=== PATIENT | female | born 1960 | race Caucasian/White ===

== ENCOUNTER → 2017-05-16 15:02 | Outpatient (CLI) | payer MEDICARE, MEDICAID, SELFPAY ==
--- NOTE | 2017-05-16 15:03 | XR_ITS ---
XR DEXA axial skeleton HISTORY: ITS.REASON: Menopausal ORDERING PHYSICIAN: Daniel Felton MD PATIENT AGE: 57 years COMPARISON: None FINDINGS: The BMD measured at the Right femoral neck is 1.166 g/cm squared with a T score of 0.9. This is considered Normal according to the World Health Organization criteria. Fracture risk is low. L1-L4 lumbar spine density has a T score of 3.1 which is normal. IMPRESSION: Normal bone density. Recommend follow-up exam April 2019
--- NOTE | 2017-05-16 15:03 | MM_ITS ---
MM Dig screening mamm BI w/CAD CAD Screening COMPARISON: Analog mammograms 01/28/2008 INDICATION: There is a history of breast cancer in patient's sister diagnosed in her 60s TECHNIQUE: Standard CC and MLO images were obtained. R2 CAD reviewed. FINDINGS: The breasts are composed primarily of fat with very minimal scattered fibroglandular densities in each breast. There is a tiny benign-appearing nodular density left breast. There is no suspicious lesion and no suspicious microcalcifications. IMPRESSION: Fatty type breast parenchyma with no suspicious lesion seen BI-RADS Category: 2 Benign Finding() RECOMMENDED FOLLOW-UP: 1YR - 1 YEAR FOLLOW-UP (A letter has been sent to the patient regarding results of the study.)
== END ==
PROVIDERS: Family Provider Family Medicine; PCP Family Medicine; Visit Provider Obstetrics & Gynecology
DX: N95.1 Menopausal and female climacteric states (principal); Z78.0 Asymptomatic menopausal state; Z13.820 Encounter for screening for osteoporosis; Z12.31 Encounter for screening mammogram for malignant neoplasm of breast
CPT/HCPCS: 77067; 77080

== ENCOUNTER 2017-07-08 16:46 | Emergency (ER) | payer MEDICARE, MEDICAID, SELFPAY ==
[2017-07-08 16:47] VITALS: BP 178/96; PULSE 100; RESP 20; TEMP 36.7; O2SAT 98; BMI 45.8
--- NOTE | 2017-07-08 16:57 | XR_ITS ---
XR elbow RT 2V HISTORY: ITS.REASON: Pain ORDERING PHYSICIAN: Stacie Earl MD PATIENT AGE: 57 years COMPARISON: None FINDINGS no fracture or dislocation. Mild hypertrophic changes are present at both the lateral and medial epicondyles. Mild hypertrophic changes also present at the coronoid process. No lytic or blastic change. The joint spaces well-preserved. No displaced fat pad. IMPRESSION: Mild degenerative hypertrophic changes, no acute finding
--- NOTE | 2017-07-08 17:24 | HMH.EDGENADL ---
ED Disposition Clinical Impression: Bicipital tendinitis Disposition: Home, Self-Care Condition on Discharge: Fair Additional Instructions: 1- continue to use the elbow brae. 2- added mobic. 3- see Dr Ewing. 4- followmup with pcp in AM 5- return if needed Prescriptions: Meloxicam [Mobic 7.5mg Tab] 7.5 mg PO BID #30 tab Referrals: Brien Hough MD [Staff Physician] - - Critical Care Critical Care Time: No Attestation: On , the high probability of a clinically significant, sudden or life threatening deterioration of the following system(s) required my full and direct attention, intervention and personal management. The time I documented below is in addition to time spent performing reported procedures but includes the following listed in this critical care notation. Medical Decision Making - Ander Inquiry Pt receiving controlled substance: No Ander was queried for this patient: No Vital Signs: 07/08/17 16:47 Temperature 98.1 F Temperature Source Oral Pulse Rate [Left Radial] 100 H Respiratory Rate 20 Blood Pressure [Left Arm] 178/96 Blood Pressure Mean [Left Arm] 123 Blood Pressure Source [Left Arm] Automatic Cuff Blood Pressure Position [Left Arm] Sitting 02 Sat by Pulse Oximetry 98 Orders (Tests/Meds): ORDERS Category Date Time Status XR elbow RT 2V Stat Exams 07/08/17 16:57 Taken General Adult HPI - General Chief complaint: PAIN Stated complaint: R elbow pain Time Seen by Provider: 07/08/17 17:00 Mode of Arrival: Ambulatory Limitations: No Limitations Description of Symptoms (Recalled from ER Triage Doc. 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 - History of Present Illness HPI narrative: 57 years old white female who is on disability due to arthritis. Since January 2017 , she has been experiencing right elbow pain for the past 5 months, it is worse with activity better with using an elbow brace. She uses occasionally Tylenol with relief. The pain occasionally radiates down to the wrist. She has no numbness no tingling no weakness no neck pain. - Related Data Home Medications Medication Instructions Recorded Confirmed oxybutynin chloride ER 10 mg 10 mg PO QDAY 04/27/17 tablet,extended release 24 hr diltiazem CD 240 mg PO 30 Days #30 05/21/17 capsule,extended release 24 hr Previous Rx's Medication Instructions Recorded Meloxicam [Mobic 7.5mg Tab] 7.5 mg PO BID #30 tab 07/08/17 Allergies Allergy/AdvReac Type Severity Reaction Status Date / Time No Known Allergies Allergy Verified 06/28/17 14:42 [facility] History I have reviewed the patient's past medical history: Yes 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: Reports:: Gastroesophageal Reflux Disease(GERD), Hypertension Denies:: Diabetes Mellitus Type 1, Diabetes Mellitus Type 2 Laterality Cases: Left: Total Hip Replacement, Bilateral: Carpal Tunnel Release Other Surgeries: Yes: Hysterectomy-Total, Other - Social History Smoking Status: Never smoker Alcohol Intake: former Alcohol Intake Frequency:: holidays/special occasions only Substance Use Type: denies use - Psychiatric History Expresses thoughts of harming self/others: None Suicide Plan Description: No Plan Family Hx:: Non-contributory ROS Obtained: Yes All systems reviewed & no additional complaints Physical Exam - General General appearance: alert, in no apparent distress - Head Head exam: atraumatic, normocephalic, normal inspection - Eye Eye exam: Present: normal appearance, PERRL, EOMI - ENT ENT exam: Present: normal exam, normal oropharynx, mucous membranes moist, TM's normal bilaterally, normal external ear exam - Neck Neck exam: Present: normal inspection, full ROM, trachea midline. Absent: meningismus, lymphadenopathy - Chest Chest inspection: Present: normal inspection, symmetric chest wall rise. Absent: tender
--- NOTE | 2017-07-08 17:28 | ED_ITS ---
ED Disposition Clinical Impression: Bicipital tendinitis Disposition: Home, Self-Care Condition on Discharge: Fair Additional Instructions: 1- continue to use the elbow brae. 2- added mobic. 3- see Dr Ewing. 4- followmup with pcp in AM 5- return if needed Prescriptions: Meloxicam [Mobic 7.5mg Tab] 7.5 mg PO BID #30 tab Referrals: Brien Hough MD [Staff Physician] - - Critical Care Critical Care Time: No Attestation: On , the high probability of a clinically significant, sudden or life threatening deterioration of the following system(s) required my full and direct attention, intervention and personal management. The time I documented below is in addition to time spent performing reported procedures but includes the following listed in this critical care notation. Medical Decision Making - Ander Inquiry Pt receiving controlled substance: No Ander was queried for this patient: No Vital Signs: 07/08/17 16:47 Temperature 98.1 F Temperature Source Oral Pulse Rate [Left Radial] 100 H Respiratory Rate 20 Blood Pressure [Left Arm] 178/96 Blood Pressure Mean [Left Arm] 123 Blood Pressure Source [Left Arm] Automatic Cuff Blood Pressure Position [Left Arm] Sitting 02 Sat by Pulse Oximetry 98 Orders (Tests/Meds): ORDERS Category Date Time Status XR elbow RT 2V Stat Exams 07/08/17 16:57 Taken General Adult HPI - General Chief complaint: PAIN Stated complaint: R elbow pain Time Seen by Provider: 07/08/17 17:00 Mode of Arrival: Ambulatory Limitations: No Limitations Description of Symptoms (Recalled from ER Triage Doc. 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 - History of Present Illness HPI narrative: 57 years old white female who is on disability due to arthritis. Since January 2017 , she has been experiencing right elbow pain for the past 5 months, it is worse with activity better with using an elbow brace. She uses occasionally Tylenol with relief. The pain occasionally radiates down to the wrist. She has no numbness no tingling no weakness no neck pain. - Related Data Home Medications Medication Instructions Recorded Confirmed oxybutynin chloride ER 10 mg 10 mg PO QDAY 04/27/17 tablet,extended release 24 hr diltiazem CD 240 mg PO 30 Days #30 05/21/17 capsule,extended release 24 hr Previous Rx's Medication Instructions Recorded Meloxicam [Mobic 7.5mg Tab] 7.5 mg PO BID #30 tab 07/08/17 Allergies Allergy/AdvReac Type Severity Reaction Status Date / Time No Known Allergies Allergy Verified 06/28/17 14:42 [facility] History I have reviewed the patient's past medical history: Yes 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: Reports:: Gastroesophageal Reflux Disease(GERD), Hypertension Denies:: Diabetes Mellitus Type 1, Diabetes Mellitus Type 2 Laterality Cases: Left: Total Hip Replacement, Bilateral: Carpal Tunnel Release Other Surgeries: Yes: Hysterectomy-Total, Other - Social History Smoking Status: Never smoker Alcohol Intake: former Alcohol Intake Frequency:: holidays/special occasions only Substance Use Type: denies use - Psychiatric History Expresses thoughts of harming self/others
[2017-07-08 18:12] VITALS: BP 182/92; PULSE 87; RESP 18; TEMP 36.9
== END 2017-07-08 18:13 | disposition home or self-care (01) ==
PROVIDERS: Emergency Provider Emergency Medicine; Family Provider Family Medicine; PCP Family Medicine
DX: M75.20 Bicipital tendinitis, unspecified shoulder (principal)
CPT/HCPCS: 73070; 99282

== ENCOUNTER → 2019-03-21 08:48 | Outpatient (CLI) | payer MEDICARE, MEDICAID, SELFPAY ==
--- NOTE | 2019-03-21 08:51 | CA_ITS ---
APPROVED REPORT EXAM: Comprehensive 2D, Doppler, and color-flow Echocardiogram Experimental Worker: Sirisha Lyons CRT Ht: 5 ft 9 in Wt: 344lbs BSA: 2.60 BP: 131/81 mmHg Indications: cp, dm, sob, palp, obesity, cp, gerd 2D Dimensions LVOT 1.68 cm (M/F) 1.5-2.5 M-Mode Dimensions RVDd 1.88 cm (0.9-2.6) LVDd 4.81 cm (3.5-5.7) LVDs 2.12 cm (3.5-5.7) IVSd 1.82 cm (0.6-1.1) PWd 1.14 cm (0.6-1.1) EF (Teich) 86.30% FS 55.90% EDV (Teich) 108.00 mL ESV (Teich) 14.80 mL LV Diastology E/A Ratio 1.20 Mitral Valve MV A Velocity 92.00 (40-130 cm/s) Left Ventricle Left atrium is normal size, left ventricle is normal size, there is no concentric left ventricular hypertrophy, visually estimated ejection fraction 55% with no regional wall motion abnormality, endocardial surfaces are very poorly visualized, repeat a study with Definity contrast is recommended. Diastolic parameters are inconclusive. Right Ventricle Right atrium and right ventricular normal size and contractility. Aortic Valve Aortic valve is minimally thickened and fibrosed. There is no aortic stenosis aortic insufficiency. Mitral Valve Mitral valve is grossly normal, there is mild mitral regurgitation. Tricuspid Valve Tricuspid valve is grossly normal, there is mild tricuspid regurgitation. Pulmonic Valve Pulmonic valve is poorly visualized. Great Vessels Aortic root is normal size. Pericardium No significant pericardial effusion noted. Conclusion 1. Normal left ventricular size, preserved left ventricular systolic function, visually estimated ejection fraction 55% with no regional wall motion abnormality, diastolic parameters are inconclusive. Endocardial surfaces are poorly visualized, repeat study with Definity contrast is recommended. 2. Mild mitral and tricuspid regurgitation. 3. No significant pericardial effusion noted. Electronically signed by : Tyrese Dean, 03/21/2019 14:19:12
== END ==
PROVIDERS: PCP Family Medicine; Visit Provider Family Medicine
DX: R06.09 Other forms of dyspnea (principal)
CPT/HCPCS: 93306

== ENCOUNTER 2019-09-19 17:55 | Emergency (ER) | payer MEDICARE, MEDICAID, SELFPAY ==
[2019-09-19 18:12] VITALS: BP 143/82; PULSE 89; RESP 20; TEMP 37.1; O2SAT 96; BMI 51.2
--- NOTE | 2019-09-19 18:19 | HMH.EDUTC ---
[facility] [place] Clinical Impression: Sinusitis nasal Qualifiers: Sinusitis location: unspecified location Chronicity: acute Recurrence: non-recurrent Qualified Code(s): J01.90 - Acute sinusitis, unspecified Otitis media Qualifiers: Otitis media type: suppurative Chronicity: acute Laterality: bilateral Recurrence: non-recurrent Spontaneous tympanic membrane rupture: without spontaneous rupture Qualified Code(s): H66.003 - Acute suppurative otitis media without spontaneous rupture of ear drum, bilateral Disposition: Home, Self-Care Condition on Discharge: Good Instructions: Sinusitis, DI for Sinusitis Additional Instructions: Drink plenty of fluids. Take tylenol or ibuprofen for pain or fever. Take the medications as directed. Follow up with your regular doctor. GO TO THE ER FOR ANY WORSENING SYMPTOMS Prescriptions: predniSONE [Deltasone 10mg tablet] 10 mg PO BID 4 Days #8 tab Transmission Status: Received by [id number] Azithromycin [Z-Mckinley 250mg Tab*] 250 mg PO UD DOSE PK #6 tab Transmission Status: [id number] Referrals: Deep Chavez MD [Primary Care Provider] - Time of Disposition: 18:32 Medical Decision Making - Medical Records Medical records reviewed: No: I reviewed the patient's medical records. - Ander Inquiry Pt receiving controlled substance: No Vital Signs: 09/19/19 18:12 09/19/19 18:32 Temperature 98.7 F 98.7 F Temperature Source Oral Pulse Rate 89 Pulse Rate [Left Brachial] 89 Respiratory Rate 20 20 Blood Pressure 143/82 H Blood Pressure [Left Arm] 143/82 H Blood Pressure Mean [Left Arm] 102 Blood Pressure Source [Left Arm] Automatic Cuff Blood Pressure Position [Left Arm] Sitting 02 Sat by Pulse Oximetry 96 Oxygen Delivery Method Room Air [facility] [place]PI - General Stated complaint: Pain inside upper nose Time Seen by Provider: 09/19/19 18:19 Mode of Arrival: Ambulatory Source of Information: Patient Limitations: No Limitations Description of Symptoms (Recalled from Triage Doc. by RN): PATIENT STATES SHE HAS BEEN HAVING TENDERNESS IN THE UPPER PART OF HER NASAL CAVITY X 1 MONTH. APPROX 4 DAYS AGO SHE STARTED NOTICING TEETH SENSITIVITY AND BAD BREATH WELL. DENIES FEVER OR ANY OTHER SYMPTOMS HEENT Symptoms (Recalled from RN notes): Yes Resp Symptoms (Recalled from RN notes): No Skin Symptoms (Recalled from RN notes): No MS Symptoms (Recalled from RN notes): No Functional Status (Recalled from RN notes): WNL - History of Present Illness Provider Complaint: She states that for the past 2 weeks or so she has had pressure and congestion in her nasal passages. She is now having moderate to severe sinus pressure of her upper nose, kind of between her eyes. She is also having bilateral ear pain and pressure. She denies any cough or or fever. - Related Data Home Medications Medication Instructions Recorded Confirmed oxybutynin chloride 10 mg 10 mg PO QDAY 04/27/17 06/08/19 tablet,extended release 24 hr omeprazole 40 mg capsule,delayed 40 mg PO ONCE 07/26/17 06/08/19 release Atorvastatin Calcium [Atorvastatin 20 mg PO HS 07/19/18 06/08/19 20mg Tab] Linaclotide [Linzess] 72 mg PO DAILY 07/19/18 06/08/19 rivaroxaban 2.5 mg tablet 2.5 mg PO BID 06/08/19 06/08/19 Previous Rx's Medication Instructions Recorded predniSONE [Deltasone 10mg tablet] 10 mg PO BID 3 Days #6 tab 12/29/18 Azithromycin [Z-Mckinley 250mg Tab*] 250 mg PO UD DOSE PK #6 tab 09/19/19 predniSONE [Deltasone 10mg tablet] 10 mg PO BID 4 Days #8 tab 09/19/19 Allergies Allergy/AdvReac Type Severity Reaction Status Date / Time No Known Allergies Allergy Verified 06/08/19 11:04 - Worker's Comp Is this a Worker's Comp case?: No [facility] History - Hepatitis A Screen Drug use history?: No High risk sexual behaviors?: No History of sexually transmitted infection?: No Currently employed?: No Childcare worker?: No Do you have indoor plumbing?: Yes
[2019-09-19 18:32] VITALS: BP 143/82; PULSE 89; RESP 20; TEMP 37.1; O2SAT 96
== END 2019-09-19 18:35 | disposition home or self-care (01) ==
PROVIDERS: Emergency Provider Nurse Practitioner Family; PCP Family Medicine
DX: J01.90 Acute sinusitis, unspecified (principal); H66.003 Acute suppurative otitis media without spontaneous rupture of ear drum, bilateral; K21.9 Gastro-esophageal reflux disease without esophagitis; E78.5 Hyperlipidemia, unspecified; I10 Essential (primary) hypertension; Z96.642 Presence of left artificial hip joint; Z90.49 Acquired absence of other specified parts of digestive tract; Z90.79 Acquired absence of other genital organ(s)
CPT/HCPCS: G0463; 99201

== ENCOUNTER → 2019-12-18 09:51 | Outpatient (POV) | payer MEDICARE, MEDICAID, SELFPAY ==
[2019-12-18 10:46] VITALS: BP 151/88; PULSE 101; RESP 18; TEMP 36.8; O2SAT 94; BMI 50.1
--- NOTE | 2019-12-18 11:21 | HMH.PMCON ---
Assessment and Plan (1) Low back pain Current visit: Yes Status: Chronic Category: Medical Code(s): M54.5 - Low back pain (2) Lumbar radiculopathy Current visit: Yes Status: Chronic Category: Medical Code(s): M54.16 - Radiculopathy, lumbar region (3) Neck pain Current visit: Yes Status: Chronic Category: Medical Code(s): M54.2 - Cervicalgia (4) Bilateral hip pain Current visit: Yes Status: Chronic Category: Medical Code(s): M25.551 - Pain in right hip; M25.552 - Pain in left hip - Assessment and plan all Dx Assessment and Plan for all problems:: Patient does not have any recent imaging. We will schedule her for an open MRI. We will see her back in the clinic after her MRI to discuss a further plan of care. She is not interested in oral medications. Patient has been instructed to contact clinic if she has any concerns before her next appointment. The patient and I specifically discussed risk factors for COVID19. These risks include, but are not limited to age greater than 60, heart or lung disease, diabetes, immunosuppression, and travel. We also discussed NSAIDs may worsen COVID19 infection or symptoms. Patient should not use NSAIDs to treat COVID19 signs or symptoms. Patient was also informed that any type of corticosteroid of any form (oral or injection) will decrease the patient's immune system response and may increase the likelihood of COVID19 infection and symptoms[address] Dr. Garza has reviewed this note and agrees with this plan of care. This note was dictated using voice recognition software and make contain errors or omissions. HPI - Data of Consult Patient: new to practice Consult date: 12/18/19 Requesting Physician: Jasmin Johnson APRN Primary Care Provider: Elsy Curiel - Consult Narrative Reason for consult: Low back pain, intermittent neck pain History of present illness: Ms. Pop is a 59 year old female presents today for consultation for neck pain. During assessment, however, the patient says her low back is worse than her neck pain. Patient says that she has chronic low back pain that is been ongoing for greater than 2 years. She says her pain started to occur shortly after developing clots in bilateral lungs. She is prescribed Xarelto per Dr. Chavez office. She says that she also had a back surgery in 1996 but is unsure what the surgery was. Patient reports her pain to be worse with walking standing and doing dishes. She says she has intermittent neck pain, however, her pain is worse in her low back. She also has pain in bilateral hips. She is unable to take anti-inflammatories due to her anticoagulation therapy. She has had physical therapy for greater than 6 weeks with no relief. Patient has not had any imaging because she is unable to tolerate a closed MRI. She was not aware that she could do an open MRI. She is also tried muscle relaxers with no relief. Patient says oral medications do not help her. She is interested in injective therapy. CC: Jasmin Johnson APRN [facility] History I have reviewed the patient's past medical history: Yes 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: Reports:: Diabetes Mellitus Type 1, Diabetes Mellitus Type 2, Gastroesophageal Reflux Disease(GERD), Hyperlipidemia, Hypertension, Pulmonary Embolism *Have you ever received a pneumonia vaccine?: No *Have you received a flu vaccine this season?: No Other 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: Reports: Other Laterality Cases: Left: Total Hip Replacement, Bilateral: Carpal Tunnel Release Other Surgeries: Yes: Cardiac Catheterization, Cholecystectomy, Colonoscopy, Hysterectomy-Total, Tubal Ligation, Other - *Social History Last grade of school completed: High school graduate Smoking Status: Never smoker Alcohol Intake: never Alcohol Intake Frequency:: holidays/special occasions only Substance Use Type: denies use *Occupational Status:: unemployed Housing: house Household Members: none *Travel in the last 8 weeks: None Family Hx:: U
== END ==
PROVIDERS: PCP Nurse Practitioner; Visit Provider Clinical Nurse Specialist Family Health
DX: M54.5 Low back pain (principal); M54.16 Radiculopathy, lumbar region; M54.2 Cervicalgia; M25.551 Pain in right hip; M25.552 Pain in left hip
CPT/HCPCS: 99202

== ENCOUNTER → 2020-02-02 15:30 | Outpatient (CLI) | payer MEDICARE, MEDICAID, SELFPAY ==
--- NOTE | 2020-02-02 15:34 | XR_ITS ---
PROCEDURE: XR CHEST 2V CLINICAL HISTORY: SOB,HX OF PULMONARY EMBOLUS COMPARISON: CR CXR CHEST(2 VIEWS-NOT PORTABLE) from 02/12/2014 CR CXR CHEST(2 VIEWS-NOT PORTABLE) from 01/12/2015 CR Chest from 09/19/[address] angio chest from 09/19/2018 FINDINGS: The cardiomediastinal silhouette and pulmonary vascularity are within normal limits. The lungs are clear without infiltrates, suspicious nodules, or pleural effusions. There is a calcified left hilar nodes and calcified granuloma left perihilar region. There has been previous anterior cervical fusion. There is mild degenerate changes of the AC joints of both shoulders. There are mild stable degenerate changes midthoracic spine. No acute bony abnormalities. IMPRESSION: No acute findings. Dictated by: Dr. Jaret Mejias MD 02/02/2020 15:50 Dr. Jaret Mejias MD in [place] 02/02/2020 15:50
== END ==
PROVIDERS: PCP Family Medicine; Visit Provider Nurse Practitioner Family
DX: R06.02 Shortness of breath (principal); Z86.711 Personal history of pulmonary embolism
CPT/HCPCS: 71046

== ENCOUNTER → 2020-04-06 15:00 | Outpatient (CLI) | payer MEDICARE, MEDICAID, SELFPAY ==
--- NOTE | 2020-04-06 | XR_ITS ---
PROCEDURE: XR FOOT RT MIN 3V CLINICAL INDICATION: PAIN IN RT FOOT COMPARISON: No exams were available for comparison FINDINGS: No fracture or dislocation. No lytic or blastic change. There is normal mineralization. Mild osteoarthritis of the talonavicular joint and navicular cuneiform joint. There is a small calcaneal spur and there are degenerative changes at the ankle joint. Other findings:None. IMPRESSION: Degenerative changes, no acute finding Dictated by: Dariel Burden MD 04/06/2020 15:42 Dariel Burden MD in [facility] 04/06/2020 15:42
--- NOTE | 2020-04-06 | XR_ITS ---
PROCEDURE: XR FOOT LT MIN 3V CLINICAL INDICATION: LT FOOT PAIN COMPARISON: No exams were available for comparison FINDINGS: No fracture or dislocation. No lytic or blastic change. There is normal mineralization. There are mild osteoarthritic changes of the talonavicular joint and navicular cuneiform joint. There is a small calcaneal spur. Other findings:None. IMPRESSION: Degenerative changes as described above Dictated by: Dariel Burden MD 04/06/2020 15:41 Dariel Burden MD in [facility] 04/06/2020 15:41
== END ==
PROVIDERS: PCP Family Medicine; Visit Provider Nurse Practitioner Family
DX: M79.672 Pain in left foot (principal); M79.671 Pain in right foot
CPT/HCPCS: 73630

== ENCOUNTER → 2020-04-23 13:00 | Outpatient (CLI) | payer MEDICARE, MEDICAID, SELFPAY ==
--- NOTE | 2020-04-23 13:10 | US_ITS ---
APPROVED REPORT Exam Type: Lower Extremity Segmental Pressures Plant Operator/Shift Supervisor: Josie Fernandez RVT Indications Claudication: Bilaterally Rest Pain: Bilaterally Risk Factors Hypertension Hyperlipidemia Pressures/Indices Right Indices Left Indices Brachial 164.00 mmHg Brachial 185.00 mmHg Low Thigh 210.00 mmHg 1.14 Low Thigh 202.00 mmHg 1.09 Calf 206.00 mmHg 1.11 Calf 210.00 mmHg 1.14 Ankle(PT) 151.00 mmHg 0.82 Ankle(PT) 165.00 mmHg 0.89 Ankle(DP) 171.00 mmHg 0.92 Ankle(DP) 168.00 mmHg 0.91 Digit 139.00 mmHg 0.75 Digit 121.00 mmHg 0.65 Findings RT TU:0.82 LT TU:0.89 RT TBI:0.92 LT TBI:0.65 NORMAL PULSES BILATERAL NORMAL WAVEFORMS BILATERAL Conclusion RT TU:0.82 LT TU:0.89 RT TBI:0.92 LT TBI:0.65 NORMAL PULSES BILATERAL NORMAL WAVEFORMS BILATERAL Mild bilateral arterial disease Electronically signed by : Dariel Burden MD 04/26/2020 15:19:31
== END ==
PROVIDERS: PCP Family Medicine; Visit Provider Podiatrist
DX: R09.89 Other specified symptoms and signs involving the circulatory and respiratory systems (principal); R20.9 Unspecified disturbances of skin sensation
CPT/HCPCS: 93923

== ENCOUNTER 2020-10-01 15:46 | Emergency (ER) | payer MEDICARE, MEDICAID, SELFPAY ==
[2020-10-01 15:50] VITALS: BP 157/83; PULSE 100; RESP 20; TEMP 36.8; O2SAT 96; BMI 47.5
--- NOTE | 2020-10-01 16:21 | HMH.EDUTC ---
[facility] [place] Clinical Impression: Gastroenteritis Abdominal pain Qualifiers: Abdominal location: generalized Qualified Code(s): R10.84 - Generalized abdominal pain Disposition: Home, Self-Care Condition on Discharge: Good Instructions: Viral Gastroenteritis, DI for Viral Gastroenteritis -- Adult, DI for Abdominal Pain-Adult Additional Instructions: Drink plenty of fluids. Take tylenol or ibuprofen for pain or fever. Take the medications as directed. Follow up with your regular doctor. GO TO THE ER FOR ANY WORSENING SYMPTOMS Go to the er for any worsening symptoms. Prescriptions: Ondansetron [Zofran 4mg ODT] 4 mg PO Q8HP PRN #20 tab.rapdis PRN Reason: Nausea Transmission Status: Received by [id number] Referrals: Deep Chavez MD [Primary Care Provider] - Time of Disposition: 17:25 Medical Decision Making - Medical Records Medical records reviewed: No: I reviewed the patient's medical records. - Ander Inquiry Pt receiving controlled substance: No Vital Signs: 10/01/20 15:50 10/01/20 17:30 Temperature 98.2 F 98.2 F Temperature Source Oral Pulse Rate 100 H Pulse Rate [Right Brachial] 100 H Respiratory Rate 20 20 Blood Pressure 157/83 H Blood Pressure [Right Arm] 157/83 H Blood Pressure Mean [Right Arm] 107 Blood Pressure Source [Right Arm] Automatic Cuff Blood Pressure Position [Right Arm] Sitting 02 Sat by Pulse Oximetry 96 Oxygen Delivery Method Room Air - Lab Data Lab results reviewed: Yes: I reviewed the patient's lab results. Lab Results 10/01/20 16:45: WBC 8.7, RBC 4.94, Hgb 13.2, Hct 40.5, MCV 82.0, MCH 26.7 L, MCHC 32.6, RDW 15.3, Plt Count 280, MPV 8.6, Neut % (Auto) 67.9, Lymph % (Auto) 23.0, [place] % (Auto) 4.4, Eos % (Auto) 4.2, Baso % (Auto) 0.5, Neut # (Auto) 5.9, Lymph # (Auto) 2.0, [place] # (Auto) 0.4, Eos # (Auto) 0.4, Baso # (Auto) 0.0 10/01/20 16:45: Sodium 142, Potassium 3.9, Chloride 102, Carbon Dioxide 29, Anion Gap 14.9, BUN 19 H, Creatinine 1.10 H, Estimated Creat Clear 58, Estimated GFR 51 L, Est GFR ( Amer) 62, Glucose 118 H, Calcium 9.2, Total Bilirubin 0.7, AST 27, ALT 20, Alkaline Phosphatase 146 H, Total Protein 7.8, Albumin 4.4, Globulin 3.4 H, Albumin/Globulin Ratio 1.3, Amylase 41, Lipase 87 Result diagrams: 10/01/20 16:45 10/01/20 16:45 [facility] [place] - General Stated complaint: abdominal pain Time Seen by Provider: 10/01/20 16:26 - History of Present Illness Provider Complaint: She states that she has had upper abdominal pain for the past 2 days. She has had diarrhea and nausea also. She denies any fever/chills. - Related Data Home Medications Medication Instructions Recorded Confirmed oxybutynin chloride 10 mg 10 mg PO QDAY 04/27/17 07/19/20 tablet,extended release 24 hr omeprazole 40 mg capsule,delayed 40 mg PO ONCE 07/26/17 07/19/20 release Atorvastatin Calcium [Atorvastatin 20 mg PO HS 07/19/18 07/19/20 20mg Tab] hydrochlorothiazide 25 mg tablet 25 mg PO DAILY tab 12/15/19 07/19/20 losartan 100 mg tablet 100 mg PO DAILY tab 12/15/19 07/19/20 xzzuunjm-nebsrne-mpwg-lutein tablet mcg PO DAILY tab 12/15/19 07/19/20 rivaroxaban 20 mg tablet 20 mg PO DAILY tab 12/15/19 07/19/20 umeclidinium 62.5 mcg-vilanterol 1 inh INHALATION DAILY 12/15/19 07/19/20 25 mcg/actuation powdr for inhalation Previous Rx's Medication Instructions Recorded Ondansetron [Zofran 4mg ODT] 4 mg PO Q8HP PRN #20 tab.rapdis 10/01/20 Allergies Allergy/AdvReac Type Severity Reaction Status Date / Time No Known Allergies Allergy Verified 07/19/20 13:12 [facility] History - Hepatitis A Screen Attestation statement:: This patient has been screened for Hepatitis A risk factors. I have reviewed the patient's past medical history: Yes 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: Reports:: Gastroesophageal Reflux Disease(GERD), Hyperlipidemia, Hypertension, Pulmonary Embolism Denies:: Diabetes Mellitus Type 1, Diabetes M
[2020-10-01 16:55] LABS: Basophils % 0.5 % (0.1-2.0); Eosinophils # 0.4 K/mm3 (0.0-0.4); Eosinophils % 4.2 % (0.1-12.0); Hematocrit 40.5 % (37.0-47.0); Hemoglobin 13.2 g/dL (12.2-16.2); Mean Corpuscular HGB Conc 32.6 g/dL (31.8-35.4); Mean Corpuscular Hemoglobin 26.7 pg (27.0-31.2); Mean Platelet Volume 8.6 fl (7.4-10.4); Monocytes # 0.4 K/mm3 (0.1-1.0); Monocytes % 4.4 % (1.7-9.3); Neutrophils # 5.9 K/mm3 (1.8-7.8); Neutrophils % 67.9 % (37.0-80.0); Platelet Count 280 K/mm3 (142-424); Red Blood Count 4.94 M/mm3 (4.20-5.40); Red Cell Distribution Width 15.3 % (11.5-17.5); White Blood Count 8.7 K/mm3 (4.8-10.8)
[2020-10-01 17:07] LABS: Chloride 102 mmol/L (98-107); Potassium 3.9 mmoL/L (3.5-5.1); Sodium 142 mmol/L (136-145)
[2020-10-01 17:10] LABS: Alanine Aminotransferase 20 U/L (12-78); Alkaline Phosphatase 146 U/L (38-126); Amylase 41 U/L (30-110); Anion Gap 14.9 mEq/L (5-15); Aspartate Amino Transferase 27 U/L (14-36); Bilirubin,Total 0.7 mg/dl (0.2-1.3); Blood Urea Nitrogen 19 mg/dl (7-17); Calcium 9.2 mg/dl (8.4-10.2); Carbon Dioxide 29 mmol/L (22.0-30.0); Creatinine Clearance Estimated 58 mL/min (50-200); Estimated Glomerular Filt Rate 51 ml/min (>60); GFR (African American) 62 ML/MIN (>60); Glucose 118 mg/dl (74-100)
[2020-10-01 17:11] LABS: Albumin Level 4.4 g/dl (3.5-5.0); Albumin/Globulin Ratio 1.3 (1.1-1.8); Globulin 3.4 g/dL (1.3-3.2); Lipase 87 U/L (23-300); Total Protein,Serum 7.8 g/dl (6.3-8.2)
[2020-10-01 17:30] VITALS: BP 157/83; PULSE 100; RESP 20; TEMP 36.8; O2SAT 96
== END 2020-10-01 17:35 | disposition home or self-care (01) ==
LOC: UTC 16:35
PROVIDERS: Emergency Provider Nurse Practitioner Family; PCP Family Medicine
DX: K52.9 Noninfective gastroenteritis and colitis, unspecified (principal); I10 Essential (primary) hypertension; E78.5 Hyperlipidemia, unspecified; K21.9 Gastro-esophageal reflux disease without esophagitis; Z96.642 Presence of left artificial hip joint; Z79.899 Other long term (current) drug therapy
CPT/HCPCS: G0463; 80053; 82150; 83690; 85025; 99202

== ENCOUNTER 2020-12-23 20:20 | Observation (INO) | payer MEDICARE, MEDICAID, SELFPAY ==
[2020-12-23 21:33] VITALS: BMI 49.6
--- NOTE | 2020-12-23 21:38 | XR_ITS ---
PROCEDURE INFORMATION: Exam: XR Chest Exam date and time: 12/23/2020 9:38 PM Age: 60 years old Clinical indication: Shortness of breath and other: Nausea, vomiting; Patient HX: Nausea and vomiting; Additional info: SOA TECHNIQUE: Imaging protocol: XR of the chest. Views: 2 views. COMPARISON: CR XR CHEST 2V 02/02/2020 3:36 PM FINDINGS: Lungs: There is an area of increased density noted within the left lower lobe, with indistinctness of portions of the left hemidiaphragm and left lateral costophrenic angle, compatible with an area of consolidation in this location. Right lung field is clear. Pleural spaces: The possibility of a small effusion or atelectasis along the left lung base is considered. Heart/Mediastinum: Borderline cardiomegaly. No evidence of pulmonary vascular congestion. The superior mediastinum is not widened. Bones/joints: Changes of low cervical fusion identified. There are degenerative changes noted within the thoracic spine IMPRESSION: 1. There is an area of infiltration identified within the left lower lobe. 2. Blunting of the left lateral costophrenic angle with suggests the presence of a small parapneumonic effusion or atelectasis in this location. 3. Borderline cardiomegaly without evidence of pulmonary vascular congestion. 4. Changes of low cervical fusion identified.
[2020-12-23 21:39] VITALS: BP 152/85; PULSE 120; RESP 19; TEMP 37.3; O2SAT 92; BMI 49.6
--- NOTE | 2020-12-23 22:03 | HMH.EDNVD ---
ED Disposition Clinical Impression: SIRS (systemic inflammatory response syndrome) CAP (community acquired pneumonia) Qualifiers: Laterality: left Lung location: lower lobe of lung Qualified Code(s): J18.9 - Pneumonia, unspecified organism Obesity Qualifiers: Obesity type: due to excess calories Obesity classification: adult class 3 (BMI >= 40) Serious obesity comorbidity presence: with serious comorbidity Body mass index: BMI 45.0-49.9 Qualified Code(s): E66.01 - Morbid (severe) obesity due to excess calories; Z68.42 - Body mass index [BMI] 45.0-49.9, adult Disposition: Admitted as Observation Condition on Discharge: Good Instructions: DI for Diarrhea and Traveler's Diarrhea -- Adult, DI for Diarrhea and Traveler's Diarrhea -- Child, DI for Nausea -- Adult, DI for Nausea -- Child Referrals: Deep Chavez MD [Primary Care Provider] - - Critical Care Critical Care Time: No Attestation: On 12/23/20, the high probability of a clinically significant, sudden or life threatening deterioration of the following system(s) required my full and direct attention, intervention and personal management. The time I documented below is in addition to time spent performing reported procedures but includes the following listed in this critical care notation. Medical Decision Making - Medical Records Medical records reviewed: Yes: I reviewed the patient's medical records. - Ander Inquiry Pt receiving controlled substance: No Vital Signs: 12/23/20 21:39 12/23/20 23:05 12/23/20 23:31 Temperature 99.1 F Temperature Source Oral Pulse Rate 106 H 106 H Pulse Rate [Right] 120 H Respiratory Rate 19 Blood Pressure 150/60 H 142/70 H Blood Pressure [Right Arm] 152/85 H Blood Pressure Mean [Right Arm] 107 Blood Pressure Source [Right Arm] Automatic Cuff 02 Sat by Pulse Oximetry 92 L 92 L 92 L Oxygen Delivery Method Room Air - Lab Data Lab results reviewed: Yes: I reviewed the patient's lab results. Lab Results 12/23/20 21:20: SARS-CoV-2 (PCR) Not detected, Influenza A Untype (PCR) Not detected, Influenza Type B (PCR) Not detected 12/23/20 22:00: WBC 26.5 H*, RBC 4.90, Hgb 13.2, Hct 42.0, MCV 85.7, MCH 27.0, MCHC 31.5 L, RDW 14.6, Plt Count 282, MPV 9.0, Neut % (Auto) 92.4 H, Lymph % (Auto) 3.9 L, [place] % (Auto) 3.1, Eos % (Auto) 0.3, Baso % (Auto) 0.3, Neut # (Auto) 24.5 H, Lymph # (Auto) 1.0, [place] # (Auto) 0.8, Eos # (Auto) 0.1, Baso # (Auto) 0.1, Total Counted 100, Neutrophils % (Manual) 92 H, Lymphocytes % (Manual) 7 L, Monocytes % (Manual) 1 L, Platelet Estimate Normal, Hypochromasia 1+ 12/23/20 22:00: Sodium 135 L, Potassium 4.2, Chloride 100, Carbon Dioxide 25, Anion Gap 14.2, BUN 16, Creatinine 1.00, Estimated Creat Clear 64, Estimated GFR 57 L, Est GFR ( Amer) 69, Glucose 143 H, Calcium 9.0, Magnesium 1.6, Total Bilirubin 1.1, AST 27, ALT 19, Alkaline Phosphatase 147 H, Troponin I 0.04 H, C-Reactive Protein 173.2 H, NT-Pro-B Natriuret Pep 270 H, Total Protein 7.6, Albumin 3.9, Globulin 3.7 H, Albumin/Globulin Ratio 1.1 12/23/20 22:00: ESR 54 H 12/23/20 22:00: Lactate 1.2 12/23/20 22:00: Procalcitonin 1.87 12/23/20 22:30: Urine Color Yellow, Urine Appearance Sl cloudy, Urine pH 6.0, Ur Specific [place] 1.025, Urine Protein 1+, Urine Glucose (UA) Negative, Urine Ketones Trace, Urine Blood Trace-i, Urine Nitrate Negative, Urine Bilirubin 1+ A, Urine Urobilinogen 1.0, Ur Leukocyte Esterase Negative, Urine RBC Occasional, Urine WBC Occasional, Ur Squamous Epith Cells Occasional, Urine Bacteria Trace 12/24/20 00:47: Troponin I 0.04 H Result diagrams: 12/23/20 22:00 12/23/20 22:00 Orders (Tests/Meds): ED MEDICATIONS Generic Name Dose Route Start Last Admin Trade Name Freq PRN Reason Stop Dose Admin Sodium Chloride 1,000 mls @ 999 mls/hr 12/23/20 22:15 12/23/20 22:10 Sod Chlor 0.9% 1000ml Bag IV 12/23/20 23:15 999 mls/hr .Q1H1M STACEY Administration Azithromycin 500 mg/ Sodium 250 mls @ 250 mls/
[2020-12-23 22:41] LABS: Coronavirus 19, PCR Not Detected (NotDetected); Influenza A, PCR Not Detected (NotDetected); Influenza B, PCR Not Detected (NotDetected)
[2020-12-23 22:42] LABS: Chloride 100 mmol/L (98-107)
[2020-12-23 22:43] LABS: Potassium 4.2 mmoL/L (3.5-5.1); Sodium 135 mmol/L (136-145)
[2020-12-23 22:45] LABS: Alanine Aminotransferase 19 U/L (12-78); Alkaline Phosphatase 147 U/L (38-126); Anion Gap 14.2 mEq/L (5-15); Aspartate Amino Transferase 27 U/L (14-36); Basophils # 0.1 K/mm3 (0-0.2); Basophils % 0.3 % (0.1-2.0); Bilirubin,Total 1.1 mg/dl (0.2-1.3); Blood Urea Nitrogen 16 mg/dl (7-17); Carbon Dioxide 25 mmol/L (22.0-30.0); Creatinine Clearance Estimated 64 mL/min (50-200); Eosinophils # 0.1 K/mm3 (0.0-0.4); Eosinophils % 0.3 % (0.1-12.0); Estimated Glomerular Filt Rate 57 ml/min (>60); GFR (African American) 69 ML/MIN (>60); Hemoglobin 13.2 g/dL (12.2-16.2); Lymphocytes % 3.9 % (10-50); Mean Corpuscular HGB Conc 31.5 g/dL (31.8-35.4); Mean Corpuscular Volume 85.7 fl (81-99); Monocytes # 0.8 K/mm3 (0.1-1.0); Monocytes % 3.1 % (1.7-9.3); Neutrophils # 24.5 K/mm3 (1.8-7.8); Neutrophils % 92.4 % (37.0-80.0); Platelet Count 282 K/mm3 (142-424); Red Cell Distribution Width 14.6 % (11.5-17.5); White Blood Count 26.5 K/mm3 (4.8-10.8)
[2020-12-23 22:46] LABS: Albumin Level 3.9 g/dl (3.5-5.0); Albumin/Globulin Ratio 1.1 (1.1-1.8); Globulin 3.7 g/dL (1.3-3.2); Glucose 143 mg/dl (74-100); Lactic Acid 1.2 mmol/L (0.7-2.1); Magnesium 1.6 mg/dl (1.6-2.3); Total Protein,Serum 7.6 g/dl (6.3-8.2)
[2020-12-23 22:51] LABS: C-Reactive Protein 173.2 mg/L (0-4)
[2020-12-23 22:53] LABS: MANUAL DIFFERENTIAL MANUAL DIFFERENTIAL (MANUAL DIFF)
[2020-12-23 22:57] LABS: NT Pro Brain Natriuretic Pep. 270 pg/mL (0-125)
[2020-12-23 23:00] LABS: Troponin I 0.04 ng/ml (0.00-0.034)
[2020-12-23 23:05] VITALS: BP 150/60; PULSE 106; O2SAT 92
[2020-12-23 23:14] LABS: Erythrocyte Sedimentation Rate 54 mm/hr (0-30)
--- NOTE | 2020-12-23 23:21 | CT_ITS ---
PROCEDURE INFORMATION: Exam: CT Abdomen And Pelvis With Contrast Exam date and time: 12/23/2020 11:21 PM Age: 60 years old Clinical indication: Nausea and vomiting; Abdominal pain; Generalized; Prior surgery; Surgery type: Gallbladder, hysterectomy; Additional info: N/v/d TECHNIQUE: Imaging protocol: Computed tomography of the abdomen and pelvis with contrast. Radiation optimization: All CT scans at this facility use at least one of these dose optimization techniques: automated exposure control; mA and/or kV adjustment per patient size (includes targeted exams where dose is matched to clinical indication); or iterative reconstruction. Contrast material: ISOVUE; Contrast volume: 75 ml; Contrast route: IV; COMPARISON: ABDPELW/O CT ABD PELVIS W/O CONTRAST 05/02/2016 7:52 PM FINDINGS: Lungs: There is an area of consolidation present within the left lower lobe which corresponds to finding seen on recent two-view chest examination this date. There is a calcified granuloma identified within the right middle lobe, series number 3, image 15. Calcified lymph nodes are identified within the right hilus. Liver: The liver is normal in size and attenuation. No intrahepatic biliary dilitation. Gallbladder and bile ducts: Surgically absent. No evidence of extrahepatic biliary dilatation. Pancreas: Normal. No ductal dilation. Spleen: Normal. No splenomegaly. Granulomatous calcifications noted. Adrenal glands: Normal. No mass. Kidneys and ureters: Normal. No hydronephrosis. There is a 1-2 mm nonobstructing nephrolith identified within the interpolar region of the left kidney. Stomach and bowel: Unremarkable. No obstruction. No mucosal thickening. Small bowel mesentery is normal. Appendix: Unremarkable. Intraperitoneal space: Unremarkable. No free air. No significant fluid collection. Vasculature: Unremarkable. No abdominal aortic aneurysm. Minimal atheromatous calcification of the abdominal aorta and iliac arteries. Lymph nodes: Unremarkable. No enlarged lymph nodes. Urinary bladder: Unremarkable as visualized. Reproductive: Hysterectomy has been performed. Bones/joints: Unremarkable. No acute fracture. Degenerative changes of the lumbar spine. Left total hip arthroplasty has been performed. Soft tissues: Unremarkable. IMPRESSION: 1. There is consolidation present within the left lower lobe, compatible with left lower lobe pneumonia. 2. 1-2 mm nonobstructing nephrolith within the interpolar region of left kidney. 3. Degenerative changes of the lumbar spine. Left total hip arthroplasty has been performed. 4. Cholecystectomy and hysterectomy has been performed.
[2020-12-23 23:26] LABS: Procalcitonin 1.87 ng/mL (0.0-2.0)
[2020-12-23 23:31] VITALS: BP 142/70; PULSE 106; O2SAT 92
[2020-12-23 23:35] LABS: Microscopic, Urine URINE MICROSCOPIC (MICROSCOPIC)
[2020-12-23 23:45] LABS: Appearance,Urine SL CLOUDY (Clear); Blood, Urine TRACE-I (Negative); Color,Urine YELLOW (Yellow); Glucose,Urine (UA) Negative (Negative); Ketones,Urine TRACE (Negative); Leukocyte Esterase,Urine Negative (Negative); Nitrate,Urine Negative (Negative); Protein,Urine 1+ (Negative); Specific Gravity, Urine 1.025 (1.005-1.030)
[2020-12-23 23:50] LABS: Bilirubin,Urine 1+ (Negative)
[2020-12-23 23:51] LABS: Bacteria,Urine Trace /lpf; RBC,Urine Occasional #/hpf (0-3); Squamous Epithelial Cell,Urine Occasional #/hpf (0-5); WBC,Urine Occasional #/hpf (0-3)
[2020-12-24] VITALS (11 sets, daily range): BP systolic 118–168; BP diastolic 56–97; PULSE 68–97; RESP 20; TEMP 36.9–37; O2SAT 91–94; BMI 48.4; BMI 48.3
[2020-12-24 01:09] LABS: Hypochromasia 1+; Lymphocytes % 7 % (10-50); Monocytes % 1 % (2-9); Neutrophils % 92 % (42-76); Platelet Estimate Normal; Total Cells Counted 100
[2020-12-24 01:22] LABS: Troponin I 0.04 ng/ml (0.00-0.034)
--- NOTE | 2020-12-24 01:31 | PC.NURSE ---
MD Sean speaking with MD Kinza at this time
--- NOTE | 2020-12-24 01:39 | PC.NURSE ---
supervisor of officials notified need for bed assignment. Pt's sister updated on POC.
--- NOTE | 2020-12-24 02:32 | PC.NURSE ---
pt arrived to floor via wheelchair at this time
[2020-12-24 04:00] LABS: Troponin I 0.03 ng/ml (0.00-0.034)
--- NOTE | 2020-12-24 04:41 | PC.NURSE ---
Pt notified of need for sputum and diarrhea specimen. Instruction given. Hat put on commode, specimen cup left at bedside.
--- NOTE | 2020-12-24 04:52 | PC.NURSE ---
Pt arrived to floor at 0300. Pt tolerating room air well with sats in mid 90s. Pt has 1x c/o nausea, 1x c/o pain and was tx per MAR with favorable results. Pt able to ambulate to br independently, tolerated well. Pt resting at this time. Call light within reach. Will continue to monitor.
[2020-12-24 07:19] LABS: Alanine Aminotransferase 14 U/L (12-78); Albumin Level 3.3 g/dl (3.5-5.0); Alkaline Phosphatase 115 U/L (38-126); Anion Gap 12.1 mEq/L (5-15); Aspartate Amino Transferase 21 U/L (14-36); Bilirubin,Total 0.9 mg/dl (0.2-1.3); Blood Urea Nitrogen 16 mg/dl (7-17); Calcium 8.3 mg/dl (8.4-10.2); Carbon Dioxide 29 mmol/L (22.0-30.0); Chloride 101 mmol/L (98-107); Creatinine Clearance Estimated 56 mL/min (50-200); Estimated Glomerular Filt Rate 51 ml/min (>60); GFR (African American) 62 ML/MIN (>60); Globulin 3.2 g/dL (1.3-3.2); Glucose 127 mg/dl (74-100); Magnesium 1.7 mg/dl (1.6-2.3); Potassium 4.1 mmoL/L (3.5-5.1); Sodium 138 mmol/L (136-145); Total Protein,Serum 6.5 g/dl (6.3-8.2)
[2020-12-24 07:37] LABS: Basophils # 0.1 K/mm3 (0-0.2); Basophils % 0.3 % (0.1-2.0); Eosinophils % 0.1 % (0.1-12.0); Hematocrit 37.4 % (37.0-47.0); Lymphocytes % 10.6 % (10-50); Mean Corpuscular HGB Conc 30.7 g/dL (31.8-35.4); Mean Corpuscular Hemoglobin 26.8 pg (27.0-31.2); Mean Corpuscular Volume 87.2 fl (81-99); Mean Platelet Volume 8.8 fl (7.4-10.4); Monocytes # 0.8 K/mm3 (0.1-1.0); Monocytes % 4.5 % (1.7-9.3); Neutrophils # 15.5 K/mm3 (1.8-7.8); Neutrophils % 84.5 % (37.0-80.0); Platelet Count 220 K/mm3 (142-424); Red Blood Count 4.29 M/mm3 (4.20-5.40); Red Cell Distribution Width 14.7 % (11.5-17.5); White Blood Count 18.3 K/mm3 (4.8-10.8)
--- NOTE | 2020-12-24 07:39 | HMH.PHAINT ---
MEDICATION RECONCILIATION COMPLETED USING EXTERNAL FILL HISTORY AND PATIENT OFFICE VISIT.
--- NOTE | 2020-12-24 07:39 | HMH.PHAVTE ---
[facility] VTE Monitoring - Patient Demographics Admission date: 12/24/20 Report Date: 12/24/20 Time: 07:39 Allergies/Adverse Reactions: Patient Allergies No Known Allergies Allergy (Verified 07/19/20 13:12) Height: 1.75 m Weight: 148.41 kg Patient Problems: Current Active Problems CAP (community acquired pneumonia) (Acute) SIRS (systemic inflammatory response syndrome) (Acute) Obesity (Acute) - VTE Risk Labs: VTE Related Lab Results Hgb 13.2 g/dL (12.2-16.2) 12/23/20 22:00 Hct 37.4 % (37.0-47.0) 12/24/20 06:19 Plt Count 220 K/mm3 (142-424) 12/24/20 06:19 BUN 16 mg/dl (7-17) 12/24/20 06:19 Creatinine 1.10 mg/dl (0.52-1.04) H 12/24/20 06:19 Estimated Creat Clear 56 mL/min (50-200) 12/24/20 06:19 Was VTE Risk Assessment Performed: Yes VTE Risk Level: Moderate Risk Clinical Trial Participant: No - Prophylaxis VTE Prophylaxis Ordered?: Yes Types of VTE Prophylaxis: TEDS Knee High
[2020-12-24 07:40] LABS: MANUAL DIFFERENTIAL MANUAL DIFFERENTIAL (MANUAL DIFF)
[2020-12-24 07:52] LABS: Lymphocytes % 8 % (10-50); Monocytes % 6 % (2-9); Neutrophils % 86 % (42-76); Platelet Estimate Normal; RBC Morphology Normal; Total Cells Counted 100
--- NOTE | 2020-12-24 07:55 | HMH.HP ---
*Admission Date: 12/24/20 *Chief complaint: Vomiting and diarrhea *History of present illness: 60-year-old female presented to the emergency department with approximately 48 hours of unrelenting vomiting and diarrhea which she believes was caused by eating some bad frozen meatballs. Work-up in the emergency department revealed that she continued to have vomiting as well as concern over left lower lobe pneumonia seen on chest x-ray and CT scan of the abdomen and pelvis. Patient was admitted with gastroenteritis and left lower lobe pneumonia placed on Rocephin and azithromycin. Since admission patient has not vomited. She denies shortness of breath and has not had any oxygen requirement. [facility] History I have reviewed the patient's past medical history: Yes 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: Reports:: Gastroesophageal Reflux Disease(GERD), Hyperlipidemia, Hypertension, Pulmonary Embolism Denies:: Diabetes Mellitus Type 1, Diabetes Mellitus Type 2 *Have you ever received a pneumonia vaccine?: No *Have you received a flu vaccine this season?: No Other 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: Reports: Other Laterality Cases: Left: Total Hip Replacement, Bilateral: Carpal Tunnel Release Other Surgeries: Yes: Cardiac Catheterization, Cholecystectomy, Colonoscopy, Hysterectomy-Total, Tubal Ligation, Other - *Social History Last grade of school completed: High school graduate Smoking Status: Never smoker Alcohol Intake: never Alcohol Intake Frequency:: holidays/special occasions only Substance Use Type: denies use *Occupational Status:: unemployed Housing: house Household Members: none *Travel in the last 8 weeks: None Family Hx:: Unable to obtain Review of Systems - Review of Systems Review of systems:: pertinent systems reviewed and negative unless documented below - *Neurologic Reports weakness, Denies localized weakness, Denies seizure-like activity Meds Home Medications Medication Instructions Recorded Confirmed Type oxybutynin chloride 10 mg 10 mg PO QDAY 04/27/17 12/24/20 History tablet,extended release 24 hr omeprazole 40 mg capsule,delayed 40 mg PO ONCE 07/26/17 12/24/20 History release Atorvastatin Calcium [Atorvastatin 20 mg PO HS 07/19/18 12/24/20 History 20mg Tab] hydrochlorothiazide 25 mg tablet 25 mg PO DAILY tab 12/15/19 12/24/20 History losartan 100 mg tablet 100 mg PO DAILY tab 12/15/19 12/24/20 History ueuvkshd-bsicopx-zmtv-lutein tablet 100 mcg PO DAILY tab 12/15/19 12/24/20 History rivaroxaban 20 mg tablet 20 mg PO DAILY tab 12/15/19 12/24/20 History umeclidinium 62.5 mcg-vilanterol 1 inh INHALATION DAILY 12/15/19 12/24/20 History 25 mcg/actuation powdr for inhalation Ondansetron [Zofran 4mg ODT] 4 mg PO Q8HP PRN #20 tab.rapdis 10/01/20 12/24/20 Rx Fluticasone Propionate [24 Hour 2 sprays NOSTRIL-B DAILY 12/24/20 12/24/20 History Allergy] Allergies Allergy/AdvReac Type Severity Reaction Status Date / Time No Known Allergies Allergy Verified 07/19/20 13:12 Exam Vital signs and Labs for Last 24 Hours: Temp Pulse Resp BP Pulse Ox 98.5 F 83 20 132/69 91 L 12/24/20 04:00 12/24/20 06:28 12/24/20 04:00 12/24/20 04:00 12/24/20 06:28 Laboratory Results - last 24 hr 12/23/20 21:20: SARS-CoV-2 (PCR) Not detected, Influenza A Untype (PCR) Not detected, Influenza Type B (PCR) Not detected 12/23/20 22:00: WBC 26.5 H*, RBC 4.90, Hgb 13.2, Hct 42.0, MCV 85.7, MCH 27.0, MCHC 31.5 L, RDW 14.6, Plt Count 282, MPV 9.0, Neut % (Auto) 92.4 H, Lymph % (Auto) 3.9 L, [place] % (Auto) 3.1, Eos % (Auto) 0.3, Baso % (Auto) 0.3, Neut # (Auto) 24.5 H, Lymph # (Auto) 1.0, [place] # (Auto) 0.8, Eos # (Auto) 0.1, Baso # (Auto) 0.1, Total Counted 100, Neutrophils % (Manual) 92 H, Lymphocytes % (Manual) 7 L, Monocytes % (Manual) 1 L, Platelet Estimate Normal, Hypochromasia 1+ 12/23/20 22:00: Sodium 135 L, Potassium 4.2, Chloride 100, Carbon Dioxide 25, Anion Gap 14.2, BUN 16, Creatinine 1.00, Estimated Creat Clear 64, Estimated GFR 57 L, Est
[2020-12-24 08:03] LABS: Hemoglobin 11.5 g/dL (12.2-16.2)
--- NOTE | 2020-12-24 14:00 | HMH.PHAINT ---
MEDICATION DISCHARGE COUNSELING COMPLETE, PATIENT HAD NO QUESTIONS. INFORMED PATIEWNT HOW TOT KRYSTIAN ABX AND ADVERSE REACTIONS TO BE AWARE OF.
--- NOTE | 2020-12-24 16:47 | HMH.DCSUM ---
General - General Admission date:: 12/24/20 Discharge date: 12/24/20 HPI HPI: 60-year-old female presented to the emergency department with approximately 48 hours of unrelenting vomiting and diarrhea which she believes was caused by eating some bad frozen meatballs. Work-up in the emergency department revealed that she continued to have vomiting as well as concern over left lower lobe pneumonia seen on chest x-ray and CT scan of the abdomen and pelvis. Patient was admitted with gastroenteritis and left lower lobe pneumonia placed on Rocephin and azithromycin. Since admission patient has not vomited. She denies shortness of breath and has not had any oxygen requirement. Hospital Course Hospital Course: Patient was admitted for gastroenteritis with incidental findings of left lower lobe infiltrate. After admission patient had no further vomiting and diarrhea had ceased prior to admission. Patient tolerated liquids and solids. Patient was incidentally found to have left lower lobe infiltrate. Patient was started on Rocephin and azithromycin and at discharge will continue oral antibiotics. She did not require any supplemental oxygen. Once patient was tolerating her diet she was discharged home and will follow up in the office as an outpatient Objective Vital signs: Temp Pulse Resp BP Pulse Ox 98.4 F 68 20 168/97 H 92 L 12/24/20 08:00 12/24/20 08:00 12/24/20 08:00 12/24/20 08:00 12/24/20 08:00 Results Labs on day of discharge: Labs from last 24 hours 12/24/20 12/24/20 12/24/20 06:19 06:19 03:25 WBC 18.3 H D RBC 4.29 Hgb 11.5 L D Hct 37.4 MCV 87.2 MCH 26.8 L MCHC 30.7 L RDW 14.7 Plt Count 220 MPV 8.8 Neut % (Auto) 84.5 H Lymph % (Auto) 10.6 [place] % (Auto) 4.5 Eos % (Auto) 0.1 Baso % (Auto) 0.3 Neut # (Auto) 15.5 H Lymph # (Auto) 2.0 [place] # (Auto) 0.8 Eos # (Auto) 0.0 Baso # (Auto) 0.1 Total Counted 100 Neutrophils % (Manual) 86 H Lymphocytes % (Manual) 8 L Monocytes % (Manual) 6 Platelet Estimate Normal RBC Morphology Normal Hypochromasia ESR Sodium 138 Potassium 4.1 Chloride 101 Carbon Dioxide 29 Anion Gap 12.1 BUN 16 Creatinine 1.10 H Estimated Creat Clear 56 Estimated GFR 51 L Est GFR ( Amer) 62 Glucose 127 H Lactate Calcium 8.3 L Magnesium 1.7 Total Bilirubin 0.9 AST 21 ALT 14 D Alkaline Phosphatase 115 Troponin I 0.03 C-Reactive Protein NT-Pro-B Natriuret Pep Total Protein 6.5 Albumin 3.3 L D Globulin 3.2 Albumin/Globulin Ratio 1.0 L Procalcitonin Urine Color Urine Appearance Urine pH Ur Specific [place] Urine Protein Urine Glucose (UA) Urine Ketones Urine Blood Urine Nitrate Urine Bilirubin Urine Urobilinogen Ur Leukocyte Esterase Urine RBC Urine WBC Ur Squamous Epith Cells Urine Bacteria SARS-CoV-2 (PCR) Influenza A Untype (PCR) Influenza Type B (PCR) 12/24/20 12/23/20 12/23/20 00:47 22:30 22:00 WBC RBC Hgb Hct MCV MCH MCHC RDW Plt Count MPV Neut % (Auto) Lymph % (Auto) [place] % (Auto) Eos % (Auto) Baso % (Auto) Neut # (Auto) Lymph # (Auto) [place] # (Auto) Eos # (Auto) Baso # (Auto) Total Counted Neutrophils % (Manual) Lymphocytes % (Manual) Monocytes % (Manual) Platelet Estimate RBC Morphology Hypochromasia ESR Sodium Potassium Chloride Carbon Dioxide Anion Gap BUN Creatinine Estimated Creat Clear Estimated GFR Est GFR ( Amer) Glucose Lactate Calcium Magnesium Total Bilirubin AST ALT Alkaline Phosphatase Troponin I 0.04 H C-Reactive Protein NT-Pro-B Natriuret Pep Total Protein Albumin Globulin Albumin/Globulin Ratio Procal
== END 2020-12-24 14:20 | disposition home or self-care (01) ==
LOC: ER 12-24 01:52 → 2ND 12-24 02:10
PROVIDERS: Admitting Provider Internal Medicine Adolescent Medicine; Emergency Provider Emergency Medicine; PCP Family Medicine; Visit Provider Family Medicine
DX: J18.9 Pneumonia, unspecified organism (principal); K52.9 Noninfective gastroenteritis and colitis, unspecified; Z20.822 Contact with and (suspected) exposure to COVID-19; Z79.01 Long term (current) use of anticoagulants; K21.9 Gastro-esophageal reflux disease without esophagitis; I10 Essential (primary) hypertension; E78.5 Hyperlipidemia, unspecified; E66.01 Morbid (severe) obesity due to excess calories; Z68.42 Body mass index [BMI] 45.0-49.9, adult; Z86.711 Personal history of pulmonary embolism; Z79.899 Other long term (current) drug therapy; R06.9 Unspecified abnormalities of breathing
CPT/HCPCS: G0378; 36415; 71046; 74177; 80053; 81001; 83605; 83735; 83880; 84145; 84484; 85007; 85025; 85651; 86140; 87040; 87077; 87186; 94640; 96365; 96375; 99284; J0456; J2405; Q9967; U0003

== ENCOUNTER 2021-03-18 09:41 | Emergency (ER) | payer MEDICARE, MEDICAID, SELFPAY ==
[2021-03-18 10:28] VITALS: BP 0/0; PULSE 0; RESP 0; TEMP -17.7; TEMP 0
== END 2021-03-18 10:30 | disposition left against medical advice (07) ==
PROVIDERS: Emergency Provider Nurse Practitioner Family; PCP Family Medicine
DX: Z53.21 Procedure and treatment not carried out due to patient leaving prior to being seen by health care provider (principal)

== ENCOUNTER → 2021-03-18 20:49 | Outpatient (CLI) | payer MEDICARE, MEDICAID, SELFPAY ==
[2021-03-18 20:50] LABS: Adenovirus,PCR Not Detected (NotDetected); Bordetella Pertussis Not Detected (NotDetected); Chlamydophila Pneumoniae, PCR Not Detected (NotDetected); Coronavirus 19, PCR Not Detected (NotDetected); Coronavirus 229E Not Detected (NotDetected); Coronavirus NL63 Not Detected (NotDetected); Coronavirus OC43 Not Detected (NotDetected); Coronovirus HKU1,PCR Not Detected (NotDetected); Influenza A, PCR Not Detected (NotDetected); Influenza AH1, 2009 Not Detected (NotDetected); Influenza AH1, PCR Not Detected (NotDetected); Influenza AH3,PCR Not Detected (NotDetected); Influenza B, PCR Not Detected (NotDetected); Mycoplasma Pneumoniae, PCR Not Detected (NotDetected); Parainfluenza 1, PCR Not Detected (NotDetected); Parainfluenza 2, PCR Not Detected (NotDetected); Parainfluenza 3, PCR Not Detected (NotDetected); Parainfluenza 4, PCR Not Detected (NotDetected); Respiratory Syncytial Virus Not Detected (NotDetected); Rhinovirus/Enterovirus Not Detected (NotDetected)
[2021-03-18 23:38] LABS: Human Metapneumovirus Detected (NotDetected)
== END ==
PROVIDERS: Visit Provider Nurse Practitioner Family
DX: M54.16 Radiculopathy, lumbar region (principal); Z20.822 Contact with and (suspected) exposure to COVID-19; B97.81 Human metapneumovirus as the cause of diseases classified elsewhere
CPT/HCPCS: 87581; 87632; 87798; C9803; U0003; U0005

== ENCOUNTER 2021-04-02 16:06 | Emergency (ER) | payer MEDICARE, MEDICAID, SELFPAY ==
[2021-04-02 16:57] VITALS: BP 172/95; PULSE 76; RESP 18; TEMP 36.9; O2SAT 97; BMI 34.0
--- NOTE | 2021-04-02 17:06 | HMH.EDUTC ---
[facility] [place] Clinical Impression: UTI (urinary tract infection) Qualifiers: Urinary tract infection type: site unspecified Hematuria presence: without hematuria Qualified Code(s): N39.0 - Urinary tract infection, site not specified Disposition: Home, Self-Care Condition on Discharge: Good Instructions: Urinary Tract Infection, Urine Culture, DI for Urinary Tract Infection (UTI) Additional Instructions: Drink plenty of fluids. Take tylenol or ibuprofen for pain or fever. Take the medications as directed. Follow up with your regular doctor. GO TO THE ER FOR ANY WORSENING SYMPTOMS The pyridium will make your urine turn orange, this is an expected side effect. It will stain your clothes if it comes into contact with them. Prescriptions: Ciprofloxacin HCl [Cipro 500mg Tab] 500 mg PO BID 7 Days #14 tab Transmission Status: Received by [id number] Phenazopyridine HCl [Pyridium 200mg Tablet] 200 pow PO TID #6 tab Transmission Status: Received by [id number] Referrals: Deep Chavez MD [Primary Care Provider] - Time of Disposition: 18:08 Medical Decision Making - Medical Records Medical records reviewed: No: I reviewed the patient's medical records. - Ander Inquiry Pt receiving controlled substance: No Vital Signs: 04/02/21 16:57 04/02/21 18:13 Temperature 98.4 F 98.4 F Temperature Source Oral Pulse Rate 76 Pulse Rate [Left] 76 Respiratory Rate 18 18 Blood Pressure 172/95 H Blood Pressure [Right Arm] 172/95 H Blood Pressure Mean [Right Arm] 120 02 Sat by Pulse Oximetry 97 - Lab Data Lab Results 04/02/21 17:06: Urine Color Dark yellow, Urine Appearance Clear, Urine pH 5.5, Ur Specific [place] 1.025, Urine Protein Negative, Urine Glucose (UA) Negative, Urine Ketones Negative, Urine Blood Negative, Urine Nitrate Negative, Urine Bilirubin Negative, Urine Urobilinogen 0.2, Ur Leukocyte Esterase Negative Orders (Tests/Meds): ORDERS Category Date Time Status Urine Culture Stat Micro 04/01/21 18:10 Results [facility] [place] - General Stated complaint: rt side pain Time Seen by Provider: 04/02/21 17:06 Mode of Arrival: Ambulatory Source of Information: Patient Limitations: No Limitations Description of Symptoms (Recalled from Triage Doc. by RN): pt c/o RLQ and R flank pain x3 weeks. with urinary urgency. HEENT Symptoms (Recalled from RN notes): No Resp Symptoms (Recalled from RN notes): No Skin Symptoms (Recalled from RN notes): No MS Symptoms (Recalled from RN notes): No Functional Status (Recalled from RN notes): wnl - History of Present Illness Provider Complaint: She states that she has had right flank pain for the past 3 weeks. It seems to be getting worse so she came in. She is having urinary frequency also. She denies any dysuria. She has also been incontinent of urine several times because she could not make it to the bathroom on time. She still has her appendix. - Related Data Home Medications Medication Instructions Recorded Confirmed oxybutynin chloride 10 mg 10 mg PO QDAY 04/27/17 03/18/21 tablet,extended release 24 hr omeprazole 40 mg capsule,delayed 40 mg PO ONCE 07/26/17 03/18/21 release Atorvastatin Calcium [Lipitor 20mg 20 mg PO HS 07/19/18 03/18/21 Tab] hydrochlorothiazide 25 mg tablet 25 mg PO DAILY tab 12/15/19 03/18/21 losartan 100 mg tablet 100 mg PO DAILY tab 12/15/19 03/18/21 jqzkpocb-ovexroa-zadb-lutein tablet 100 mcg PO DAILY tab 12/15/19 03/18/21 rivaroxaban 20 mg tablet 20 mg PO DAILY tab 12/15/19 03/18/21 umeclidinium 62.5 mcg-vilanterol 1 inh INHALATION DAILY 12/15/19 03/18/21 25 mcg/actuation powdr for inhalation Fluticasone Propionate [24 Hour 2 sprays NOSTRIL-B DAILY 12/24/20 03/18/21 Allergy] amlodipine 5 mg tablet 5 mg PO DAILY 03/18/21 03/18/21 Previous Rx's Medication Instructions Recorded azithromycin 250 mg tablet 250 mg PO QDAY 5 Days #6 tab 03/18/21 Ciprofloxaci
[2021-04-02 17:07] LABS: Apearance,Urine Clear (Clear); Color,Urine Dark Yellow (Yellow); Glucose,Urine (UA) Negative (Negative); Ketones,Urine Negative (Negative); PH,Urine 5.5 (5.0-8.5); Protein,Urine Negative (Negative); Specific Gravity, Urine 1.025 (1.005-1.030)
[2021-04-02 17:08] LABS: Bilirubin,Urine Negative (Negative); Blood, Urine Negative (Negative); UTC Leukocyte Esterase,Urine Negative (Negative); UTC Nitrate,Urine Negative (Negative); Urobilinogen,Urine 0.2 EU/dl (0.2)
[2021-04-02 18:13] VITALS: BP 172/95; PULSE 76; RESP 18; TEMP 36.9
== END 2021-04-02 18:14 | disposition home or self-care (01) ==
PROVIDERS: Emergency Provider Nurse Practitioner Family; PCP Family Medicine
DX: N30.00 Acute cystitis without hematuria (principal); I10 Essential (primary) hypertension; K21.9 Gastro-esophageal reflux disease without esophagitis; E78.5 Hyperlipidemia, unspecified
CPT/HCPCS: G0463; 81003; 87086; 99202

== ENCOUNTER 2021-04-19 02:03 | Inpatient (IN) | payer MEDICARE, MEDICAID, SELFPAY ==
[2021-04-19] VITALS (16 sets, daily range): BP systolic 100–158; BP diastolic 44–84; PULSE 54–94; RESP 18–21; TEMP 36.6–36.8; O2SAT 85–96; BMI 37.6; BMI 48.7
--- NOTE | 2021-04-19 02:21 | HMH.EDGENADL ---
ED Disposition Clinical Impression: COVID-19 virus infection, Pneumonia Disposition: Admitted As Inpatient Condition on Discharge: Fair Instructions: Pneumonia-Adult Referrals: Deep Chavez MD [Primary Care Provider] - - Critical Care Critical Care Time: No Attestation: On , the high probability of a clinically significant, sudden or life threatening deterioration of the following system(s) required my full and direct attention, intervention and personal management. The time I documented below is in addition to time spent performing reported procedures but includes the following listed in this critical care notation. Medical Decision Making - Ander Inquiry Pt receiving controlled substance: No Vital Signs: 04/19/21 02:04 Temperature 98.3 F Temperature Source Oral Pulse Rate [Right Radial] 94 H Respiratory Rate 20 Blood Pressure [Right Arm] 148/72 H Blood Pressure Mean [Right Arm] 97 Blood Pressure Source [Right Arm] Automatic Cuff Blood Pressure Position [Right Arm] Sitting 02 Sat by Pulse Oximetry 92 L Oxygen Delivery Method Room Air - Lab Data Lab Results 04/19/21 02:45: WBC 5.1, RBC 5.28, Hgb 14.1, Hct 44.6, MCV 84.4, MCH 26.6 L, MCHC 31.5 L, RDW 15.5, Plt Count 219, MPV 8.0, Neut % (Auto) 78.6, Lymph % (Auto) 15.7, [place] % (Auto) 3.7, Eos % (Auto) 0.7, Baso % (Auto) 1.2, Neut # (Auto) 4.0, Lymph # (Auto) 0.8, [place] # (Auto) 0.2, Eos # (Auto) 0.0, Baso # (Auto) 0.1 04/19/21 02:45: Sodium 136, Potassium 4.2, Chloride 97 L, Carbon Dioxide 31 H, Anion Gap 12.2, BUN 15, Creatinine 1.00, Estimated Creat Clear 117, Estimated GFR 57 L, Est GFR ( Amer) 69, Glucose 130 H, Calcium 8.9, Magnesium 1.7, Total Bilirubin 0.7, AST 62 H, ALT 45, Alkaline Phosphatase 140 H, Total Protein 7.7, Albumin 4.3, Globulin 3.4 H, Albumin/Globulin Ratio 1.3 Result diagrams: 04/19/21 02:45 04/19/21 02:45 Orders (Tests/Meds): ED MEDICATIONS Generic Name Dose Route Start Last Admin Trade Name Freq PRN Reason Stop Dose Admin Lactated Ringer's 1,000 mls @ 999 mls/hr 04/19/21 02:30 04/19/21 02:59 Lactated Ringer's 1000 Ml Bag IV 04/19/21 03:30 999 mls/hr .Q1H1M STACEY Administration Discontinued Medications Generic Name Dose Route Start Last Admin Trade Name Freq PRN Reason Stop Dose Admin Acetaminophen 1,000 mg 04/19/21 02:34 04/19/21 02:59 Acetaminophen 500mg Tab PO 04/19/21 02:35 1,000 mg ONCE ONE Administration Dexamethasone Sodium Phosphate 10 mg 04/19/21 02:24 04/19/21 03:00 Dexamethasone 4mg/Ml 1ml Vial IV 04/19/21 02:25 Not Given ONCE ONE Dexamethasone Sodium Phosphate 10 mg 04/19/21 03:00 04/19/21 03:01 Dexamethasone 4mg/Ml 5ml Mdv IV 04/19/21 03:01 10 mg ONCE ONE Administration Diphenhydramine HCl 25 mg 04/19/21 02:25 04/19/21 02:58 Diphenhydramine 50mg/Ml Vial IV 04/19/21 02:26 25 mg ONCE ONE Administration Magnesium Sulfate 2 gm/ Sodium 104 mls @ 100 mls/hr 04/19/21 02:24 04/19/21 02:59 Chloride IV 04/19/21 03:26 100 mls/hr ONCE ONE Administration Iopamidol 70 ml 04/19/21 04:20 04/19/21 04:20 Iopamidol-370 (76%);100ml Bottle IV 04/19/21 04:21 70 ml ONCE ONE Administration Metoclopramide HCl 10 mg 04/19/21 02:25 04/19/21 02:59 Metoclopramide Hcl 10mg/2ml Vial IVP 04/19/21 02:26 10 mg ONCE ONE Administration Sodium Chloride 50 ml 04/19/21 04:20 04/19/21 04:20 0.9 % Sodium Chloride 50 Ml Vial IV 04/19/21 04:21 50 ml ONCE ONE Administration Sodium Chloride 10 ml 04/19/21 04:20 04/19/21 04:20 Sodium Chloride 0.9% 10ml Syr (Rad Only) IV 04/19/21 04:21 10 ml ONCE ONE Administration ORDERS Category Date Time Status CT head/brain wo con Stat Cat Scan 04/19/21 03:20 Taken Lactic Acid Stat Lab 04/19/21 02:23 Ordered Rapid PCR Covid and Flu A/B Stat Lab 04/19/21 05:05 Ordered UA [Urinalysis and Microscopic] Stat Lab 04/19/21 02:32 Ordered ECG Request by /Nse Stat Y 04/19/21 02:
--- NOTE | 2021-04-19 02:23 | XR_ITS ---
PROCEDURE INFORMATION: Exam: XR Chest Exam date and time: 04/19/2021 2:23 AM Age: 61 years old Clinical indication: Condition or disease; Lung condition and disease; Hypoxia; Shortness of breath; Additional info: Hypoxia, rales on exam TECHNIQUE: Imaging protocol: XR of the chest. Views: 4 or more views. COMPARISON: CR XR CHEST 2V 12/23/2020 10:00 PM FINDINGS: Lungs: Some patchy airspace disease is seen in the left mid chest. Pleural spaces: Unremarkable. No pleural effusion. No pneumothorax. Heart/Mediastinum: Unremarkable. No cardiomegaly. Bones/joints: Unremarkable. IMPRESSION: Patchy airspace disease left mid chest may represent early infiltrate
--- NOTE | 2021-04-19 02:45 | ECG_ITS ---
APPROVED REPORT Exam: Resting ECG HR:78 bpm ECG Measurements Heart Rate 78 AXES ID 128 P 82 QRSd 88 QRS 92 QT 374 T 74 QTc 426 Conclusion Normal sinus rhythm Rightward axis Pulmonary disease pattern Abnormal ECG Electronically signed by : Deep Soria MD 04/22/2021 14:37:22
[2021-04-19 02:57] LABS: Basophils # 0.1 K/mm3 (0-0.2); Basophils % 1.2 % (0.1-2.0); Eosinophils % 0.7 % (0.1-12.0); Hematocrit 44.6 % (37.0-47.0); Hemoglobin 14.1 g/dL (12.2-16.2); Lymphocytes # 0.8 K/mm3 (0.7-4.5); Lymphocytes % 15.7 % (10-50); Mean Corpuscular HGB Conc 31.5 g/dL (31.8-35.4); Mean Corpuscular Hemoglobin 26.6 pg (27.0-31.2); Mean Corpuscular Volume 84.4 fl (81-99); Monocytes # 0.2 K/mm3 (0.1-1.0); Monocytes % 3.7 % (1.7-9.3); Neutrophils % 78.6 % (37.0-80.0); Platelet Count 219 K/mm3 (142-424); Red Blood Count 5.28 M/mm3 (4.20-5.40); Red Cell Distribution Width 15.5 % (11.5-17.5); White Blood Count 5.1 K/mm3 (4.8-10.8)
[2021-04-19 03:00] LABS: Chloride 97 mmol/L (98-107); Potassium 4.2 mmoL/L (3.5-5.1); Sodium 136 mmol/L (136-145)
[2021-04-19 03:03] LABS: Alanine Aminotransferase 45 U/L (12-78); Albumin Level 4.3 g/dl (3.5-5.0); Albumin/Globulin Ratio 1.3 (1.1-1.8); Alkaline Phosphatase 140 U/L (38-126); Anion Gap 12.2 mEq/L (5-15); Aspartate Amino Transferase 62 U/L (14-36); Bilirubin,Total 0.7 mg/dl (0.2-1.3); Blood Urea Nitrogen 15 mg/dl (7-17); Calcium 8.9 mg/dl (8.4-10.2); Carbon Dioxide 31 mmol/L (22.0-30.0); Creatinine Clearance Estimated 117 mL/min (50-200); Estimated Glomerular Filt Rate 57 ml/min (>60); GFR (African American) 69 ML/MIN (>60); Globulin 3.4 g/dL (1.3-3.2); Glucose 130 mg/dl (74-100); Magnesium 1.7 mg/dl (1.6-2.3); Total Protein,Serum 7.7 g/dl (6.3-8.2)
--- NOTE | 2021-04-19 03:20 | CT_ITS ---
PROCEDURE INFORMATION: Exam: CT Head Without Contrast Exam date and time: 04/19/2021 3:20 AM Age: 61 years old Clinical indication: Other: Headache; Patient HX: Covid + TECHNIQUE: Imaging protocol: Computed tomography of the head without contrast. Radiation optimization: All CT scans at this facility use at least one of these dose optimization techniques: automated exposure control; mA and/or kV adjustment per patient size (includes targeted exams where dose is matched to clinical indication); or iterative reconstruction. COMPARISON: No relevant prior studies available. FINDINGS: Brain: Normal. No hemorrhage. Unremarkable white matter. No mass effect. Cerebral ventricles: No ventriculomegaly. Paranasal sinuses: Visualized sinuses are unremarkable. No fluid levels. Mastoid air cells: Visualized mastoid air cells are well aerated. Bones/joints: Unremarkable. No acute fracture. Soft tissues: Unremarkable. IMPRESSION: No acute intracranial abnormality.
--- NOTE | 2021-04-19 03:20 | CT_ITS ---
PROCEDURE INFORMATION: Exam: CTA Chest With Contrast Exam date and time: 04/19/2021 3:20 AM Age: 61 years old Clinical indication: Condition or disease; Lung condition and disease; Patient HX: Hypoxia, covid + TECHNIQUE: Imaging protocol: Computed tomographic angiography of the chest with contrast. 3D rendering (Not supervised by radiologist): MIP and/or 3D reconstructed images were created by the technologist. Radiation optimization: All CT scans at this facility use at least one of these dose optimization techniques: automated exposure control; mA and/or kV adjustment per patient size (includes targeted exams where dose is matched to clinical indication); or iterative reconstruction. Contrast material: ISOVIE; Contrast volume: 75 ml; Contrast route: INTRAVENOUS (IV); COMPARISON: CR XR CHEST AP 04/19/2021 2:29 AM FINDINGS: Pulmonary arteries: Normal. No pulmonary emboli. Aorta: Unremarkable. No aortic aneurysm. No aortic dissection. Lungs: Prominent left lung granuloma is present. Patchy areas of bilateral airspace disease are seen involving all lobes. Pleural spaces: Unremarkable. No pneumothorax. No pleural effusion. Heart: Upper limits of normal. Lymph nodes: Some calcified bilateral hilar lymph nodes are seen consistent with prior granulomatous disease. Some mildly prominent mediastinal lymph nodes are seen some of which have central calcifications again consistent with prior granulomatous disease. The largest is seen in the AP window measuring 9 mm in short axis. Gallbladder and bile ducts: The patient is status post cholecystectomy. Bones/joints: Unremarkable. No acute fracture. Soft tissues: Unremarkable. IMPRESSION: 1. No evidence of pulmonary embolus. 2. Patchy diffuse infiltrates are seen in all pulmonary segments.Commonly reported imaging features of COVID-19 pneumonia are present. Other processes such as influenza pneumonia and organizing pneumonia, as can be seen with drug toxicity and connective tissue disease, can cause a similar imaging pattern. (Reference: Armand) 3. Diffuse mediastinal and hilar calcified adenopathy consistent with prior granulomatous disease. REFERENCES: Armand Berman, et al., [employer] Society of [place] Expert Consensus Statement on Reporting Chest CT Findings Related to COVID-19. Endorsed by the Society of Thoracic Radiology, the [place] [employer], and RSNA. Published July 09, 2019.
[2021-04-19 05:22] LABS: Influenza A, PCR Not Detected (NotDetected); Influenza B, PCR Not Detected (NotDetected)
[2021-04-19 06:43] LABS: Coronavirus 19, PCR Detected (NotDetected)
--- NOTE | 2021-04-19 07:10 | PC.NURSE ---
report received from mildred lopez pt is admitted, will call report to second floor.
--- NOTE | 2021-04-19 07:23 | P.CONPHA_ITS ---
[facility] Pharmacy VTE Monitoring - Patient Demographics Admission date: 04/19/21 Report Date: 04/19/21 Time: 07:23 Allergies/Adverse Reactions: Patient Allergies losartan Adverse Reaction (Verified 03/18/21 11:17) Height: 1.8 m Weight: 122.47 kg Patient Problems: Current Active Problems COVID-19 virus infection (Acute) Pneumonia (Acute) - VTE Risk Labs: VTE Related Lab Results Hgb 14.1 g/dL (12.2-16.2) 04/19/21 02:45 Hct 44.6 % (37.0-47.0) 04/19/21 02:45 Plt Count 219 K/mm3 (142-424) 04/19/21 02:45 BUN 15 mg/dl (7-17) 04/19/21 02:45 Creatinine 1.00 mg/dl (0.52-1.04) 04/19/21 02:45 Estimated Creat Clear 117 mL/min (50-200) 04/19/21 02:45 - Prophylaxis VTE Prophylaxis Ordered?: Yes Types of VTE Prophylaxis: IPCS Thigh High, Pharmacological Location of Applied Device: Bilateral Lower Extremeties Pharmacologic Type: Enoxaparin
--- NOTE | 2021-04-19 07:30 | PC.NURSE ---
dr. abarca at BS
--- NOTE | 2021-04-19 07:51 | HMH.HP ---
*Admission Date: 04/19/21 *Chief complaint: Headache *History of present illness: 61-year-old female presented to the emergency department with headache. Patient been diagnosed with COVID 19 respiratory infection 1 week prior on April 13. She reports sinusitis type symptoms at that time that have been present for 1 week. Work-up in the emergency department detected new hypoxia. X-ray and CT scan confirmed presence of infiltrates consistent with a viral pneumonia. Patient's hypoxia corrected with application of supplemental oxygen via nasal cannula. Due to respiratory failure patient will be admitted. She denies significant cough or new shortness of breath as patient has chronic dyspnea. She denies fevers or chills at home. [facility] History I have reviewed the patient's past medical history: Yes 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: Reports:: Deep Vein Thrombosis, Gastroesophageal Reflux Disease(GERD), Hyperlipidemia, Hypertension, Pulmonary Embolism Denies:: Diabetes Mellitus Type 1, Diabetes Mellitus Type 2 *Have you ever received a pneumonia vaccine?: No *Have you received a flu vaccine this season?: No Other 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: Reports: Other Laterality Cases: Left: Total Hip Replacement, Bilateral: Carpal Tunnel Release Other Surgeries: Yes: Cardiac Catheterization, Cholecystectomy, Colonoscopy, Hysterectomy-Total, Tubal Ligation, Other - *Social History Smoking Status: Never smoker Alcohol Intake: never Alcohol Intake Frequency:: holidays/special occasions only Substance Use Type: denies use *Occupational Status:: unemployed Housing: house Household Members: none *Travel in the last 8 weeks: None Family Hx:: No significant family history Review of Systems - Review of Systems Review of systems:: pertinent systems reviewed and negative unless documented below Meds Home Medications Medication Instructions Recorded Confirmed Type oxybutynin chloride 10 mg 10 mg PO QDAY 04/27/17 04/19/21 History tablet,extended release 24 hr omeprazole 40 mg capsule,delayed 40 mg PO ONCE 07/26/17 04/19/21 History release Atorvastatin Calcium [Lipitor 20mg 20 mg PO HS 07/19/18 04/19/21 History Tab] hydrochlorothiazide 25 mg tablet 25 mg PO DAILY tab 12/15/19 04/19/21 History losartan 100 mg tablet 100 mg PO DAILY tab 12/15/19 04/19/21 History gormlxmi-cwhtqir-wzzy-lutein tablet 100 mcg PO DAILY tab 12/15/19 04/19/21 History rivaroxaban 20 mg tablet 20 mg PO DAILY tab 12/15/19 04/19/21 History umeclidinium 62.5 mcg-vilanterol 1 inh INHALATION DAILY 12/15/19 04/19/21 History 25 mcg/actuation powdr for inhalation Fluticasone Propionate [24 Hour 2 sprays NOSTRIL-B DAILY 12/24/20 04/19/21 History Allergy] amlodipine 5 mg tablet 5 mg PO DAILY 03/18/21 04/19/21 History Allergies Allergy/AdvReac Type Severity Reaction Status Date / Time losartan AdvReac Verified 03/18/21 11:17 Exam Vital signs and Labs for Last 24 Hours: Temp Pulse Resp BP Pulse Ox 98.3 F 65 20 119/48 L 92 L 04/19/21 02:04 04/19/21 05:00 04/19/21 02:04 04/19/21 05:00 04/19/21 05:00 Laboratory Results - last 24 hr 04/19/21 02:45: WBC 5.1, RBC 5.28, Hgb 14.1, Hct 44.6, MCV 84.4, MCH 26.6 L, MCHC 31.5 L, RDW 15.5, Plt Count 219, MPV 8.0, Neut % (Auto) 78.6, Lymph % (Auto) 15.7, [place] % (Auto) 3.7, Eos % (Auto) 0.7, Baso % (Auto) 1.2, Neut # (Auto) 4.0, Lymph # (Auto) 0.8, [place] # (Auto) 0.2, Eos # (Auto) 0.0, Baso # (Auto) 0.1 04/19/21 02:45: Sodium 136, Potassium 4.2, Chloride 97 L, Carbon Dioxide 31 H, Anion Gap 12.2, BUN 15, Creatinine 1.00, Estimated Creat Clear 117, Estimated GFR 57 L, Est GFR ( Amer) 69, Glucose 130 H, Calcium 8.9, Magnesium 1.7, Total Bilirubin 0.7, AST 62 H, ALT 45, Alkaline Phosphatase 140 H, Total Protein 7.7, Albumin 4.3, Globulin 3.4 H, Albumin/Globulin Ratio 1.3 04/19/21 06:02: SARS-CoV-2 (PCR) Detected A, Influenza A Untype (PCR) Not detected, Influenza Type B (PCR) Not detected I & O for Last 24 hours: Intake
--- NOTE | 2021-04-19 08:04 | PC.NURSE ---
report called mildred mckeon on second floor at this time. States she will send staff down to get pt.
--- NOTE | 2021-04-19 08:21 | PC.NURSE ---
pt arrived to the floor at this time
[2021-04-19 10:04] LABS: Chloride 99 mmol/L (98-107); Potassium 4.6 mmoL/L (3.5-5.1); Sodium 136 mmol/L (136-145)
[2021-04-19 10:06] LABS: Blood Urea Nitrogen 18 mg/dl (7-17); Creatinine Clearance Estimated 53 mL/min (50-200); Estimated Glomerular Filt Rate 46 ml/min (>60); GFR (African American) 56 ML/MIN (>60)
[2021-04-19 10:07] LABS: Alanine Aminotransferase 44 U/L (12-78); Albumin Level 3.9 g/dl (3.5-5.0); Albumin/Globulin Ratio 1.2 (1.1-1.8); Alkaline Phosphatase 132 U/L (38-126); Anion Gap 11.6 mEq/L (5-15); Aspartate Amino Transferase 58 U/L (14-36); Bilirubin,Total 0.5 mg/dl (0.2-1.3); Calcium 8.5 mg/dl (8.4-10.2); Carbon Dioxide 30 mmol/L (22.0-30.0); Globulin 3.2 g/dL (1.3-3.2); Glucose 190 mg/dl (74-100); Total Protein,Serum 7.1 g/dl (6.3-8.2)
[2021-04-19 12:19] LABS: C-Reactive Protein 12.1 mg/L (0-4)
[2021-04-20] VITALS (7 sets, daily range): BP systolic 122–149; BP diastolic 56–80; PULSE 51–59; RESP 16–20; TEMP 36.4–36.8; O2SAT 91–94; BMI 48.4
--- NOTE | 2021-04-20 04:26 | PC.NURSE ---
Pt a +o x4. Tolerating 3 L nc well with sats in low 90s. Pt will desat to mid/upper 80s with exertion. Able to ambulate to BR independently. No complaints voiced to staff. Call tse in reach.
--- NOTE | 2021-04-20 07:13 | HMH.ACPN2 ---
Internal Medicine - PN: Michael *Date: 04/20/21 *Time: 07:13 Interval history: Patient denies any changes over the last 24 hours. She denies shortness of breath. O2 sats have been maintained in the low 90s on 3 L/min via nasal cannula. Exam Vital signs and Labs for Last 24 Hours: Temp Pulse Resp BP Pulse Ox 98.1 F 57 L 18 136/70 91 L 04/20/21 04:00 04/20/21 04:00 04/20/21 04:00 04/20/21 04:00 04/20/21 04:00 Laboratory Results - last 24 hr 04/19/21 09:40: Lactate 1.0 04/19/21 09:40: Sodium 136, Potassium 4.6, Chloride 99, Carbon Dioxide 30, Anion Gap 11.6, BUN 18 H, Creatinine 1.20 H, Estimated Creat Clear 53, Estimated GFR 46 L, Est GFR ( Amer) 56 L, Glucose 190 H D, Calcium 8.5, Total Bilirubin 0.5, AST 58 H, ALT 44, Alkaline Phosphatase 132 H, Total Protein 7.1, Albumin 3.9, Globulin 3.2, Albumin/Globulin Ratio 1.2 04/19/21 09:40: C-Reactive Protein 12.1 H I & O for Last 24 hours: Intake & Output 04/17/21 04/18/21 04/19/21 04/20/21 11:59 11:59 11:59 11:59 Intake Total 480 / 480 Balance 480 / 480 Weight 330 lb 327 lb 6.183 oz Narrative: Patient appears comfortable and in no respiratory distress. Lung exam reveals some right anterior rales. Heart has a regular rate and rhythm. Abdomen is obese and soft Assessment and Plan (1) Acute respiratory failure Status: Acute Category: Medical Code(s): J96.00 - Acute respiratory failure, unspecified whether with hypoxia or hypercapnia (2) Essential hypertension Status: Acute Category: Medical Code(s): I10 - Essential (primary) hypertension (3) COVID-19 virus infection Status: Acute Category: Medical Code(s): U07.1 - COVID-19 (4) Pneumonia Status: Acute Category: Medical Code(s): J18.9 - Pneumonia, unspecified organism (5) History of pulmonary embolism Status: Acute Category: Medical Code(s): Z86.711 - Personal history of pulmonary embolism (6) KALYAN (obstructive sleep apnea) Status: Acute Category: Medical Code(s): G47.33 - Obstructive sleep apnea (adult) (pediatric) (7) Obesity Status: Acute Category: Medical Code(s): E66.9 - Obesity, unspecified - Assessment and plan all Dx Assessment and Plan for all problems:: 1. Continue supportive care with supplemental oxygen and monitoring for desaturations 2. Continue Remdesivir and dexamethasone 3. Patient home Xarelto can be used for DVT prophylaxis 4. Patient's creatinine rod slightly yesterday morning. Await morning labs. Patient may be given fluid bolus will require medication adjustments
[2021-04-20 07:29] LABS: Basophils % 0.4 % (0.1-2.0); Eosinophils % 0.1 % (0.1-12.0); Hematocrit 41.1 % (37.0-47.0); Hemoglobin 12.9 g/dL (12.2-16.2); Lymphocytes # 0.8 K/mm3 (0.7-4.5); Lymphocytes % 20.3 % (10-50); Mean Corpuscular HGB Conc 31.4 g/dL (31.8-35.4); Mean Corpuscular Hemoglobin 26.7 pg (27.0-31.2); Mean Corpuscular Volume 84.9 fl (81-99); Mean Platelet Volume 8.6 fl (7.4-10.4); Monocytes # 0.2 K/mm3 (0.1-1.0); Monocytes % 6.1 % (1.7-9.3); Neutrophils # 2.9 K/mm3 (1.8-7.8); Neutrophils % 73.1 % (37.0-80.0); Platelet Count 191 K/mm3 (142-424); Red Blood Count 4.84 M/mm3 (4.20-5.40); Red Cell Distribution Width 15.4 % (11.5-17.5); White Blood Count 3.9 K/mm3 (4.8-10.8)
[2021-04-20 07:54] LABS: Alanine Aminotransferase 38 U/L (12-78); Albumin Level 3.8 g/dl (3.5-5.0); Albumin/Globulin Ratio 1.3 (1.1-1.8); Alkaline Phosphatase 127 U/L (38-126); Anion Gap 8.6 mEq/L (5-15); Aspartate Amino Transferase 48 U/L (14-36); Bilirubin,Total 0.3 mg/dl (0.2-1.3); Blood Urea Nitrogen 22 mg/dl (7-17); Calcium 8.7 mg/dl (8.4-10.2); Carbon Dioxide 34 mmol/L (22.0-30.0); Chloride 100 mmol/L (98-107); Creatinine Clearance Estimated 61 mL/min (50-200); Estimated Glomerular Filt Rate 57 ml/min (>60); GFR (African American) 69 ML/MIN (>60); Glucose 139 mg/dl (74-100); Potassium 4.6 mmoL/L (3.5-5.1); Sodium 138 mmol/L (136-145); Total Protein,Serum 6.8 g/dl (6.3-8.2)
--- NOTE | 2021-04-20 09:29 | PC.NURSE ---
pt titrated down to 2L NC at this time. o2 sat 96% currently
[2021-04-21] VITALS: BP 138/51; PULSE 45; RESP 18; TEMP 36.5; O2SAT 96
[2021-04-21 02:15] VITALS: BP 133/70; PULSE 38
[2021-04-21 04:00] VITALS: BP 122/54; PULSE 41; RESP 16; TEMP 36.5; O2SAT 97
[2021-04-21 05:00] VITALS: BMI 48.5
[2021-04-21 05:40] VITALS: BP 131/62
--- NOTE | 2021-04-21 05:59 | ECG_ITS ---
APPROVED REPORT Exam: Resting ECG HR:46 bpm ECG Measurements Heart Rate 46 AXES HI 162 P 69 QRSd 94 QRS 76 QT 474 T 40 QTc 414 Conclusion Marked sinus bradycardia Incomplete right bundle branch block Abnormal ECG Electronically signed by : Deep Soria MD 04/22/2021 14:27:34
[2021-04-21 06:35] VITALS: O2SAT 94
[2021-04-21 06:57] LABS: Basophils % 0.2 % (0.1-2.0); Eosinophils % 0.1 % (0.1-12.0); Hematocrit 39.9 % (37.0-47.0); Hemoglobin 12.3 g/dL (12.2-16.2); Lymphocytes # 1.3 K/mm3 (0.7-4.5); Lymphocytes % 24.8 % (10-50); Mean Corpuscular HGB Conc 30.8 g/dL (31.8-35.4); Mean Corpuscular Hemoglobin 26.5 pg (27.0-31.2); Mean Corpuscular Volume 85.9 fl (81-99); Mean Platelet Volume 9.1 fl (7.4-10.4); Monocytes # 0.4 K/mm3 (0.1-1.0); Monocytes % 6.5 % (1.7-9.3); Neutrophils # 3.7 K/mm3 (1.8-7.8); Neutrophils % 68.4 % (37.0-80.0); Platelet Count 203 K/mm3 (142-424); Red Blood Count 4.65 M/mm3 (4.20-5.40); Red Cell Distribution Width 15.8 % (11.5-17.5); White Blood Count 5.4 K/mm3 (4.8-10.8)
[2021-04-21 07:00] LABS: Alanine Aminotransferase 42 U/L (12-78); Albumin Level 3.3 g/dl (3.5-5.0); Albumin/Globulin Ratio 1.1 (1.1-1.8); Alkaline Phosphatase 109 U/L (38-126); Anion Gap 6.1 mEq/L (5-15); Aspartate Amino Transferase 56 U/L (14-36); Bilirubin,Total 0.3 mg/dl (0.2-1.3); Blood Urea Nitrogen 24 mg/dl (7-17); Calcium 8.2 mg/dl (8.4-10.2); Carbon Dioxide 33 mmol/L (22.0-30.0); Chloride 102 mmol/L (98-107); Creatinine Clearance Estimated 61 mL/min (50-200); Estimated Glomerular Filt Rate 57 ml/min (>60); GFR (African American) 69 ML/MIN (>60); Globulin 2.9 g/dL (1.3-3.2); Glucose 154 mg/dl (74-100); Potassium 4.1 mmoL/L (3.5-5.1); Sodium 137 mmol/L (136-145); Total Protein,Serum 6.2 g/dl (6.3-8.2)
[2021-04-21 08:00] VITALS: BP 140/44; PULSE 48; RESP 19; TEMP 36.9; O2SAT 91
--- NOTE | 2021-04-21 08:00 | PC.NURSE ---
Patient rested well during night. Denies pain/shortness of breath. Remains on 2L per NC. Patient was consistently bradycardic during the night in the 40s with episodes of rates of 38-39. Denies symptoms and vitals stable. EKG obtained per provider order. Pleasant and cooperative, able to make needs known.
--- NOTE | 2021-04-21 08:11 | HMH.DCSUM ---
General - General Admission date:: 04/19/21 Discharge date: 04/21/21 HPI HPI: 61-year-old female presented to the emergency department with headache. Patient been diagnosed with COVID 19 respiratory infection 1 week prior on April 13. She reports sinusitis type symptoms at that time that have been present for 1 week. Work-up in the emergency department detected new hypoxia. X-ray and CT scan confirmed presence of infiltrates consistent with a viral pneumonia. Patient's hypoxia corrected with application of supplemental oxygen via nasal cannula. Due to respiratory failure patient will be admitted. She denies significant cough or new shortness of breath as patient has chronic dyspnea. She denies fevers or chills at home. Hospital Course Hospital Course: Patient was admitted due to mild acute respiratory failure from COVID-19 pneumonia. Patient had also been treated for bacterial pneumonia as an outpatient. Patient had mild oxygen requirement of 2 L/min. She remained on 2 L during hospitalization with O2 sats responding appropriately on the day of discharge were as high as 100%. Patient did have rales on lung exam. She was given Remdesivir and dexamethasone. After 48 hours of stability with signs of improving oxygen requirement patient was discharged home. Objective Vital signs: Temp Pulse Resp BP Pulse Ox 97.7 F 41 L 16 131/62 94 L 04/21/21 04:00 04/21/21 04:00 04/21/21 04:00 04/21/21 05:40 04/21/21 06:35 no acute distress - *Routine Respiratory Exam Present: CTA bilaterally - *Routine Cardiovascular Exam Present: RRR - *Routine Abdominal Exam Present: soft, normoactive bowel sounds. Absent: tenderness Results Labs on day of discharge: Labs from last 24 hours 04/21/21 04/21/21 05:13 05:13 WBC 5.4 D RBC 4.65 Hgb 12.3 Hct 39.9 MCV 85.9 MCH 26.5 L MCHC 30.8 L RDW 15.8 Plt Count 203 MPV 9.1 Neut % (Auto) 68.4 Lymph % (Auto) 24.8 [place] % (Auto) 6.5 Eos % (Auto) 0.1 Baso % (Auto) 0.2 Neut # (Auto) 3.7 Lymph # (Auto) 1.3 [place] # (Auto) 0.4 Eos # (Auto) 0.0 Baso # (Auto) 0.0 Sodium 137 Potassium 4.1 Chloride 102 Carbon Dioxide 33 H Anion Gap 6.1 BUN 24 H Creatinine 1.00 Estimated Creat Clear 61 Estimated GFR 57 L Est GFR ( Amer) 69 Glucose 154 H Calcium 8.2 L Total Bilirubin 0.3 AST 56 H ALT 42 Alkaline Phosphatase 109 Total Protein 6.2 L Albumin 3.3 L D Globulin 2.9 Albumin/Globulin Ratio 1.1 DS: Diagnosis - Discharge Diagnosis (1) Acute respiratory failure Status: Acute (2) Essential hypertension Status: Acute (3) COVID-19 virus infection Status: Acute (4) Pneumonia Status: Acute (5) History of pulmonary embolism Status: Acute (6) KALYAN (obstructive sleep apnea) Status: Acute (7) Obesity Status: Acute Discharge Plan - Patient Discharge Instructions ACTIVITY: Continue current activity DIET: continue same diet Patient Instructions: DI for Pneumonia -- Adult, DI for COVID-19 (Suspected or Confirmed ), Nutrition and Hydration: [employer] in the Fight Against COVID-19 - Follow up Plan Follow up with: Deep Chavez MD [Primary Care Provider] - 2 weeks Disposition: Home, Self-Care Condition at discharge:: Improved Home Medications: Home Medications Medication Instructions Recorded Confirmed Type oxybutynin chloride 10 mg 10 mg PO DAILY 04/27/17 04/19/21 History tablet,extended release 24 hr omeprazole 40 mg capsule,delayed 40 mg PO DAILY 07/26/17 04/19/21 History release Atorvastatin Calcium [Lipitor 20mg 20 mg PO HS 07/19/18 04/19/21 History Tab] wxhepkth-qkewvai-tdlw-lutein tablet 100 mcg PO DAILY tab 12/15/19 04/19/21 History rivaroxaban 20 mg tablet 20 mg PO DAILY tab 12/15/19 04/19/21 History umeclidinium 62.5 mcg-vilanterol 1 puff IH DAILY 12/15/19 04/19/21 History 25 mcg/actuation p
--- NOTE | 2021-04-21 11:51 | SW/DCPLANNER ---
SET UP HOME 02 FOR THIS PATIENT THAT IS DISCHARGING HOME TODAY.. I SET THIS UP WITH SHANNA PER PATIENT CHOICE, PATIENT HAS COVID. A PORTABLE WILL BE DELIVERED TO THE HOSPITAL PRIOR TO HER DISCHARGING HOME.
== END 2021-04-21 12:52 | disposition home or self-care (01) | DRG 177 ==
LOC: ER 05:11 → 2ND 05:58
PROVIDERS: Admitting Provider Family Medicine; Emergency Provider Student in an Organized Health Care Education/Training Program; PCP Family Medicine; Visit Provider Family Medicine
DX: U07.1 COVID-19 (principal); J12.82 Pneumonia due to coronavirus disease 2019; J96.01 Acute respiratory failure with hypoxia; I10 Essential (primary) hypertension; G47.33 Obstructive sleep apnea (adult) (pediatric); K21.9 Gastro-esophageal reflux disease without esophagitis; E78.5 Hyperlipidemia, unspecified; Z86.711 Personal history of pulmonary embolism; Z86.718 Personal history of other venous thrombosis and embolism; Z96.642 Presence of left artificial hip joint
CPT/HCPCS: 36415; 70450; 71045; 71275; 80053; 83605; 83735; 85025; 86140; 87070; 87205; 93005; 94640; 96365; 96367; 96376; 99285; C9803; Q9967; U0003; U0005

== ENCOUNTER 2021-07-23 14:28 | Emergency (ER) | payer MEDICARE, MEDICAID, SELFPAY ==
[2021-07-23 15:07] VITALS: BP 146/72; PULSE 78; RESP 18; TEMP 37.6; O2SAT 98; BMI 50.2
--- NOTE | 2021-07-23 15:57 | HMH.EDUTC ---
[facility] [place] Disposition Clinical Impression: Sinusitis Qualifiers: Sinusitis location: unspecified location Chronicity: acute Recurrence: non-recurrent Qualified Code(s): J01.90 - Acute sinusitis, unspecified Disposition: Home, Self-Care Condition on Discharge: Good Instructions: DI for Sinusitis Additional Instructions: Drink plenty of fluids. Take tylenol or ibuprofen for pain or fever. Take the medications as directed. Follow up with your regular doctor. GO TO THE ER FOR ANY WORSENING SYMPTOMS Prescriptions: Benzonatate [Benzonatate 100mg cap] 100 mg PO TIDP PRN #30 cap PRN Reason: Cough Transmission Status: Received by [id number] methylPREDNISolone [Medrol] 4 mg PO DIRECTED 6 Days #21 packet Transmission Status: Received by [id number] Azithromycin [Z-Mckinley 250mg Tab*] 250 mg PO UD DOSE PK #6 tab Transmission Status: Received by [id number] Referrals: Eileen Sandoval APRN [Primary Care Provider] - Time of Disposition: 16:37 Medical Decision Making - Medical Records Medical records reviewed: No: I reviewed the patient's medical records. - Ander Inquiry Pt receiving controlled substance: No Vital Signs: 07/23/21 15:07 07/23/21 16:54 Temperature 99.6 F 99.6 F Temperature Source Oral Pulse Rate 78 Pulse Rate [Left] 78 Respiratory Rate 18 18 Blood Pressure 146/72 H Blood Pressure [Right Arm] 146/72 H Blood Pressure Mean [Right Arm] 96 02 Sat by Pulse Oximetry 98 - Lab Data Lab results reviewed: Yes: I reviewed the patient's lab results. [facility] [place] HPI - General Stated complaint: sinus infection Time Seen by Provider: 07/23/21 15:57 Mode of Arrival: Ambulatory Source of Information: Patient Limitations: No Limitations Description of Symptoms (Recalled from Triage Doc. by RN): pt c/o sinus congestion and DOWELL x2 days. HEENT Symptoms (Recalled from RN notes): Yes Resp Symptoms (Recalled from RN notes): No Skin Symptoms (Recalled from RN notes): No MS Symptoms (Recalled from RN notes): No Functional Status (Recalled from RN notes): wnl - History of Present Illness Provider Complaint: She states that for the past 3 days she has had sinus congestion, chilling, and a cough. She refuses a covid-19 or influenza test. - Related Data Home Medications Medication Instructions Recorded Confirmed oxybutynin chloride 10 mg 10 mg PO DAILY 04/27/17 04/19/21 tablet,extended release 24 hr omeprazole 40 mg capsule,delayed 40 mg PO DAILY 07/26/17 04/19/21 release Atorvastatin Calcium [Lipitor 20mg 20 mg PO HS 07/19/18 04/19/21 Tab] regfgmzk-lxdhake-mvqp-lutein tablet 100 mcg PO DAILY tab 12/15/19 04/19/21 rivaroxaban 20 mg tablet 20 mg PO DAILY tab 12/15/19 04/19/21 umeclidinium 62.5 mcg-vilanterol 1 puff IH DAILY 12/15/19 04/19/21 25 mcg/actuation powdr for inhalation Fluticasone Propionate [24 Hour 2 sprays NS DAILY 12/24/20 04/19/21 Allergy] amlodipine 5 mg tablet 5 mg PO DAILY 03/18/21 04/19/21 Previous Rx's Medication Instructions Recorded Azithromycin [Z-Mckinley 250mg Tab*] 250 mg PO UD DOSE PK #6 tab 07/23/21 Benzonatate [Benzonatate 100mg 100 mg PO TIDP PRN #30 cap 07/23/21 cap] methylPREDNISolone [Medrol] 4 mg PO DIRECTED 6 Days #21 07/23/21 packet Allergies Allergy/AdvReac Type Severity Reaction Status Date / Time losartan AdvReac Verified 04/19/21 09:20 - Worker's Comp Is this a Worker's Comp case?: No H History - Hepatitis A Screen Drug use history?: No High risk sexual behaviors?: No History of sexually transmitted infection?: No Currently employed?: No Childcare worker?: No Do you have indoor plumbing?: Yes Do you have electricity?: Yes Attestation statement:: This patient has been screened for Hepatitis A risk factors. I have reviewed the patient's past medical history: Yes 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: Reports:: Deep Vein Thrombosis, Gastroesophageal Reflux Disease(GERD), Hyperlipidemi
[2021-07-23 16:54] VITALS: BP 146/72; PULSE 78; RESP 18; TEMP 37.6
== END 2021-07-23 16:56 | disposition home or self-care (01) ==
PROVIDERS: Emergency Provider Nurse Practitioner Family; PCP Nurse Practitioner Family
DX: J01.90 Acute sinusitis, unspecified (principal); I10 Essential (primary) hypertension; I73.9 Peripheral vascular disease, unspecified; K21.9 Gastro-esophageal reflux disease without esophagitis; E78.5 Hyperlipidemia, unspecified; M19.90 Unspecified osteoarthritis, unspecified site; Z79.51 Long term (current) use of inhaled steroids; Z79.52 Long term (current) use of systemic steroids; Z79.899 Other long term (current) drug therapy; Z88.8 Allergy status to other drugs, medicaments and biological substances; Z86.718 Personal history of other venous thrombosis and embolism; Z86.711 Personal history of pulmonary embolism; Z82.49 Family history of ischemic heart disease and other diseases of the circulatory system; Z80.9 Family history of malignant neoplasm, unspecified
CPT/HCPCS: 99213; G0463

== ENCOUNTER 2021-08-31 17:05 | Emergency (ER) | payer MEDICARE, MEDICAID, SELFPAY ==
[2021-08-31 18:30] VITALS: BP 157/73; PULSE 74; RESP 19; TEMP 36.8; O2SAT 98; BMI 66.6
[2021-08-31 18:44] VITALS: BP 157/73; PULSE 74; RESP 19; TEMP 36.8; O2SAT 98
--- NOTE | 2021-08-31 19:13 | HMH.EDUTC ---
[facility] [place] Clinical Impression: Vertigo Otitis media Qualifiers: Otitis media type: unspecified Laterality: right Qualified Code(s): H66.91 - Otitis media, unspecified, right ear Disposition: Home, Self-Care Condition on Discharge: Good Instructions: Combating Dizziness in Older Adults, Vertigo, Meclizine Additional Instructions: Take medication as prescribed Make sure to follow up immediately if no improvement or any worsening of symptoms Return if needed straight to ER if any worsening of dizziness, loss of consciousness or passing out Follow up with your Family Doctor if no improvement or any worsening of symptoms Prescriptions: Meclizine HCl [Antivert 25mg tablet] 25 mg PO Q8HP PRN #15 tab PRN Reason: Dizziness Transmission Status[facility] methylPREDNISolone [Medrol 4mg tab] 4 mg PO DIRECTED #21 tab Transmission Status: Received by [facility] Cefdinir [Omnicef 300mg Capsule] 300 mg PO BID #20 cap Transmission Status: Received by [id number] Referrals: Eileen Sandoval APRN [Primary Care Provider] - As needed Time of Disposition: 19:30 Medical Decision Making - Ander Inquiry Pt receiving controlled substance: No Ander was queried for this patient: No Vital Signs: 08/31/21 18:30 08/31/21 18:44 Temperature 98.3 F 98.3 F Temperature Source Oral Pulse Rate 74 Pulse Rate [Right Brachial] 74 Respiratory Rate 19 19 Blood Pressure 157/73 H Blood Pressure [Right Arm] 157/73 H Blood Pressure Mean [Right Arm] 101 Blood Pressure Source [Right Arm] Automatic Cuff Blood Pressure Position [Right Arm] Sitting 02 Sat by Pulse Oximetry 98 Oxygen Delivery Method Room Air Orders (Tests/Meds): ED MEDICATIONS Discontinued Medications Generic Name Dose Route Start Last Admin Trade Name Freq PRN Reason Stop Dose Admin Meclizine HCl 12.5 mg 08/31/21 19:31 08/31/21 19:39 Meclizine 12.5mg Tablet PO 08/31/21 19:32 12.5 mg ONCE ONE Administration Medical Decision Narrative: discussed with patient about transfer to the ED for further work up and evaluation and she declined will start on antibiotics, medrol and meclizine with strict return instructions patient verbalized understanding [facility] [place] - General Stated complaint: DIZZY Time Seen by Provider: 08/31/21 19:13 Mode of Arrival: Ambulatory Source of Information: Patient Limitations: No Limitations Description of Symptoms (Recalled from Triage Doc. by RN): PATIENT C/O DIZZINESS X 5 DAYS HEENT Symptoms (Recalled from RN notes): No Resp Symptoms (Recalled from RN notes): No Skin Symptoms (Recalled from RN notes): No MS Symptoms (Recalled from RN notes): No Functional Status (Recalled from RN notes): WNL - History of Present Illness Provider Complaint: Patient states that she was seen and treated a couple weeks ago for uti States that she has since been having pain and pressure in her ears and for the last several days been having dizzy spells when she moves too quickly turns her head or stands States that she feels like the room starts spinning around her States that today she was still feeling that way so she came in to get checked - Related Data Home Medications Medication Instructions Recorded Confirmed oxybutynin chloride 10 mg 10 mg PO DAILY 04/27/17 04/19/21 tablet,extended release 24 hr omeprazole 40 mg capsule,delayed 40 mg PO DAILY 07/26/17 04/19/21 release Atorvastatin Calcium [Lipitor 20mg 20 mg PO HS 07/19/18 04/19/21 Tab] aodfomrr-wtivvop-wwig-lutein tablet 100 mcg PO DAILY tab 12/15/19 04/19/21 rivaroxaban 20 mg tablet 20 mg PO DAILY tab 12/15/19 04/19/21 umeclidinium 62.5 mcg-vilanterol 1 puff IH DAILY 12/15/19 04/19/21 25 mcg/actuation powdr for inhalation Fluticasone Propionate [24 Hour 2 sprays NS DAILY 12/24/20 04/19/21 Allergy] amlodipine 5 mg tablet 5 mg PO DAILY 03/18/21 04/19/21 Previous Rx's Medication Inst
== END 2021-08-31 19:48 | disposition home or self-care (01) ==
PROVIDERS: Emergency Provider Nurse Practitioner; PCP Nurse Practitioner Family
DX: R42 Dizziness and giddiness (principal); H66.91 Otitis media, unspecified, right ear; K21.9 Gastro-esophageal reflux disease without esophagitis; E78.5 Hyperlipidemia, unspecified; I10 Essential (primary) hypertension; Z96.642 Presence of left artificial hip joint; Z79.899 Other long term (current) drug therapy
CPT/HCPCS: 99212; G0463

== ENCOUNTER 2021-11-21 17:48 | Emergency (ER) | payer MEDICARE, MEDICAID, SELFPAY ==
[2021-11-21 18:08] VITALS: BP 148/73; PULSE 91; RESP 16; TEMP 36.8; O2SAT 95; BMI 50.2
--- NOTE | 2021-11-21 18:18 | HMH.EDUTC ---
[facility] [place] Clinical Impression: Sinusitis Qualifiers: Sinusitis location: unspecified location Chronicity: acute Recurrence: non-recurrent Qualified Code(s): J01.90 - Acute sinusitis, unspecified Otitis media Qualifiers: Otitis media type: suppurative Chronicity: acute Laterality: bilateral Recurrence: non-recurrent Spontaneous tympanic membrane rupture: without spontaneous rupture Qualified Code(s): H66.003 - Acute suppurative otitis media without spontaneous rupture of ear drum, bilateral Disposition: Home, Self-Care Condition on Discharge: Good Instructions: DI for Sinusitis Additional Instructions: Drink plenty of fluids. Take tylenol or ibuprofen for pain or fever. Take the medications as directed. Follow up with your regular doctor. GO TO THE ER FOR ANY WORSENING SYMPTOMS Don't start the oral steroids until tomorrow, since you had the shot here today. Prescriptions: Amoxicillin [Amoxicillin 875MG Tab] 875 mg PO Q12H #20 tab Transmission Status: Received by [facility] Benzonatate [Benzonatate 100mg cap] 100 mg PO TIDP PRN #30 cap PRN Reason: Cough Transmission Status: Received by [facility] methylPREDNISolone [Medrol] 4 mg PO DIRECTED 6 Days #21 packet Transmission Status: Received by [facility] Referrals: Eileen Sandoval APRN [Primary Care Provider] - Time of Disposition: 19:14 Medical Decision Making - Medical Records Medical records reviewed: No: I reviewed the patient's medical records. - Ander Inquiry Pt receiving controlled substance: No Vital Signs: 11/21/21 18:08 11/21/21 19:43 Temperature 98.3 F 98.3 F Temperature Source Oral Pulse Rate 91 H Pulse Rate [Left] 91 H Respiratory Rate 16 16 Blood Pressure 148/73 H Blood Pressure [Right Arm] 148/73 H Blood Pressure Mean [Right Arm] 98 02 Sat by Pulse Oximetry 95 Orders (Tests/Meds): ED MEDICATIONS Discontinued Medications Generic Name Dose Route Start Last Admin Trade Name Freq PRN Reason Stop Dose Admin Ceftriaxone Sodium 1 gm 11/21/21 18:40 11/21/21 18:53 Ceftriaxone 1gm Vial IM 11/21/21 18:41 1 gm ONCE ONE Administration Lidocaine HCl 0 ml 11/21/21 18:40 11/21/21 18:53 Lidocaine 1% 5ml Pf Vial IM 11/21/21 18:41 2 ml ONCE ONE Administration Methylprednisolone Sodium Succinate 125 mg 11/21/21 18:40 11/21/21 18:53 Methylprednisolone Sod Succ 125mg Vial IM 11/21/21 18:41 125 mg ONCE ONE Administration [facility] [place] - General Stated complaint: Ear ache, congestion Time Seen by Provider: 11/21/21 18:18 Mode of Arrival: Ambulatory Source of Information: Patient Limitations: No Limitations Description of Symptoms (Recalled from Triage Doc. by RN): patient comes in with complaints of bilateral ear itching. symptoms began 3 days ago HEENT Symptoms (Recalled from RN notes): Yes Resp Symptoms (Recalled from RN notes): No Skin Symptoms (Recalled from RN notes): No MS Symptoms (Recalled from RN notes): No Functional Status (Recalled from RN notes): n/a - History of Present Illness Provider Complaint: She is having bilateral ear pain and sinus congestion. She denies any fever and she has had a negative covid-19 test at home this morning. She refuses a covid-19 test here. - Related Data Home Medications Medication Instructions Recorded Confirmed oxybutynin chloride 10 mg 10 mg PO DAILY 04/27/17 11/21/21 tablet,extended release 24 hr omeprazole 40 mg capsule,delayed 40 mg PO DAILY 07/26/17 11/21/21 release Atorvastatin Calcium [Lipitor 20mg 20 mg PO HS 07/19/18 11/21/21 Tab] rivaroxaban 20 mg tablet 20 mg PO DAILY tab 12/15/19 11/21/21 amlodipine 5 mg tablet 5 mg PO DAILY 03/18/21 11/21/21 Meloxicam 7.5 mg PO DAILY 11/21/21 11/21/21 Previous Rx's Medication Instructions Recorded Amoxicillin [Amoxicillin 875MG 875 mg PO Q12H #20 tab 11/21/21 Tab] Benzonatate [Benzonatate 100mg 100 mg PO
[2021-11-21 19:43] VITALS: BP 148/73; PULSE 91; RESP 16; TEMP 36.8
== END 2021-11-21 19:44 | disposition home or self-care (01) ==
PROVIDERS: Emergency Provider Nurse Practitioner Family; PCP Nurse Practitioner Family
DX: J01.90 Acute sinusitis, unspecified (principal); H66.003 Acute suppurative otitis media without spontaneous rupture of ear drum, bilateral; Z20.822 Contact with and (suspected) exposure to COVID-19; I10 Essential (primary) hypertension; I26.99 Other pulmonary embolism without acute cor pulmonale; I73.9 Peripheral vascular disease, unspecified; K21.9 Gastro-esophageal reflux disease without esophagitis; E78.5 Hyperlipidemia, unspecified; M19.90 Unspecified osteoarthritis, unspecified site; Z79.01 Long term (current) use of anticoagulants; Z79.52 Long term (current) use of systemic steroids; Z79.899 Other long term (current) drug therapy; Z88.8 Allergy status to other drugs, medicaments and biological substances; Z82.49 Family history of ischemic heart disease and other diseases of the circulatory system; Z80.9 Family history of malignant neoplasm, unspecified; Z96.643 Presence of artificial hip joint, bilateral
CPT/HCPCS: 96372; 99213; G0463; J0696

== ENCOUNTER → 2021-12-22 11:19 | Outpatient (CLI) | payer MEDICARE, MEDICAID, SELFPAY ==
--- NOTE | 2021-12-22 11:25 | XR_ITS ---
FINAL REPORT CLINICAL HISTORY: hip pain FINDINGS: LEFT HIP Two views of the left hip demonstrate no acute fracture or dislocation. There are postoperative changes from left hip arthroplasty. The joint spaces appear normal. The visualized bony structures are well aligned. There are chronic calcifications at the left hip joint and adjacent to the greater trochanter which is consistent with heterotopic calcification. IMPRESSION: No acute bony abnormality. Chronic calcifications at the left hip joint and adjacent to the greater trochanter, consistent with heterotopic calcification. Reviewed, Interpreted and Dictated by Edson Rowe III, MD Transcribed by Carlyn Estrada Authenticated and [facility]
--- NOTE | 2021-12-22 11:25 | XR_ITS ---
FINAL REPORT CLINICAL HISTORY: low back pain FINDINGS: LUMBAR SPINE Three views were obtained. There is no acute fracture. There is no malalignment. There are moderate and severe degenerative changes with osteophytes. There is no soft tissue abnormality. IMPRESSION: Degenerative change with no acute bony abnormality. Reviewed, Interpreted and Dictated by Edson Rowe III, MD Transcribed by Carlyn Estrada Authenticated and [facility]
--- NOTE | 2021-12-22 11:25 | XR_ITS ---
FINAL REPORT CLINICAL HISTORY: hip pain FINDINGS: RIGHT HIP Two views of the right hip including an AP pelvis demonstrate no acute fracture or dislocation. There are moderate degenerative changes of the right hip. There are mild degenerative changes in the lower lumbar spine. The visualized bony structures are well aligned. There are postoperative changes in the right pelvis. There is a chronic calcification at the greater trochanter. IMPRESSION: Moderate degenerative change of the right hip and mild degenerative change of the lower lumbar spine. No acute bony abnormality. Reviewed, Interpreted and Dictated by Edson Rowe III, MD Transcribed by Carlyn Estrada Authenticated and [facility]
[2021-12-22 12:51] LABS: Basophils # 0.1 K/mm3 (0-0.2); Basophils % 1.1 % (0.1-2.0); Eosinophils # 0.2 K/mm3 (0.0-0.4); Eosinophils % 2.8 % (0.1-12.0); Hematocrit 42.3 % (37.0-47.0); Hemoglobin 13.4 g/dL (12.2-16.2); Lymphocytes # 2.5 K/mm3 (0.7-4.5); Lymphocytes % 32.2 % (10-50); Mean Corpuscular HGB Conc 31.7 g/dL (31.8-35.4); Mean Corpuscular Volume 85.1 fl (81-99); Monocytes # 0.3 K/mm3 (0.1-1.0); Monocytes % 4.4 % (1.7-9.3); Neutrophils # 4.6 K/mm3 (1.8-7.8); Neutrophils % 59.4 % (37.0-80.0); Platelet Count 306 K/mm3 (142-424); Red Blood Count 4.97 M/mm3 (4.20-5.40); White Blood Count 7.7 K/mm3 (4.8-10.8)
[2021-12-22 12:52] LABS: Hemoglobin A1C 6.7 % (4.0-6.0)
[2021-12-22 13:07] LABS: Chloride 107 mmol/L (98-107); Sodium 142 mmol/L (136-145)
[2021-12-22 13:08] LABS: Potassium 4.4 mmoL/L (3.5-5.1)
[2021-12-22 13:10] LABS: Alanine Aminotransferase 25 U/L (12-78); Alkaline Phosphatase 161 U/L (38-126); Anion Gap 12.4 mEq/L (5-15); Aspartate Amino Transferase 33 U/L (14-36); Bilirubin,Total 0.2 mg/dl (0.2-1.3); Blood Urea Nitrogen 12 mg/dl (7-17); Calcium 8.3 mg/dl (8.4-10.2); Carbon Dioxide 27 mmol/L (22.0-30.0); Estimated Glomerular Filt Rate 64 ml/min (>60); GFR (African American) 78 ML/MIN (>60); Glucose 118 mg/dl (74-100)
[2021-12-22 13:11] LABS: Albumin Level 3.8 g/dl (3.5-5.0); Albumin/Globulin Ratio 1.4 (1.1-1.8); Globulin 2.8 g/dL (1.3-3.2); Total Protein,Serum 6.6 g/dl (6.3-8.2)
[2021-12-22 13:42] LABS: Thyroid Stimulating Hormone 2.05 uIU/mL (0.465-4.68)
[2021-12-22 14:29] LABS: Vitamin B12 613 pg/mL (239-931)
[2021-12-23 12:11] LABS: Rapid Plasma Reagin Ab Titer Non Reactive (NonRea<1:1)
[2021-12-25 18:10] LABS: Zinc 79 ug/dL (44-115)
[2021-12-27 16:16] LABS: Albumin 3.3 g/dL (2.9-4.4); Alpha-1-Globulin 0.3 g/dL (0.0-0.4); Alpha-2-Globulin 0.9 g/dL (0.4-1.0); Gamma Globulin 0.9 g/dL (0.4-1.8); Immunoglobulin A, Qn, CHARGE YES; Immunoglobulin A, Qn, Serum 171 mg/dL (87-352); Immunoglobulin G, Qn, CHARGE YES; Immunoglobulin G, Qn, Serum 1133 mg/dL (586-1602); Immunoglobulin M, Qn, CHARGE YES; Immunoglobulin M, Qn, Serum 139 mg/dL (26-217); Protein, Total 6.5 g/dL (6.0-8.5)
[2021-12-28 12:18] LABS: Arsenic, Blood <1 ug/L (0-9); Lead, Blood 1 ug/dL (0-4); Mercury, Blood <1.0 ug/L (0.0-14.9)
[2022-01-01 21:31] LABS: Antinuclear Antibodies (ANA) Negative
== END ==
PROVIDERS: PCP Nurse Practitioner Family; Visit Provider Nurse Practitioner Family
DX: G89.29 Other chronic pain (principal); M25.551 Pain in right hip; M25.552 Pain in left hip; M54.50 Low back pain, unspecified; I10 Essential (primary) hypertension; M79.671 Pain in right foot; M79.672 Pain in left foot; R73.9 Hyperglycemia, unspecified; Z68.43 Body mass index [BMI] 50.0-59.9, adult; E66.9 Obesity, unspecified
CPT/HCPCS: 36415; 72100; 73502; 80053; 82175; 82390; 82525; 82607; 82746; 82784; 83036; 83655; 83825; 84155; 84165; 84443; 84630; 85025; 86038; 86225; 86235; 86334; 86592

== ENCOUNTER → 2022-05-03 10:40 | Outpatient (CLI) | payer MEDICARE, MEDICAID, SELFPAY | PROVIDERS: PCP Nurse Practitioner Family; Visit Provider Nurse Practitioner Family | DX: R78.79 Finding of abnormal level of heavy metals in blood (principal) | CPT/HCPCS: 36415; 82525 ==

== ENCOUNTER 2022-05-13 08:05 | Emergency (ER) | payer MEDICARE, MEDICAID, SELFPAY ==
[2022-05-13 08:10] VITALS: BP 190/85; PULSE 68; RESP 20; TEMP 36.8; O2SAT 95; BMI 49.6
--- NOTE | 2022-05-13 08:14 | EXP.UTC ---
Discharge Plan Disposition Patient Disposition: Home, Self-Care Condition: Good Prescriptions Prescriptions: New benzonatate [benzonatate] 100 mg capsule 100 mg PO TIDP PRN (Reason: Cough) Qty: 30 0RF methylprednisolone 4 mg Tablets,Dose Pack 4 mg PO DIRECTED Qty: 21 0RF cefdinir 300 mg capsule 300 mg PO BID Qty: 20 0RF ofloxacin 0.3 % drops See Rx Instructions .ROUTE .COMPLEX Qty: 5 0RF Rx Instructions: put 1 drp into both eyes every 4 h x 2 days, then 1 drp 4 times/day days 3-7 No Action omeprazole 40 mg capsule,delayed release(DR/EC) 40 mg PO DAILY rivaroxaban 20 mg tablet 20 mg PO DAILY Label Comments: TAKE 1 TABLET BY MOUTH ONCE DAILY WITH FOOD amlodipine 5 mg tablet 5 mg PO DAILY oxybutynin chloride 10 mg tablet extended release 24 hr 10 mg PO DAILY meloxicam 7.5 MG tablet 7.5 mg PO DAILY metformin 500 mg tablet extended release 24 hr 500 mg PO DAILY Label Comments: TAKE 1 TABLET BY MOUTH ONCE DAILY WITH EVENING MEAL Folinic-Plus 4-50-2 mg tablet 1 tab PO DAILY Label Comments: TAKE 1 TABLET BY MOUTH ONCE DAILY FOR 30 DAYS atorvastatin 20 MG tablet 20 mg PO Referrals Follow up/Referrals: Eileen Sandoval APRN [Primary Care Provider] - See instructions Activity Restrictions/Add. Instructions Additional Instructions/Restrictions: Drink plenty of fluids. Take tylenol or ibuprofen for pain or fever. Take the medications as directed. Follow up with your regular doctor. GO TO THE ER FOR ANY WORSENING SYMPTOMS Clinical Impressions Clinical Impression: Sinusitis, Conjunctivitis Instructions Patient Instructions: How to Instill Eye Drops, DI for Sinusitis, DI for Conjunctivitis Discharge ED Provider: Brien Andesron [facility] [place] General Stated complaint: head congestion, red eyes,sore Time Seen by Provider: 05/13/22 08:14 History of Present Illness Provider Complaint: She states that for the past 2 days she has had sore throat, sinus congestion and malaise. Related Data Home Medications Medication Instructions Recorded Confirmed oxybutynin chloride 10 mg 10 mg PO DAILY bladder 04/27/17 05/13/22 tablet,extended release 24 hr omeprazole 40 mg capsule,delayed 40 mg PO DAILY Reflux/Acid reflux 07/26/17 05/13/22 release atorvastatin 20 mg tablet 20 mg PO HS High cholesterol 07/19/18 05/13/22 rivaroxaban 20 mg tablet 20 mg PO DAILY Blood thinner 12/15/19 05/13/22 amlodipine 5 mg tablet 5 mg PO DAILY High blood pressure 03/18/21 05/13/22 meloxicam 7.5 mg tablet 7.5 mg PO DAILY Arthritis 11/21/21 05/13/22 leucovorin 4 mg-pyridoxal 1 tab PO DAILY . 05/13/22 05/13/22 phosphate 50 mg-mecobalamin 2 mg tablet (Folinic-Plus) metformin 500 mg tablet,extended 500 mg PO DAILY Diabetes 05/13/22 05/13/22 release 24 hr Previous Rx's Medication Instructions Recorded benzonatate 100 mg capsule 100 mg PO TIDP PRN Cough #30 caps 05/13/22 cefdinir 300 mg capsule 300 mg PO BID #20 caps 05/13/22 methylprednisolone 4 mg tablets in 4 mg PO DIRECTED #21 tabs 05/13/22 a dose pack ofloxacin 0.3 % eye drops See Rx Instructions ophthalmic 05/13/22 (eye) .COMPLEX #5 mL Allergies Allergy/AdvReac Type Severity Reaction Status Date / Time losartan AdvReac Verified 05/13/22 08:25 [facility] Disclaimer: The information contained in this section may have been updated after the patient was seen, as this information can be updated by other users. 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 Uterine cancer Surgical History H/O total hysterectomy History of total left hip replacement S/p bilateral carpal tunnel release Family History Other Cancer Coronary artery disease Diabetes Heart attack Hypertension Social History (Reviewed 05/13/22 @ 09
[2022-05-13 08:31] LABS: Apearance,Urine Clear (Clear); Bilirubin,Urine Negative (Negative); Blood, Urine Negative (Negative); Color,Urine Yellow (Yellow); Glucose,Urine (UA) Negative (Negative); Ketones,Urine Negative (Negative); Protein,Urine Negative (Negative); UTC Leukocyte Esterase,Urine Negative (Negative); UTC Nitrate,Urine Negative (Negative); Urobilinogen,Urine 0.2 EU/dl (0.2)
[2022-05-13 08:58] VITALS: BP 190/85; PULSE 68; RESP 20; TEMP 36.8; O2SAT 95
== END 2022-05-13 08:58 | disposition home or self-care (01) ==
PROVIDERS: Emergency Provider Nurse Practitioner Family; PCP Nurse Practitioner Family
DX: H10.9 Unspecified conjunctivitis (principal); J32.9 Chronic sinusitis, unspecified
CPT/HCPCS: 81003; 99212; 99214; G0463

== ENCOUNTER 2022-05-30 18:01 | Emergency (ER) | payer MEDICARE, MEDICAID, SELFPAY ==
--- NOTE | 2022-05-30 18:19 | XR_ITS ---
PROCEDURE INFORMATION: Exam: XR Right Hip Exam date and time: 05/30/2022 6:17 PM Age: 62 years old Clinical indication: Hip pain; Right hip; Additional info: Right hip pain x last week. TECHNIQUE: Imaging protocol: Radiologic exam of the Right hip. Views: 2 or 3 views hip with pelvis when performed. COMPARISON: CR XR HIP RT 2-3V W/PELVIS 12/22/2021 11:28 AM FINDINGS: Bones/joints: No acute fracture or dislocation at the right hip. Chronic arthritic changes with bony hypertrophy and sclerosis along the lateral acetabulum, prominent enthesophytes of the greater trochanter of the right femur, chronic cortical-periosteal thickening along the medial femur neck. Hip joint space is minimally narrowed. No focal lytic lesions. There is a chronic left hip prosthesis which appears grossly intact and normally aligned as visualized. Lower lumbar degenerative changes with spondylosis and facet arthropathy. Mild bilateral sacroiliitis.There are no lytic skeletal lesions seen. Pelvic enthesophytes. Soft tissues: Frogleg series 3 shows a chronic ovoid 1.7 cm calcification located superficial to the greater trochanter of the right femur, probably calcific trochanteric bursitis, or this could be calcific tendinopathy. No acute findings in the soft tissues. Intraperitoneal space: Multiple surgical clips in the pelvis on the right. Vasculature: Chronic tiny rounded calcifications in the lower pelvis are probably phleboliths rather than urinary tract stones, unchanged. There are also some curvilinear calcifications which are probably atherosclerotic plaques, in the left pelvis. IMPRESSION: 1. No acute findings or significant change compared with 12/22/2021. 2. Mild arthritic changes at the right hip joint. 3. Prominent enthesophytes of the greater trochanter of the right femur, and adjacent ovoid 1.7 cm soft tissue calcification suspicious for calcific trochanteric bursitis. 4. Left hip prosthesis remains intact and appears normally aligned. 5. Chronic lower lumbar degenerative changes and bilateral sacroiliitis. 6. Additional nonemergency and chronic findings as above.
[2022-05-30 19:40] VITALS: BP 131/76; PULSE 89; RESP 19; TEMP 36.7; O2SAT 96; BMI 53.4
--- NOTE | 2022-05-30 20:20 | EXP.UTC ---
Discharge Plan Disposition Patient Disposition: Home, Self-Care Condition: Good Prescriptions Prescriptions: No Action omeprazole 40 mg capsule,delayed release(DR/EC) 40 mg PO DAILY rivaroxaban 20 mg tablet 20 mg PO DAILY Label Comments: TAKE 1 TABLET BY MOUTH ONCE DAILY WITH FOOD amlodipine 5 mg tablet 5 mg PO DAILY oxybutynin chloride 10 mg tablet extended release 24 hr 10 mg PO DAILY meloxicam 7.5 MG tablet 7.5 mg PO DAILY metformin 500 mg tablet extended release 24 hr 500 mg PO DAILY Label Comments: TAKE 1 TABLET BY MOUTH ONCE DAILY WITH EVENING MEAL Folinic-Plus 4-50-2 mg tablet 1 tab PO DAILY Label Comments: TAKE 1 TABLET BY MOUTH ONCE DAILY FOR 30 DAYS benzonatate [benzonatate] 100 mg capsule 100 mg PO TIDP PRN (Reason: Cough) Qty: 30 0RF methylprednisolone 4 mg Tablets,Dose Pack 4 mg PO DIRECTED Qty: 21 0RF cefdinir 300 mg capsule 300 mg PO BID Qty: 20 0RF ofloxacin 0.3 % drops See Rx Instructions .ROUTE .COMPLEX Qty: 5 0RF Rx Instructions: put 1 drp into both eyes every 4 h x 2 days, then 1 drp 4 times/day days 3-7 atorvastatin 20 MG tablet 20 mg PO Referrals Follow up/Referrals: Eileen Sandoval APRN [Primary Care Provider] - See instructions Activity Restrictions/Add. Instructions Additional Instructions/Restrictions: Follow up with your Family Doctor for further evaluation and testing if no improvement Over the next few days your Finger stick blood sugar may be elevated due to SoluMedrol but should return to baseline Return if needed Straight to ER if any life threatening symptoms Follow up with your Family Doctor for further testing and treatment of hip pain Continue Meloxicam as prescribed Ice packs to area 20min every coulple hours may help with pain Rest hip Clinical Impressions Clinical Impression: Hip pain Instructions Patient Instructions: Bursitis (Alternative Therapy), DI for Bursitis, DI for Hip Pain Discharge ED Provider: Breanna Quick [facility] [place] HPI General Stated complaint: Right hip pain,no accident Mode of Arrival: Ambulatory Source of Information: Patient Limitations: No Limitations Time Seen by Provider: 05/30/22 20:20 Description of Symptoms (Recalled from Triage Doc. by RN): right hip. Pain started in right hip on sunday and then sunday it started to radiate to groin. It is constant HEENT Symptoms (Recalled from RN notes): No Resp Symptoms (Recalled from RN notes): No Skin Symptoms (Recalled from RN notes): No MS Symptoms (Recalled from RN notes): Yes Functional Status (Recalled from RN notes): n/a History of Present Illness Provider Complaint: Patient states that she started having pain in her hip on Sunday States that on Sunday the pain started radiating from her hip to her groin area States that it has been consistent States that she hasnt falling or anything but hurts when she moves it or raises it up States that she is a diabetic but her blood sugars have been good less than 130 Related Data Home Medications Medication Instructions Recorded Confirmed oxybutynin chloride 10 mg 10 mg PO DAILY bladder 04/27/17 05/13/22 tablet,extended release 24 hr omeprazole 40 mg capsule,delayed 40 mg PO DAILY Reflux/Acid reflux 07/26/17 05/13/22 release atorvastatin 20 mg tablet 20 mg PO HS High cholesterol 07/19/18 05/13/22 rivaroxaban 20 mg tablet 20 mg PO DAILY Blood thinner 12/15/19 05/13/22 amlodipine 5 mg tablet 5 mg PO DAILY High blood pressure 03/18/21 05/13/22 meloxicam 7.5 mg tablet 7.5 mg PO DAILY Arthritis 11/21/21 05/13/22 leucovorin 4 mg-pyridoxal 1 tab PO DAILY . 05/13/22 05/13/22 phosphate 50 mg-mecobalamin 2 mg tablet (Folinic-Plus) metformin 500 mg tablet,extended 500 mg PO DAILY Diabetes 05/13/22 05/13/22 release 24 hr Previous Rx's Medication Instructions Recorded benzonatate 100 mg capsule 100 mg PO TIDP PRN Cough #30 caps 05/13/22 ce
[2022-05-30 20:59] VITALS: BP 131/76; PULSE 89; RESP 20; TEMP 36.7; O2SAT 96
== END 2022-05-30 20:53 | disposition home or self-care (01) ==
PROVIDERS: Emergency Provider Nurse Practitioner; PCP Nurse Practitioner Family
DX: M25.551 Pain in right hip (principal); E11.9 Type 2 diabetes mellitus without complications
CPT/HCPCS: 73502; 96372; 99213; G0463

== ENCOUNTER → 2022-07-10 13:10 | Outpatient (CLI) | payer MEDICARE, MEDICAID, SELFPAY ==
--- NOTE | 2022-07-10 13:13 | CA_ITS ---
APPROVED REPORT EXAM: Comprehensive 2D, Doppler, and color-flow Echocardiogram Rehabilitation Technician: Josie Fernandez RVT Ht: 5 ft 9 in Wt: 236lbs BSA: 2.22 BP: 145/89 mmHg Indications: MURMUR,OBESITY,HTN,GERD TDS-PT BODY HABITUS 2D Dimensions LVOT 2.39 cm (M/F) 1.5-2.5 LA Volume 11.30 mL LA Volume Index 5.09 mL/m2 (M/F) 16-34 M-Mode Dimensions RVDd 3.22 cm (0.9-2.6) LA Diam 3.53 cm (1.9-4.0) LVDd 3.46 cm (3.5-5.7) Ao Diam 2.83 cm (2.0-3.7) LVDs 2.46 cm (3.5-5.7) IVSd 1.33 cm (0.6-1.1) PWd 0.76 cm (0.6-1.1) EF (Teich) 56.80% FS 28.90% EDV (Teich) 49.50 mL TAPSE 2.68 (<1.7) ESV (Teich) 21.40 mL LV Diastology E Decel Time 203.00 (160-240 msec) E/A Ratio 1.1 MED E' 9.70 (< 7 cm/sec) E'/MED E' Ratio 11.84 (>14) LAT E' 13.00 (<10 cm/sec) E/LAT E' Ratio 8.83 (>14) Aortic Valve AO Peak GR. 9.90 mmHg Mitral Valve MV E Max Frank. 115.00 (40-130 cm/s) MV A Velocity 109.00 (40-130 cm/s) E/A Ratio 1.05 MV Decel. Time 203.00 (160-240 ms) MV PHT 60.00 ms Pulmonary Valve PV Peak Velocity 119.00 (50-150 cm/s) Tricuspid Valve TR P. Velocity 290.00 cm/s RAP Estimate 10.00 mmHg RVSP 43.60 mmHg Left Ventricle Technically difficult study because of the patient factors and poor acoustic windows. Left atrium is normal size left ventricle is normal size, estimated ejection fraction 55% with no regional wall motion abnormality, diastolic parameters are within normal range. Right Ventricle Right atrium and right ventricle are mildly enlarged with normal contractility. Aortic Valve Aortic valve is minimally thickened and calcified without Doppler evidence of aortic stenosis aortic insufficiency. Mitral Valve Mitral valve is grossly normal, there is no significant mitral regurgitation. Tricuspid Valve Tricuspid valve grossly normal, there is trace tricuspid regurgitation, calculated right ventricular systolic pressure is 44 mmHg. Pulmonic Valve Pulmonic valve is poorly visualized. Great Vessels Aortic root is normal size. Inferior vena cava is poorly visualized. Pericardium No significant pericardial effusion noted. Conclusion 1. Normal left ventricular size preserved left ventricular systolic function, estimated ejection fraction 55% with no regional wall motion abnormality, diastolic parameters are within normal range. 2. Mildly enlarged right ventricle with normal contractility. 3. Trace tricuspid regurgitation, calculated right ventricular systolic pressure is 44 mmHg. 4. No significant pericardial effusion noted. 5. Inferior vena cava is poorly visualized. Electronically signed by : Tyrese Dean MD 07/11/2022 06:47:41
== END ==
PROVIDERS: PCP Nurse Practitioner Family; Visit Provider Nurse Practitioner Family
DX: R01.1 Cardiac murmur, unspecified (principal)
CPT/HCPCS: 93306

== ENCOUNTER → 2022-07-11 08:11 | Outpatient (CLI) | payer MEDICARE, MEDICAID, SELFPAY ==
--- NOTE | 2022-07-11 08:17 | XR_ITS ---
FINAL REPORT TECHNIQUE: Bone densitometry calculations of the lumbar spine, left forearm and right hip were obtained. CLINICAL HISTORY: . post menopausal screening. History of hip or vertebral fracture FINDINGS: DEXA BONE DENSITY AXIAL SKELETON Using L1-4, the bone mineral density of the spine is 1.420 g/cm2, corresponding to T-score of 3.4 with a Z-score of 4.8. Using the left forearm, the bone mineral density of the distal 1/3 is 0.644 g/cm2, corresponding to a T-score of -0.8 with a Z-score of 0.5. Using the right hip, the bone mineral density of the femoral neck is 0.888 g/cm2, corresponding to a T-score of 0.3 with a Z-score of 1.6. NOTE: T-score: Standard deviation compared with peak bone mass of young adult mean. *Following the recommendations of the International Society of Bone densitometry, classification of hip BMD is based on the lower of two T-scores; total hip or femoral neck. IMPRESSION: Normal bone mineral density of the lumbar spine, forearm and hip. FRAX not reported because: All T-scores for spine total, hip total, femoral neck at or above -1.0. Reviewed, Interpreted and Dictated by Norma Thakkar MD Transcribed by Carlyn Estrada Authenticated and . [facility] [place]
--- NOTE | 2022-07-11 08:17 | MM_ITS ---
PROCEDURE INFORMATION: Exam: MG Bilateral Screening 3D Mammography Exam date and time: 07/11/2022 8:37 AM Age: 62 years old Clinical indication: Screening examination. Her sister had breast cancer in her 60s. TECHNIQUE: Imaging protocol: Bilateral Screening tomosynthesis and 2D mammography including computer-aided detection (CAD) when performed. COMPARISON: 1. MG SCBI MM Dig screening mamm BI w/CAD 05/16/2017 3:22 PM 2. MG SCBI MM Dig screening mamm BI w/CAD 01/28/2008 3:54 PM 3. MG MM Digitiz Mammo Kiln Repairer 06/20/2007 4:19 PM 4. MG SCBI MM Dig screening mamm BI w/CAD 06/20/2007 3:54 PM FINDINGS: MAMMOGRAPHY: Breast composition: The breasts are almost entirely fatty. Mass: No suspicious mass. Architectural distortion: None. Calcifications: No suspicious calcifications. Asymmetric density: None. Skin thickening: None. Axillary adenopathy: None. IMPRESSION: No mammographic evidence of malignancy. Annual screening is recommended unless otherwise clinically indicated. ASSESSMENT: BI-RADS Category 1: Negative
== END ==
PROVIDERS: PCP Nurse Practitioner Family; Visit Provider Nurse Practitioner Family
DX: Z12.31 Encounter for screening mammogram for malignant neoplasm of breast (principal); M81.0 Age-related osteoporosis without current pathological fracture
CPT/HCPCS: 77063; 77067; 77080

== ENCOUNTER 2022-07-27 17:42 | Emergency (ER) | payer MEDICARE, MEDICAID, SELFPAY ==
[2022-07-27 18:30] VITALS: PULSE 87; RESP 20; TEMP 36.8; O2SAT 94; BMI 49.8
--- NOTE | 2022-07-27 18:39 | EXP.UTC ---
Discharge Plan Disposition Patient Disposition: Home, Self-Care Condition: Good Prescriptions Prescriptions: No Action omeprazole 40 mg capsule,delayed release(DR/EC) 40 mg PO DAILY rivaroxaban 20 mg tablet 20 mg PO DAILY Label Comments: TAKE 1 TABLET BY MOUTH ONCE DAILY WITH FOOD amlodipine 5 mg tablet 5 mg PO DAILY oxybutynin chloride 10 mg tablet extended release 24 hr 10 mg PO DAILY meloxicam 7.5 MG tablet 7.5 mg PO DAILY metformin 500 mg tablet extended release 24 hr 500 mg PO DAILY Label Comments: TAKE 1 TABLET BY MOUTH ONCE DAILY WITH EVENING MEAL Folinic-Plus 4-50-2 mg tablet 1 tab PO DAILY Label Comments: TAKE 1 TABLET BY MOUTH ONCE DAILY FOR 30 DAYS benzonatate [benzonatate] 100 mg capsule 100 mg PO TIDP PRN (Reason: Cough) Qty: 30 0RF methylprednisolone 4 mg Tablets,Dose Pack 4 mg PO DIRECTED Qty: 21 0RF cefdinir 300 mg capsule 300 mg PO BID Qty: 20 0RF ofloxacin 0.3 % drops See Rx Instructions .ROUTE .COMPLEX Qty: 5 0RF Rx Instructions: put 1 drp into both eyes every 4 h x 2 days, then 1 drp 4 times/day days 3-7 atorvastatin 20 MG tablet 20 mg PO Referrals Follow up/Referrals: Bautista Jennings JR, MD [Physician] - See instructions Eileen Sandoval APRN [Primary Care Provider] - See instructions Activity Restrictions/Add. Instructions Additional Instructions/Restrictions: Rest the extremity, Elevate the extremity as tolerated while you are resting. Follow up with Dr. Jennings (orthopedics). I put in a referral but you need to call his office and schedule an appointment. Follow up with your regular doctor. GO TO THE ER FOR ANY WORSENING SYMPTOMS Clinical Impressions Clinical Impression: Right knee sprain Instructions Patient Instructions: DI for Knee Sprain, How to Use a Knee Immobilizer Discharge ED Provider: Brien Anderson [facility] General Stated complaint: pain R Knee Time Seen by Provider: 07/27/22 18:39 History of Present Illness Provider Complaint: She c/o pain in her right knee after feeling a pop while going up steps 2 days ago. She denies falling or twisting the knee. She denies other complaints. Related Data Home Medications Medication Instructions Recorded Confirmed oxybutynin chloride 10 mg 10 mg PO DAILY bladder 04/27/17 05/13/22 tablet,extended release 24 hr omeprazole 40 mg capsule,delayed 40 mg PO DAILY Reflux/Acid reflux 07/26/17 05/13/22 release atorvastatin 20 mg tablet 20 mg PO HS High cholesterol 07/19/18 05/13/22 rivaroxaban 20 mg tablet 20 mg PO DAILY Blood thinner 12/15/19 05/13/22 amlodipine 5 mg tablet 5 mg PO DAILY High blood pressure 03/18/21 05/13/22 meloxicam 7.5 mg tablet 7.5 mg PO DAILY Arthritis 11/21/21 05/13/22 leucovorin 4 mg-pyridoxal 1 tab PO DAILY . 05/13/22 05/13/22 phosphate 50 mg-mecobalamin 2 mg tablet (Folinic-Plus) metformin 500 mg tablet,extended 500 mg PO DAILY Diabetes 05/13/22 05/13/22 release 24 hr Previous Rx's Medication Instructions Recorded benzonatate 100 mg capsule 100 mg PO TIDP PRN Cough #30 caps 05/13/22 cefdinir 300 mg capsule 300 mg PO BID #20 caps 05/13/22 methylprednisolone 4 mg tablets in 4 mg PO DIRECTED #21 tabs 05/13/22 a dose pack ofloxacin 0.3 % eye drops See Rx Instructions ophthalmic 05/13/22 (eye) .COMPLEX #5 mL Allergies Allergy/AdvReac Type Severity Reaction Status Date / Time losartan AdvReac Verified 07/27/22 18:55 [facility] Disclaimer: The information contained in this section may have been updated after the patient was seen, as this information can be updated by other users. 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 Uterine cancer Surgical History H/O total hysterectomy History of total left hip replacement S/p bilateral carpal tunnel release Family History (Reviewed
--- NOTE | 2022-07-27 18:43 | XR_ITS ---
PROCEDURE INFORMATION: Exam: XR Right Knee Exam date and time: 07/27/2022 6:44 PM Age: 62 years old Clinical indication: Pain; Knee; Right; Additional info: Pain. Fall on Sunday TECHNIQUE: Imaging protocol: Radiologic exam of the right knee. Views: 3 views. Total images: 3 COMPARISON: US ARTERIAL LOWER EXT REST 04/23/2020 1:17 PM FINDINGS: Bones/joints: Osteopenia. No acute fracture or joint dislocation. Moderate tricompartment degenerative arthritis with prominent marginal articular surface enthesophytes. Mild narrowing tibiofemoral joint and moderate narrowing patellofemoral joint. Small to moderate suprapatellar joint effusion. No concerning bone lesions. Cortical thickening proximal fibula compatible with remote or chronic stress injury. Soft tissues: Mild soft tissue edema. IMPRESSION: 1. No acute osseous abnormality. 2. Osteopenia and moderate tricompartment degenerative arthritis. 3. Small to moderate joint effusion 4. Mild soft tissue edema.
[2022-07-27 19:15] VITALS: BP 0/0; PULSE 87; RESP 20; TEMP 36.8; O2SAT 94
== END 2022-07-27 19:15 | disposition home or self-care (01) ==
PROVIDERS: Emergency Provider Nurse Practitioner Family; PCP Nurse Practitioner Family
DX: S83.91XA Sprain of unspecified site of right knee, initial encounter (principal); X50.1XXA Overexertion from prolonged static or awkward postures, initial encounter
CPT/HCPCS: 29505; 73562; 99212; 99213; G0463

== ENCOUNTER 2022-11-05 12:39 | Emergency (ER) | payer MEDICARE, MEDICAID, SELFPAY ==
[2022-11-05 12:55] VITALS: BP 156/92; PULSE 83; RESP 18; TEMP 36.8; O2SAT 98; BMI 47.9
[2022-11-05 13:01] LABS: Microscopic, Urine URINE MICROSCOPIC (MICROSCOPIC)
--- NOTE | 2022-11-05 13:09 | EXP.UTC ---
Discharge Plan Disposition Patient Disposition: Home, Self-Care Condition: Good Prescriptions Prescriptions: New cefdinir 300 mg capsule 300 mg PO BID Qty: 20 0RF phenazopyridine [Pyridium] 200 mg tablet 200 mg PO Q8H 2 Days Qty: 6 0RF No Action omeprazole 40 mg capsule,delayed release(DR/EC) 40 mg PO DAILY rivaroxaban 20 mg tablet 20 mg PO DAILY Patient Comments: TAKE 1 TABLET BY MOUTH ONCE DAILY WITH FOOD meloxicam 15 mg tablet 15 mg PO DAILY amlodipine 10 mg tablet 10 mg PO DAILY oxybutynin chloride 10 mg tablet extended release 24 hr 10 mg PO DAILY metformin 500 mg tablet extended release 24 hr 500 mg PO DAILY Patient Comments: TAKE 1 TABLET BY MOUTH ONCE DAILY WITH EVENING MEAL Folinic-Plus 4-50-2 mg tablet 1 tab PO DAILY Patient Comments: TAKE 1 TABLET BY MOUTH ONCE DAILY FOR 30 DAYS benzonatate [benzonatate] 100 mg capsule 100 mg PO TIDP PRN (Reason: Cough) Qty: 30 0RF atorvastatin 20 MG tablet 20 mg PO HS Referrals Follow up/Referrals: Eileen Sandoval APRN [Primary Care Provider] - See instructions Activity Restrictions/Add. Instructions Additional Instructions/Restrictions: *Increase fluids. Water not Soda or Tea *Start antibiotic immediately and be sure to take as ordered for the FULL length of time although you should start to see improvement over the next 48 hours *Pyridium as needed Remember this medication will turn your urine . This is normal but it will stain what ever it gets on *You should not use Pyridium for more than 48 hours. If so , follow up with your primary physician to review urine culture and ensure that antibiotic is adequate for infection *Be SURE to follow up anytime for new or worsening symptoms with your family doctor. AND in 48 hours for urine culture results with your family doctor, if you do not have a doctor then you may call back to the [facility] for urine culture results and further treatment. We do recommend that you choose and establish care with a Primary Care Physician. ?AND follow up with them ?in 10-14 days to repeat UA to ensure infection is resolved and blood no longer present *Be sure to let your PCP know that we sent urine cultures from the [facility] so they can follow up to ensure that you area the on the correct antibiotic Call your doctor office and make appointment for 48 hours (2 days from today) ?to follow up and get the results of your urine culture and further treatment Clinical Impressions Clinical Impression: UTI (urinary tract infection) Qualifiers: Urinary tract infection type: site unspecified Hematuria presence: without hematuria Qualified Code(s): N39.0 - Urinary tract infection, site not specified Instructions Patient Instructions: DI for Urinary Tract Infection (UTI), Urinary Tract Infection, Cefdinir Discharge ED Provider: Breanna Quick [facility] General Stated complaint: Lower back pain Mode of Arrival: Ambulatory Source of Information: Patient Limitations: No Limitations Time Seen by Provider: 11/05/22 13:09 Description of Symptoms (Recalled from Triage Doc. by RN): PATIENT C/O RIGHT FLANK PAIN, FREQUENT URINATION, CHILLS, AND DIARRHEA X 2 WEEKS HEENT Symptoms (Recalled from RN notes): No Resp Symptoms (Recalled from RN notes): No Skin Symptoms (Recalled from RN notes): No MS Symptoms (Recalled from RN notes): No Functional Status (Recalled from RN notes): WNL History of Present Illness Provider Complaint: Patient states that she thinks she may have a UTI States that she has been having right lower back pain, having frequency and urgency and chills States that she has also had diarrhea on and off for a couple of weeks so today when she was still having symptoms she came in to get checked Related Data Home Medications Medication Instructions Recorded Confirmed oxybutynin chloride 10 mg 10 mg PO DAILY bladder 04/27/17 08/11/22 tablet,extended release 24 h
[2022-11-05 13:16] LABS: Appearance,Urine CLEAR (Clear); Bilirubin,Urine Negative (Negative); Blood, Urine Negative (Negative); Color,Urine YELLOW (Yellow); Glucose,Urine (UA) Negative (Negative); Ketones,Urine Negative (Negative); Leukocyte Esterase,Urine 2+ (Negative); Nitrate,Urine Negative (Negative); Protein,Urine TRACE (Negative); Specific Gravity, Urine 1.025 (1.005-1.030); Urobilinogen,Urine 0.2 EU/dl (0.2)
[2022-11-05 13:48] VITALS: BP 156/92; PULSE 83; RESP 18; TEMP 36.8; O2SAT 98
[2022-11-05 14:32] LABS: Bacteria,Urine Trace /lpf; Squamous Epithelial Cell,Urine Occasional #/hpf (0-5)
== END 2022-11-05 13:49 | disposition home or self-care (01) ==
PROVIDERS: Emergency Provider Nurse Practitioner; PCP Nurse Practitioner Family
DX: N39.0 Urinary tract infection, site not specified (principal); M54.59 Other low back pain
CPT/HCPCS: 81001; 87086; 99212; 99214; G0463

== ENCOUNTER 2023-03-24 10:35 | Emergency (ER) | payer MEDICARE, MEDICAID, SELFPAY ==
[2023-03-24 10:45] VITALS: BP 161/71; PULSE 69; RESP 20; TEMP 36.7; O2SAT 96; BMI 47.9
--- NOTE | 2023-03-24 11:16 | EXP.UTC ---
Discharge Plan Disposition Patient Disposition: Home, Self-Care Condition: Good Prescriptions Prescriptions: New fluticasone propionate [Flonase Allergy Relief] 50 mcg/actuation spray,suspension 1 spray intranasal DAILY Qty: 16 0RF Rx Instructions: administer into each nostril No Action omeprazole 40 mg capsule,delayed release(DR/EC) 40 mg PO DAILY rivaroxaban 20 mg tablet 20 mg PO DAILY Patient Comments: TAKE 1 TABLET BY MOUTH ONCE DAILY WITH FOOD amlodipine 10 mg tablet 10 mg PO DAILY oxybutynin chloride 10 mg tablet extended release 24 hr 10 mg PO DAILY metformin 500 mg tablet extended release 24 hr 500 mg PO DAILY Patient Comments: TAKE 1 TABLET BY MOUTH ONCE DAILY WITH EVENING MEAL atorvastatin 20 MG tablet 20 mg PO HS gabapentin 300 mg capsule 300 mg PO DAILY Patient Comments: TAKE 1 CAPSULE BY MOUTH ONCE DAILY Referrals Follow up/Referrals: Kiley Awad MD [Primary Care Provider] - See instructions Clinical Impressions Clinical Impression: Acute dysfunction of both eustachian tubes Instructions Patient Instructions: DI for Viral Upper Respiratory Infection -- Adult, DI for Ear Pain-Adult Discharge ED Provider: Precious Ceballos [facility] General Stated complaint: ear pain in both, dizziness Mode of Arrival: Ambulatory Source of Information: Patient Limitations: No Limitations Time Seen by Provider: 03/24/23 11:16 Description of Symptoms (Recalled from Triage Doc. by RN): PATIENT C/O BILATERAL EAR PAIN AND DIZZINESS X 4 DAYS HEENT Symptoms (Recalled from RN notes): Yes Resp Symptoms (Recalled from RN notes): No Skin Symptoms (Recalled from RN notes): No MS Symptoms (Recalled from RN notes): No Functional Status (Recalled from RN notes): WNL History of Present Illness Provider Complaint: Pt relates that her ears have hurt and she has been dizzy for the last 4 days. She denies taking anything for her symptoms. She reports that she has had clear sinus drainage and an occasional dry cough. Related Data Home Medications Medication Instructions Recorded Confirmed oxybutynin chloride 10 mg 10 mg PO DAILY bladder 04/27/17 03/24/23 tablet,extended release 24 hr omeprazole 40 mg capsule,delayed 40 mg PO DAILY Reflux/Acid reflux 07/26/17 03/24/23 release atorvastatin 20 mg tablet 20 mg PO HS High cholesterol 07/19/18 03/24/23 rivaroxaban 20 mg tablet 20 mg PO DAILY Blood thinner 12/15/19 03/24/23 metformin 500 mg tablet,extended 500 mg PO DAILY Diabetes 05/13/22 03/24/23 release 24 hr amlodipine 10 mg tablet 10 mg PO DAILY 08/11/22 03/24/23 gabapentin 300 mg capsule 300 mg PO DAILY 03/24/23 03/24/23 Previous Rx's Medication Instructions Recorded fluticasone propionate 50 1 spray intranasal DAILY #16 grams 03/24/23 mcg/actuation nasal spray,suspension (Flonase Allergy Relief) Allergies Allergy/AdvReac Type Severity Reaction Status Date / Time losartan AdvReac Verified 08/11/22 08:51 Worker's Comp Is this a Worker's Comp case?: No [facility] Disclaimer: The information contained in this section may have been updated after the patient was seen, as this information can be updated by other users. 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 (Updated 03/24/23 @ 11:22 by Precious Ceballos APRN) Diabetes mellitus, type 2 Hyperlipidemia Hypertension Uterine cancer Surgical History (Updated 03/24/23 @ 10:56 by Dionne Jack RN) H/O total hysterectomy History of cholecystectomy History of hysterectomy History of total left hip replacement History of tubal ligation S/p bilateral carpal tunnel release Family History Other Cancer Coronary artery disease Diabetes Heart attack Hypertension Social History Smoking Status: Never smoker second hand exposure: No alcohol intake: former substance use typ
[2023-03-24 11:24] VITALS: BP 161/71; PULSE 69; RESP 20; TEMP 36.7; O2SAT 96
== END 2023-03-24 11:26 | disposition home or self-care (01) ==
PROVIDERS: Emergency Provider Nurse Practitioner Family; PCP Family Medicine
DX: H69.93 Unspecified Eustachian tube disorder, bilateral (principal); R42 Dizziness and giddiness; R05.9 Cough, unspecified; R09.81 Nasal congestion; E11.9 Type 2 diabetes mellitus without complications; I10 Essential (primary) hypertension; E78.5 Hyperlipidemia, unspecified; Z79.84 Long term (current) use of oral hypoglycemic drugs
CPT/HCPCS: 99212; 99214; G0463

== ENCOUNTER 2023-05-07 23:00 | Emergency (ER) | payer MEDICARE, MEDICAID, SELFPAY ==
[2023-05-07 23:14] VITALS: BP 136/85; PULSE 123; RESP 18; TEMP 36.9; O2SAT 95; BMI 47.2
--- NOTE | 2023-05-07 23:16 | PC.NURSE ---
in room talking with patient at this time.
[2023-05-07 23:29] VITALS: BP 146/89; PULSE 119; O2SAT 96
[2023-05-07] MEDS: METHOCARBAMOL 500MG TABLET 500 MG PO (23:51)
[2023-05-07] MEDS: MORPHINE 4MG/ML SYRINGE 4 MG IV (23:51)
[2023-05-07] MEDS: ACETAMINOPHEN 500MG TAB 1000 MG PO (23:51)
[2023-05-07] MEDS: KETOROLAC 30MG/ML VIAL 15 MG IV (23:51)
--- NOTE | 2023-05-07 23:56 | HMH.EDGENADL ---
Discharge Plan Disposition Patient Disposition: Home, Self-Care Condition: Good Prescriptions Prescriptions: New methocarbamol 500 mg tablet 500 mg PO TID Qty: 24 0RF No Action omeprazole 40 mg capsule,delayed release(DR/EC) 40 mg PO DAILY rivaroxaban 20 mg tablet 20 mg PO DAILY Patient Comments: TAKE 1 TABLET BY MOUTH ONCE DAILY WITH FOOD amlodipine 10 mg tablet 10 mg PO DAILY oxybutynin chloride 10 mg tablet extended release 24 hr 10 mg PO DAILY metformin 500 mg tablet extended release 24 hr 500 mg PO DAILY Patient Comments: TAKE 1 TABLET BY MOUTH ONCE DAILY WITH EVENING MEAL atorvastatin 20 MG tablet 20 mg PO HS gabapentin 300 mg capsule 300 mg PO DAILY Patient Comments: TAKE 1 CAPSULE BY MOUTH ONCE DAILY fluticasone propionate [Flonase Allergy Relief] 50 mcg/actuation spray,suspension 1 spray intranasal DAILY Qty: 16 0RF Rx Instructions: administer into each nostril Referrals Follow up/Referrals: Kiley Awad MD [Primary Care Provider] - See instructions Clinical Impressions Clinical Impression: Low back pain, Lumbar radiculopathy Instructions Patient Instructions: DI for Low Back Pain, DI for Acute Pain -- Adult Discharge ED Provider: Shannon Saldivar General Adult HPI General Chief complaint: PAIN Stated complaint: Lower back pain Time Seen by Provider: 05/07/23 23:08 Mode of Arrival: Ambulatory Source of Information: Patient Limitations: No Limitations Description of Symptoms (Recalled from ER Triage Doc. by RN): pt c/o lower back pain that radiates to the R side of her spine, down her R leg and up to her R shoulder. Pt denies any injury or other symptoms. pt states the pain is 10/10 and is crying. Pt appears extremely uncomfortable. History of Present Illness HPI narrative: Patient has a PMHx significant for GERD, hypertension, hyperlipidemia, diabetes complicated by diabetic neuropathy, multiple PEs in the past on Xarelto, uterine cancer status post hysterectomy who presents to the ED with complaints of back pain. Patient notes that she has chronic pain, but over the past 24 hours she has had excruciating lower back pain that radiates to the R side of her spine, down her R leg and up to her R shoulder. Pt denies any fall, injury or other symptoms. No saddle anesthesia, issues urinating or defecating pt states the pain is 10/10 and is crying on arrival. Patient notes the pain is a sharp, spasm. Related Data Home Medications Medication Instructions Recorded Confirmed oxybutynin chloride 10 mg 10 mg PO DAILY bladder 04/27/17 03/24/23 tablet,extended release 24 hr omeprazole 40 mg capsule,delayed 40 mg PO DAILY Reflux/Acid reflux 07/26/17 03/24/23 release atorvastatin 20 mg tablet 20 mg PO HS High cholesterol 07/19/18 03/24/23 rivaroxaban 20 mg tablet 20 mg PO DAILY Blood thinner 12/15/19 03/24/23 metformin 500 mg tablet,extended 500 mg PO DAILY Diabetes 05/13/22 03/24/23 release 24 hr amlodipine 10 mg tablet 10 mg PO DAILY 08/11/22 03/24/23 gabapentin 300 mg capsule 300 mg PO DAILY 03/24/23 03/24/23 Previous Rx's Medication Instructions Recorded fluticasone propionate 50 1 spray intranasal DAILY #16 grams 03/24/23 mcg/actuation nasal spray,suspension (Flonase Allergy Relief) methocarbamol 500 mg tablet 500 mg PO TID #24 tabs 05/08/23 Allergies Allergy/AdvReac Type Severity Reaction Status Date / Time losartan AdvReac Verified 08/11/22 08:51 [facility] Disclaimer: The information contained in this section may have been updated after the patient was seen, as this information can be updated by other users. 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 (Updated 05/08/23 @ 01:31 by Shannon Saldivar MD) Diabetes mellitus, type 2 Hyperlipidemia Hypertension Uterine cancer Surgical History (Updated 03/24/23 @ 10:56 by Dionne Jack RN) H/O total hysterectomy History of cholecystectomy History of hysterectomy History of total left hip replacement History of tubal ligation S/p bilateral carpal tunnel release Family History Other Cancer Coronary artery disease Diabetes Heart attack Hypertension Social History Smoking Status: Never smoker second hand exposure: No alcohol intake: former substance use type: denies use current occupational status: disabled Travel in the last 8 weeks: None household members: none housing: apartment lives independently: Yes current occupational exposures/hazards: No caffeine: Yes ROS Obtained: Yes All systems reviewed & no additional complaints except as documented Physical Exam General General appearance: alert and in no apparent distress Head Head exam: atraumatic, normocephalic and normal inspection Eye Eye exam: Present normal appearance, PERRL and EOMI; Absent scleral icterus or nystagmus ENT ENT exam: Present normal exam, mucous membranes moist and normal external ear exam Neck Neck exam: Present normal inspection, full ROM and trachea midline Chest Chest inspection: Present normal inspection and symmetric chest wall rise; Absent tenderness Respiratory Respiratory exam: Present normal lung sounds bilaterally; Absent respiratory distress, wheezes or accessory muscle use Cardiovascular Cardiovascular exam: Present regular rate, normal rhythm and normal heart sounds Abdominal Exam Abdominal exam: Present soft; Absent distention, tenderness, guarding, rebound, rigidity, trauma, ascites or pulsatile mass Extremities Exam Extremities exam: Present normal inspection and full ROM; Absent tenderness Back Exam Back exam: Present normal inspection and tenderness (TTP to R and L paraspinal muscles); Absent full ROM Neurological Exam Neurological exam: Present alert, oriented X3 and normal gait; Absent motor sensory deficit Psychiatric Psychiatric exam: Present normal affect and normal mood Skin Skin exam: Present warm, dry and normal color Medical Decision Making Medical Records Medical records reviewed: Yes I reviewed the patient's medical records. Ander Inquiry Pt receiving controlled substance: No Vital Signs: 05/07/23 23:14 05/07/23 23:29 05/08/23 00:01 Temperature 98.4 F Temperature Source Oral Pulse Rate 119 H 92 H Pulse Rate [Left] 123 H Respiratory Rate 18 20 Blood Pressure 146/89 H 133/79 Blood Pressure [Right Arm] 136/85 Blood Pressure Mean 100 Blood Pressure Mean [Right Arm] 102 Blood Pressure Source [Right Arm] Automatic Cuff Blood Pressure Position [Right Arm] Standing 02 Sat by Pulse Oximetry 95 96 96 Oxygen Delivery Method Room Air Lab Data Lab results reviewed: Yes I reviewed the patient's lab results. Lab Results 05/07/23 23:49: WBC 11.2 H, RBC 5.30, Hgb 14.6, Hct 42.9, MCV 80.9 L, MCH 27.6, MCHC 34.1, RDW 15.2, Plt Count 337, MPV 8.8, Neut % (Auto) 57.6, Lymph % (Auto) 35.3, Mcke[place] % (Auto) 2.7, Eos % (Auto) 3.1, Baso % (Auto) 1.3, Neut # (Auto) 6.4, Lymph # (Auto) 3.9, Mckean # (Auto) 0.3, Eos # (Auto) 0.3, Baso # (Auto) 0.2, Sodium 141, Potassium 3.8, Chloride 107, Carbon Dioxide 21 L, Anion Gap 16.8 H, BUN 18 H, Creatinine 1.20 H, Estimated Creat Clear 51, Estimated GFR 46 L, Est GFR ( Amer) 55 L, Glucose 158 H, Calcium 9.6, Total Bilirubin 0.5, AST 38 H, ALT 32, Alkaline Phosphatase 170 H, Total Protein 8.0, Albumin 4.3, Globulin 3.7 H, Albumin/Globulin Ratio 1.2 05/08/23 00:50: Urine Color Yellow, Urine Appearance Clear, Urine pH 6.0, Ur Specific [place] 1.015, Urine Protein Trace, Urine Glucose (UA) Negative, Urine Ketones Negative, Urine Blood Negative, Urine Nitrate Negative, Urine Bilirubin Negative, Urine Urobilinogen 0.2, Ur Leukocyte Esterase Trace, Urine RBC None, Urine WBC Occasional, Ur Squamous Epith Cells 10-20, Urine Bacteria Trace 05/07/23 23:49 05/07/23 23:49 Orders (Tests/Meds): ED MEDICATIONS Discontinued Medications Generic Name Dose Route Start Last Admin Trade Name Mary PRN Reason Stop Dose Admin Acetaminophen 1,000 mg 05/07/23 23:23 05/07/23 23:51 Acetaminophen 500mg Tab PO 05/07/23 23:24 1,000 mg ONCE ONE Administration Ketorolac Tromethamine 15 mg 05/07/23 23:23 05/07/23 23:51 Ketorolac 30mg/Ml Vial IV 05/07/23 23:24 15 mg ONCE ONE Administration Methocarbamol 500 mg 05/07/23 23:23 05/07/23 23:51 Methocarbamol 500mg Tablet PO 05/07/23 23:24 500 mg ONCE ONE Administration Morphine Sulfate 4 mg 05/07/23 23:23 05/07/23 23:51 Morphine 4mg/Ml Syringe IV 05/07/23 23:24 4 mg ONCE ONE Administration ORDERS Category Date Time Status CBC w/Auto Diff [Complete Blood Count Auto Diff] Stat Lab 05/07/23 23:49 Completed CMP [Comprehensive Metabolic Panel] Stat Lab 05/07/23 23:49 Completed Urinalysis and Microscopic Stat Lab 05/08/23 00:50 Completed Medical Decision Narrative: In summary, Patient has a PMHx significant for GERD, hypertension, hyperlipidemia, diabetes complicated by diabetic neuropathy, multiple PEs in the past on Xarelto, uterine cancer status post hysterectomy who presents to the ED with complaints of back pain. Patient notes that she has chronic pain, but over the past 24 hours she has had excruciating lower back pain that radiates to the R side of her spine, down her R leg and up to her R shoulder. Pt denies any fall, injury or other symptoms. No saddle anesthesia, issues urinating or defecating pt states the pain is 10/10 and is crying on arrival. Patient notes the pain is a sharp, spasm. Patient was afebrile, hemodynamically stable, in no respiratory distress, and nontoxic in appearance upon arrival and throughout the entire stay in the ED. Physical examination was unremarkable aside from tenderness palpation to bilateral paraspinal muscles, including lungs CTAB, normal cardiac auscultation, benign abdominal exam with no focal TTP, and no acute neurological deficit. The DDx includes, but is not limited to, acute metabolic hematology derangement, acute kidney injury, UTI, kidney stone, MSK pain such as muscle strain or spasms. All of these have been considered, however ruling out the most morbid conditions drove my clinical assessment and thus the following laboratory and/or radiographic evaluation was conducted to the appropriate extent based on history and physical examination. All ordered laboratory studies independently reviewed and interpreted by myself and pertinent for: - CBC was unremarkable for any actionable leukocytosis, anemia, or thrombocytopenia. - CMP was unremarkable for any actionable electrolyte derangement, elevated creatinine, or transaminitis. - U/A was unremarkable for any signs consistent with an urinary tract infection or noteworthy hematuria, ketonuria, or glucosuria. Interventions/Medications Received in the ED: -1000mg APAP, 15mg IV toradol, 500mg robaxin, 4mg morphine Reassessment: On re-evaluation of patient, patient endorsed significant improvement of symptoms. At this time, given unremarkable workup and/or symptomatic relief, as well as the fact that patient continued to remain well-appearing, it was felt that the patient was safe to be discharged home. I considered (and discussed through shared decision making) the utility of treatment with a prescription for robaxin and the patient was agreeable. The patient/parents were comfortable and in agreement with this plan. 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 The patient/parents were given strict return precautions prior to being discharged from the emergency department. All questions were answered. Shannon Saldivar MD Emergency Medicine Critical Care Critical Care Time Critical Care Time: No
[2023-05-07 23:59] LABS: Basophils # 0.2 K/mm3 (0-0.2); Basophils % 1.3 % (0.1-2.0); Eosinophils # 0.3 K/mm3 (0.0-0.4); Eosinophils % 3.1 % (0.1-12.0); Hematocrit 42.9 % (37.0-47.0); Hemoglobin 14.6 g/dL (12.2-16.2); Lymphocytes # 3.9 K/mm3 (0.7-4.5); Lymphocytes % 35.3 % (10-50); Mean Corpuscular HGB Conc 34.1 g/dL (31.8-35.4); Mean Corpuscular Hemoglobin 27.6 pg (27.0-31.2); Mean Corpuscular Volume 80.9 fl (81-99); Mean Platelet Volume 8.8 fl (7.4-10.4); Monocytes # 0.3 K/mm3 (0.1-1.0); Monocytes % 2.7 % (1.7-9.3); Neutrophils # 6.4 K/mm3 (1.8-7.8); Neutrophils % 57.6 % (37.0-80.0); Platelet Count 337 K/mm3 (142-424); Red Cell Distribution Width 15.2 % (11.5-17.5); White Blood Count 11.2 K/mm3 (4.8-10.8)
[2023-05-08 00:01] VITALS: BP 133/79; PULSE 92; RESP 20; O2SAT 96
[2023-05-08 00:08] LABS: Chloride 107 mmol/L (98-107); Sodium 141 mmol/L (136-145)
[2023-05-08 00:09] LABS: Potassium 3.8 mmoL/L (3.5-5.1)
[2023-05-08 00:11] LABS: Alanine Aminotransferase 32 U/L (12-78); Albumin Level 4.3 g/dl (3.5-5.0); Albumin/Globulin Ratio 1.2 (1.1-1.8); Alkaline Phosphatase 170 U/L (38-126); Anion Gap 16.8 mEq/L (5-15); Aspartate Amino Transferase 38 U/L (14-36); Bilirubin,Total 0.5 mg/dl (0.2-1.3); Blood Urea Nitrogen 18 mg/dl (7-17); Carbon Dioxide 21 mmol/L (22.0-30.0); Creatinine Clearance Estimated 51 mL/min (50-200); Estimated Glomerular Filt Rate 46 ml/min (>60); GFR (African American) 55 ML/MIN (>60); Globulin 3.7 g/dL (1.3-3.2)
[2023-05-08 00:12] LABS: Calcium 9.6 mg/dl (8.4-10.2); Glucose 158 mg/dl (74-100)
[2023-05-08 00:54] LABS: Appearance,Urine CLEAR (Clear); Bilirubin,Urine Negative (Negative); Blood, Urine Negative (Negative); Color,Urine YELLOW (Yellow); Glucose,Urine (UA) Negative (Negative); Ketones,Urine Negative (Negative); Leukocyte Esterase,Urine TRACE (Negative); Microscopic, Urine URINE MICROSCOPIC (MICROSCOPIC); Nitrate,Urine Negative (Negative); Protein,Urine TRACE (Negative); Specific Gravity, Urine 1.015 (1.005-1.030); Urobilinogen,Urine 0.2 EU/dl (0.2)
[2023-05-08 01:08] LABS: WBC,Urine Occasional #/hpf (0-3)
[2023-05-08 01:09] LABS: Bacteria,Urine Trace /lpf
[2023-05-08 01:32] VITALS: BP 133/79; PULSE 90; RESP 16; TEMP 36.9
== END 2023-05-08 01:38 | disposition home or self-care (01) ==
PROVIDERS: Emergency Provider Emergency Medicine; PCP Family Medicine
DX: M54.50 Low back pain, unspecified (principal); M79.604 Pain in right leg; M25.511 Pain in right shoulder; M54.16 Radiculopathy, lumbar region; E11.40 Type 2 diabetes mellitus with diabetic neuropathy, unspecified; I10 Essential (primary) hypertension; E78.5 Hyperlipidemia, unspecified; K21.9 Gastro-esophageal reflux disease without esophagitis; Z86.711 Personal history of pulmonary embolism; Z79.01 Long term (current) use of anticoagulants; Z85.42 Personal history of malignant neoplasm of other parts of uterus
CPT/HCPCS: 80053; 81001; 85025; 96374; 96375; 99284

== ENCOUNTER 2023-08-15 16:59 | Emergency (ER) | payer MEDICARE, MEDICAID, SELFPAY ==
[2023-08-15 18:35] VITALS: BP 149/88; PULSE 82; RESP 19; TEMP 37; O2SAT 99; BMI 56.8
[2023-08-15 18:56] LABS: Apearance,Urine Clear (Clear); Bilirubin,Urine Negative (Negative); Blood, Urine Negative (Negative); Color,Urine Dark Yellow (Yellow); Glucose,Urine (UA) Negative (Negative); Ketones,Urine Negative (Negative); Protein,Urine Negative (Negative); Specific Gravity, Urine 1.005 (1.005-1.030); UTC Leukocyte Esterase,Urine Trace (Negative); UTC Nitrate,Urine Negative (Negative); Urobilinogen,Urine 0.2 EU/dl (0.2)
--- NOTE | 2023-08-15 18:56 | EXP.UTC ---
Discharge Plan Disposition Patient Disposition: Home, Self-Care Condition: Good Prescriptions Prescriptions: New cephalexin 500 mg tablet 500 mg PO BID 7 Days Qty: 14 0RF No Action omeprazole 40 mg capsule,delayed release(DR/EC) 40 mg PO DAILY rivaroxaban 20 mg tablet 20 mg PO DAILY Patient Comments: TAKE 1 TABLET BY MOUTH ONCE DAILY WITH FOOD amlodipine 10 mg tablet 10 mg PO DAILY Breztri Aerosphere 160-9-4.8 mcg/actuation HFA aerosol inhaler 2 inh inhalation BID garlic 1,000 mg capsule 1,000 mg PO DAILY magnesium 200 mg tablet 200 mg PO DAILY cholecalciferol (vitamin D3) 10 mcg (400 unit) capsule 10 mcg PO DAILY Centrum 18-400 mg-mcg tablet 1 tab PO DAILY turmeric root extract 500 mg capsule 500 mg PO DAILY oxybutynin chloride 10 mg tablet extended release 24 hr 10 mg PO DAILY metformin 500 mg tablet extended release 24 hr 500 mg PO DAILY Patient Comments: TAKE 1 TABLET BY MOUTH ONCE DAILY WITH EVENING MEAL atorvastatin 20 MG tablet 20 mg PO HS gabapentin 300 mg capsule 300 mg PO DAILY Patient Comments: TAKE 1 CAPSULE BY MOUTH ONCE DAILY Referrals Follow up/Referrals: Kiley Awad MD [Primary Care Provider] - See instructions Activity Restrictions/Add. Instructions Additional Instructions/Restrictions: Start antibiotic patient to take as ordered for a full length of time even if you feel better. Sinus infections do not get better overnight. It may take 2-3 days to notice much improvement so be sure to use conservative measures as discussed for symptoms. Flonase 1 spray each nostril daily to help with nasal congestion, sinus and ear pressure/information Increase fluids Humidifier/vaporizer as needed Tylenol and ibuprofen as needed for fever or pain. If symptoms do not improve or get worse return or be seen in the ER Follow-up with primary care this week Increase fluids, water and not soda or tea. Can drink cranberry juice or cranberry extract. Wipe front to back Wear cotton underwear Empty bladder after intercourse Start antibiotics immediately and make sure you take the full course although you may start to see improvement over the next 48 hours. You can eat yogurt or take probiotics to decrease diarrhea or yeast infection caused by the antibiotic Be sure to follow-up anytime for new or worsening symptoms in 48 hours for wound urine culture results be sure to let you PCP no recent urine for culture so they can request records and ensure that you have appropriate antibiotic if you are not getting better or getting worse. If symptoms worsen or do not improve return or be seen in the ER. Follow-up with primary care this week. Clinical Impressions Clinical Impression: UTI (urinary tract infection), Acute maxillary sinusitis Instructions Patient Instructions: DI for Sinusitis Discharge ED Provider: Aime ([facility])Karyn [facility] [place] HPI General Stated complaint: congestion, right side pain Mode of Arrival: Ambulatory Source of Information: Patient Limitations: No Limitations Time Seen by Provider: 08/15/23 19:00 Description of Symptoms (Recalled from Triage Doc. by RN): Pt's symptoms are sinus pressure, DOWELL, and runny nose. She has had swelling in feet for over 3 weeks is currently taking HCTZ with no change. She has RL flank pain that radiates to RLQ in abdomen for the last week. HEENT Symptoms (Recalled from RN notes): Yes Resp Symptoms (Recalled from RN notes): No Skin Symptoms (Recalled from RN notes): No MS Symptoms (Recalled from RN notes): No Functional Status (Recalled from RN notes): n/a History of Present Illness Provider Complaint: 63 yr old female presents for c/o sinus pressure, DOWELL,dark drainage and runny nose. She has had swelling in feet for over 3 weeks is currently taking HCTZ. She has RL flank pain that radiates to RLQ in abdomen for the last week and freq. Related Data Home Medications Medication Instructions Recorded Confirmed oxybutynin chloride 10 mg 10 mg PO DAILY bladder 04/27/17 07/26/23 tablet,extended release 24 hr omeprazole 40 mg capsule,delayed 40 mg PO DAILY Reflux/Acid reflux 07/26/17 07/26/23 release atorvastatin 20 mg tablet 20 mg PO HS High cholesterol 07/19/18 07/26/23 rivaroxaban 20 mg tablet 20 mg PO DAILY Blood thinner 12/15/19 07/26/23 metformin 500 mg tablet,extended 500 mg PO DAILY Diabetes 05/13/22 07/26/23 release 24 hr amlodipine 10 mg tablet 10 mg PO DAILY 08/11/22 07/26/23 gabapentin 300 mg capsule 300 mg PO DAILY 03/24/23 07/26/23 budesonide 160 mcg-glycopyr 9 2 inh inhalation BID 07/26/23 07/26/23 mcg-formot 4.8 mcg/actuation HFA inhaler (Breztri Aerosphere) cholecalciferol (vitamin D3) 10 10 mcg PO DAILY 07/26/23 07/26/23 mcg (400 unit) capsule garlic 1,000 mg capsule 1,000 mg PO DAILY 07/26/23 07/26/23 magnesium 200 mg tablet 200 mg PO DAILY 07/26/23 07/26/23 multivitamin-ferrous 1 tab PO DAILY 07/26/23 07/26/23 fumarate-folic acid 18 mg-400 mcg tablet (Centrum) turmeric root extract 500 mg 500 mg PO DAILY 07/26/23 07/26/23 capsule Previous Rx's Medication Instructions Recorded cephalexin 500 mg tablet 500 mg PO BID 7 days #14 tabs 08/15/23 Allergies Allergy/AdvReac Type Severity Reaction Status Date / Time lisinopril AdvReac Unknown Verified 08/15/23 18:50 losartan AdvReac Verified 08/15/23 18:50 Worker's Comp Is this a Worker's Comp case?: No [facility] Disclaimer: The information contained in this section may have been updated after the patient was seen, as this information can be updated by other users. 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) Smoking Status: Never smoker second hand exposure: No alcohol intake: former substance use type: denies use current occupational status: disabled Travel in the last 8 weeks: None household members: none housing: apartment lives independently: Yes current occupational exposures/hazards: No caffeine: Yes ROS Obtained: Yes All systems reviewed & no additional complaints except as documented Constitutional Constitutional: Reports system reviewed and no additional complaints, except as documented and Reports as per HPI Eyes Eyes: Reports system reviewed and no additional complaints, except as documented ENT Ears, Nose, Mouth, and Throat: Reports system reviewed and no additional complaints, except as documented, Reports as per HPI, Reports nasal congestion, Reports nasal discharge, Reports sinus pain and Reports sinus pressure Cardiovascular Cardiovascular: Reports system reviewed and no additional complaints, except as documented, Reports as per HPI and Reports edema Respiratory Respiratory: Reports system reviewed and no additional complaints, except as documented and Reports as per HPI Musculoskeletal Musculoskeletal: Reports system reviewed and no additional complaints, except as documented Integumentary/Breasts Skin/Breast: Reports system reviewed and no additional complaints, except as documented Neurologic Neurologic: Reports system reviewed and no additional complaints, except as documented Endocrine Endocrine: Reports system reviewed and no additional complaints, except as documented Hematologic/Lymphatic Henatologic/Lymphatic: Reports system reviewed and no additional complaints, except as documented Allergic/Immunologic Allergic/Immunologic: Reports system reviewed and no additional complaints, except as documented Physical Exam General General appearance: alert and in no apparent distress Head Head exam: atraumatic Eye Eye exam: Present normal appearance and PERRL ENT ENT exam: Present mucous membranes moist and TM's normal bilaterally Expanded ENT Exam Nose exam: Present sinus tenderness Respiratory Respiratory exam: Present normal lung sounds bilaterally Cardiovascular Cardiovascular exam: Present regular rate and normal rhythm Neurological Exam Neurological exam: Present alert and oriented X3 Skin Skin exam: Present warm Medical Decision Making Medical Records Medical records reviewed: Yes I reviewed the patient's medical records. Ander Inquiry Pt receiving controlled substance: No Ander was queried for this patient: No Vital Signs: 08/15/23 18:35 Temperature 98.6 F Temperature Source Oral Pulse Rate [Right Radial] 82 Respiratory Rate 19 Blood Pressure [Right Arm] 149/88 H Blood Pressure Mean [Right Arm] 108 Blood Pressure Source [Right Arm] Automatic Cuff Blood Pressure Position [Right Arm] Sitting 02 Sat by Pulse Oximetry 99 Oxygen Delivery Method Room Air Lab Data Lab results reviewed: Yes I reviewed the patient's lab results.
[2023-08-15] MEDS: cephALEXin 500MG CAPSULE 500 MG PO (19:37)
[2023-08-15 19:42] VITALS: BP 149/88; PULSE 82; RESP 19; TEMP 37; O2SAT 99
== END 2023-08-15 19:42 | disposition home or self-care (01) ==
PROVIDERS: Emergency Provider Nurse Practitioner Family; PCP Family Medicine
DX: N39.0 Urinary tract infection, site not specified (principal); B96.89 Other specified bacterial agents as the cause of diseases classified elsewhere; R10.31 Right lower quadrant pain; J01.00 Acute maxillary sinusitis, unspecified; R51.9 Headache, unspecified; R09.81 Nasal congestion
CPT/HCPCS: 81003; 87086; 99212; 99214; G0463

== ENCOUNTER 2023-08-30 17:09 | Emergency (ER) | payer MEDICARE, MEDICAID, SELFPAY ==
[2023-08-30 17:11] VITALS: BP 180/81; RESP 20; TEMP 36.7; O2SAT 93; BMI 49.7
--- NOTE | 2023-08-30 17:47 | XR_ITS ---
PROCEDURE INFORMATION: Exam: XR Chest Exam date and time: 08/30/2023 6:02 PM Age: 63 years old Clinical indication: Other: Swelling; Additional info: Swelling, volume overload TECHNIQUE: Imaging protocol: Radiologic exam of the chest. Views: 1 view. COMPARISON: CT ANGIO CHEST PE PROTOCOL 04/19/2021 4:06 AM FINDINGS: Lungs: No evidence of acute pulmonary disease or infiltrates Pleural spaces: No large effusion or pneumothorax. Heart/Mediastinum: Stable cardiac and mediastinal contours. Diaphragm: There is elevation of the right hemidiaphragm. Bones/joints: There is partially visualized cervical spine surgical hardware. IMPRESSION: No dense parenchymal consolidation, pleural effusion, or pneumothorax.
[2023-08-30 17:54] LABS: Basophils # 0.1 K/mm3 (0-0.2); Basophils % 0.8 % (0.1-2.0); Eosinophils # 0.4 K/mm3 (0.0-0.4); Eosinophils % 4.2 % (0.1-12.0); Hemoglobin 13.5 g/dL (12.2-16.2); Lymphocytes # 2.6 K/mm3 (0.7-4.5); Lymphocytes % 30.8 % (10-50); Mean Corpuscular HGB Conc 31.3 g/dL (31.8-35.4); Mean Corpuscular Hemoglobin 26.6 pg (27.0-31.2); Mean Corpuscular Volume 84.9 fl (81-99); Mean Platelet Volume 8.5 fl (7.4-10.4); Monocytes # 0.4 K/mm3 (0.1-1.0); Monocytes % 4.3 % (1.7-9.3); Neutrophils # 5.1 K/mm3 (1.8-7.8); Neutrophils % 59.8 % (37.0-80.0); Platelet Count 309 K/mm3 (142-424); Red Blood Count 5.06 M/mm3 (4.20-5.40); Red Cell Distribution Width 16.1 % (11.5-17.5); White Blood Count 8.5 K/mm3 (4.8-10.8)
[2023-08-30 17:55] LABS: Chloride 103 mmol/L (98-107); Potassium 3.9 mmoL/L (3.5-5.1); Sodium 140 mmol/L (136-145)
--- NOTE | 2023-08-30 17:56 | ED_ITS ---
Discharge Plan Disposition Patient Disposition: Home, Self-Care Condition: Good Prescriptions Prescriptions: New bumetanide 0.5 mg tablet 0.5 mg PO DAILY Qty: 10 0RF No Action omeprazole 40 mg capsule,delayed release(DR/EC) 40 mg PO DAILY rivaroxaban 20 mg tablet 20 mg PO DAILY Patient Comments: TAKE 1 TABLET BY MOUTH ONCE DAILY WITH FOOD amlodipine 10 mg tablet 10 mg PO DAILY Breztri Aerosphere 160-9-4.8 mcg/actuation HFA aerosol inhaler 2 inh inhalation BID garlic 1,000 mg capsule 1,000 mg PO DAILY magnesium 200 mg tablet 200 mg PO DAILY cholecalciferol (vitamin D3) 10 mcg (400 unit) capsule 10 mcg PO DAILY Centrum 18-400 mg-mcg tablet 1 tab PO DAILY turmeric root extract 500 mg capsule 500 mg PO DAILY oxybutynin chloride 10 mg tablet extended release 24 hr 10 mg PO DAILY metformin 500 mg tablet extended release 24 hr 500 mg PO DAILY Patient Comments: TAKE 1 TABLET BY MOUTH ONCE DAILY WITH EVENING MEAL cephalexin 500 mg tablet 500 mg PO BID 7 Days Qty: 14 0RF atorvastatin 20 MG tablet 20 mg PO HS gabapentin 300 mg capsule 300 mg PO DAILY Patient Comments: TAKE 1 CAPSULE BY MOUTH ONCE DAILY Referrals Follow up/Referrals: Elsy Curiel APRN [Primary Care Provider] - See instructions Activity Restrictions/Add. Instructions Additional Instructions/Restrictions: You were evaluated in the emergency department today. At this time, I feel that your symptoms are related to cellulitis, so we gave you a dose of IV antibiotics here. For your swelling, we are giving you an extra 0.5 mg of Bumex to take daily for 10 days. It is also important that you keep your legs elevated is much as possible above your heart to help reduce the swelling. Please follow-up with your primary care provider over the next 3 days for reassessment. I also recommend close follow-up with your hamper maker. Return to the emergency department for new or worsening symptoms. Clinical Impressions Clinical Impression: Bilateral cellulitis of lower leg Instructions Patient Instructions: DI for Cellulitis -- Adult Discharge ED Provider: Pippa Law General Adult HPI General Chief complaint: Extremity Problem,Nontraumatic Stated complaint: RT side abd pain, swelling in legs Time Seen by Provider: 08/30/23 17:13 Mode of Arrival: Ambulatory Source of Information: Patient Limitations: No Limitations Description of Symptoms (Recalled from ER Triage Doc. by RN): edema to ble. increased SOA History of Present Illness HPI narrative: This patient is a 63-year-old female with a history of hypertension, hyperlipidemia, type 2 diabetes, obesity, GERD, PE on Xarelto presenting to the emergency department for evaluation with concern for bilateral leg swelling. Patient notes that she is been evaluated for this multiple times over the last several weeks. She notes she has been started on Bumex, hydrochlorothiazide, as well as Keflex with concern for swelling in her bilateral legs, however despite compliance with this, her symptoms are only worsening. She states that she is keeping her legs propped up at home, but they continued become more more swollen and painful. No fevers, chills, chest pain, shortness of breath, abdominal pain, nausea, vomiting, or other concerns. Related Data Home Medications Medication Instructions Recorded Confirmed oxybutynin chloride 10 mg 10 mg PO DAILY bladder 04/27/17 07/26/23 tablet,extended release 24 hr omeprazole 40 mg capsule,delayed 40 mg PO DAILY Reflux/Acid reflux 07/26/17 07/26/23 release atorvastatin 20 mg tablet 20 mg PO HS High cholesterol 07/19/18 07/26/23 rivaroxaban 20 mg tablet 20 mg PO DAILY Blood thinner 12/15/19 07/26/23 metformin 500 mg tablet,extended 500 mg PO DAILY Diabetes 05/13/22 07/26/23 release 24 hr amlodipine 10 mg tablet 10 mg PO DAILY 08/11/22 07/26/23 gabapentin 300 mg capsule 300 mg PO DAILY 03/24/23 07/26/23 budesonide 160 mcg-glycopyr 9 2 inh inhalation BID 07/26/23 07/26/23 mcg-formot 4.8 mcg/actuation HFA inhaler (Breztri Aerosphere) cholecalciferol (vitamin D3) 10 10 mcg PO DAILY 07/26/23 07/26/23 mcg (400 unit) capsule garlic 1,000 mg capsule 1,000 mg PO DAILY 07/26/23 07/26/23 magnesium 200 mg tablet 200 mg PO DAILY 07/26/23 07/26/23 multivitamin-ferrous 1 tab PO DAILY 07/26/23 07/26/23 fumarate-folic acid 18 mg-400 mcg tablet (Centrum) turmeric root extract 500 mg 500 mg PO DAILY 07/26/23 07/26/23 capsule Previous Rx's Medication Instructions Recorded cephalexin 500 mg tablet 500 mg PO BID 7 days #14 tabs 08/15/23 bumetanide 0.5 mg tablet 0.5 mg PO DAILY #10 tabs 08/30/23 Allergies Allergy/AdvReac Type Severity Reaction Status Date / Time lisinopril AdvReac Unknown Verified 08/15/23 18:50 losartan AdvReac Verified 08/15/23 18:50 PFSH [facility] Disclaimer: The information contained in this section may have been updated after the patient was seen, as this information can be updated by other users. 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 Diabetes mellitus, type 2 Hyperlipidemia Hypertension Uterine cancer Surgical History History of tubal ligation History of hysterectomy History of cholecystectomy H/O total hysterectomy History of total left hip replacement S/p bilateral carpal tunnel release Family History Other Cancer Coronary artery disease Diabetes Heart attack Hypertension Social History Smoking Status: Never smoker second hand exposure: No alcohol intake: former substance use type: denies use current occupational status: disabled Travel in the last 8 weeks: None household members: none housing: apartment lives independently: Yes current occupational exposures/hazards: No caffeine: Yes ROS Obtained: Yes All systems reviewed & no additional complaints except as documented Physical Exam General General appearance: alert, in no apparent distress and obese Head Head exam: atraumatic and normocephalic Eye Eye exam: Present normal appearance, PERRL and EOMI ENT ENT exam: Present normal exam, normal oropharynx, mucous membranes moist and normal external ear exam Neck Neck exam: Present normal inspection, full ROM and trachea midline; Absent tenderness Chest Chest inspection: Present normal inspection and symmetric chest wall rise; Absent tenderness Respiratory Respiratory exam: Present normal lung sounds bilaterally; Absent respiratory distress, wheezes, stridor or accessory muscle use Cardiovascular Cardiovascular exam: Present regular rate and normal rhythm Abdominal Exam Abdominal exam: Present soft; Absent distention, tenderness or guarding Extremities Exam Extremities exam: Present full ROM, normal capillary refill and edema (3+ bilateral lower extremity edema with mild erythema and warmth. All compartments soft. Neurovascularly intact distally.); Absent tenderness or calf tenderness Back Exam Back exam: Present normal inspection and full ROM; Absent tenderness Neurological Exam Neurological exam: Present alert, oriented X3, CN II-XII intact and normal gait; Absent motor sensory deficit Psychiatric Psychiatric exam: Present normal affect and normal mood Skin Skin exam: Present warm and dry Medical Decision Making Medical Records Medical records reviewed: Yes I reviewed the patient's medical records. Ander Inquiry Pt receiving controlled substance: No Vital Signs: 08/30/23 17:11 08/30/23 20:09 Temperature 98.1 F 97.8 F Temperature Source Oral Oral Pulse Rate 67 Respiratory Rate 20 19 Blood Pressure 151/74 H Blood Pressure [Right Arm] 180/81 H Blood Pressure Mean [Right Arm] 114 Blood Pressure Source Automatic Cuff Blood Pressure Position Sitting 02 Sat by Pulse Oximetry 93 L Oxygen Delivery Method Room Air Room Air Lab Data Lab results reviewed: Yes I reviewed the patient's lab results. Lab Results 08/30/23 17:30: WBC 8.5, RBC 5.06, Hgb 13.5, Hct 43.0, MCV 84.9, MCH 26.6 L, M CHC 31.3 L, RDW 16.1, Plt Count 309, MPV 8.5, Neut % (Auto) 59.8, Lymph % (Auto) 30.8, [place] % (Auto) 4.3, Eos % (Auto) 4.2, Baso % (Auto) 0.8, Neut # (Auto) 5.1, Lymph # (Auto) 2.6, [place] # (Auto) 0.4, Eos # (Auto) 0.4, Baso # (Auto) 0.1, Sodium 140, Potassium 3.9, Chloride 103, Carbon Dioxide 29, Anion Gap 11.9, BUN 12, Creatinine 0.90, Estimated Creat Clear 62, Estimated GFR 64, Est GFR ( Amer) 77, Glucose 109 H, Calcium 9.3, Total Bilirubin 0.5, AST 44 H, ALT 42, Alkaline Phosphatase 172 H, C-Reactive Protein 26.4 H, NT-Pro-B Natriuret Pep 75.4, Total Protein 8.4 H, Albumin 4.3, Globulin 4.1 H, A lbumin/Globulin Ratio 1.0 L, TSH 2.67, Thyroxine (T4) 13.4 H 08/30/23 17:30 08/30/23 17:30 Orders (Tests/Meds): ED MEDICATIONS Discontinued Medications Generic Name Dose Route Start Last Admin Trade Name Mary PRN Reason Stop Dose Admin Dalbavancin 1,500 mg/ Dextrose 250 mls @ 500 mls/hr 08/30/23 18:39 08/30/23 19:20 IV 08/30/23 18:40 500 mls/hr ONCE ONE Administration ORDERS Category Date Time Status XR chest portable Stat Exams 08/30/23 17:47 Completed CRP [C-Reactive Protein] Stat Lab 08/30/23 17:30 Completed Complete Blood Count Auto Diff Stat Lab 08/30/23 17:30 Completed Comprehensive Metabolic Panel Stat Lab 08/30/23 17:30 Completed NT Pro Brain Natriuretic Pep. Stat Lab 08/30/23 17:30 Completed T4 (Thyroxine) Stat Lab 08/30/23 17:30 Completed Thyroid Stimulating Hormone Stat Lab 08/30/23 17:30 Completed ECG Data Tracing #1: I reviewed this ECG and interpreted as documented below: Normal sinus rhythm with a ventricular rate of [address] changes concerning for ischemia. Incomplete right bundle branch block noted. No changes from prior EKG. ECG initial impression date: 08/30/23 ECG initial impression time: 18:13 Medical Decision Narrative: In summary, this patient is a 63-year-old female presenting to the Emergency Department for evaluation of lateral leg swelling. Differential diagnoses considered include but are not limited to dependent edema, CHF exacerbation, cellulitis. Ruling out the most morbid conditions drove assessment. It should be noted patient's history includes hypertension, hyperlipidemia, and obesity which are not at goal therapy. This complicates all aspects of care by increasing patient's risk for morbidity. On exam, the patient is resting comfortably in no acute distress. She is nontoxic-appearing. She does have significant bilateral lower extremity swelling with mild erythema and warmth but otherwise exam is reassuring. Workup included CBC, CMP, BNP, ESR, CRP, chest x-ray, and EKG. I independently interpreted chest x-ray prior to the radiologist read and noted no acute focal consolidation. Please see their read for final interpretation. Labs were obtained that demonstrated elevated inflammatory markers without other acutely concerning abnormalities.. At this time, high concern for cellulitis based on erythema and warmth of the legs in the setting of dependent edema. She is only on Bumex at home. After shared decision-making with the patient, at which point I offered admission for continued diuresis and antibiotic treatment, she elects to receive Dalvance IV and then try going home. I did prescribe her Bumex 0.5 mg for 10 days to add onto her home diuresis regimen. Patient was given very strict return precautions and instructions for close follow-up with her primary care provider and hamper maker. She was discharged after all questions were answered after receiving IV Dalvance. Critical Care Critical Care Time Critical Care Time: No
[2023-08-30 17:58] LABS: Alanine Aminotransferase 42 U/L (12-78); Albumin Level 4.3 g/dl (3.5-5.0); Alkaline Phosphatase 172 U/L (38-126); Anion Gap 11.9 mEq/L (5-15); Aspartate Amino Transferase 44 U/L (14-36); Bilirubin,Total 0.5 mg/dl (0.2-1.3); Blood Urea Nitrogen 12 mg/dl (7-17); Calcium 9.3 mg/dl (8.4-10.2); Carbon Dioxide 29 mmol/L (22.0-30.0); Creatinine Clearance Estimated 62 mL/min (50-200); Estimated Glomerular Filt Rate 64 ml/min (>60); GFR (African American) 77 ML/MIN (>60); Globulin 4.1 g/dL (1.3-3.2); Glucose 109 mg/dl (74-100); Total Protein,Serum 8.4 g/dl (6.3-8.2)
[2023-08-30 18:06] LABS: C-Reactive Protein 26.4 mg/L (0-4)
[2023-08-30 18:10] LABS: NT Pro Brain Natriuretic Pep. 75.4 pg/mL (0-125)
--- NOTE | 2023-08-30 18:12 | ECG_ITS ---
APPROVED REPORT Exam: Resting ECG HR:71 bpm ECG Measurements Heart Rate 71 AXES [place] 154 P 57 QRSd 101 QRS 83 QT 388 T 30 QTc 410 Conclusion SINUS RHYTHM INCOMPLETE RIGHT BUNDLE BRANCH BLOCK [90+ ms QRS DURATION, TERMINAL R IN V1/V2, 40+ ms S IN I/aVL/V4/V5/V6] BORDERLINE ECG unchanged from prior EKG Electronically signed by : LEONORA LANDRY, 08/30/2023 23:25:15
[2023-08-30 18:18] LABS: T4 (Thyroxine) 13.4 ug/dl (5.53-11.0)
[2023-08-30 18:31] LABS: Thyroid Stimulating Hormone 2.67 uIU/mL (0.465-4.68)
[2023-08-30] MEDS: DALBAVANCIN HCL 1,500 MG in DEXTROSE 5 % IN WATER 250 ML 500 MG IV (19:20)
[2023-08-30 20:09] VITALS: BP 151/74; PULSE 67; RESP 19; TEMP 36.6; O2SAT 96
== END 2023-08-30 20:11 | disposition home or self-care (01) ==
PROVIDERS: Emergency Provider Emergency Medicine; PCP Nurse Practitioner
DX: L03.115 Cellulitis of right lower limb (principal); L03.116 Cellulitis of left lower limb; M79.661 Pain in right lower leg; M79.662 Pain in left lower leg; R60.0 Localized edema; E11.9 Type 2 diabetes mellitus without complications; I10 Essential (primary) hypertension; E78.5 Hyperlipidemia, unspecified; K21.9 Gastro-esophageal reflux disease without esophagitis; Z79.84 Long term (current) use of oral hypoglycemic drugs
CPT/HCPCS: 71045; 80053; 83880; 84436; 84443; 85025; 86140; 93005; 96365; 99284; J0875

== ENCOUNTER 2023-09-11 14:29 | Outpatient (CLI) | payer MEDICARE, MEDICAID, SELFPAY ==
[2023-09-11 14:28] LABS: Microscopic, Urine URINE MICROSCOPIC (MICROSCOPIC)
[2023-09-11 14:53] LABS: Basophils # 0.1 K/mm3 (0-0.2); Basophils % 0.7 % (0.1-2.0); Eosinophils # 0.3 K/mm3 (0.0-0.4); Eosinophils % 3.5 % (0.1-12.0); Hematocrit 42.4 % (37.0-47.0); Hemoglobin 13.6 g/dL (12.2-16.2); Mean Corpuscular HGB Conc 32.2 g/dL (31.8-35.4); Mean Corpuscular Volume 83.9 fl (81-99); Mean Platelet Volume 9.1 fl (7.4-10.4); Monocytes # 0.4 K/mm3 (0.1-1.0); Monocytes % 3.9 % (1.7-9.3); Neutrophils # 5.4 K/mm3 (1.8-7.8); Platelet Count 311 K/mm3 (142-424); Red Blood Count 5.06 M/mm3 (4.20-5.40); Red Cell Distribution Width 15.9 % (11.5-17.5); White Blood Count 9.1 K/mm3 (4.8-10.8)
[2023-09-11 16:01] LABS: Alanine Aminotransferase 28 U/L (12-78); Albumin Level 4.1 g/dl (3.5-5.0); Albumin/Globulin Ratio 1.2 (1.1-1.8); Alkaline Phosphatase 175 U/L (38-126); Aspartate Amino Transferase 31 U/L (14-36); Bilirubin,Total 0.6 mg/dl (0.2-1.3); Blood Urea Nitrogen 15 mg/dl (7-17); Calcium 9.4 mg/dl (8.4-10.2); Carbon Dioxide 26 mmol/L (22.0-30.0); Chloride 101 mmol/L (98-107); Chol/HDL Ratio 3.4 (1-3.5); Cholesterol 205 mg/dl (140-200); Estimated Glomerular Filt Rate 56 ml/min (>60); GFR (African American) 68 ML/MIN (>60); Globulin 3.3 g/dL (1.3-3.2); Glucose 105 mg/dl (74-100); HDL Cholesterol 61 mg/dl (40-60); Hemoglobin A1C 6.2 % (4.0-6.0); Magnesium 1.7 mg/dl (1.6-2.3); Phosphorous 3.3 mg/dl (2.5-4.5); Sodium 140 mmol/L (136-145); Total Protein,Serum 7.4 g/dl (6.3-8.2); Triglycerides 168 mg/dl (30-150); VLDL Cholesterol 34 mg/dL (0-40)
[2023-09-11 16:10] LABS: NT Pro Brain Natriuretic Pep. 191 pg/mL (0-125)
[2023-09-11 16:21] LABS: 25-OH Vitamin D, Total 41.2 ng/mL (30-100); Free T4 (Free Thyroxine) 1.11 ng/dl (0.78-2.19)
[2023-09-11 16:31] LABS: Thyroid Stimulating Hormone 2.24 uIU/mL (0.465-4.68)
[2023-09-11 16:51] LABS: Vitamin B12 803 pg/mL (239-931)
[2023-09-11 17:58] LABS: Appearance,Urine CLEAR (Clear); Bilirubin,Urine Negative (Negative); Blood, Urine Negative (Negative); Color,Urine YELLOW (Yellow); Glucose,Urine (UA) Negative (Negative); Ketones,Urine Negative (Negative); Leukocyte Esterase,Urine 1+ (Negative); Nitrate,Urine Negative (Negative); PH,Urine 5.5 (5.0-8.5); Protein,Urine Negative (Negative); Specific Gravity, Urine 1.025 (1.005-1.030); Urobilinogen,Urine 0.2 EU/dl (0.2)
[2023-09-11 18:12] LABS: Creatinine,Urine Random 161 mg/dL (Not Estab.)
[2023-09-11 18:20] LABS: Bacteria,Urine Trace /lpf; Calcium Oxalate Crystals,Urine 1+ /lpf; WBC,Urine Occasional #/hpf (0-3)
[2023-09-11 18:38] LABS: Iron 56 ug/dL (37-170)
[2023-09-11 18:48] LABS: Total Iron Binding Capacity 337 ug/dL (265-497)
== END 2023-09-11 23:59 | disposition home or self-care (01) ==
LOC: LAB.DROPOF 14:30
PROVIDERS: PCP Nurse Practitioner Family; Visit Provider Nurse Practitioner Family
DX: E55.9 Vitamin D deficiency, unspecified (principal); D64.9 Anemia, unspecified; R53.83 Other fatigue; R60.0 Localized edema; G62.9 Polyneuropathy, unspecified; E11.69 Type 2 diabetes mellitus with other specified complication; Z68.43 Body mass index [BMI] 50.0-59.9, adult; I10 Essential (primary) hypertension; G47.33 Obstructive sleep apnea (adult) (pediatric); E66.9 Obesity, unspecified; R06.09 Other forms of dyspnea; Z79.84 Long term (current) use of oral hypoglycemic drugs; Z79.899 Other long term (current) drug therapy; N39.0 Urinary tract infection, site not specified
CPT/HCPCS: 80053; 80061; 81001; 82043; 82306; 82570; 82607; 82728; 83036; 83540; 83550; 83735; 83880; 84100; 84156; 84439; 84443; 85025; 87086; 87088; 87186

== ENCOUNTER 2023-09-17 09:36 | Outpatient (CLI) | payer MEDICARE, MEDICAID, SELFPAY ==
[2023-09-17 10:20] VITALS: PULSE 94; PULSE 98
[2023-09-17] MEDS: ALBUTEROL 0.083% 2.5 MG/3 ML NEB IH (10:20)
== END 2023-09-17 23:59 | disposition home or self-care (01) ==
LOC: RT 09:36
PROVIDERS: PCP Nurse Practitioner; Visit Provider Physician Assistant
DX: R06.02 Shortness of breath (principal)
CPT/HCPCS: 94060; 94640; 94726; 94729

== ENCOUNTER 2023-09-21 08:38 | Outpatient (CLI) | payer MEDICARE, MEDICAID, SELFPAY ==
--- NOTE | 2023-09-21 08:39 | CT_ITS ---
APPROVED REPORT [employer] Records Clerk: CLINICAL INDICATION Risk stratification TECHNIQUE Image Acquisition: A 128 slice MDCT scanner ([employer] Network[employer] View) was used for data acquisition. A noncontrast coronary calcium scan was performed. A CT attenuation threshold of 130 Hounsfield units (HU) was used for the detection of calcium in contiguous voxels of 1 sq mm in area to be counted as individual lesions. A tube voltage of 120 KVp was used. The patient received no medications prior to the coronary calcium CT. Image Reconstruction Transaxial images were reconstructed at 0.67 mm slide thickness. Data was reviewed interactively on an advanced workstation capable of 2 and 3-dimensional displays in all conventional reconstruction formats, including multiplanar reformations, maximum intensity projections, curved multiplanar reformations, and volume rendered reconstructions. When applicable, selected routine images describing the relevant coronary anatomy and pathology were saved and sent to PACS. Complications None Technical Quality Overall image quality was good. Total DLP (Dose-Length Product) is 394 mGy-cm. The reported value represents the total of one or more individual components during the CT acquisition of this date and at this time, and as such, the same value may appear in more than one CT report depending on the interpreting/reporting physicians. COMPARISON None FINDINGS CT Coronary Calcium Scoring LMA (Left Main Artery) = 0 LAD (Left Anterior Descending) = 0 LCX (Left Coronary Circumflex) = 0 RCA (Right Coronary Artery) = 0 Total Calcium Score = 0 using the AJ-130 method. There is identifiable calcification in the aortic valve. IMPRESSION -Coronary artery calcification is absent. -Total Calcium Score (Agatston Score) = 0 using the AJ-130 method. -Calcification in the aortic valve is incidentally noted. The interpretation of the calcium heart score is based on the following continuum*: 0 = no calcified plaque detected (risk of coronary artery disease is very low ??? less than 5%) 1-10 = calcium detected in extremely minimal levels (risk of coronary diseases is still low ??? less than 10%) 11-100 = mild levels of plaque detected with certainty (mild or minimal narrowing of heart arteries is likely) 101-400 = definite,at least moderate levels of plaque detected (relatively high risk of a heart attack within 3-5 years) >401-999 = extensive levels of plaque detected (high risk of heart attack, high levels of vascular disease are present, high likelihood of at least one significant coronary narrowing) *The calcium heart score quantifies the burden of coronary calcification/plaque in the coronary arteries. The calcium heart score does not evaluate the presence or the burden of non-calcified (i.e. soft) plaque. The coronary and cardiac findings of this Coronary Calcium CT were reviewed, reported, and signed by Guille Daniels MD (Metal Pattern Maker). Conclusion Electronically signed by : Janny Daniels MD 09/24/2023 13:13:44
[2023-09-21 08:51] VITALS: BMI 50.2
[2023-09-21 08:57] VITALS: BP 171/78; PULSE 90; RESP 18; TEMP 36.7; O2SAT 95
[2023-09-21 09:15] LABS: POC Glucose,Bedside 105 (70-110)
[2023-09-21 09:30] VITALS: BP 141/77; PULSE 68; RESP 18; TEMP 36.6; O2SAT 93
[2023-09-21 09:34] VITALS: BP 163/75; PULSE 66; RESP 18; O2SAT 95
[2023-09-21 09:38] VITALS: BP 130/67; PULSE 63; RESP 18; O2SAT 95
--- NOTE | 2023-09-21 09:50 | CA_ITS ---
APPROVED REPORT EXAM: Comprehensive 2D, Doppler, and color-flow Echocardiogram Pad Machine Feeder: JACKI Stringer, RVS Ht: 5 ft 9 in Wt: 328lbs BSA: 2.55 BP: 154/70 mmHg Indications: SOA, Abn EKG-RBBB, SVT, HTN, HLD, DM Echo Enhancing Agent Comments: No IV access after failed CCTA, Patient declined Contrast. Extremely limited Apical imaging due to exterme body habitus. 2D Dimensions IVSd 1.19 cm LA Volume 41.40 mL PWd 1.14 cm LA Volume Index 15.90 mL/m2 (M/F) 16-34 Left Atrium 3.40 cm M-Mode Dimensions RVDd 2.51 cm (0.9-2.6) LA Diam 4.09 cm (1.9-4.0) LVDd 5.33 cm (3.5-5.7) LVDs 2.94 cm (3.5-5.7) IVSd 1.15 cm (0.6-1.1) PWd 1.02 cm (0.6-1.1) EF (Teich) 75.70% EPSs 0.38 cm FS 44.80% EDV (Teich) 137.10 mL TAPSE 2.94 (<1.7) ESV (Teich) 33.30 mL LV Diastology E Decel Time 160 (160-240 msec) E/A Ratio 1.30 MED A' 6.50 cm/s LAT A' 5.70 cm/s Aortic Valve MATT Index 0.91 cm2/m2 AoV Peak Frank. 159.0 (50-130 cm/s) AO Peak GR. 10.20 mmHg AO Mean GR. 5.10 (<5 mmHg) AO VTI 39.0 (18-25 cm) MATT (VTI) 2.38 (2.5-4.5 cm2) Mitral Valve MV A Velocity 96.0 (40-130 cm/s) E/A Ratio 1.30 Pulmonary Valve PV Peak Velocity 104.0 (50-150 cm/s) Tricuspid Valve TR P. Velocity 285.00 cm/s RAP Estimate 10.00 mmHg RVSP 42.60 mmHg Left Ventricle The left ventricle is normal size. The left ventricular systolic function is normal. The left ventricular ejection fraction is within the normal range. There is increased LV wall thickness. There is normal LV segmental wall motion. The left ventricular diastolic function is normal. LVEF is 55%. Right Ventricle The right ventricle is mildly dilated. The right ventricular systolic function is normal. Atria The left atrium size is normal. The right atrium is mildly dilated. There is no Doppler evidence of interatrial shunt. Aortic Valve The aortic valve opens well. There is no aortic valvular stenosis. No aortic regurgitation is present. Mitral Valve The mitral valve is normal in structure. No evidence of mitral valve stenosis. Trace mitral regurgitation. Tricuspid Valve The tricuspid valve leaflets are thin and pliable. Mild tricuspid regurgitation. RVSP is 35-40 mmHg. Pulmonic Valve The pulmonary valve is normal in structure. Trace pulmonic regurgitation. Great Vessels The aortic root is normal in size. The ascending aorta is normal in size. IVC is dilated, but collapses >50% with inspiration. RA pressure is estimated at 8 mmHg. Pericardium There is no pericardial effusion. Other Information Study Quality: Fair Conclusion Normal biventricular systolic function. Mild RV dilation. Mild TR. RVSP is 35-40 mmHg. Electronically signed by : Janny Daniels MD 09/24/2023 12:03:32
[2023-09-21 09:55] VITALS: BP 125/64; PULSE 52; RESP 18; O2SAT 98
--- NOTE | 2023-09-21 10:31 | PC.NURSE ---
patient taken to CT scanner at 0934. patient made staff aware of her being claustrophobic and concerned about scan. patient transported by wheelchair. patient able to tolerate the scan for about 4 min. patient became extremely nauseous and anxious. Decision was made to stop scan by patient and staff at 0938. VS stable
== END 2023-09-21 09:55 | disposition home or self-care (01) ==
PROVIDERS: PCP Nurse Practitioner Family; Visit Provider Physician Assistant
DX: R94.31 Abnormal electrocardiogram [ECG] [EKG]; Z82.49 Family history of ischemic heart disease and other diseases of the circulatory system; R06.00 Dyspnea, unspecified
CPT/HCPCS: 75571; 82962; 93306

== ENCOUNTER 2023-10-01 15:56 | Outpatient (CLI) | payer MEDICARE, MEDICAID, SELFPAY ==
[2023-10-01 16:48] LABS: Uric Acid 5.8 mg/dl (2.5-6.2)
[2023-10-01 16:56] LABS: C-Reactive Protein 14.9 mg/L (0-4)
[2023-10-01 18:24] LABS: Erythrocyte Sedimentation Rate 41 mm/hr (0-30)
[2023-10-03 08:56] LABS: RA Latex Turbid. <10.0 IU/mL (<14.0)
[2023-10-03 12:13] LABS: Antinuclear Antibodies, IFA Negative (.)
[2023-10-05 00:05] LABS: D001-IgE D pteronyssinus 0.26 kU/L (Class 0/I); D002-IgE D farinae 0.27 kU/L (Class 0/I); E001-IgE Cat Dander 0.43 kU/L (Class I); E005-IgE Dog Dander 0.22 kU/L (Class 0/I); E072-IgE Mouse Urine <0.10 kU/L (Class 0); G002-IgE Bermuda Grass <0.10 kU/L (Class 0); G006-IgE Timothy Grass <0.10 kU/L (Class 0); I006-IgE Cockroach, German 0.27 kU/L (Class 0/I); Immunoglobulin E, Total 419 IU/mL (6-495); M001-IgE Penicillium chrysogen 0.23 kU/L (Class 0/I); M002-IgE Cladosporium herbarum <0.10 kU/L (Class 0); M003-IgE Aspergillus fumigatus <0.10 kU/L (Class 0); T001-IgE Maple/Box Elder <0.10 kU/L (Class 0); T003-IgE Common Silver Birch <0.10 kU/L (Class 0); T006-IgE Cedar, Mountain 0.13 kU/L (Class 0/I); T007-IgE Oak, White <0.10 kU/L (Class 0); T008-IgE Elm, American <0.10 kU/L (Class 0); T010-IgE Walnut <0.10 kU/L (Class 0); T011-IgE Maple Leaf Sycamore <0.10 kU/L (Class 0); T014-IgE Cottonwood <0.10 kU/L (Class 0); T015-IgE Ash, White <0.10 kU/L (Class 0); T022-IgE Pecan, Hickory <0.10 kU/L (Class 0); T070-IgE White Mulberry <0.10 kU/L (Class 0); W001-IgE Ragweed, Short 0.37 kU/L (Class I); W011-IgE Thistle, Russian <0.10 kU/L (Class 0); W014-IgE Pigweed, Common <0.10 kU/L (Class 0); W018-IgE Sheep Sorrel <0.10 kU/L (Class 0)
[2023-10-05 11:36] LABS: Antinuclear Antibodies (ANA) Negative
== END 2023-10-01 23:59 | disposition home or self-care (01) ==
PROVIDERS: PCP Nurse Practitioner Family; Visit Provider Internal Medicine Pulmonary Disease
DX: J84.9 Interstitial pulmonary disease, unspecified (principal); R06.09 Other forms of dyspnea; J30.9 Allergic rhinitis, unspecified; J98.6 Disorders of diaphragm; N39.0 Urinary tract infection, site not specified
CPT/HCPCS: 36415; 82785; 84550; 85651; 86003; 86038; 86140; 86225; 86235; 86431

== ENCOUNTER 2023-10-01 16:17 | Emergency (ER) | payer MEDICARE, MEDICAID, SELFPAY ==
[2023-10-01 16:40] VITALS: BP 142/76; PULSE 92; RESP 20; TEMP 37; O2SAT 97; BMI 50.6
--- NOTE | 2023-10-01 17:12 | ED_ITS ---
Discharge Plan Disposition Patient Disposition: Home, Self-Care Condition: Good Prescriptions Prescriptions: New amoxicillin-pot clavulanate 875-125 mg tablet 1 tab PO Q12H 10 Days Qty: 20 0RF fluticasone propionate [Flonase Allergy Relief] 50 mcg/actuation spray,suspension 1 spray intranasal DAILY Qty: 16 0RF Rx Instructions: administer into each nostril No Action omeprazole 40 mg capsule,delayed release(DR/EC) 40 mg PO DAILY rivaroxaban 20 mg tablet 20 mg PO DAILY Patient Comments: TAKE 1 TABLET BY MOUTH ONCE DAILY WITH FOOD amlodipine 10 mg tablet 10 mg PO BID atorvastatin 20 mg tablet 20 mg PO HS oxybutynin chloride 10 mg tablet extended release 24hr 10 mg PO DAILY metformin 500 mg tablet extended release 24 hr 500 mg PO DAILY Patient Comments: TAKE 1 TABLET BY MOUTH ONCE DAILY WITH EVENING MEAL gabapentin 300 mg capsule 300 mg PO DAILY Patient Comments: TAKE 1 CAPSULE BY MOUTH ONCE DAILY Referrals Follow up/Referrals: Brenna De Los Santos APRN [Primary Care Provider] - See instructions Clinical Impressions Clinical Impression: Bilateral acute otitis media Instructions Patient Instructions: Middle Ear Infection Discharge ED Provider: Precious Ceballos [facility] General Stated complaint: DOWELL,earache Time Seen by Provider: 10/01/23 17:12 History of Present Illness Provider Complaint: Pt reports bilateral ear pain and a headache for the last couple of days. She denies any q-tip or beth pins in her ears. Related Data Home Medications Medication Instructions Recorded Confirmed omeprazole 40 mg capsule,delayed 40 mg PO DAILY Reflux/Acid reflux 07/26/17 10/01/23 release rivaroxaban 20 mg tablet 20 mg PO DAILY Blood thinner 12/15/19 10/01/23 metformin 500 mg tablet,extended 500 mg PO DAILY Diabetes 05/13/22 10/01/23 release 24 hr gabapentin 300 mg capsule 300 mg PO DAILY 03/24/23 10/01/23 amlodipine 10 mg tablet 10 mg PO BID 09/05/23 10/01/23 atorvastatin 20 mg tablet 20 mg PO HS 10/01/23 10/01/23 oxybutynin chloride 10 mg 10 mg PO DAILY 10/01/23 10/01/23 tablet,extended release 24 hr Previous Rx's Medication Instructions Recorded amoxicillin 875 mg-potassium 1 tab PO Q12H 10 days #20 tabs 10/01/23 clavulanate 125 mg tablet fluticasone propionate 50 1 spray intranasal DAILY #16 grams 10/01/23 mcg/actuation nasal spray,suspension (Flonase Allergy Relief) Allergies Allergy/AdvReac Type Severity Reaction Status Date / Time lisinopril AdvReac Unknown Verified 10/01/23 15:14 losartan AdvReac Verified 10/01/23 15:14 [facility] Disclaimer: The information contained in this section may have been updated after the patient was seen, as this information can be updated by other users. 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 (Updated 10/01/23 @ 17:21 by Precious Ceballos APRN) History of pulmonary embolism Dyspnea on exertion Restrictive lung disease Elevated diaphragm Chronic low back pain MGUS (monoclonal gammopathy of unknown significance) High blood copper level Acute dysfunction of both eustachian tubes Abnormal electrocardiogram [ECG] [EKG] Sinus tachycardia Hypertensive disorder Saddle embolus of pulmonary artery Dyspnea Low back pain Lumbar radiculopathy Neck pain Bilateral hip pain Gastroenteritis Abdominal pain CAP (community acquired pneumonia) SIRS (systemic inflammatory response syndrome) Obesity Patient left without being seen UTI (urinary tract infection) COVID-19 virus infection Essential hypertension Acute respiratory failure Vertigo Hyperlipidemia Hyperglycemia Bilateral leg edema Elevated troponin URI (upper respiratory infection) Bicipital tendinitis Strep throat Encounter for pre-operative cardiovascular clearance Sinusitis nasal Otitis media Pneumonia Bilateral foot pain Newly diagnosed diabetes Sinusitis Conjunctivitis Hip pain Right knee sprain UTI (urinary tract infection) Chest pain Bilateral cellulitis of lower leg Acute maxillary sinusitis UTI (urinary tract infection) Diabetes mellitus, type 2 Hyperlipidemia Hypertension Uterine cancer Surgical History History of tubal ligation History of hysterectomy History of cholecystectomy H/O total hysterectomy History of total left hip replacement S/p bilateral carpal tunnel release Family History Other Cancer Coronary artery disease Diabetes Heart attack Hypertension Social History Smoking Status: Never smoker second hand exposure: No alcohol intake: never substance use type: denies use current occupational status: disabled Travel in the last 8 weeks: None household members: none housing: apartment lives independently: Yes current occupational exposures/hazards: No caffeine: Yes ROS Obtained: Yes All systems reviewed & no additional complaints except as documented Constitutional Constitutional: Reports system reviewed and no additional complaints, except as documented and Reports headache(s) Eyes Eyes: Reports system reviewed and no additional complaints, except as documented ENT Ears, Nose, Mouth, and Throat: Reports system reviewed and no additional complaints, except as documented, Reports otalgia and Reports headache(s) Cardiovascular Cardiovascular: Reports system reviewed and no additional complaints, except as documented Respiratory Respiratory: Reports system reviewed and no additional complaints, except as documented Gastrointestinal Gastrointestingal: Reports system reviewed and no additional complaints, except as documented Genitourinary Female Genitourinary: Reports system reviewed and no additional complaints, except as documented Musculoskeletal Musculoskeletal: Reports system reviewed and no additional complaints, except as documented Integumentary/Breasts Skin/Breast: Reports system reviewed and no additional complaints, except as documented Neurologic Neurologic: Reports system reviewed and no additional complaints, except as documented and Reports headache(s) Endocrine Endocrine: Reports system reviewed and no additional complaints, except as documented Hematologic/Lymphatic Henatologic/Lymphatic: Reports system reviewed and no additional complaints, except as documented Allergic/Immunologic Allergic/Immunologic: Reports system reviewed and no additional complaints, except as documented Physical Exam General General appearance: alert and in no apparent distress Head Head exam: atraumatic and normocephalic Eye Eye exam: Present normal appearance ENT ENT exam: Present mucous membranes dry Expanded ENT Exam External ear exam: Present normal external inspection TM/Canal exam: Bilateral TM: erythema, effusion and loss of landmarks Nose exam: Present sinus tenderness (maxillary) Nasal speculum exam: Bilateral: normal Mouth exam: Present normal external inspection Teeth exam: Present normal inspection Throat exam: Present normal inspection Neck Neck exam: Present normal inspection Chest Chest inspection: Present normal inspection and symmetric chest wall rise Respiratory Respiratory exam: Present normal lung sounds bilaterally Cardiovascular Cardiovascular exam: Present regular rate and normal rhythm Abdominal Exam Abdominal exam: Present soft and normal bowel sounds Extremities Exam Extremities exam: Present normal inspection Back Exam Back exam: Present normal inspection Neurological Exam Neurological exam: Present alert and oriented X3 Psychiatric Psychiatric exam: Present normal affect and normal mood Skin Skin exam: Present warm, dry and intact Lymphatic Lymphatic Findings: no adenopathy Medical Decision Making Ander Inquiry Pt receiving controlled substance: No Ander was queried for this patient: No
[2023-10-01 17:20] VITALS: BP 142/76; PULSE 92; RESP 20; TEMP 37; O2SAT 97
== END 2023-10-01 17:23 | disposition home or self-care (01) ==
PROVIDERS: Emergency Provider Nurse Practitioner Family; PCP Nurse Practitioner Family
DX: H66.93 Otitis media, unspecified, bilateral (principal); R51.9 Headache, unspecified
CPT/HCPCS: 99212; 99214; G0463

== ENCOUNTER 2023-10-11 15:13 | Outpatient (CLI) | payer MEDICARE, MEDICAID, SELFPAY ==
--- NOTE | 2023-10-11 15:13 | US_ITS ---
FINAL REPORT TECHNIQUE: Ultrasound images of the kidneys and bladder were obtained. CLINICAL HISTORY: .uti FINDINGS: The right kidney measures 11.0 cm in length. There is mild parenchymal atrophy. There is no hydronephrosis. The left kidney measures 11.2 cm in length. There is mild parenchymal atrophy. There is no hydronephrosis. There is fatty infiltration of the liver. The spleen is unremarkable. IMPRESSION: Mild global parenchymal atrophy. Fatty liver. Reviewed, Interpreted and Dictated by Radha Fortune MD Transcribed by Rayne Wooten Authenticated and [facility]
== END 2023-10-11 23:59 | disposition home or self-care (01) ==
LOC: RAD 15:13
PROVIDERS: PCP Nurse Practitioner; Visit Provider Urology
DX: N39.0 Urinary tract infection, site not specified (principal); B96.89 Other specified bacterial agents as the cause of diseases classified elsewhere
CPT/HCPCS: 76770

== ENCOUNTER 2023-11-12 09:29 | Outpatient (CLI) | payer MEDICARE, MEDICAID, SELFPAY ==
[2023-11-12 10:29] LABS: Blood Urea Nitrogen 10 mg/dl (7-17); Estimated Glomerular Filt Rate 64 ml/min (>60); GFR (African American) 77 ML/MIN (>60)
== END 2023-11-12 23:59 | disposition home or self-care (01) ==
LOC: LAB 09:30
PROVIDERS: PCP Nurse Practitioner; Visit Provider Urology
DX: R32 Unspecified urinary incontinence (principal); N39.0 Urinary tract infection, site not specified
CPT/HCPCS: 36415; 82565; 84520

== ENCOUNTER 2023-12-05 17:22 | Emergency (ER) | payer MEDICARE, MEDICAID, SELFPAY ==
[2023-12-05 17:40] VITALS: BP 177/74; PULSE 78; RESP 20; TEMP 36.9; O2SAT 97; BMI 48.7
--- NOTE | 2023-12-05 18:04 | EXP.UTC ---
Discharge Plan Disposition Patient Disposition: Home, Self-Care Condition: Good Prescriptions Prescriptions: New cephalexin 500 mg capsule 500 mg PO BID 7 Days Qty: 14 0RF phenazopyridine [Pyridium] 200 mg tablet 200 mg PO Q8H 2 Days Qty: 6 0RF fluticasone propionate [Flonase Allergy Relief] 50 mcg/actuation spray,suspension 2 spray intranasal DAILY Qty: 16 0RF Rx Instructions: administer into each nostril daily olopatadine [Pataday Once Daily Relief] 0.2 % drops 1 drp ophthalmic (eye) DAILY PRN (Reason: itching) Qty: 2.5 0RF Rx Instructions: both eyes as needed for itchy watering eyes No Action omeprazole 40 mg capsule,delayed release(DR/EC) 40 mg PO DAILY amlodipine 10 mg tablet 10 mg PO BID Xarelto 10 mg tablet 10 mg PO DAILY 90 Days Qty: 90 3RF Rx Instructions: for 35 days oxybutynin chloride 10 mg tablet extended release 24hr 10 mg PO DAILY 90 Days Qty: 90 1RF atorvastatin 20 mg tablet 20 mg PO HS metformin 500 mg tablet extended release 24 hr 500 mg PO DAILY Patient Comments: TAKE 1 TABLET BY MOUTH ONCE DAILY WITH EVENING MEAL gabapentin 300 mg capsule 300 mg PO DAILY Patient Comments: TAKE 1 CAPSULE BY MOUTH ONCE DAILY Referrals Follow up/Referrals: Margie Curiel APRN [Primary Care Provider] - See instructions Activity Restrictions/Add. Instructions Additional Instructions/Restrictions: *Monitor Temp, Over the counter Motrin or Tylenol as directed/as needed Tylenol every 4 hours and Motrin every 6 hours (as long as your family doctor has told you that you can take it) for fever or pain. and straight to ER if unable to lower temp less than 101.0 after medication given *Warm salt water gargles may help to soothe the throat *Throat Lozenges? *Warm fluids like tea with honey may help to soothe the throat? *Sleep elevated *Humidifier/Vaporizer *Flonase 2 sprays in each nostril daily but be aware that it may take 2-3 days before you notice improvement Use eye drops as prescribed Your throat swab was sent for culture. Those results are typically sent to your primary care. Be sure to follow up in 2-3 days with your family doctor/primary care physician if no improvement so they can review those result and treat if necessary. If you don?t have a primary care doctor, I recommend you get one but in the mean time, you will have to return to a walk in clinic Follow up IMMEDIATELY for new or worsening symptoms or no Noticeable improvement over the next 48-72 hours. 911 for difficulty breathing or swallowing *Increase fluids. Water not Soda or Tea *Start antibiotic immediately and be sure to take as ordered for the FULL length of time although you should start to see improvement over the next 48 hours *Pyridium as needed Remember this medication will turn your urine . This is normal but it will stain what ever it gets on *You should not use Pyridium for more than 48 hours. If so , follow up with your primary physician to review urine culture and ensure that antibiotic is adequate for infection *Be SURE to follow up anytime for new or worsening symptoms with your family doctor. AND in 48 hours for urine culture results with your family doctor, if you do not have a doctor then you may call back to the [facility] for urine culture results and further treatment. We do recommend that you choose and establish care with a Primary Care Physician. ?AND follow up with them ?in 10-14 days to repeat UA to ensure infection is resolved and blood no longer present *Be sure to let your PCP know that we sent urine cultures from the [facility] so they can follow up to ensure that you area the on the correct antibiotic Call your doctor office and make appointment for 48 hours (2 days from today) ?to follow up and get the results of your urine culture and further treatment Clinical Impressions Clinical Impression: UTI (urinary tract infection) Instructions Patient Instructions: DI for Urinary Tract Infection (UTI), Olopatadine Ophthalmic, DI for Allergic Rhinitis Print Language Print Language: Swiss Discharge ED Provider: Breanna Quick [facility] [place] HPI General Stated complaint: sore throat Mode of Arrival: Ambulatory Source of Information: Patient Limitations: No Limitations Time Seen by Provider: 12/05/23 18:04 Description of Symptoms (Recalled from Triage Doc. by RN): PATIENT C/O SORE AND DRY THROAT, HEADACHE, AND PAIN TO RIGHT LOWER BACK X 3 DAYS HEENT Symptoms (Recalled from RN notes): Yes Resp Symptoms (Recalled from RN notes): No Skin Symptoms (Recalled from RN notes): No MS Symptoms (Recalled from RN notes): No Functional Status (Recalled from RN notes): WNL History of Present Illness Provider Complaint: Patient states that she has been having itchy watery eyes, nasal congestion and dry scratchy throat for about a week and for the last 3 days she has been having achy like feeling in her lower back and some burning with urination so she wanted to get checked for UTI Related Data Home Medications ?Medication ?Instructions ?Recorded ?Confirmed omeprazole 40 mg capsule,delayed 40 mg PO DAILY Reflux/Acid reflux 07/26/17 12/05/23 release metformin 500 mg tablet,extended 500 mg PO DAILY Diabetes 05/13/22 12/05/23 release 24 hr gabapentin 300 mg capsule 300 mg PO DAILY 03/24/23 12/05/23 amlodipine 10 mg tablet 10 mg PO BID 09/05/23 12/05/23 atorvastatin 20 mg tablet 20 mg PO HS 10/01/23 12/05/23 Previous Rx's ?Medication ?Instructions ?Recorded rivaroxaban 10 mg tablet (Xarelto) 10 mg PO DAILY 90 days #90 tabs 10/17/23 oxybutynin chloride 10 mg 10 mg PO DAILY 90 days #90 tabs 11/12/23 tablet,extended release 24 hr cephalexin 500 mg capsule 500 mg PO BID 7 days #14 caps 12/05/23 fluticasone propionate 50 2 spray intranasal DAILY #16 grams 12/05/23 mcg/actuation nasal spray,suspension (Flonase Allergy Relief) olopatadine 0.2 % eye drops 1 drp ophthalmic (eye) DAILY PRN 12/05/23 (Pataday Once Daily Relief) itching #2.5 mL phenazopyridine 200 mg tablet 200 mg PO Q8H pain 2 days #6 tabs 12/05/23 (Pyridium) Allergies Allergy/AdvReac Type Severity Reaction Status Date / Time lisinopril AdvReac Unknown Verified 11/12/23 10:06 losartan AdvReac Verified 11/12/23 10:06 Worker's Comp Is this a Worker's Comp case?: No [facility] Disclaimer: The information contained in this section may have been updated after the patient was seen, as this information can be updated by other users. 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 History of pulmonary embolism Dyspnea on exertion Restrictive lung disease Elevated diaphragm Chronic low back pain MGUS (monoclonal gammopathy of unknown significance) High blood copper level Acute dysfunction of both eustachian tubes Abnormal electrocardiogram [ECG] [EKG] Sinus tachycardia Hypertensive disorder Saddle embolus of pulmonary artery 2018 Dyspnea Low back pain Lumbar radiculopathy Neck pain Bilateral hip pain Gastroenteritis Abdominal pain CAP (community acquired pneumonia) SIRS (systemic inflammatory response syndrome) Obesity Patient left without being seen UTI (urinary tract infection) COVID-19 virus infection Essential hypertension Acute respiratory failure Vertigo Hyperlipidemia Hyperglycemia Bilateral leg edema Elevated troponin URI (upper respiratory infection) Bicipital tendinitis Strep throat Encounter for pre-operative cardiovascular clearance Sinusitis nasal Otitis media Pneumonia Bilateral foot pain Newly diagnosed diabetes Sinusitis Conjunctivitis Hip pain Right knee sprain UTI (urinary tract infection) Chest pain Bilateral cellulitis of lower leg Acute maxillary sinusitis UTI (urinary tract infection) Diabetes mellitus, type 2 Hyperlipidemia Hypertension Uterine cancer Surgical History History of tubal ligation History of hysterectomy History of cholecystectomy H/O total hysterectomy History of total left hip replacement S/p bilateral carpal tunnel release Family History Other Cancer Coronary artery disease Diabetes Heart attack Hypertension Social History Smoking Status: Never smoker second hand exposure: No alcohol intake: never substance use type: denies use current occupational status: disabled Travel in the last 8 weeks: None household members: none housing: apartment lives independently: Yes current occupational exposures/hazards: No caffeine: Yes ROS Obtained: Yes All systems reviewed & no additional complaints except as documented and Yes Systems reviewed as appropriate & no additional complaints except as documented Constitutional Constitutional: Reports system reviewed and no additional complaints, except as documented and Reports as per HPI Eyes Eyes: Reports system reviewed and no additional complaints, except as documented, Reports as per HPI, Reports eye discharge and Reports itchy eyes ENT Ears, Nose, Mouth, and Throat: Reports system reviewed and no additional complaints, except as documented, Reports as per HPI, Reports nasal congestion, Reports nasal discharge and Reports sore throat Cardiovascular Cardiovascular: Reports system reviewed and no additional complaints, except as documented and Reports as per HPI Respiratory Respiratory: Reports system reviewed and no additional complaints, except as documented and Reports as per HPI Gastrointestinal Gastrointestingal: Reports system reviewed and no additional complaints, except as documented and as per HPI Genitourinary Female Genitourinary: Reports system reviewed and no additional complaints, except as documented, Reports as per HPI, Reports dysuria, Reports urinary frequency and Reports urinary urgency Allergic/Immunologic Allergic/Immunologic: Reports itchy eyes Physical Exam General General appearance: alert and in no apparent distress ENT ENT exam: Present mucous membranes moist Expanded ENT Exam Nose exam: Present other (reports clear drainage); Absent sinus tenderness Throat exam: Present tonsillar erythema; Absent tonsillar exudate Respiratory Respiratory exam: Present normal lung sounds bilaterally; Absent respiratory distress or wheezes Cardiovascular Cardiovascular exam: Present regular rate, normal rhythm and normal heart sounds Abdominal Exam Abdominal exam: Present soft and normal bowel sounds; Absent distention or tenderness Back Exam Back exam: Present normal inspection and full ROM; Absent tenderness Neurological Exam Neurological exam: Present alert, oriented X3 and normal gait Medical Decision Making Ander Inquiry Pt receiving controlled substance: No Ander was queried for this patient: No Vital Signs: 12/05/23 17:40 Temperature 98.4 F Temperature Source Oral Pulse Rate [Left Brachial] 78 Respiratory Rate 20 Blood Pressure [Left Arm] 177/74 H Blood Pressure Mean [Left Arm] 108 Blood Pressure Source [Left Arm] Automatic Cuff Blood Pressure Position [Left Arm] Sitting 02 Sat by Pulse Oximetry 97 Oxygen Delivery Method Room Air Lab Data Lab results reviewed: Yes I reviewed the patient's lab results. Orders (Tests/Meds): ORDERS Category Date Time Status Urine Culture Stat Micro 12/05/23 17:59 Ordered
[2023-12-05 18:05] LABS: Apearance,Urine Cloudy (Clear); Bilirubin,Urine Negative (Negative); Blood, Urine Trace (Negative); Color,Urine Yellow (Yellow); Glucose,Urine (UA) Negative (Negative); Ketones,Urine Negative (Negative); Protein,Urine Trace (Negative); UTC Leukocyte Esterase,Urine Trace (Negative); UTC Nitrate,Urine Negative (Negative); Urobilinogen,Urine 1 EU/dl (0.2)
[2023-12-05 18:05] LABS: UTC Strep Screen (Rapid) Negative (Negative)
[2023-12-05 18:22] VITALS: BP 177/74; PULSE 78; RESP 20; TEMP 36.9; O2SAT 97
--- NOTE | 2023-12-08 08:41 | PC.NURSE ---
REVIEWED URINE CULTURE WITH Chad BEARD. NO CHANGES NEEDED AT THIS TIME
== END 2023-12-05 18:27 | disposition home or self-care (01) ==
PROVIDERS: Emergency Provider Nurse Practitioner; PCP Nurse Practitioner
DX: N39.0 Urinary tract infection, site not specified (principal); B95.2 Enterococcus as the cause of diseases classified elsewhere; M54.59 Other low back pain; R30.0 Dysuria; R09.81 Nasal congestion; R07.0 Pain in throat
CPT/HCPCS: 81003; 87086; 87088; 87186; 87880; 99204; 99212; G0463

== ENCOUNTER 2024-01-16 07:44 | Outpatient (CLI) | payer MEDICARE, MEDICAID, SELFPAY ==
--- NOTE | 2024-01-16 07:45 | FL_ITS ---
FINAL REPORT CLINICAL HISTORY: .trouble with diagram...sniff test 395.65 dap 0.27 fluouo FINDINGS: SNIFF TEST HISTORY: Shortness of breath, elevated right hemidiaphragm. PROCEDURE: Fluoroscopy was utilized to observe the motion of the hemidiaphragms during normal respirations and while the patient was sniffing. FINDINGS: Right hemidiaphragm is elevated. There is normal motion of both hemidiaphragms. There is no paradoxical movement of either side of the diaphragm. A total of 6 cine runs were saved. FLUOROSCOPY TIME: 0.27 minutes FLUORO DOSE: 395.65 DAP in [employer] IMPRESSION: No paradoxical movement of the diaphragm. Reviewed, Interpreted and Dictated by Godwin Fitch MD Transcribed by Jocelynn Rodriguez PA-C Authenticated and [facility]
== END 2024-01-16 23:59 | disposition home or self-care (01) ==
LOC: RAD 07:45
PROVIDERS: PCP Nurse Practitioner; Visit Provider Internal Medicine Pulmonary Disease
DX: J98.6 Disorders of diaphragm (principal)
CPT/HCPCS: 76000

== ENCOUNTER 2024-03-21 13:00 | Outpatient (RCR) | payer MEDICARE, MEDICAID, SELFPAY | END 2024-03-21 23:59 | disposition home or self-care (01) | LOC: PT 13:00 | PROVIDERS: Visit Provider Nurse Practitioner | DX: I89.0 Lymphedema, not elsewhere classified (principal) | CPT/HCPCS: 97140; 97163; 97164 ==

== ENCOUNTER 2024-03-25 16:48 | Emergency (ER) | payer MEDICARE, MEDICAID, SELFPAY ==
--- NOTE | 2024-03-25 17:25 | ED_ITS ---
Discharge Plan Disposition Patient Disposition: Home, Self-Care Condition: Good Prescriptions Prescriptions: New benzonatate 100 mg capsule 100 mg PO TIDP PRN (Reason: Cough) Qty: 30 0RF amoxicillin-pot clavulanate 875-125 mg Tablet 1 tab PO Q12H Qty: 20 0RF No Action omeprazole 40 mg capsule,delayed release(DR/EC) 40 mg PO DAILY amlodipine 10 mg tablet 10 mg PO BID Xarelto 10 mg tablet 10 mg PO DAILY 90 Days Qty: 90 3RF Rx Instructions: for 35 days oxybutynin chloride 10 mg tablet extended release 24hr 10 mg PO DAILY 90 Days Qty: 90 1RF atorvastatin 20 mg tablet 20 mg PO HS montelukast [Singulair] 10 mg tablet 10 mg PO DAILY Qty: 90 2RF metformin 500 mg tablet extended release 24 hr 500 mg PO DAILY Patient Comments: TAKE 1 TABLET BY MOUTH ONCE DAILY WITH EVENING MEAL gabapentin 300 mg capsule 300 mg PO DAILY Patient Comments: TAKE 1 CAPSULE BY MOUTH ONCE DAILY Referrals Follow up/Referrals: Margie Curiel APRN [Primary Care Provider] - See instructions Activity Restrictions/Add. Instructions Additional Instructions/Restrictions: Drink plenty of fluids. Take tylenol or ibuprofen for pain or fever. Take the medications as directed. Follow up with your regular doctor. GO TO THE ER FOR ANY WORSENING SYMPTOMS Clinical Impressions Clinical Impression: Sinusitis Stand Alone Forms Stand Alone Forms: Work/School Release Instructions Patient Instructions: Sinusitis, DI for Sinusitis Print Language Print Language: Maori Discharge ED Provider: Brien Anderson [facility] General Stated complaint: poss sinus inf Time Seen by Provider: 03/25/24 17:25 Related Data Home Medications ?Medication ?Instructions ?Recorded ?Confirmed omeprazole 40 mg capsule,delayed 40 mg PO DAILY Reflux/Acid reflux 07/26/17 03/25/24 release metformin 500 mg tablet,extended 500 mg PO DAILY Diabetes 05/13/22 03/25/24 release 24 hr gabapentin 300 mg capsule 300 mg PO DAILY 03/24/23 03/25/24 amlodipine 10 mg tablet 10 mg PO BID 09/05/23 03/25/24 atorvastatin 20 mg tablet 20 mg PO HS 10/01/23 03/25/24 Previous Rx's ?Medication ?Instructions ?Recorded rivaroxaban 10 mg tablet (Xarelto) 10 mg PO DAILY 90 days #90 tabs 10/17/23 montelukast 10 mg tablet 10 mg PO DAILY #90 tabs 01/22/24 (Singulair) oxybutynin chloride 10 mg 10 mg PO DAILY 90 days #90 tabs 01/28/24 tablet,extended release 24 hr amoxicillin 875 mg-potassium 1 tab PO Q12H #20 tabs 03/25/24 clavulanate 125 mg tablet benzonatate 100 mg capsule 100 mg PO TIDP PRN Cough #30 caps 03/25/24 Allergies Allergy/AdvReac Type Severity Reaction Status Date / Time lisinopril AdvReac Unknown Verified 01/28/24 09:52 losartan AdvReac Verified 01/28/24 09:52 PFS PFS Disclaimer: The information contained in this section may have been updated after the patient was seen, as this information can be updated by other users. 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 Allergic rhinitis History of pulmonary embolism Dyspnea on exertion Restrictive lung disease Elevated diaphragm Chronic low back pain MGUS (monoclonal gammopathy of unknown significance) High blood copper level Acute dysfunction of both eustachian tubes Abnormal electrocardiogram [ECG] [EKG] Sinus tachycardia Hypertensive disorder Saddle embolus of pulmonary artery 2018 Dyspnea Low back pain Lumbar radiculopathy Neck pain Bilateral hip pain Gastroenteritis Abdominal pain CAP (community acquired pneumonia) SIRS (systemic inflammatory response syndrome) Obesity Patient left without being seen UTI (urinary tract infection) COVID-19 virus infection Essential hypertension Acute respiratory failure Vertigo Hyperlipidemia Hyperglycemia Bilateral leg edema Elevated troponin URI (upper respiratory infection) Bicipital tendinitis Strep throat Encounter for pre-operative cardiovascular clearance Sinusitis nasal Otitis media Pneumonia Bilateral foot pain Newly diagnosed diabetes Sinusitis Conjunctivitis Hip pain Right knee sprain UTI (urinary tract infection) Chest pain Bilateral cellulitis of lower leg Acute maxillary sinusitis UTI (urinary tract infection) Diabetes mellitus, type 2 Hyperlipidemia Hypertension Uterine cancer Surgical History History of cervical spinal surgery History of tubal ligation History of hysterectomy History of cholecystectomy H/O total hysterectomy History of total left hip replacement S/p bilateral carpal tunnel release Family History Other Cancer Coronary artery disease Diabetes Heart attack Hypertension Social History Smoking Status: Never smoker second hand exposure: No alcohol intake: never substance use type: denies use current occupational status: disabled Travel in the last 8 weeks: None household members: none housing: apartment lives independently: Yes current occupational exposures/hazards: No caffeine: Yes ROS Obtained: Yes All systems reviewed & no additional complaints except as documented Constitutional Constitutional: Reports poor appetite Eyes Eyes: Reports system reviewed and no additional complaints, except as documented ENT Ears, Nose, Mouth, and Throat: Reports as per HPI Cardiovascular Cardiovascular: Reports system reviewed and no additional complaints, except as documented and Denies chest pain Respiratory Respiratory: Denies shortness of breath, Denies chest congestion, Reports cough, Denies stridor and Denies wheezing Gastrointestinal Gastrointestingal: Reports system reviewed and no additional complaints, except as documented; Denies abdominal pain, diarrhea or vomiting Musculoskeletal Musculoskeletal: Reports system reviewed and no additional complaints, except as documented and Denies arthralgias Integumentary/Breasts Skin/Breast: Reports system reviewed and no additional complaints, except as documented and Denies rash Neurologic Neurologic: Denies paresthesias Allergic/Immunologic Allergic/Immunologic: Denies wheezing Physical Exam General General appearance: alert and in no apparent distress Eye Eye exam: Present normal appearance, PERRL and EOMI ENT ENT exam: Present mucous membranes moist and normal external ear exam Expanded ENT Exam External ear exam: Present normal external inspection TM/Canal exam: Bilateral TM: erythema and bulging Nose exam: Absent sinus tenderness Nasal speculum exam: Bilateral: normal Mouth exam: Present normal external inspection; Absent drooling Teeth exam: Present normal inspection Throat exam: Present tonsillar erythema and tonsillomegaly Neck Neck exam: Present normal inspection, full ROM and trachea midline; Absent tenderness, lymphadenopathy or thyromegaly Chest Chest inspection: Present normal inspection and symmetric chest wall rise; Absent tenderness or rash Respiratory Respiratory exam: Present normal lung sounds bilaterally; Absent respiratory distress, wheezes, stridor or accessory muscle use Cardiovascular Cardiovascular exam: Present regular rate, normal rhythm and normal heart sounds Abdominal Exam Abdominal exam: Present soft; Absent distention, tenderness, guarding, rebound or rigidity Extremities Exam Extremities exam: Present normal inspection, full ROM and normal capillary refill; Absent tenderness or calf tenderness Back Exam Back exam: Present normal inspection and full ROM; Absent tenderness Neurological Exam Neurological exam: Present alert and oriented X3 Psychiatric Psychiatric exam: Present normal affect and normal mood Skin Skin exam: Present warm, dry, intact and normal color Lymphatic Lymphatic Findings: no adenopathy Medical Decision Making Medical Records Medical records reviewed: No I reviewed the patient's medical records. Screening: Per USPSTF and CDC recommendations, given the prevalence of disease in our region, it is our hospital?s policy to screen for HIV and viral Hepatitis for all patients aged 18 and over and those with ongoing risk factors. Ander Inquiry Pt receiving controlled substance: No Lab Data Lab results reviewed: Yes I reviewed the patient's lab results.
[2024-03-25 17:30] VITALS: BP 174/61; PULSE 73; RESP 19; TEMP 36.8; O2SAT 94; BMI 49.7
[2024-03-25 18:09] VITALS: BP 174/61; PULSE 73; RESP 19; TEMP 36.8; O2SAT 94
== END 2024-03-25 18:11 | disposition home or self-care (01) ==
PROVIDERS: Emergency Provider Nurse Practitioner Family; PCP Nurse Practitioner
DX: H66.93 Otitis media, unspecified, bilateral (principal)
CPT/HCPCS: 99213; G0381

== ENCOUNTER 2024-06-08 21:05 | Emergency (ER) | payer MEDICARE, MEDICAID, SELFPAY ==
[2024-06-08 21:07] VITALS: BP 169/85; PULSE 76; RESP 18; TEMP 36.6; O2SAT 96; BMI 48.7
[2024-06-08 21:31] VITALS: BP 135/69; PULSE 71; O2SAT 94
--- NOTE | 2024-06-08 21:59 | HMH.EDGENADL ---
Discharge Plan Disposition Patient Disposition: Home, Self-Care Condition: Good Prescriptions Prescriptions: No Action omeprazole 40 mg capsule,delayed release(DR/EC) 40 mg PO DAILY amlodipine 10 mg tablet 10 mg PO BID Xarelto 10 mg tablet 10 mg PO DAILY 90 Days Qty: 90 3RF Rx Instructions: for 35 days Airsupra 90-80 mcg/actuation HFA aerosol inhaler inhalation Patient Comments: INHALE 2 PUFFS BY MOUTH 6 TIMES DAILY NEEDED azithromycin [Zithromax Z-Mckinley] 250 mg tablet 250 mg PO QDAY Qty: 6 0RF Rx Instructions: Take 2 pills the first day and then one tablet per day guaifenesin 400 mg tablet 400 mg PO Q4H PRN (Reason: cough) Qty: 30 0RF atorvastatin 20 mg tablet 20 mg PO HS montelukast [Singulair] 10 mg tablet 10 mg PO DAILY Qty: 90 2RF oxybutynin chloride 15 mg tablet extended release 24hr 15 mg PO DAILY 90 Days Qty: 90 1RF Gemtesa 75 mg tablet 75 mg PO DAILY 30 Days Qty: 30 2RF estradiol [Estrace] 0.01 % (0.1 mg/gram) cream 1 appful vaginal DAILY 30 Days Qty: 42.5 3RF Rx Instructions: 3 times weekly triamterene-hydrochlorothiazid 37.5-25 mg tablet 1 tab PO DAILY Qty: 30 3RF carvedilol 12.5 mg tablet 12.5 mg PO BID Qty: 60 3RF Rx Instructions: must administer with a meal/food metformin 500 mg tablet extended release 24 hr 500 mg PO DAILY Patient Comments: TAKE 1 TABLET BY MOUTH ONCE DAILY WITH EVENING MEAL gabapentin 300 mg capsule 300 mg PO DAILY Patient Comments: TAKE 1 CAPSULE BY MOUTH ONCE DAILY Referrals Follow up/Referrals: Margie Curiel APRN [Primary Care Provider] - See instructions Activity Restrictions/Add. Instructions Additional Instructions/Restrictions: You were evaluated in the ER and are appropriate for discharge at this time. Stop the azithromycin and the cough medication since we do not know which 1 of these is causing your reaction. Please make an appointment with your primary care doctor for reevaluation in 1 to 2 days. Take an [id number] allergy medication like Zyrtec or Claritin if needed for congestion or itching, rash. Return to the ER with new, worsening, or otherwise concerning symptoms. Clinical Impressions Clinical Impression: Urticaria due to drug allergy Instructions Patient Instructions: DI for Skin Abscess Print Language Print Language: Danish Discharge ED Provider: Raman Quiroga General Adult HPI <Raman Quiroga MD - Last Filed: 06/08/24 22:44> General Chief complaint: Skin/Abscess/Foreign Body Stated complaint: rash on legs Time Seen by Provider: 06/08/24 21:17 Mode of Arrival: Ambulatory Source of Information: Patient Limitations: No Limitations Description of Symptoms (Recalled from ER Triage Doc. 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 and azithromy. History of Present Illness HPI narrative: Please note that above description of symptoms, in this electronic medical record under categorization of recalled from ER triage doctor by RN are reflective of an initial nursing assessment, however, is not reflective of my full history and physical exam that was personally taken and clarified. Consequentially, this preceding description of symptoms, which may include the patient's categorized chief complaint in the EMR, do not reflect my personal clinical impression, and the ultimate description of history of present illness and patient stated complaints should be deferred to this section of the note. Unless stated otherwise or congruent with this section of the note, additional signs, symptoms, or incongruence should be interpreted as inaccurate with my clinical impression. Related Data Home Medications ?Medication ?Instructions ?Recorded ?Confirmed omeprazole 40 mg capsule,delayed 40 mg PO DAILY Reflux/Acid reflux 07/26/17 06/07/24 release metformin 500 mg tablet,extended 500 mg PO DAILY Diabetes 05/13/22 06/07/24 release 24 hr gabapentin 300 mg capsule 300 mg PO DAILY 03/24/23 06/07/24 amlodipine 10 mg tablet 10 mg PO BID 09/05/23 06/07/24 atorvastatin 20 mg tablet 20 mg PO HS 10/01/23 06/07/24 albuterol 90 mcg-budesonide 80 inhalation 05/12/24 06/07/24 mcg/actuation HFA aerosol inhaler (Airsupra) Previous Rx's ?Medication ?Instructions ?Recorded rivaroxaban 10 mg tablet (Xarelto) 10 mg PO DAILY 90 days #90 tabs 10/17/23 montelukast 10 mg tablet 10 mg PO DAILY #90 tabs 01/22/24 (Singulair) estradiol 0.01% (0.1 mg/gram) 1 appful vaginal DAILY 30 days 05/19/24 vaginal cream (Estrace) #42.5 grams oxybutynin chloride 15 mg 15 mg PO DAILY 90 days #90 tabs 05/19/24 tablet,extended release 24 hr vibegron 75 mg tablet (Gemtesa) 75 mg PO DAILY 30 days #30 tabs 05/19/24 carvedilol 12.5 mg tablet 12.5 mg PO BID #60 tabs 05/27/24 triamterene 37.5 1 tab PO DAILY #30 tabs 05/27/24 mg-hydrochlorothiazide 25 mg tablet azithromycin 250 mg tablet 250 mg PO QDAY #6 tabs 06/07/24 (Zithromax Z-Mckinley) guaifenesin 400 mg tablet 400 mg PO Q4H PRN cough #30 tabs 06/07/24 Allergies Allergy/AdvReac Type Severity Reaction Status Date / Time lisinopril AdvReac Unknown Verified 06/07/24 13:28 losartan AdvReac Verified 06/07/24 13:28 PFS <Raman Quiroga MD - Last Filed: 06/08/24 22:44> PFS Disclaimer: The information contained in this section may have been updated after the patient was seen, as this information can be updated by other users. 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 Edema Allergic rhinitis History of pulmonary embolism Dyspnea on exertion Restrictive lung disease Elevated diaphragm Chronic low back pain MGUS (monoclonal gammopathy of unknown significance) High blood copper level Acute dysfunction of both eustachian tubes Abnormal electrocardiogram [ECG] [EKG] Sinus tachycardia Hypertensive disorder Saddle embolus of pulmonary artery 2018 Dyspnea Low back pain Lumbar radiculopathy Neck pain Bilateral hip pain Gastroenteritis Abdominal pain CAP (community acquired pneumonia) SIRS (systemic inflammatory response syndrome) Obesity Patient left without being seen UTI (urinary tract infection) COVID-19 virus infection Essential hypertension Acute respiratory failure Vertigo Hyperlipidemia Hyperglycemia Bilateral leg edema Elevated troponin URI (upper respiratory infection) Bicipital tendinitis Strep throat Encounter for pre-operative cardiovascular clearance Sinusitis nasal Otitis media Pneumonia Bilateral foot pain Newly diagnosed diabetes Sinusitis Conjunctivitis Hip pain Right knee sprain UTI (urinary tract infection) Chest pain Bilateral cellulitis of lower leg Acute maxillary sinusitis UTI (urinary tract infection) Diabetes mellitus, type 2 Hyperlipidemia Hypertension Uterine cancer Surgical History History of cervical spinal surgery History of tubal ligation History of hysterectomy History of cholecystectomy H/O total hysterectomy History of total left hip replacement S/p bilateral carpal tunnel release Family History Other Cancer Coronary artery disease Diabetes Heart attack Hypertension Social History Smoking Status: Never smoker second hand exposure: No alcohol intake: never substance use type: denies use current occupational status: disabled Travel in the last 8 weeks: None household members: none housing: apartment lives independently: Yes current occupational exposures/hazards: No caffeine: Yes Have you lived/traveled outside [place] in past 30 days?: No Contact w/someone who lives/traveled outside [place] past 30 days?: No Exposure to someone with infectious disease in past 14 days?: No Do you have a fever (greater than 100.4 F or 38 C)?: No Have you tested positive for COVID-19: No Exposed to someone with COVID-19 in past 14 days?: No Do you have a sore throat?: No Do you have a cough?: No Do you have any weakness?: No Do you have any diarrhea?: No Are you experiencing any unusual bleeding?: No Do you have any muscle aches/pain?: No Do you have any abdominal pain?: No Are you experiencing loss of taste or smell?: No Other 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 Have you received the Flu Vaccine for this season: No Have you received the Pneumonia Vaccine: No <Raman Quiroga MD - Last Filed: 06/08/24 22:44> ROS Obtained: Yes All systems reviewed & no additional complaints except as documented Physical Exam <Raman Quiroga MD - Last Filed: 06/08/24 22:44> General General appearance: alert Head Head exam: atraumatic and normocephalic Eye Eye exam: Present normal appearance, PERRL and EOMI Neck Neck exam: Present normal inspection, full ROM and trachea midline Respiratory Respiratory exam: Absent respiratory distress, wheezes, stridor, accessory muscle use or prolonged expiratory phase Cardiovascular Cardiovascular exam: Present other (Pulses equal symmetric in upper and lower extremities) Abdominal Exam Abdominal exam: Present soft; Absent distention, tenderness or pulsatile mass Extremities Exam Extremities exam: Present edema Neurological Exam Neurological exam: Present alert, oriented X3 and CN II-XII intact; Absent motor sensory deficit Skin Skin exam: Present warm, dry and erythema (Urticarial rash left ankle greater than right); Absent diaphoresis Medical Decision Making <Raman Quiroga MD - Last Filed: 06/08/24 22:44> Medical Records Medical records reviewed: Yes I reviewed the patient's medical records. Screening: Per USPSTF and CDC recommendations, given the prevalence of disease in our region, it is our hospital?s policy to screen for HIV and viral Hepatitis for all patients aged 18 and over and those with ongoing risk factors. Ander Inquiry Pt receiving controlled substance: No Ander was queried for this patient: No Vital Signs: 06/08/24 21:07 06/08/24 21:31 06/08/24 22:01 Temperature 97.9 F Temperature Source Oral Pulse Rate 71 67 Pulse Rate [Right Radial] 76 Respiratory Rate 18 Blood Pressure 135/69 142/62 H Blood Pressure [Right Arm] 169/85 H Blood Pressure Mean [Right Arm] 113 Blood Pressure Source [Right Arm] Automatic Cuff Blood Pressure Position [Right Arm] Supine 02 Sat by Pulse Oximetry 96 94 L 95 Oxygen Delivery Method Room Air Lab Data Lab Results 06/08/24 22:52: WBC 9.0, RBC 5.15, Hgb 12.9, Hct 41.5, MCV 80.6 L, MCH 25.0 L, MCHC 31.1 L, RDW 14.8, Plt Count 230, MPV 10.0, Neut % (Auto) 60.4, Lymph % (Auto) 31.6, Mcdonald % (Auto) 5.6, Eos % (Auto) 2.0, Baso % (Auto) 0.2, Neut # (Auto) 5.5, Lymph # (Auto) 2.9, Mcdonald # (Auto) 0.5, Eos # (Auto) 0.2, Baso # (Auto) 0.0, Sodium 137, Potassium 3.6, Chloride 98, Carbon Dioxide 30, Anion Gap 12.6, BUN 22 H, Creatinine 1.30 H, Estimated Creat Clear 47, Estimated GFR 42 L, Est GFR ( Amer) 50 L, Glucose 157 H, Calcium 9.1, Total Bilirubin 0.4, AST 36, ALT 38, Alkaline Phosphatase 148 H, Total Protein 7.2, Albumin 4.1, Globulin 3.1, Albumin/Globulin Ratio 1.3 06/08/24 22:52 06/08/24 22:52 Orders (Tests/Meds): ED MEDICATIONS Discontinued Medications Generic Name Dose Route Start Last Admin Trade Name Mary PRN Reason Stop Dose Admin Diphenhydramine HCl 25 mg 06/08/24 21:48 06/08/24 22:03 Diphenhydramine 25mg Capsule PO 06/08/24 21:49 25 mg ONCE ONE Administration ORDERS Category Date Time Status CBC w/Auto Diff [Complete Blood Count Auto Diff] Stat Lab 06/08/24 22:52 Completed CMP [Comprehensive Metabolic Panel] Stat Lab 06/08/24 22:52 Completed Medical Decision Narrative: This is a 64-year-old female presenting with rash. Patient states that she has had a upper respiratory infection and was prescribed azithromycin and cough medication a few days prior to this. Patient still taking azithromycin and cough medicine, but started having itching on her lower extremities this morning and has gotten worse. No other exposures or environmental changes. No shortness of breath, worsening cough, tongue or throat swelling, rash elsewhere, or any other concerns. History obtained patient. On arrival, patient very clinically well-appearing. Rash on both ankles, left greater than right. Lower extremity edema that is nonpitting bilaterally. No other secondary findings consistent with anaphylaxis. Differential includes contact dermatitis, medication side effect, radiculopathy, neuropathy, among others. Patient was given Benadryl, basic labs were checked. Prior to labs and reevaluation, care handed off to oncoming physician. [facility] disclaimer Much of this encounter note is an electronic human services instructor spoken language to printed text. Electronic human services instructor of the spoken language may permit errors. Although I have reviewed the note, some errors may still exist. <Aneesh Ramirez MD - Last Filed: 06/08/24 23:24> Vital Signs: 06/08/24 21:07 06/08/24 21:31 06/08/24 22:01 Temperature 97.9 F Temperature Source Oral Pulse Rate 71 67 Pulse Rate [Right Radial] 76 Respiratory Rate 18 Blood Pressure 135/69 142/62 H Blood Pressure [Right Arm] 169/85 H Blood Pressure Mean [Right Arm] 113 Blood Pressure Source [Right Arm] Automatic Cuff Blood Pressure Position [Right Arm] Supine 02 Sat by Pulse Oximetry 96 94 L 95 Oxygen Delivery Method Room Air Lab Data Lab Results 06/08/24 22:52: WBC 9.0, RBC 5.15, Hgb 12.9, Hct 41.5, MCV 80.6 L, MCH 25.0 L, MCHC 31.1 L, RDW 14.8, Plt Count 230, MPV 10.0, Neut % (Auto) 60.4, Lymph % (Auto) 31.6, Mcdonald % (Auto) 5.6, Eos % (Auto) 2.0, Baso % (Auto) 0.2, Neut # (Auto) 5.5, Lymph # (Auto) 2.9, Mcdonald # (Auto) 0.5, Eos # (Auto) 0.2, Baso # (Auto) 0.0, Sodium 137, Potassium 3.6, Chloride 98, Carbon Dioxide 30, Anion Gap 12.6, BUN 22 H, Creatinine 1.30 H, Estimated Creat Clear 47, Estimated GFR 42 L, Est GFR ( Amer) 50 L, Glucose 157 H, Calcium 9.1, Total Bilirubin 0.4, AST 36, ALT 38, Alkaline Phosphatase 148 H, Total Protein 7.2, Albumin 4.1, Globulin 3.1, Albumin/Globulin Ratio 1.3 Orders (Tests/Meds): ED MEDICATIONS Discontinued Medications Generic Name Dose Route Start Last Admin Trade Name Freq PRN Reason Stop Dose Admin Diphenhydramine HCl 25 mg 06/08/24 21:48 06/08/24 22:03 Diphenhydramine 25mg Capsule PO 06/08/24 21:49 25 mg ONCE ONE Administration ORDERS Category Date Time Status CBC w/Auto Diff [Complete Blood Count Auto Diff] Stat Lab 06/08/24 22:52 Completed CMP [Comprehensive Metabolic Panel] Stat Lab 06/08/24 22:52 Completed Medical Decision Narrative: This is a 64-year-old female presenting with rash. Patient states that she has had a upper respiratory infection and was prescribed azithromycin and cough medication a few days prior to this. Patient still taking azithromycin and cough medicine, but started having itching on her lower extremities this morning and has gotten worse. No other exposures or environmental changes. No shortness of breath, worsening cough, tongue or throat swelling, rash elsewhere, or any other concerns. History obtained patient. On arrival, patient very clinically well-appearing. Rash on both ankles, left greater than right. Lower extremity edema that is nonpitting bilaterally. No other secondary findings consistent with anaphylaxis. Differential includes contact dermatitis, medication side effect, radiculopathy, neuropathy, among others. Patient was given Benadryl, basic labs were checked. Prior to labs and reevaluation, care handed off to oncoming physician. [facility] disclaimer Much of this encounter note is an electronic human services instructor spoken language to printed text. Electronic human services instructor of the spoken language may permit errors. Although I have reviewed the note, some errors may still exist. Ramirez: I assumed care of this patient at 2300 hrs. Patient was resting comfortably. She had received Benadryl for concern of histamine reaction causing urticaria on the lower extremities. She reports that her symptoms have dramatically improved. Labs have been pending when I assumed care, these results and were reviewed by me. Patient does not have any leukocytosis, no eosinophilia, CMP demonstrates mildly elevated creatinine however this is similar to patient's previous creatinine (it varies between 0.9 and 1.3) and I encouraged her to drink plenty of fluids to support good kidney function. She is tolerating oral intake, lungs clear bilaterally, the rash on her lower extremities has improved and she states her itching is better. We discussed stopping her azithromycin and cough medicine since these are the newest medications which she started and it is unclear which could be causing her symptoms. She does not have any evidence of bacterial infection with reassuring labs, clear lungs, normal vitals. I encouraged her to follow-up with her primary care doctor in 1 to 2 days for reevaluation of her allergy symptoms as well as her congestion and cough. I am not going to prescribe a new antibiotic at this time since I do not believe it is indicated without evidence of bacterial infection. Patient was given instructions on symptomatic management, follow up instructions, and return precautions for the emergency department. Patient indicated understanding and was discharged in stable condition. Critical Care <Raman Quiroga MD - Last Filed: 06/08/24 22:44> Critical Care Time Critical Care Time: No
[2024-06-08 22:01] VITALS: BP 142/62; PULSE 67; O2SAT 95
[2024-06-08] MEDS: diphenhydrAMINE 25MG CAPSULE 25 MG PO (22:03)
[2024-06-08 23:04] LABS: Basophils % 0.2 % (0.1-2.0); Eosinophils # 0.2 K/mm3 (0.0-0.4); Hematocrit 41.5 % (37.0-47.0); Hemoglobin 12.9 g/dL (12.2-16.2); Lymphocytes # 2.9 K/mm3 (0.7-4.5); Lymphocytes % 31.6 % (10-50); Mean Corpuscular HGB Conc 31.1 g/dL (31.8-35.4); Mean Corpuscular Volume 80.6 fl (81-99); Monocytes # 0.5 K/mm3 (0.1-1.0); Monocytes % 5.6 % (1.7-9.3); Neutrophils # 5.5 K/mm3 (1.8-7.8); Neutrophils % 60.4 % (37.0-80.0); Platelet Count 230 K/mm3 (142-424); Red Blood Count 5.15 M/mm3 (4.20-5.40); Red Cell Distribution Width 14.8 % (11.5-17.5)
[2024-06-08 23:07] LABS: Albumin Level 4.1 g/dl (3.5-5.0); Chloride 98 mmol/L (98-107); Potassium 3.6 mmoL/L (3.5-5.1); Sodium 137 mmol/L (136-145)
[2024-06-08 23:10] LABS: Alanine Aminotransferase 38 U/L (12-78); Albumin/Globulin Ratio 1.3 (1.1-1.8); Alkaline Phosphatase 148 U/L (38-126); Anion Gap 12.6 mEq/L (5-15); Aspartate Amino Transferase 36 U/L (14-36); Bilirubin,Total 0.4 mg/dl (0.2-1.3); Blood Urea Nitrogen 22 mg/dl (7-17); Carbon Dioxide 30 mmol/L (22.0-30.0); Creatinine Clearance Estimated 47 mL/min (50-200); Estimated Glomerular Filt Rate 42 ml/min (>60); GFR (African American) 50 ML/MIN (>60); Globulin 3.1 g/dL (1.3-3.2); Total Protein,Serum 7.2 g/dl (6.3-8.2)
[2024-06-08 23:11] LABS: Calcium 9.1 mg/dl (8.4-10.2); Glucose 157 mg/dl (74-100)
[2024-06-08 23:28] VITALS: BP 129/53; PULSE 62; RESP 14; TEMP 36.6; O2SAT 98
--- NOTE | 2024-06-08 23:31 | PC.NURSE ---
IV removed. Catheter tip intact. Bleeding controlled.
== END 2024-06-08 23:31 | disposition home or self-care (01) ==
PROVIDERS: Emergency Provider Emergency Medicine; PCP Nurse Practitioner
DX: L50.0 Allergic urticaria (principal); R21 Rash and other nonspecific skin eruption
CPT/HCPCS: 80053; 85025; 99283

== ENCOUNTER 2024-06-12 11:34 | Outpatient (CLI) | payer MEDICARE, MEDICAID, SELFPAY ==
[2024-06-12 11:59] LABS: Basophils % 0.3 % (0.1-2.0); Eosinophils # 0.2 K/mm3 (0.0-0.4); Eosinophils % 2.3 % (0.1-12.0); Hemoglobin 12.3 g/dL (12.2-16.2); Lymphocytes # 3.1 K/mm3 (0.7-4.5); Lymphocytes % 31.4 % (10-50); Mean Corpuscular HGB Conc 30.8 g/dL (31.8-35.4); Mean Corpuscular Hemoglobin 25.5 pg (27.0-31.2); Mean Corpuscular Volume 82.8 fl (81-99); Mean Platelet Volume 9.8 fl (7.4-10.4); Monocytes # 0.6 K/mm3 (0.1-1.0); Neutrophils # 5.9 K/mm3 (1.8-7.8); Neutrophils % 59.7 % (37.0-80.0); Platelet Count 262 K/mm3 (142-424); Red Blood Count 4.83 M/mm3 (4.20-5.40); White Blood Count 9.8 K/mm3 (4.8-10.8)
[2024-06-12 13:07] LABS: Free T4 (Free Thyroxine) 1.27 ng/dl (0.78-2.19)
[2024-06-12 13:29] LABS: Alanine Aminotransferase 29 U/L (12-78); Albumin Level 3.8 g/dl (3.5-5.0); Alkaline Phosphatase 137 U/L (38-126); Anion Gap 11.1 mEq/L (5-15); Aspartate Amino Transferase 39 U/L (14-36); Bilirubin,Direct 0.3 mg/dl (0.0-0.4); Bilirubin,Indirect 0.1 mg/dL (0.0-0.9); Bilirubin,Total 0.4 mg/dl (0.2-1.3); Bilirubin,Unconjugated 0.1 mg/dL (0.0-1.1); Blood Urea Nitrogen 15 mg/dl (7-17); Calcium 9.1 mg/dl (8.4-10.2); Carbon Dioxide 31 mmol/L (22.0-30.0); Chloride 103 mmol/L (98-107); Chol/HDL Ratio 5.6 (1-3.5); Cholesterol 146 mg/dl (140-200); Estimated Glomerular Filt Rate 56 ml/min (>60); GFR (African American) 68 ML/MIN (>60); Glucose 107 mg/dl (74-100); HDL Cholesterol 26 mg/dl (40-60); Magnesium 1.7 mg/dl (1.6-2.3); Potassium 4.1 mmoL/L (3.5-5.1); Sodium 141 mmol/L (136-145); Total Protein,Serum 6.3 g/dl (6.3-8.2); Triglycerides 311 mg/dl (30-150); VLDL Cholesterol 62 mg/dL (0-40)
[2024-06-12 13:40] LABS: Direct LDL Cholesterol 73.68 mg/dL (100-129)
[2024-06-12 14:00] LABS: Thyroid Stimulating Hormone 1.71 uIU/mL (0.465-4.68)
== END 2024-06-12 23:59 | disposition home or self-care (01) ==
LOC: LAB 11:35
PROVIDERS: PCP Nurse Practitioner; Visit Provider Nurse Practitioner Family
DX: I10 Essential (primary) hypertension (principal); E78.5 Hyperlipidemia, unspecified; E11.69 Type 2 diabetes mellitus with other specified complication; K21.9 Gastro-esophageal reflux disease without esophagitis; I45.10 Unspecified right bundle-branch block
CPT/HCPCS: 36415; 80048; 80061; 80076; 83735; 84439; 84443; 85025

== ENCOUNTER 2024-07-08 08:39 | Outpatient (CLI) | payer MEDICARE, MEDICAID, SELFPAY | END 2024-07-08 23:59 | disposition home or self-care (01) | LOC: LAB.DROPOF 07-09 12:00 | PROVIDERS: PCP Nurse Practitioner; Visit Provider Nurse Practitioner | DX: R30.0 Dysuria (principal) | CPT/HCPCS: 87086 ==

== ENCOUNTER 2024-07-30 08:17 | Outpatient (CLI) | payer MEDICARE, MEDICAID, SELFPAY ==
--- NOTE | 2024-07-30 08:23 | MM_ITS ---
PROCEDURE INFORMATION: Exam: MG Bilateral Screening 3D Mammography Exam date and time: 07/30/2024 8:29 AM Age: 64 years old Clinical indication: Screening examination TECHNIQUE: Imaging protocol: Bilateral Screening tomosynthesis and 2D mammography including computer-aided detection (CAD) when performed. COMPARISON: 1. MG MM DIG SCREENING MAMM BI W/CAD 07/11/2022 8:37 AM 2. MG SCBI MM Dig screening mamm BI w/CAD 05/16/2017 3:22 PM FINDINGS: MAMMOGRAPHY: Breast composition: The breasts are almost entirely fatty. Mass: None. Architectural distortion: None. Calcifications: No suspicious calcifications. Asymmetric density: None. Skin thickening: None. Axillary adenopathy: None. IMPRESSION: No mammographic evidence of malignancy. Annual screening is recommended unless otherwise clinically indicated. ASSESSMENT: BI-RADS Category 1: Negative.
[2024-07-30 08:44] LABS: Blood Urea Nitrogen 19 mg/dl (7-17); Estimated Glomerular Filt Rate 46 ml/min (>60); GFR (African American) 55 ML/MIN (>60)
== END 2024-07-30 23:59 | disposition home or self-care (01) ==
LOC: RAD 08:18
PROVIDERS: PCP Nurse Practitioner; Visit Provider Nurse Practitioner
DX: R10.9 Unspecified abdominal pain (principal); Z12.31 Encounter for screening mammogram for malignant neoplasm of breast
CPT/HCPCS: 36415; 77063; 77067; 82565; 84520

== ENCOUNTER 2024-07-31 17:19 | Emergency (ER) | payer MEDICARE, MEDICAID, SELFPAY ==
[2024-07-31 17:27] VITALS: BP 199/64; PULSE 70; RESP 18; TEMP 36.3; O2SAT 100; BMI 48.2
--- NOTE | 2024-07-31 17:41 | CT_ITS ---
PROCEDURE INFORMATION: Exam: CT Abdomen And Pelvis With Contrast Exam date and time: 07/31/2024 6:20 PM Age: 64 years old Clinical indication: Abdominal pain; Additional info: Lower quadrant abdominal pain TECHNIQUE: Imaging protocol: Computed tomography of the abdomen and pelvis with contrast. Radiation optimization: All CT scans at this facility use at least one of these dose optimization techniques: automated exposure control; mA and/or kV adjustment per patient size (includes targeted exams where dose is matched to clinical indication); or iterative reconstruction. Contrast material: ISOVUE; Contrast volume: 75 ml; Contrast route: IV; COMPARISON: CT ABDOMEN PELVIS W CON 12/23/2020 11:49 PM FINDINGS: Lungs: Granulomatous calcification in the right lung base. Minor bandlike subsegmental atelectasis in the lung bases. Heart: Heart size normal. Esophagus: The visualized distal esophagus is largely contracted without gross abnormality. Liver: Question mild generalized fatty infiltration of the liver. Mild hepatomegaly measuring 19.5 cm craniocaudal. Normal contour. No mass lesions. No intrahepatic biliary ductal dilatation. Gallbladder and biliary ducts: Prior cholecystectomy with no significant dilatation of the common bile duct. Pancreas: Normal. No inflammatory changes or ductal dilation. Spleen: Granulomatous calcifications in the spleen without acute splenic abnormality. Adrenal glands: Normal. No adrenal mass. Kidneys and ureters: No acute abnormalities. No hydronephrosis or hydroureter. 3 mm nonobstructive right renal stone. 3 mm nonobstructive left renal stone. Small left kidney with moderate-severe left renal cortical thinning/irregularity suggesting chronic renal disease. Stomach and bowel: The stomach is largely contracted. The small bowel is nondilated with no gross abnormality. No acute colonic abnormalities. Appendix: The appendix is normal in caliber and demonstrates no evidence of appendicitis. Intraperitoneal space: No peritoneal free fluid or air. Vasculature: No acute vascular abnormalities. Lymph nodes: No adenopathy. Surgical clips along the right iliac vasculature, possibly prior node dissection, correlate clinically. Urinary bladder: Unremarkable as visualized. Reproductive: Prior hysterectomy. Bones/joints: No acute osseous abnormalities. Left hip arthroplasty without gross hardware complication. Mild-moderate right hip osteoarthritic changes. Moderate lumbar spondylosis. Advanced L5-S1 disc osteoarthritic changes. Soft tissues: Very small fatty umbilical hernia with slight periumbilical stranding which may relate to chronic fibrosis although correlate clinically for evidence of strangulated fatty hernia. No bowel herniation. IMPRESSION: 1. No acute process is evident. 2. Mild hepatomegaly and suspected mild hepatic steatosis. 3. Small nonobstructive renal stones. Chronic left renal atrophy. No hydronephrosis. 4. Very small fatty umbilical hernia. There is slight adjacent stranding which could relate to mild chronic fibrosis although correlate clinically to exclude a small strangulated fatty umbilical hernia. No bowel herniation. 5. Additional nonemergent findings detailed above.
--- NOTE | 2024-07-31 17:42 | ED_ITS ---
<Statement entered by Pippa Law DO - 08/01/24 00:39> I was consulted by the ADOLFO, and we discussed the complexity of the problems being addressed. I approved the treatment and management plan for this patient's care in the emergency department, thus performing a substantive portion of the medical decision making. Pippa Law DO Discharge Plan Disposition Patient Disposition: Home, Self-Care Condition: Good Prescriptions Prescriptions: New sulfamethoxazole-trimethoprim [Bactrim DS] 800-160 mg tablet 1 tab PO BID 5 Days Qty: 10 0RF No Action omeprazole 40 mg capsule,delayed release(DR/EC) 40 mg PO DAILY Xarelto 10 mg tablet 10 mg PO DAILY 90 Days Qty: 90 3RF Rx Instructions: for 35 days Airsupra 90-80 mcg/actuation HFA aerosol inhaler inhalation Patient Comments: INHALE 2 PUFFS BY MOUTH 6 TIMES DAILY NEEDED Breztri Aerosphere 160-9-4.8 mcg/actuation HFA aerosol inhaler 2 inh inhalation BID 90 Days Qty: 10.7 3RF montelukast [Singulair] 10 mg tablet 10 mg PO DAILY Qty: 90 2RF fluticasone propionate [Flonase Allergy Relief] 50 mcg/actuation spray,suspension 2 spray intranasal DAILY 90 Days Qty: 16 3RF Rx Instructions: administer into each nostril daily estradiol [Estrace] 0.01 % (0.1 mg/gram) cream 1 appful vaginal DAILY 30 Days Qty: 42.5 3RF Rx Instructions: 3 times weekly oxybutynin chloride 15 mg tablet extended release 24hr 15 mg PO DAILY 90 Days Qty: 90 1RF Gemtesa 75 mg tablet 75 mg PO DAILY 30 Days Qty: 30 2RF Pro Fe 180 mg iron capsule 180 mg PO Q3W Patient Comments: TAKE 1 CAPSULE BY MOUTH THREE TIMES A WEEK carvedilol 25 mg tablet 25 mg PO BID Qty: 60 5RF Rx Instructions: must administer with a meal/food atorvastatin 20 mg tablet 40 mg PO HS triamterene-hydrochlorothiazid 75-50 mg tablet 1 tab PO DAILY Qty: 30 2RF metformin 500 mg tablet extended release 24 hr 500 mg PO DAILY Patient Comments: TAKE 1 TABLET BY MOUTH ONCE DAILY WITH EVENING MEAL gabapentin 300 mg capsule 300 mg PO DAILY Patient Comments: TAKE 1 CAPSULE BY MOUTH ONCE DAILY Referrals Follow up/Referrals: Margie Curiel APRN [Primary Care Provider] - See instructions Activity Restrictions/Add. Instructions Additional Instructions/Restrictions: Please follow-up with your PCP within 48 hours you have continued new or worsening signs or symptoms as you may need further workup. Please take your antibiotic till it is all gone. I did recommend taking Tylenol alternating with Motrin for your symptoms. We have essentially ruled out any serious or life- threatening condition today but if you have continued or worsening signs or symptoms return to the emergency department. Clinical Impressions Clinical Impression: Abdominal pain, right lower quadrant UTI (urinary tract infection) Qualifiers: Urinary tract infection type: site unspecified Hematuria presence: without hematuria Qualified Code(s): N39.0 - Urinary tract infection, site not specified Instructions Patient Instructions: DI for Acute Abdominal Pain Print Language Print Language: Israeli Discharge ED Provider: Pippa Law General Adult HPI General Chief complaint: Abdominal Pain Stated complaint: lower r abdomanal pain into back Time Seen by Provider: 07/31/24 17:42 Mode of Arrival: Ambulatory Source of Information: Patient Description of Symptoms (Recalled from ER Triage Doc. by RN): Pt presents with c/o RLQ abdominal pain that radiates to her lower back. Pt states pain has been intermittent the last 3 weeks, but the last couple of days has been constant. History of Present Illness HPI narrative: Patient presents for evaluation of right lower quadrant pain that radiates from the right lower quadrant to her back. She denies any chest pain shortness of breath fever chills hemoptysis hematochezia melena hematemesis hematuria nausea vomiting diarrhea dysuria. Patient has had a total abdominal hysterectomy and cholecystectomy. Related Data Home Medications ?Medication ?Instructions ?Recorded ?Confirmed omeprazole 40 mg capsule,delayed 40 mg PO DAILY Reflux/Acid reflux 07/26/17 07/23/24 release metformin 500 mg tablet,extended 500 mg PO DAILY Diabetes 05/13/22 07/23/24 release 24 hr gabapentin 300 mg capsule 300 mg PO DAILY 03/24/23 07/23/24 albuterol 90 mcg-budesonide 80 inhalation 05/12/24 07/23/24 mcg/actuation HFA aerosol inhaler (Airsupra) atorvastatin 20 mg tablet 40 mg PO HS 06/09/24 07/23/24 polysaccharide iron complex 180 mg 180 mg PO Q3W 07/23/24 07/23/24 iron capsule (Pro Fe) Previous Rx's ?Medication ?Instructions ?Recorded rivaroxaban 10 mg tablet (Xarelto) 10 mg PO DAILY 90 days #90 tabs 10/17/23 estradiol 0.01% (0.1 mg/gram) 1 appful vaginal DAILY 30 days 06/09/24 vaginal cream (Estrace) #42.5 grams oxybutynin chloride 15 mg 15 mg PO DAILY 90 days #90 tabs 06/09/24 tablet,extended release 24 hr vibegron 75 mg tablet (Gemtesa) 75 mg PO DAILY 30 days #30 tabs 06/09/24 budesonide 160 mcg-glycopyr 9 2 inh inhalation BID 90 days #10.7 06/11/24 mcg-formot 4.8 mcg/actuation HFA grams inhaler (Breztri Aerosphere) fluticasone propionate 50 2 spray intranasal DAILY 90 days 06/11/24 mcg/actuation nasal #16 grams spray,suspension (Flonase Allergy Relief) montelukast 10 mg tablet 10 mg PO DAILY #90 tabs 06/11/24 (Singulair) triamterene 75 1 tab PO DAILY #30 tabs 06/11/24 mg-hydrochlorothiazide 50 mg tablet carvedilol 25 mg tablet 25 mg PO BID #60 tabs 07/23/24 sulfamethoxazole 800 1 tab PO BID 5 days #10 tabs 07/31/24 mg-trimethoprim 160 mg tablet (Bactrim DS) Allergies Allergy/AdvReac Type Severity Reaction Status Date / Time lisinopril AdvReac Unknown Cough Verified 07/31/24 17:44 losartan AdvReac Cough Verified 07/31/24 17:44 [facility] Disclaimer: The information contained in this section may have been updated after the patient was seen, as this information can be updated by other users. 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 UTI symptoms Edema Allergic rhinitis History of pulmonary embolism Dyspnea on exertion Restrictive lung disease Elevated diaphragm Chronic low back pain MGUS (monoclonal gammopathy of unknown significance) High blood copper level Acute dysfunction of both eustachian tubes Abnormal electrocardiogram [ECG] [EKG] Sinus tachycardia Hypertensive disorder Saddle embolus of pulmonary artery 2018 Dyspnea Low back pain Lumbar radiculopathy Neck pain Bilateral hip pain Gastroenteritis Abdominal pain CAP (community acquired pneumonia) SIRS (systemic inflammatory response syndrome) Obesity Patient left without being seen UTI (urinary tract infection) COVID-19 virus infection Essential hypertension Acute respiratory failure Vertigo Hyperlipidemia Hyperglycemia Bilateral leg edema Elevated troponin URI (upper respiratory infection) Bicipital tendinitis Strep throat Encounter for pre-operative cardiovascular clearance Sinusitis nasal Otitis media Pneumonia Bilateral foot pain Newly diagnosed diabetes Sinusitis Conjunctivitis Hip pain Right knee sprain UTI (urinary tract infection) Chest pain Bilateral cellulitis of lower leg Acute maxillary sinusitis UTI (urinary tract infection) Diabetes mellitus, type 2 Hyperlipidemia Hypertension Uterine cancer Surgical History History of cervical spinal surgery History of tubal ligation History of hysterectomy History of cholecystectomy H/O total hysterectomy History of total left hip replacement S/p bilateral carpal tunnel release Family History Other Cancer Coronary artery disease Diabetes Heart attack Hypertension Social History Smoking Status: Never smoker second hand exposure: No alcohol intake: never substance use type: denies use current occupational status: disabled Travel in the last 8 weeks: None household members: none housing: apartment lives independently: Yes current occupational exposures/hazards: No caffeine: Yes Have you lived/traveled outside US in past 30 days?: No Contact w/someone who lives/traveled outside US past 30 days?: No Exposure to someone with infectious disease in past 14 days?: No Do you have a fever (greater than 100.4 F or 38 C)?: No Have you tested positive for COVID-19: No Exposed to someone with COVID-19 in past 14 days?: No Do you have a sore throat?: No Do you have a cough?: No Do you have any weakness?: No Do you have any diarrhea?: No Are you experiencing any unusual bleeding?: No Do you have any muscle aches/pain?: No Do you have any abdominal pain?: No Are you experiencing loss of taste or smell?: No Other 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 Have you received the Flu Vaccine for this season: No Have you received the Pneumonia Vaccine: Yes ROS Obtained: Yes Systems reviewed as appropriate & no additional complaints except as documented Physical Exam General General appearance: alert and in no apparent distress Respiratory Respiratory exam: Present normal lung sounds bilaterally Cardiovascular Cardiovascular exam: Present regular rate Neurological Exam Neurological exam: Present alert and oriented X3 Medical Decision Making Medical Records Medical records reviewed: Yes I reviewed the patient's medical records. Screening: Per USPSTF and CDC recommendations, given the prevalence of disease in our region, it is our hospital?s policy to screen for HIV and viral Hepatitis for all patients aged 18 and over and those with ongoing risk factors. Ander Inquiry Pt receiving controlled substance: No Vital Signs: 07/31/24 17:27 07/31/24 18:01 07/31/24 18:31 Temperature 97.3 F L Temperature Source Oral Pulse Rate 60 52 L Pulse Rate [Right] 70 Respiratory Rate 18 15 14 Blood Pressure 126/46 L 135/39 L Blood Pressure [Right Arm] 199/64 H Blood Pressure Mean [Right Arm] 109 Blood Pressure Source Blood Pressure Source [Right Arm] Automatic Cuff Blood Pressure Position Blood Pressure Position [Right Arm] Sitting 02 Sat by Pulse Oximetry 100 95 96 Oxygen Delivery Method Room Air Room Air Room Air 07/31/24 21:40 07/31/24 21:59 Temperature 98.4 F Temperature Source Oral Pulse Rate 47 L 50 L Pulse Rate [Right] Respiratory Rate 18 20 Blood Pressure 116/44 L 142/53 H Blood Pressure [Right Arm] Blood Pressure Mean [Right Arm] Blood Pressure Source Automatic Cuff Automatic Cuff Blood Pressure Source [Right Arm] Blood Pressure Position Sitting Blood Pressure Position [Right Arm] 02 Sat by Pulse Oximetry 95 Oxygen Delivery Method Room Air Room Air Lab Data Lab results reviewed: Yes I reviewed the patient's lab results. Lab Results 07/31/24 17:40: WBC 9.2, RBC 5.12, Hgb 13.2, Hct 41.7, MCV 81.4, MCH 25.8 L, M CHC 31.7 L, RDW 16.0, Plt Count 264, MPV 9.5, Neut % (Auto) 59.8, Lymph % (Auto) 29.7, [place] % (Auto) 6.8, Eos % (Auto) 3.1, Baso % (Auto) 0.4, Neut # (Auto) 5.5, Lymph # (Auto) 2.7, [place] # (Auto) 0.6, Eos # (Auto) 0.3, Baso # (Auto) 0.0, Sodium 140, Potassium 3.7, Chloride 100, Carbon Dioxide 30, Anion Gap 13.7, BUN 17, Creatinine 1.20 H, Estimated Creat Clear 51, Estimated GFR 46 L, Est GFR ( Amer) 55 L, Glucose 142 H, Calcium 8.8, Total Bilirubin 0.6, AST 28, ALT 26, Alkaline Phosphatase 143 H, Total Protein 7.6, Albumin 3.9, Globulin 3.7 H, Albumin/Globulin Ratio 1.1, Procalcitonin 0.044 07/31/24 19:52: Urine Color Yellow, Urine Appearance Clear, Urine pH 6.0, Ur Specific Willis <= 1.005, Urine Protein Negative, Urine Glucose (UA) Negative, Urine Ketones Negative, Urine Blood Negative, Urine Nitrate Negative, Urine Bilirubin Negative, Urine Urobilinogen 0.2, Ur Leukocyte Esterase Negative, Urine RBC None, Urine WBC 3-5, Ur Squamous Epith Cells 3-5, Urine Bacteria Trace 07/31/24 17:40 07/31/24 17:40 Orders (Tests/Meds): ED MEDICATIONS Discontinued Medications Generic Name Dose Route Start Last Admin Trade Name Freq PRN Reason Stop Dose Admin Acetaminophen 1,000 mg 07/31/24 17:41 07/31/24 17:48 Acetaminophen 1,000mg/100ml Vial IV 07/31/24 17:42 1,000 mg ONCE ONE Administration Diazepam 5 mg 07/31/24 17:44 07/31/24 18:01 Diazepam 10mg/2ml Syringe IV 07/31/24 17:45 5 mg ONCE ONE Administration Sodium Chloride 1,000 mls @ 999 mls/hr 07/31/24 17:41 07/31/24 17:48 Sod Chlor 0.9% 1000ml Bag IV 07/31/24 18:41 999 mls/hr .Q1H1M ONE Administration Iopamidol 75 ml 07/31/24 18:19 07/31/24 18:21 Iopamidol-370 (76%);100ml Bottle IV 07/31/24 18:20 75 ml ONCE ONE Administration Ketorolac Tromethamine 15 mg 07/31/24 17:41 07/31/24 17:49 Ketorolac 30mg/Ml Vial IV 07/31/24 17:42 15 mg ONCE ONE Administration Ondansetron HCl 4 mg 07/31/24 17:41 07/31/24 17:48 Ondansetron 4mg/2ml Vial IV 07/31/24 17:42 4 mg ONCE ONE Administration Sodium Chloride 10 ml 07/31/24 18:19 07/31/24 18:20 Sodium Chloride 0.9% 10ml Syr (Rad Only) IV 07/31/24 18:20 10 ml ONCE ONE Administration Trimethoprim/Sulfamethoxazole 1 each 07/31/24 21:44 Sulfa/Trimethoprim 1 Tablet PO 07/31/24 21:45 ONCE ONE ORDERS Category Date Time Status CT abdomen pelvis w con Stat Cat Scan 07/31/24 17:41 Completed CBC w/Auto Diff [Complete Blood Count Auto Diff] Stat Lab 07/31/24 17:40 Completed CMP [Comprehensive Metabolic Panel] Stat Lab 07/31/24 17:40 Completed Procalcitonin Stat Lab 07/31/24 17:40 Completed UA [Urinalysis and Microscopic] Stat Lab 07/31/24 19:52 Completed Medical Decision Narrative: In summary patient is a 64-year-old female who presents to the emergency department for evaluation of right lower quadrant abdominal pain. Patient is hemodynamically stable but hypertensive with a blood pressure 199/64 pulse of 70 with normal sinus rhythm bedside monitor breathing 18 times a minute satting 100% room air upon arrival, febrile 97.3. Physical exam is remarkable for tenderness to palpation in the right lower quadrant with remainder of the abdomen being soft no rebound or guarding no rigidity. Bowel sounds normal active.. Differential diagnosis includes appendicitis versus colitis versus kidney stone versus urinary tract infection etc. Initial workup will be conducted with hematologic labs urinalysis CT scan abdomen pelvis. Initial interventions include crystalloid bolus Toradol Tylenol Zofran. Initial workup reviewed by me and her hematologic labs are significant for normal white count with no neutrophilic shift a procalcitonin is 0.44 and my informed interpretation of her imaging shows no acute processes prior to radiology read. Please see final read for official interpretation. Urinalysis shows negative nitrites negative leukocyte Estrace however microscopic exam shows no red cells 3-5 white cells 3-5 epithelial cells and trace bacteria. Given the patient's symptomology and over abundance of caution we will treat for urinary tract infection however I do not believe that this is the source of the patient's discomfort. Upon repeat evaluation patient still has right lower quadrant abdominal pain. Given this we have essentially ruled out any serious or life- threatening emergency condition and while there remains diagnostic uncertainty to the actual cause of her pain an emergent or life-threatening condition does not appear to be the cause today. I suspect that this may be radicular pain of the low back with an atypical presentation. Given this patient is appropriate for discharge with close follow-up with her PCP for continued new or worsening signs or symptoms or return to the ER as needed as well as a prescription for Bactrim with first dose given here. Critical Care Critical Care Time Critical Care Time: No
[2024-07-31 17:48] LABS: Basophils % 0.4 % (0.1-2.0); Eosinophils # 0.3 K/mm3 (0.0-0.4); Eosinophils % 3.1 % (0.1-12.0); Hematocrit 41.7 % (37.0-47.0); Hemoglobin 13.2 g/dL (12.2-16.2); Lymphocytes # 2.7 K/mm3 (0.7-4.5); Lymphocytes % 29.7 % (10-50); Mean Corpuscular HGB Conc 31.7 g/dL (31.8-35.4); Mean Corpuscular Hemoglobin 25.8 pg (27.0-31.2); Mean Corpuscular Volume 81.4 fl (81-99); Mean Platelet Volume 9.5 fl (7.4-10.4); Monocytes # 0.6 K/mm3 (0.1-1.0); Monocytes % 6.8 % (1.7-9.3); Neutrophils # 5.5 K/mm3 (1.8-7.8); Neutrophils % 59.8 % (37.0-80.0); Nucleated Red Blood Cells # 0 10^3/uL; Nucleated Red Blood Cells % 0 %; Platelet Count 264 K/mm3 (142-424); Red Blood Count 5.12 M/mm3 (4.20-5.40); Red Cell Distribution Width-SD 47.4 fL; White Blood Count 9.2 K/mm3 (4.8-10.8)
[2024-07-31] MEDS: 0.9 % SODIUM CHLORIDE 1000ML 1,000 ML 999 ML IV (17:48)
[2024-07-31] MEDS: ONDANSETRON 4MG/2ML VIAL 4 MG IV (17:48)
[2024-07-31] MEDS: ACETAMINOPHEN 1,000MG/100ML VIAL 1000 MG IV (17:48)
[2024-07-31] MEDS: KETOROLAC 30MG/ML VIAL 15 MG IV (17:49)
[2024-07-31 18:01] VITALS: BP 126/46; PULSE 60; RESP 15; O2SAT 95
[2024-07-31 18:01] LABS: Alanine Aminotransferase 26 U/L (12-78); Albumin Level 3.9 g/dl (3.5-5.0); Albumin/Globulin Ratio 1.1 (1.1-1.8); Alkaline Phosphatase 143 U/L (38-126); Anion Gap 13.7 mEq/L (5-15); Aspartate Amino Transferase 28 U/L (14-36); Bilirubin,Total 0.6 mg/dl (0.2-1.3); Blood Urea Nitrogen 17 mg/dl (7-17); Calcium 8.8 mg/dl (8.4-10.2); Carbon Dioxide 30 mmol/L (22.0-30.0); Chloride 100 mmol/L (98-107); Creatinine Clearance Estimated 51 mL/min (50-200); Estimated Glomerular Filt Rate 46 ml/min (>60); GFR (African American) 55 ML/MIN (>60); Globulin 3.7 g/dL (1.3-3.2); Glucose 142 mg/dl (74-100); Potassium 3.7 mmoL/L (3.5-5.1); Sodium 140 mmol/L (136-145); Total Protein,Serum 7.6 g/dl (6.3-8.2)
[2024-07-31] MEDS: diazePAM 10MG/2ML SYRINGE 5 MG IV (18:01)
[2024-07-31 18:17] LABS: Procalcitonin 0.044 ng/mL (0.0-2.0)
[2024-07-31] MEDS: SODIUM CHLORIDE 0.9% 10ML SYR (RAD ONLY) 10 ML IV (18:20)
[2024-07-31] MEDS: IOPAMIDOL-370 (76%);100ML BOTTLE 75 ML IV (18:21)
--- NOTE | 2024-07-31 18:21 | PC.NURSE ---
PT IS AT CT SCAN VIA STRETCHER
[2024-07-31 18:31] VITALS: BP 135/39; PULSE 52; RESP 14; O2SAT 96
[2024-07-31 19:59] LABS: Microscopic, Urine URINE MICROSCOPIC (MICROSCOPIC)
[2024-07-31 20:03] LABS: Appearance,Urine CLEAR (Clear); Bilirubin,Urine Negative (Negative); Blood, Urine Negative (Negative); Color,Urine YELLOW (Yellow); Glucose,Urine (UA) Negative (Negative); Ketones,Urine Negative (Negative); Leukocyte Esterase,Urine Negative (Negative); Nitrate,Urine Negative (Negative); Protein,Urine Negative (Negative); Specific Gravity, Urine <= 1.005 (1.005-1.030); Urobilinogen,Urine 0.2 EU/dl (0.2)
[2024-07-31 21:40] VITALS: BP 116/44; PULSE 47; RESP 18; O2SAT 95
[2024-07-31 21:42] LABS: Bacteria,Urine Trace /lpf
[2024-07-31 21:59] VITALS: BP 142/53; PULSE 50; RESP 20; TEMP 36.9; O2SAT 94
== END 2024-07-31 22:00 | disposition home or self-care (01) ==
PROVIDERS: Physician Assistant; Emergency Provider Emergency Medicine; PCP Nurse Practitioner
DX: R10.31 Right lower quadrant pain (principal); N39.0 Urinary tract infection, site not specified; I10 Essential (primary) hypertension
CPT/HCPCS: 74177; 80053; 81001; 84145; 85025; 96361; 96374; 96375; 99285; J0131; J1885; J2405; J3360; J7030; Q9967

== ENCOUNTER 2024-12-01 14:40 | Outpatient (CLI) | payer MEDICARE, MEDICAID, SELFPAY ==
--- OUTSIDE RECORDS SUMMARY | 2024-12-01 14:42 | XMS_ITS | Encounter Summary ---
Author Organization [employer] ([place], [place], [place], [place]) Address [address] [place] [address] Care Team Providers Care Bond Manager Name Role Phone Unavailable Primary Care Provider Unavailabl e Encounter Details Date Type Department Care Team (Late st Contact Info) Description 09/20/2018 Transcribed Document [facility] [place] [facility] [place] [address] ProviderBrayden MD [facility] [place] [address] Social History Tobacco Use Types Packs/Day Years Used Date Smoking Tobacco: Never Assessed Comments Unknown Sex and Gender Information Value Date Recorded Sex Assigned at Not on file Legal Sex Female 2:25 PM CDT Gender Identity Not on file Sexual Orientation Not on file documented as of this encounter Miscellaneous Notes * [employer]ner Conversion Note - Brayden Bustillo MD - 09/20/2018 8:43 AM CDT Patient: MAKENNA POP Age: 58 years Sex: Female : 1960 Associated Diagnoses: None Author: MARGY FLETCHER MD VASCULAR SURGERY OPERATIVE REPORT DATE OF PROCEDURE: September 20, 2018 PRE-OP DIAGNOSIS: Bilateral pulmonary embolism with right heart strain POST-OP DIAGNOSIS: Bilateral pulmonary embolism with right heart strain PROCEDURE: 1. Ultrasound-guided access of right common femoral vein (7 Citizen [place] sheath ??2) 2. Pulmonary arteriogram 3. Placement of bilateral pulmonary artery thrombolysis catheters (12 x 106 EKOS) SURGEON: Dr. Margy Fletcher M.D. FORENSICS TEAM DIRECTOR: None ANESTHESIA: Monitored anesthesia care with local EBL: 10 mL FLUIDS: 100 mL UOP: Not recorded SPECIMEN: None COMPLICATIONS: None DISPOSITION: Stable to ICU INDICATION FOR PROCEDURE: Mrs. Pop is a very pleasant 58 year old female who presents with several pulmonary embolus with right ventricular strain. The patient had an extended period of travel 3 weeks ago and 2 weeks ago developed shortness of breath. Yesterday evening she developed chest pain and shortness of breath and rest and was found in the emergency department to have elevated troponins, and a CTA which demonstrated a large bilateral saddle pulmonary embolus with right ventricular strain. I offered the patient pulmonary thrombolysis and explained the risks the procedure including bleeding, distal embolization and contrast nephropathy. She understood the risks and agreed to proceed. FINDINGS: 1. The pulmonary artery main outflow trunk is patent, but there is a large saddle embolus sitting of the bifurcation. This extends into the superior and inferior branches on the right, and mostly inferior branches on the left. 2. Successful placement of thrombolysis catheters into both right and left main pulmonary arteries. DESCRIPTION OF PROCEDURE: The patient was brought to the operating room and placed in the supine position. Monitored anesthesia care was induced and the bilateral groins then prepped and draped in sterile fashion. A timeout was performed and preoperative antibiotics were given. The right common femoral vein was accessed under ultrasound guidance using a 4 [place] micropuncture kit. A 0.035 inch Glidewire advantage then used to access the inferior vena cava in retrograde fashion and a 7 [place] sheath was inserted. A second 7 [place] sheath was inserted adjacent to the access site in the same manner. The patient was then given systemic heparin. An APC catheter was then used to select the right atrium, and using a combination of the 0.035 inch Glidewire advantage, and 0.035 inch regular Glidewire the main pulmonary artery was accessed in the pulmonary arteriogram was performed. The right main pulmonary artery was then selected and the thrombolysis catheter was advanced over. The APC catheter was then used again in the second sheath to access the right atrium in the same manner. A 0.035 inch Glidewire advantage was then used to access the main pulmonary artery trunk, and a 5 [place] glide sheath was then used to select the left main pulmonary artery. The second thrombolysis catheter was then advanced over the wire and placed in the left main pulmonary artery branch. The sheaths were then secured and the thrombolysis catheters were then flushed and connected to the EKOS machine. The patient tolerated the procedure well and was transferred to the ICU in stable condition. documented in this encounter Plan of Treatment Not on file documented as of this encounter Visit Diagnoses Not on filedocumented in this encounter
--- OUTSIDE RECORDS SUMMARY | 2024-12-01 14:42 | XMS_ITS | Encounter Summary ---
Author Organization [employer] ([place], [place], [place], [place]) Address [address] [place] [address] Care Team Providers Care Service Desk Manager Name Role Phone Unavailable Primary Care Provider Unavailabl e Encounter Details Date Type Department Care Team (Late st Contact Info) Description 09/27/2018 Transcribed Document [facility] [place] [facility] [address] ProviderBrayden [place] [address] Social History Tobacco Use Types Packs/Day Years Used Date Smoking Tobacco: Never Assessed Comments Unknown Sex and Gender Information Value Date Recorded Sex Assigned at Not on file Legal Sex Female 2:25 PM CDT Gender Identity Not on file Sexual Orientation Not on file documented as of this encounter Miscellaneous Notes * Cerner Conversion Note - Brayden Bustillo MD - 09/27/2018 12:42 PM CDT Post Visit Phone Call Entered On: 09/27/2018 12:45 EDT Performed On: 09/27/2018 12:42 EDT by Jailene Bhakta Rn Post Visit Phone Call Post Visit Phone Call History : First call, Second call, Third call, Left message Contact Relationship to Patient : Self Contact Name : Makenna Emergency Room Visit Since DC : No Adequate Pain Control After Visit : Yes Symptoms of Fever : No Symptoms of Nausea or Vomiting : No Adequate Fluid Intake : Yes Food Intake, Post Visit : Good Bowel/Bladder Concerns : No Mobility Progressing or Maintained as Expected : Yes Discharge Instructions Understood : Yes Follow-Up Actions : None Jailene Bhakta Rn - 09/27/2018 12:42 EDT Electronically signed by Clary [facility] Conversion Network Security Officer Cerner at 08/03/2022 9:06 AM CDT documented in this encounter Plan of Treatment Not on file documented as of this encounter Visit Diagnoses Not on filedocumented in this encounter
--- OUTSIDE RECORDS SUMMARY | 2024-12-01 14:42 | XMS_ITS | Encounter Summary ---
Author Organization [facility] ([place], [place], [place], [place]) Address [address] [place] [address] Care Team Providers Care Fire Extinguisher Inspector Name Role Phone Unavailable Primary Care Provider Unavailabl e Encounter Details Date Type Department Care Team (Late st Contact Info) Description 09/22/2018 Transcribed Document [facility] [place] [facility] [place] [address] ProviderBrayden MD [facility] [place] [address] Social History Tobacco Use Types Packs/Day Years Used Date Smoking Tobacco: Never Assessed Comments Unknown Sex and Gender Information Value Date Recorded Sex Assigned at Not on file Legal Sex Female 2:25 PM CDT Gender Identity Not on file Sexual Orientation Not on file documented as of this encounter Miscellaneous Notes * Cerner Conversion Note - Historical ProviderMD - 09/22/2018 4:16 PM CDT Discharge Summary, PT Entered On: 09/22/2018 16:17 EDT Performed On: 09/22/2018 16:16 EDT by SNEHA PHILLIPS, PT Discharge Summary Reason for Discharge : Discharged from hospital Discharged to, Therapy : Home, independently Discharge Equipment, PT : None Discharge Summary Comment, PT : The patient was seen for PT evaluation but discharged home prior to any further PT services being rendered. SNEHA PHILLIPS, PT - 09/22/2018 16:16 EDT [employer] Goals Ambulation LTG Grid Goal #1 Device : None Distance : 500ft. Assist : Independent, complete Date to Meet : 10/06/2018 EDT Goal Status : Discontinue Comment : o2 sats >92% at end of 500ft of gait training. SNEHA PHILLIPS, PT - 09/22/2018 16:16 EDT documented in this encounter Plan of Treatment Not on file documented as of this encounter Visit Diagnoses Not on filedocumented in this encounter
--- OUTSIDE RECORDS SUMMARY | 2024-12-01 14:42 | XMS_ITS | Encounter Summary ---
Author Organization [employer] ([place], [place], [place], [place]) Address [address] [place] [address] Care Team Providers Care Telehealth Nurse Educator Name Role Phone Unavailable Primary Care Provider Unavailabl e Encounter Details Date Type Department Care Team (Late st Contact Info) Description 09/22/2018 Transcribed Document [facility] Radiology [address] [place] [address] Jose Antonio Shah MD [address] [facility] [place] [address] Social History Tobacco Use Types Packs/Day Years Used Date Smoking Tobacco: Never Assessed Comments Unknown Sex and Gender Information Value Date Recorded Sex Assigned at Not on file Legal Sex Female 2:25 PM CDT Gender Identity Not on file Sexual Orientation Not on file documented as of this encounter Miscellaneous Notes * Cerner Conversion Note - Jose Antonio Shah MD - 09/22/2018 9:50 AM EDT Patient: MAKENNA POP Age: 58 Years Sex: Female : 1960 Subjective Patient states resolution presenting symptoms - she has no new concerns or complaints and is ready to go home Vital Signs T: 36.9 ??C T: 36.9 ??C TMIN: 36.4 ??C TMAX: 36.9 ??C HR: 52(Monitored) RR: 9 BP: 121/64 SpO2: 97% Physical Exam GEN: A&Ox3 RIGHT groin: >percutanseous access sites: no hematoma, no bleeding Assessment/Plan Bilateral Pulmonary Embolism with right heart strain 09/20/18 PROCEDURE: 1. Ultrasound-guided access of right common femoral vein (7 Moroccan sheath ??2) 2. Pulmonary arteriogram 3. Placement of bilateral pulmonary artery thrombolysis catheters (12 x 106 EKOS) - Hemodynamically stable - on Room air - Symptomatically resolved SOB - ECHO (no right heart strain noted) >> ok to D/C *f/u [address] Fletcher *Adrienne starter pack has been set for E-script on MED Reconciliation Other pulmonary embolism with acute cor pulmonale I26.09, Other pulmonary embolism with acute cor pulmonale I26.09 Orders: rivaroxaban, 15 mg, Oral, Tab, [id number], Routine, Start 09/22/18 9:00:00 EDT Medications REVIEWED Routine Labs - Last 24 Hours No qualifying data available Albumin Level: 2.4 Gram/dL Low Alk Phos: 81 Units/Liter ALT: 16 Units/Liter Anion Gap: 6 Low AST: 13 Units/Liter Bilirubin Total: 0.7 mg/dL Calcium Level: 8.4 mg/dL Protein Total: 5.6 Gram/dL Low Imaging Results (Last 24 Hours) No Radiology Results Found Problem List/Past 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 Ongoing GERD - Gastro-esophageal reflux disease HLD - Hyperlipidemia HTN - Hypertension IBS - Irritable bowel syndrome Historical No qualifying data Allergies No Known Medication Allergies documented in this encounter Plan of Treatment Not on file documented as of this encounter Visit Diagnoses Not on filedocumented in this encounter
--- OUTSIDE RECORDS SUMMARY | 2024-12-01 14:42 | XMS_ITS | Referral Summary ---
Author Organization [employer] ([place], [place], [place], [place]) Address [address] [place] [address] Care Team Providers Care Occ Ther Name Role Phone Unavailable Primary Care Provider Unavailabl e Social History Tobacco Use Types Packs/Day Years Used Date Smoking Tobacco: Never Assessed Comments Unknown Sex and Gender Information Value Date Recorded Sex Assigned at Not on file Legal Sex Female 2:25 PM CDT Gender Identity Not on file Sexual Orientation Not on file Plan of Treatment Not on file
--- OUTSIDE RECORDS SUMMARY | 2024-12-01 14:42 | XMS_ITS | Encounter Summary ---
Author Organization [employer] ([place], [place], [place], [place]) Address [address] [place] [address] Care Team Providers Care Elastic Attacher Chainstitch Name Role Phone Unavailable Primary Care Provider Unavailabl e Encounter Details Date Type Department Care Team (Late st Contact Info) Description 09/23/2018 Transcribed Document [facility] [place] [facility] [place] [address] ProviderBrayden MD [facility] [place] [address] Social History Tobacco Use Types Packs/Day Years Used Date Smoking Tobacco: Never Assessed Comments Unknown Sex and Gender Information Value Date Recorded Sex Assigned at Not on file Legal Sex Female 2:25 PM CDT Gender Identity Not on file Sexual Orientation Not on file documented as of this encounter Miscellaneous Notes * Cerner Conversion Note - Brayden Bustillo MD - 09/23/2018 7:17 AM CDT Final Discharge Planning Entered On: 09/23/2018 7:18 EDT Performed On: 09/23/2018 7:17 EDT by GIANNI COELLO Rn-Belt Turner Final Discharge Planning Discharge Arrangements : Patient Post-Acute Information Patient Name: MAKENNA POP Gender: Female : [birth year] Age: 58 Years No Post-Acute Placement(s) Listed No Post-Acute Service(s) Listed No [place] Referral(s) Listed Discharge To Care Management : Home/Residential/Correction or Self Care -01 GIANNI COELLO Rn-Belt Turner - 09/23/2018 7:17 EDT Final Narrative Note Final Narrative Note : Discharged on 09/22/2018 GIANNI COELLO Rn-Belt Turner - 09/23/2018 7:17 EDT Electronically signed by Davi Means Conversion Application Development Specialist Cerner at 08/03/2022 9:19 AM CDT documented in this encounter Plan of Treatment Not on file documented as of this encounter Visit Diagnoses Not on filedocumented in this encounter
--- OUTSIDE RECORDS SUMMARY | 2024-12-01 14:42 | XMS_ITS | Clinical Summary ---
Author Organization [facility] [employer] [facility] ([place], [place], [place], [place]) Address [address] [place] [address] Care Team Providers Care Patient Observation Assistant Name Role Phone Unavailable Primary Care Provider [...]
--- OUTSIDE RECORDS SUMMARY | 2024-12-01 14:42 | XMS_ITS | Encounter Summary ---
Author Organization [employer] ([place], [place], [place], [place]) Address [address] [place] [address] Care Team Providers Care Conveyor Mechanic Name Role Phone Unavailable Primary Care Provider Unavailabl e Encounter Details Date Type Department Care Team (Late st Contact Info) Description 09/19/2018 Transcribed Document [facility] [place] [facility] [place] [address] ProviderBrayden MD [facility] [place] [address] Social History Tobacco Use Types Packs/Day Years Used Date Smoking Tobacco: Never Assessed Comments Unknown Sex and Gender Information Value Date Recorded Sex Assigned at Not on file Legal Sex Female 2:25 PM CDT Gender Identity Not on file Sexual Orientation Not on file documented as of this encounter Miscellaneous Notes * Cerner Conversion Note - Brayden ProviderMD - 09/19/2018 10:05 PM CDT Admission History, Adult Entered On: 09/19/2018 22:32 EDT Performed On: 09/19/2018 22:05 EDT by Edson Cooper Rn Advance Directive Patient has Advance Directive *Q : No, patient refuses Advance Directive information Edson Cooper Rn - 09/19/2018 22:27 EDT Anesthesia/Transfusion History Family History of Anesthesia Reaction : No prior transfusion(s) Transfusion History : Prior anesthesia without reaction Family History of Anesthesia Reaction : None Edson Cooper Rn - 09/19/2018 22:27 EDT Functional Assessment Living Situation : Home Current Home Treatments : None Edson Cooper Rn - 09/19/2018 22:27 EDT General Info Contact Password : HEMANT Arceo Rn - 09/20/2018 16:18 EDT Emergency Contact #1 : Saskia Emergency Contact #1 Emergency Contact #1 Relationship : daughter Emergency Contact #2 : caitlin Emergency Contact #2 Emergency Contact #2 Relationship : sister Edson Cooper Rn - 09/19/2018 23:25 EDT Primary Language : Cook Islander Communication Barrier : None Edson Cooper Rn - 09/19/2018 22:41 EDT Want Family/Rep/Phys Notified of Admit : No Edson Cooper Rn - 09/19/2018 22:27 EDT Fall Risk Scales ABCs Fall Injury Risk Identification : Coagulation ABC Fall Injury Risk : Moderate to high injury risk EDWARDS Hx Falls Immediate/Within 3 Months : No Edwards Secondary Diagnosis : Yes EDWARDS Use of Ambulatory Aid : Bed rest/Nurse assist EDWARDS IV Therapy or IV Access : Yes Edwards Gait/Transferring : Normal, bedrest, immobile Edwards Mental Status : Oriented to own ability Edwards Fall Risk Score : 35 EDWARDS Fall Scale Risk Level : 25-45 Medium Risk [place] Fall Interventions : Adequate lighting, Assistive devices within reach Edson Cooper Rn - 09/19/2018 22:27 EDT Health Histories Smoking Status : Never (less than 100 in lifetime; none in last 30 days) Smokeless Tobacco Status : Never Edson Cooper Rn - 09/19/2018 22:27 EDT Social History (As Of: 09/19/2018 23:26:35 EDT) Height and Weight, Clinical Dosing Height Source : Estimated Height Entry Format : [place] Height, Feet : 5 ft(Converted to: 152 cm, 60 Inch) Height, Inches : 9 Inch(Converted to: 0 ft 9 Inch, 22.86 cm) Clinical Height : 175.26 cm Weight Source : Bed scale Weight Entry Format : Metric, kilograms Weight, Kilograms : 151.3 kg(Converted to: 333 lb 9 oz) Clinical Dosing Weight : 151.3 kg Body Surface Area (BSA) : 2.57 m2 Body Mass Index : 49.3 kg/m2 (>HHI) [place] Body Weight : 66 kg Edson Cooper Rn - 09/19/2018 22:27 EDT Infectious Disease History Infectious Disease History : Chicken pox/Shingles Fever/Chills Last 48 Hours : No Travel To Regions with Travel Advisories : No Travel Outside [place] Within Last 30 Days : No Contact With Traveler to Advisory Region : No Tuberculosis Symptoms : None Edson Cooper Rn - 09/19/2018 22:27 EDT Influenza Vaccine Asmt, Adult Previous Vaccines from Immunization Schedule : No qualifying data available. Influenza Immunization, Current Season : No Inactivated Flu Vaccine Contraindications : No contraindications to inactivated influenza vaccine Transplant Workup/Recent Transplant : No Order for Influenza Vaccine : Order for influenza vaccine sent to pharmacy Edson Cooper Rn - 09/19/2018 22:27 EDT Pneumococcal Vaccine Previous Vaccines from Immunization Schedule : No qualifying data available. Pneumonia Immunization Received : No Pneumococcal Risk Assessment < Age 65 : None Edson Cooper Rn - 09/19/2018 22:27 EDT Nutrition History Eating Poorly Due to Decreased Appetite : No Unplanned Weight Loss in Past 3-6 Months : No Malnutrition Screening Tool Total(mal) : 0 Malnutrition Screening Tool Risk Level : Patient not at risk Edson Cooper Rn - 09/19/2018 22:27 EDT Psychosocial History Currently in Unsafe Situation : No Tried to Harm Yourself in the Past? : No Thoughts of Harming/Killing Yourself : No Edson Cooper Rn - 09/19/2018 22:27 EDT Sleep Apnea Risk Assmt Hx of Obstructive Sleep Apnea Diagnosis : No Snore Loudly : No Tired, Fatigued, or Sleepy During Day : No Observed Stopping Breathing During Sleep : No Have/Are Being Treated for Hypertension : No BMI Greater Than 35 kg/m2 : No Age over 50 Years Old : Yes Neck Circumference Greater Than 40 cm : No Gender Male : No STOP-BANG Sleep Apnea Risk Level Score : 1 Edson Cooper Rn - 09/19/2018 22:27 EDT Valuables and Belongings Valuables and Belongings : Clothing Clothing : Common streetwear Clothing Disposition : Bedside Edson Cooper Rn - 09/19/2018 22:27 EDT documented in this encounter Plan of Treatment Not on file documented as of this encounter Visit Diagnoses Not on filedocumented in this encounter
--- OUTSIDE RECORDS SUMMARY | 2024-12-01 14:42 | XMS_ITS | Encounter Summary ---
Author Organization [employer] ([place], [place], [place], [place]) Address [address] [place] [address] Care Team Providers Care Radar Repairer Name Role Phone Unavailable Primary Care Provider Unavailabl e Encounter Details Date Type Department Care Team (Late st Contact Info) Description 09/19/2018 Transcribed Document [facility] [place] Medicine [facility] [place] [address] ProviderBrayden MD [facility] [place] [address] Social History Tobacco Use Types Packs/Day Years Used Date Smoking Tobacco: Never Assessed Comments Unknown Sex and Gender Information Value Date Recorded Sex Assigned at Not on file Legal Sex Female 2:25 PM CDT Gender Identity Not on file Sexual Orientation Not on file documented as of this encounter Miscellaneous Notes * Cerner Conversion Note - Brayden Bustillo MD - 09/19/2018 11:19 PM CDT Patient: MAKENNA POP Age: 58 Years Sex: Female : 1960 Primary Care Provider TEDDYY, UNKNOWN History of Present Illness Makenna Pop is a 58-year-old female with a history of hypertension, hyperlipidemia, and GERD who is transferred from [facility] with a saddle pulmonary embolus. The patient reports she began to feel short of breath about 2 weeks ago. Over the last several days, she started to develop a sharp, pleuritic chest pain in the left side of her chest, rated 8 out of 10 in severity. She denies any long travel, oral contraceptive use, or tobacco use. She denies any pain or swelling in her lower extremities. She presented to the emergency department, was found to have an elevated d-dimer at 2930 and elevated troponin at 0.4. A CTA was ordered which demonstrated large central pulmonary emboli bilaterally with of saddle pulmonary embolus, with associated mild prominence of the pulmonary arteries suggestive of pulmonary arterial hypertension, and mild dilation of the right ventricle suggestive of right heart strain. Emergency physician discussed the case with vascular surgery, and the patient was accepted for transfer to our ICU. She arrived in stable condition on a heparin drip. She is currently hemodynamically stable. Case discussed with vascular surgery and pulmonology. She will be evaluated for EKOS in the morning, and continued on a heparin drip overnight. Review of Systems Constitutional: No fevers, chills Eye: No blurry vision, no discharge HEENT: No sore throat, no nasal congestion Respiratory: No cough, reports shortness of breath Cardiovascular: reports chest pain, pleuritic pain, dyspnea Gastrointestinal: No nausea, vomiting, diarrhea, constipation Genitourinary: No hematuria, no dysuria [place]/Lymph: Negative for bruising tendency, no nosebleeds Endocrine: Negative for excessive thirst, no excessive urination Musculoskeletal: No back pain, no leg pain Integumentary: No rash, no pruritus Neurologic: No weakness, no numbness Psychiatric: No anxiety, depression Vital Signs T: 36.9 ??C HR: 92(Monitored) RR: 17 BP: 134/84 SpO2: 98% HT: 175.26 cm WT: 151.3 kg BMI: 49.3 Oxygen Settings (Last) Oxygen Therapy Mode: Nasal cannula (09/20/18 01:00:00 EDT) Oxygen Flow Rate: 4 Liter/Min (09/20/18 01:00:00 EDT) Physical Exam General: Alert and oriented, no acute distress Neurologic: Awake, alert, and oriented X3, no apparent focal deficits Eye: PERRL, EOMI, normal conjuctiva HENT: Normocephalic, atraumatic Neck: Supple, non-tender, no carotid bruits, no JVD Lungs: Clear to auscultation and percussion, tachypnic, on O2 Heart: tachycardic, no murmur Abdomen: Soft, non-tender, non-distended, normal bowel sounds Musculoskeletal: Normal range of motion and strength, no tenderness or swelling Skin: Skin is warm, dry and pink, no rashes or lesions Psychiatric: Cooperative, appropriate mood and affect Assessment/Plan Saddle PE w/ evidence of RV strain - CT: large central pulmonary emboli bilaterally with saddle PE, mild prominence of pulmonary arteries suggestive of PAH, mild dilation of RV - heparin gtt - discussed with vascular surgery, will evaluate for EKOS in the AM - echocardiogram and LE US ordered - pulmonary consulted Elevated troponin, 2/2 PE - Trop 0.77 Acute kidney injury, likely prerenal - avoid nephrotoxic agents, trend renal indices - IVF w/ NS at 75 cc/hr Morbid Obesity, complicating all aspects of care. BMI: 49.3 Hypertension - hold ACEi, HCTZ for now Hyperlipidemia - check lipid panel, resume statin when taking PO GERD - continue home PPI DVT ppx: SCDs, heparin gtt GI ppx: home PPI Diet: NPO pending vascular surg evaluation Code status: full code Meds reviewed. CC tme spent: 55 minutes Orders: heparin 25,000 Units + NaCl 0.45% Premix Diluent 250 mL, 250 mL, Bag Volume (mL) = 250, IntraVENous, start date 09/19/18 22:50:00 EDT, Routine, Titrate Sodium Chloride 0.9% intravenous solution 1,000 mL, 1,000 mL, Bag Volume (mL) = 1,000, Rate = 75 mL/Hr, IntraVENous, start date 09/20/18 1:52:00 EDT, Routine Admit to Inpatient Bedrest Bleeding Precautions Blood Gas Arterial (ABG) Cardiac Monitoring CBC w/ Auto Diff CMP Comprehensive Metabolic Panel Consult to Physician Consult to Physician CR Chest 1 Vw Portable Culture Blood Culture Blood DVT VTE Prophylaxis Education EC Echo Complete Facility Protocol Fall Risk/Fall Prevention Protocol Intake and Output Strict Lab Order Instructions to Nursing Magnesium Level Medication Discontinuation Instructions Notify Provider Notify Provider Laboratory Results Notify Provider of Change in Patient Condition Notify Provider of Change in Patient Condition Notify Provider of Change in Patient Condition Notify Provider Vital Signs NPO (immediate) Oxygen Therapy PTT Heparin Protocol Pulse Oximetry Continuous Monitoring Respiratory Distress Instructions Resuscitation Status Sequential Compression Device Troponin I Ultra US Veins UE Duplex BILAT Vital Signs VTE Prophylaxis - Medical Sequential Compression Device Start: 09/19/18 22:03:00 EDT, Bilateral, Length: Knee High, While patient is in bed, Continuous Order (DENNIS KULKARNI) Problem List/Past 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 Ongoing GERD - Gastro-esophageal reflux disease HLD - Hyperlipidemia HTN - Hypertension IBS - Irritable bowel syndrome Historical No qualifying data Procedure/Surgical History cervical spine surgery, bilateral carpal tunnel, LASHA, AIMEE Home Medications (6) Active fluticasone furoate 50 mcg inhalation powder , Inhalation, [id number] Linzess 72 mcg oral capsule , Oral, Daily lisinopril 20 mg oral tablet , Oral, Daily meclizine 25 mg oral tablet 25 mg = 1 Tab, Oral, Daily omeprazole 40 mg, Oral, Daily oxybutynin 10 mg/24 hr oral tablet, extended release , Oral, Daily Allergies No Known Medication Allergies Social History denies tobacco, etoh, or drugs Family History MOm with CHF, brother and sister with arrythmia requiring PPM Lab Results Test Name Test Result Date/Time Sodium Level 141 mmol/L 09/19/2018 22:10 EDT Potassium Level 3.8 mmol/L 09/19/2018 22:10 EDT Chloride Level 107 mmol/L 09/19/2018 22:10 EDT Carbon Dioxide Level 28 mmol/L 09/19/2018 22:10 EDT Anion Gap 10 09/19/2018 22:10 EDT Glucose Level 124 mg/dL (High) 09/19/2018 22:10 EDT Blood Urea Nitrogen 19 mg/dL 09/19/2018 22:10 EDT Creatinine Level 1.30 mg/dL (High) 09/19/2018 22:10 EDT eGFR 51 mL/min/1.73m2 (Low) 09/19/2018 22:10 EDT eGFR NonAfrican 42 mL/min/1.73m2 (Low) 09/19/2018 22:10 EDT Bun/Creatinine 14.6 09/19/2018 22:10 EDT Calcium Level 8.9 mg/dL 09/19/2018 22:10 EDT Protein Total 6.8 Gram/dL 09/19/2018 22:10 EDT Albumin Level 3.0 Gram/dL (Low) 09/19/2018 22:10 EDT Globulin 3.8 Gram/dL 09/19/2018 22:10 EDT A/G Ratio 0.8 (Low) 09/19/2018 22:10 EDT Bilirubin Total 0.4 mg/dL 09/19/2018 22:10 EDT Alk Phos 107 Units/Liter 09/19/2018 22:10 EDT AST 17 Units/Liter 09/19/2018 22:10 EDT ALT 23 Units/Liter 09/19/2018 22:10 EDT Troponin I Ultra 0.772 ng/mL (Critical) 09/19/2018 22:10 EDT ProBNP 337 pg/mL (High) 09/19/2018 22:10 EDT WBC 11.4 K/uL (High) 09/19/2018 22:10 EDT RBC 4.49 Million/uL 09/19/2018 22:10 EDT Hgb 12.6 g/dL 09/19/2018 22:10 EDT Hct 39.0 % 09/19/2018 22:10 EDT MCV 86.9 fL 09/19/2018 22:10 EDT MCH 28.1 pg 09/19/2018 22:10 EDT MCHC 32.3 Gram/dL 09/19/2018 22:10 EDT Platelet Count 206 K/uL 09/19/2018 22:10 EDT MPV 10.1 fL 09/19/2018 22:10 EDT RDW 15.5 % (High) 09/19/2018 22:10 EDT Neut % 70.3 % 09/19/2018 22:10 EDT Neut # 7.99 K/uL (High) 09/19/2018 22:10 EDT Lymph % 21.9 % 09/19/2018 22:10 EDT Lymph # 2.49 x10(3)/uL 09/19/2018 22:10 EDT Barren % 5.6 % 09/19/2018 22:10 EDT Barren # 0.64 K/uL 09/19/2018 22:10 EDT Eos % 0.9 % 09/19/2018 22:10 EDT Eos # 0.10 x10(3)/uL 09/19/2018 22:10 EDT Baso % 0.3 % 09/19/2018 22:10 EDT Baso # 0.03 x10(3)/uL 09/19/2018 22:10 EDT Slide Review No 09/19/2018 22:10 EDT IG# 0.11 x10(3)/uL (High) 09/19/2018 22:10 EDT IG% 1.00 % (High) 09/19/2018 22:10 EDT PT 10.7 Second(s) 09/19/2018 22:10 EDT INR 1.0 09/19/2018 22:10 EDT D Dimer Quant See Comment 09/19/2018 22:10 EDT PTT Heparin 87.8 Second(s) (Critical) 09/19/2018 22:10 EDT Procalcitonin <0.25 ng/mL 09/19/2018 22:10 EDT Additional Documentation Code Status Start: 09/19/18 22:03:00 EDT, Full Code, Continuous Order Electronically signed by [facility], [facility] Conversion Manager [employer] at 08/03/2022 9:03 AM CDT documented in this encounter Plan of Treatment Not on file documented as of this encounter Visit Diagnoses Not on filedocumented in this encounter
--- OUTSIDE RECORDS SUMMARY | 2024-12-01 14:42 | XMS_ITS | Encounter Summary ---
Author Organization [employer] ([place], [place], [place], [place]) Address [address] [place] [address] Care Team Providers Care Production Control Scheduler Name Role Phone Unavailable Primary Care Provider Unavailabl e Encounter Details Date Type Department Care Team (Late st Contact Info) Description 09/22/2018 Transcribed Document [facility] [place] Family Medicine [address] [place] [address] ProviderBrayden MD [address] [place] [address] Social History Tobacco Use Types Packs/Day Years Used Date Smoking Tobacco: Never Assessed Comments Unknown Sex and Gender Information Value Date Recorded Sex Assigned at Not on file Legal Sex Female 2:25 PM CDT Gender Identity Not on file Sexual Orientation Not on file documented as of this encounter Miscellaneous Notes * Cerner Conversion Note - Brayden Bustillo MD - 09/22/2018 2:09 PM CDT Patient Education Materials Follows:Medicine Pulmonary Embolism A pulmonary embolism (PE) is a sudden blockage or decrease of blood flow in one lung or both lungs. Most blockages come from a blood clot that forms in a lower leg, thigh, or arm vein (deep vein thrombosis, DVT) and travels to the lungs. A clot is blood that has thickened into a gel or solid. PE is a dangerous and life-threatening condition that needs to be treated right away. What are the causes? This condition is usually caused by a blood clot that forms in a vein and moves to the lungs. In rare cases, it may be caused by air, fat, part of a tumor, or other tissue that moves through the veins and into the lungs. What increases the risk? The following factors may make you more likely to develop this condition: ??? Having DVT or a history of DVT. ??? Being older than age 60. ??? Personal or family history of blood clots or blood clotting disease. ??? Major or lengthy surgery. ??? Orthopedic surgery, especially hip or knee replacement. ??? Traumatic injury, such as breaking a hip or leg. ??? Spinal cord injury. ??? Stroke. ??? Taking medicines that contain estrogen. These include control pills and hormone replacement therapy. ??? Long-term (chronic) lung or heart disease. ??? Cancer and chemotherapy. ??? Having a central venous catheter. ??? and the period after delivery. What are the signs or symptoms? Symptoms of this condition usually start suddenly and include: ??? Shortness of breath while active or at rest. ??? Coughing or coughing up blood or blood-tinged mucus. ??? Chest pain that is often worse with deep breaths. ??? Rapid or irregular heartbeat. ??? Feeling light-headed or dizzy. ??? Fainting. ??? Feeling anxious. ??? Sweating. ??? Pain and swelling in a leg. This is a symptom of DVT, which can lead to PE. How is this diagnosed? This condition may be diagnosed based on: ??? Your medical history. ??? A physical exam. ??? Blood tests to check blood oxygen level and how well your blood clots, and a D-dimer blood test, which checks your blood for a substance that is released when a blood clot breaks apart. ??? CT pulmonary angiogram. This test checks blood flow in and around your lungs. ??? Ventilation-perfusion scan, also called a lung VQ scan. This test measures air flow and blood flow to the lungs. ??? Ultrasound of the legs to look for blood clots. How is this treated? Treatment for this conditions depends on many factors, such as the cause of your PE, your risk for bleeding or developing more clots, and other medical conditions you have. Treatment aims to remove, dissolve, or stop blood clots from forming or growing larger. Treatment may include: ??? Blood thinning medicines (anticoagulants) to stop clots from forming or growing. These medicines may be given as a pill, as an injection, or through an IV tube (infusion). ??? Medicines that dissolve clots (thrombolytics). ??? A procedure in which a flexible tube is used to remove a blood clot (embolectomy) or deliver medicine to destroy it (catheter-directed thrombolysis). ??? A procedure in which a filter is inserted into a large vein that carries blood to the heart (inferior vena cava). This filter (vena cava filter) catches blood clots before they reach the lungs. ??? Surgery to remove the clot (surgical embolectomy). This is rare. You may need a combination of immediate, long-term (up to 3 months after diagnosis), and extended (more than 3 months after diagnosis) treatments. Your treatment may continue for several months (maintenance therapy). You and your health care provider will work together to choose the treatment program that is best for you. Follow these instructions at home: If you are taking an anticoagulant medicine: ??? Take the medicine every day at the same time each day. ??? Understand what foods and drugs interact with your medicine. ??? Understand the side effects of this medicine, including excessive bruising or bleeding. Ask your health care provider or pharmacist about other side effects. General instructions ??? Take fwtg-frn-svdxgpe and prescription medicines only as told by your health care provider. ??? Anticoagulant medicines may cause side effects, including easy bruising and difficulty stopping bleeding. If you are prescribed an anticoagulant: ? Hold pressure over cuts for longer than usual. ? Tell your dentist and other health care providers that you are taking anticoagulants before you have any procedure that may cause bleeding. ? Avoid contact sports. ? Be extra careful when handling sharp objects. ? Use a soft toothbrush. Floss with waxed dental floss. ? Shave with an electric razor. ??? Wear a medical alert bracelet or carry a medical alert card that says you have had a PE. ??? Ask your health care provider when you may return to your normal activities. ??? Talk with your health care provider about any travel plans. It is important to make sure that you are still able to take your medicine while on trips. ??? Keep all follow-up visits as told by your health care provider. This is important. How is this prevented? Take these actions to lower your risk of developing another PE: ??? Exercise regularly. Take frequent walks. For at least 30 minutes every day, engage in: ? Activity that involves moving your arms and legs. ? Activity that encourages good blood flow through your body by increasing your heart rate. ??? While traveling, drink plenty of water and avoid drinking alcohol. Ask your health care provider if you should wear yssoe-oqv-pnjr compression stockings. ??? Avoid sitting or lying in bed for long periods of time without moving your legs. Exercise your arms and legs every hour during long-distance travel (over 4 hours). ??? If you are hospitalized or have surgery, ask your health care provider about your risks and what treatments can help prevent blood clots. ??? Maintain a healthy weight. Ask your health care provider what weight is healthy for you. ??? If you are a woman who is over age 35, avoid unnecessary use of medicines that contain estrogen, including control pills. ??? Do not use any products that contain nicotine or tobacco, such as cigarettes and e-cigarettes. This is especially important if you take estrogen medicines. If you need help quitting, ask your health care provider. ??? See your health care provider for regular checkups. This may include blood tests and ultrasound testing on your legs to check for new blood clots. Contact a health care provider if: ??? You missed a dose of your blood thinner medicine. Get help right away if: ??? You have new or increased pain, swelling, warmth, or redness in an arm or leg. ??? You have numbness or tingling in an arm or leg. ??? You have shortness of breath while active or at rest. ??? You have chest pain. ??? You have a rapid or irregular heartbeat. ??? You feel light-headed or dizzy. ??? You cough up blood. ??? You have blood in your vomit, stool, or urine. ??? You have a fever. ??? You have abdomen (abdominal) pain. ??? You have a severe fall or head injury. ??? You have a severe headache. ??? You have vision changes. ??? You cannot move your arms or legs. ??? You are confused or have memory loss. ??? You are bleeding for 10 minutes or more, even with strong pressure on the wound. These symptoms may represent a serious problem that is an emergency. Do not wait to see if the symptoms will go away. Get medical help right away. Call your local emergency services (911 in the [place] Do not drive yourself to the hospital. Summary ??? A pulmonary embolism (PE) is a sudden blockage or decrease of blood flow in one lung or both lungs. PE is a dangerous and life-threatening condition that needs to be treated right away. ??? Having deep vein thrombosis (DVT) or a history of DVT is the most common risk factor for PE. ??? Treatments for this condition usually include medicines to thin your blood (anticoagulants) or medicines to break apart blood clots (thrombolytics). ??? If you are prescribed blood thinners, it is important to take the medicine every single day at the same time each day. ??? If you have signs of PE or DVT, call your local emergency services (911 in the [place] This information is not intended to replace advice given to you by your health care provider. Make sure you discuss any questions you have with your health care provider. Document Released: 03/30/2001 Document Revised: 05/05/2017 Document Reviewed: 05/05/2017 [employer] Interactive Patient Education ? 2019 [employer] documented in this encounter Plan of Treatment Not on file documented as of this encounter Visit Diagnoses Not on filedocumented in this encounter
--- OUTSIDE RECORDS SUMMARY | 2024-12-01 14:42 | XMS_ITS | Encounter Summary ---
Author Organization [employer] ([place], [place], [place], [place]) Address [address] [place] [address] Care Team Providers Care Technical Support Analyst Name Role Phone Unavailable Primary Care Provider Unavailabl e Encounter Details Date Type Department Care Team (Late st Contact Info) Description 09/25/2018 Transcribed Document [facility] [place] Family Medicine [address] [place] [address] ProviderBrayden MD [facility] [place] [address] Social History Tobacco Use Types Packs/Day Years Used Date Smoking Tobacco: Never Assessed Comments Unknown Sex and Gender Information Value Date Recorded Sex Assigned at Not on file Legal Sex Female 2:25 PM CDT Gender Identity Not on file Sexual Orientation Not on file documented as of this encounter Miscellaneous Notes * Cerner Conversion Note - Brayden ProviderMD - 09/25/2018 11:48 AM CDT Post Visit Phone Call Entered On: 09/25/2018 11:50 EDT Performed On: 09/25/2018 11:48 EDT by MINI WLIL, RN Post Visit Phone Call Post Visit Phone Call History : First call, Second call, Left message MINI WILL, RN - 09/25/2018 11:48 EDT documented in this encounter Plan of Treatment Not on file documented as of this encounter Visit Diagnoses Not on filedocumented in this encounter
--- OUTSIDE RECORDS SUMMARY | 2024-12-01 14:42 | XMS_ITS | Encounter Summary ---
Author Organization [employer] ([place], [place], [place], [place]) Address [address] [place] [address] Care Team Providers Care Cable Braider Name Role Phone Unavailable Primary Care Provider Unavailabl e Encounter Details Date Type Department Care Team (Late st Contact Info) Description 09/25/2018 Transcribed Document [facility] Family Medicine [facility] [place] [address] ProviderBrayden MD [facility] [place] [address] Social History Tobacco Use Types Packs/Day Years Used Date Smoking Tobacco: Never Assessed Comments Unknown Sex and Gender Information Value Date Recorded Sex Assigned at Not on file Legal Sex Female 2:25 PM CDT Gender Identity Not on file Sexual Orientation Not on file documented as of this encounter Miscellaneous Notes * Cerner Conversion Note - Brayden Bustillo MD - 09/25/2018 1:03 PM CDT Patient: MAKENNA POP Age: 58 Years Sex: Female : 1960 Admit Date 09/19/2018 22:06 Discharge Date 09/22/2018 15:17 Primary Care Provider SANDER, UNKNOWN Discharge Diagnosis Acute saddle PE w/ evidence of RV strain - CT: large central pulmonary emboli bilaterally with saddle PE, mild prominence of pulmonary arteries suggestive of PAH, mild dilation of RV -s/p EKOS, EKOS catheters DCed 09/21/18 without incident and started on Xarelto per Vascular surgery Elevated troponin, 2/2 PE - Trop 0.77 Acute kidney injury, likely prerenal - resolved Morbid Obesity, complicating all aspects of care. BMI: 49.3 Hypertension Hyperlipidemia Procedures PROCEDURE: 1. Ultrasound-guided access of right common femoral vein (7 Spanish sheath ??2) 2. Pulmonary arteriogram 3. Placement of bilateral pulmonary artery thrombolysis catheters (12 x 106 EKOS) Studies TTE: Impression: Normal sized left ventricle. Normal left ventricular wall thickness. Visually estimated ejection fraction 65% +/- 5%. No significant valvular heart disease. No pericardial effusion. No masses or thrombi are seen. Technically difficult study due to obesity. Reason for Hospitalization HPI: Makenna Pop is a 58-year-old female with a history of hypertension, hyperlipidemia, and GERD who is transferred from [facility] with a saddle pulmonary embolus. The [...] and continued on a heparin drip overnight. Hospital Course Patient was admitted to ICU. She was continued on heparin drip. Pulmonary critical care was consulted. Patient was evaluated by vascular surgery and due to saddle PE with right heart strain, EKOS was recommended. Patient underwent placement of bilateral pulmonary artery thrombolysis catheters-EKOS and tolerated the procedure well. Venous ultrasounds of the lower extremities obtained and did not show any evidence of DVT. Transthoracic echocardiogram showed findings as noted above. EKOS catheters were removed on 09/21/18 without incident. Patient was started on Xarelto. Partial hypercoagulability workup was ordered. Patient was deemed stable for discharge by all services on 09/22/2018. She was discharged home in stable condition with recommendations for continuing Xarelto and outpatient follow-up with vascular surgery, PCP as well as hematology/oncology for hypercoagulability workup follow-up. Patient was counseled regarding her medical condition and need for follow-up and she voiced understanding of the same. Physical Exam General: Alert and oriented, No acute distress, Patient is morbidly obese. Respiratory: Lungs are clear to auscultation, Respirations are non-labored, Breath sounds are equal. Cardiovascular: Normal rate, Regular rhythm, No murmur, No edema. Gastrointestinal: Soft, Non-tender, Non-distended. Musculoskeletal: Normal range of motion, No swelling. Integumentary: Warm, No pallor, No rash. Neurologic: Alert, Oriented, No focal deficits. Psychiatric: Cooperative, Appropriate mood & affect. Discharge Disposition Home Discharge Follow Up Follow up with primary care provider - Within 1 week MARGY GONSALEZ - Within 1 month Please arrange follow-up with hematology/ oncology for hypercoagulability workup for unprovoked PE. - Within 2 to 4 weeks Discharge Medications (10) Active atorvastatin 20 mg oral tablet 20 mg = 1 Tab, Oral, At Bedtime benzonatate 100 mg oral capsule 100 mg = 1 Cap, PRN, Oral, TID fluticasone 50 mcg/inh nasal spray 1 [place], Nasal, BID hydroCHLOROthiazide 12.5 mg oral capsule 12.5 mg = 1 Cap, Oral, Daily Linzess 72 mcg oral capsule 72 mcg = 1 Cap, Oral, Daily lisinopril 20 mg oral tablet 20 mg = 1 Tab, Oral, Daily meclizine 25 mg oral tablet 25 mg = 1 Tab, PRN, Oral, BID omeprazole 40 mg oral delayed release capsule 40 mg = 1 Cap, Oral, Daily oxybutynin 10 mg/24 hr oral tablet, extended release 10 mg = 1 Tab, Oral, Daily Xarelto Starter Pack 15 mg-20 mg oral kit See Instructions Condition on Discharge Stable Consulting Physicians MARGY GONSALEZ MD CELLAROSI-YORBA, MARIA, MD BURBERRY, KEITH, MD Current Diet Order No qualifying data available. Pending Labs In Transit Antiphospholipid Syndrome Panel, Comprehensive Rflx, Sendout Specimen Type: Blood, Stat collect, 09/21/18 10:57:00 EDT, 1-Time, Stop: 09/21/18 10:58:00 EDT, Nurse Collect MTHFR C677T and [id number], Sendout Specimen Type: Blood, Routine collect, 09/20/18 10:48:00 EDT, 1-Time, Stop: 09/20/18 11:00:00 EDT, Nurse Collect Prothrombin [id number] Mutations, Sendout Specimen Type: Blood, Routine collect, 09/20/18 10:48:00 EDT, 1-Time, Stop: 09/20/18 11:00:00 EDT, Nurse Collect Factor V Leiden Mutation, Sendout Specimen Type: Blood, Routine collect, 09/20/18 10:48:00 EDT, 1-Time, Stop: 09/20/18 11:00:00 EDT, Nurse Collect Time Spent on Discharge 35 minutes documented in this encounter Plan of Treatment Not on file documented as of this encounter Visit Diagnoses Not on filedocumented in this encounter
--- OUTSIDE RECORDS SUMMARY | 2024-12-01 14:42 | XMS_ITS | Encounter Summary ---
Author Organization [employer] ([place], [place], [place], [place]) Address [address] [place] [address] Care Team Providers Care Vision Teacher Name Role Phone Unavailable Primary Care Provider Unavailabl e Encounter Details Date Type Department Care Team (Late st Contact Info) Description 09/22/2018 Transcribed Document [facility] [place] [facility] [place] [facility] [place] [address] ProviderBrayden MD [facility] [place] [address] Social History Tobacco Use Types Packs/Day Years Used Date Smoking Tobacco: Never Assessed Comments Unknown Sex and Gender Information Value Date Recorded Sex Assigned at Not on file Legal Sex Female 2:25 PM CDT Gender Identity Not on file Sexual Orientation Not on file documented as of this encounter Miscellaneous Notes * Cerner Conversion Note - Brayden ProviderMD - 09/22/2018 2:06 PM CDT Stroke/Warfarin Instructions Entered On: 09/22/2018 14:07 EDT Performed On: 09/22/2018 14:06 EDT by Mirna Bedoya RN Stroke/Warfarin Instructions Stroke/TIA Discharge Ins : Open Warfarin Discharge Ins : N/A Mirna Bedoya RN - 09/22/2018 14:06 EDT Stroke/TIA Discharge Instructions Individualized Stroke Risk Factors *Q : High cholesterol, Hypertension/High blood pressure, Obesity Stroke Education Handouts Given *Q : Yes Mirna Bedoya RN - 09/22/2018 14:06 EDT Stroke Education Materials Given-Grid Activation of EMS *Q : Verbalizes understanding Follow-up Care After Discharge *Q : Verbalizes understanding Medications prescribed at DC *Q : Verbalizes understanding Risk Factors for Stroke *Q : Verbalizes understanding Warning S&S of Stroke *Q : Verbalizes understanding Mirna Bedoya RN - 09/22/2018 14:06 EDT Stroke/TIA Signs/Symptoms to Report Immediately : Sudden onset difficulty speaking, Sudden onset difficulty understanding speech, Sudden onset change in vision, Sudden onset weakness particulary on one side of the body, Sudden onset numbness/tingling, Sudden severe headache, Sudden dizziness or trouble with gait, Call : EMS activation is crucial My LDL Level: : LDL Level No qualifying data available. Mirna Bedoya RN - 09/22/2018 14:06 EDT documented in this encounter Plan of Treatment Not on file documented as of this encounter Visit Diagnoses Not on filedocumented in this encounter
--- OUTSIDE RECORDS SUMMARY | 2024-12-01 14:43 | XMS_ITS | Encounter Summary ---
Author Organization [employer] ([place], [place], [place], [place]) Address [address] [place] [address] Care Team Providers Care Printed Circuit Board Panels Deburrer Name Role Phone Unavailable Primary Care Provider Unavailabl e Encounter Details Date Type Department Care Team (Late st Contact Info) Description 09/21/2018 Transcribed Document [facility] Radiology [address] [place] [address] Jose Antonio Shah MD [address] [facility] [place] [address] Social History Tobacco Use Types Packs/Day Years Used Date Smoking Tobacco: Never Assessed Comments Unknown Sex and Gender Information Value Date Recorded Sex Assigned at Not on file Legal Sex Female 2:25 PM CDT Gender Identity Not on file Sexual Orientation Not on file documented as of this encounter Miscellaneous Notes * Cerner Conversion Note - Jose Antonio Shah MD - 09/21/2018 10:55 AM EDT Patient: MAKENNA POP Age: 58 Years Sex: Female : 1960 Subjective Patient states near resolution of presenting symptoms - she has no new concerns or complaints and is happy with care delivered Vital Signs T: 37 ??C TMIN: 36.9 ??C TMAX: 37 ??C HR: 58(Monitored) RR: 13 BP: 120/72 SpO2: 97% HT: 175.26 cm WT: 153.4 kg BMI: 49.94 Physical Exam GEN: A&Ox3 CARD: RRR RIGHT groin: >percutanseous access sites: no hematoma, no bleeding Assessment/Plan Bilateral Pulmonary Embolism with right heart strain 09/20/18 PROCEDURE: 1. Ultrasound-guided access of right common femoral vein (7 Armenian sheath ??2) 2. Pulmonary arteriogram 3. Placement of bilateral pulmonary artery thrombolysis catheters (12 x 106 EKOS) - Hemodynamically stable - on Room air - Symptomatically resolved SOB - ECHO pending >> Dr Shah d/c'd EKOS catheters without incident *stat Xarelto 15mg PO BID *1hour bedrest *diet advanced *CBC in AM Other pulmonary embolism with acute cor pulmonale I26.09, Other pulmonary embolism with acute cor pulmonale I26.09 Orders: rivaroxaban, 15 mg, Oral, Tab, Q86LAyr, STAT, Start 09/21/18 8:37:00 EDT Bedrest CBC no Diff (Hemogram) Diet, Adult Misc Nursing Order Medications REVIEWED Routine Labs - Last 24 Hours No qualifying data available No qualifying data available. Allergies No Known Medication Allergies documented in this encounter Plan of Treatment Not on file documented as of this encounter Visit Diagnoses Not on filedocumented in this encounter
--- OUTSIDE RECORDS SUMMARY | 2024-12-01 14:43 | XMS_ITS | Encounter Summary ---
Author Organization [employer] ([place], [place], [place], [place]) Address [address] [place] [address] Care Team Providers Care Life Skills Worker Name Role Phone Unavailable Primary Care Provider Unavailabl e Encounter Details Date Type Department Care Team (Late st Contact Info) Description 09/20/2018 Transcribed Document [facility] [place] [address] [place] [address] ProviderBrayden MD [address] [place] [address] Social History Tobacco Use Types Packs/Day Years Used Date Smoking Tobacco: Never Assessed Comments Unknown Sex and Gender Information Value Date Recorded Sex Assigned at Not on file Legal Sex Female 2:25 PM CDT Gender Identity Not on file Sexual Orientation Not on file documented as of this encounter Miscellaneous Notes * Cerner Conversion Note - Historical ProviderMD - 09/20/2018 2:00 AM CDT Geography Teacher Details Entered On: 09/20/2018 1:18 EDT Performed On: 09/20/2018 2:00 EDT by Edson Cooper Rn Order Details Transport Mode Order Detail : Bed (including specialty) Isolation Precautions Order Detail : Standard Precautions Order Detail : 0 IV Order Detail : 1 Oxygen Order Detail : 1 Nurse Collect Order Detail : 1 Lift/Transfer : Moderate assist Central Line Order Detail : No Room Service : Not Appropriate Arterial Line : No Edson Cooper Rn - 09/20/2018 1:17 EDT documented in this encounter Plan of Treatment Not on file documented as of this encounter Visit Diagnoses Not on filedocumented in this encounter
--- OUTSIDE RECORDS SUMMARY | 2024-12-01 14:43 | XMS_ITS | Encounter Summary ---
Author Organization [employer] ([place], [place], [place], [place]) Address [address] [place] [address] Care Team Providers Care Restaurant Assistant Manager Name Role Phone Unavailable Primary Care Provider Unavailabl e Encounter Details Date Type Department Care Team (Late st Contact Info) Description 09/20/2018 Transcribed Document [facility] [place] [facility] [place] [address] ProviderBrayden MD [facility] [place] [address] Social History Tobacco Use Types Packs/Day Years Used Date Smoking Tobacco: Never Assessed Comments Unknown Sex and Gender Information Value Date Recorded Sex Assigned at Not on file Legal Sex Female 2:25 PM CDT Gender Identity Not on file Sexual Orientation Not on file documented as of this encounter Miscellaneous Notes * Cerner Conversion Note - Brayden ProviderMD - 09/20/2018 8:08 AM CDT [facility] Main OR IntraOp Summary Primary Physician: MARGY GONSALEZ MD Finalized Date/Time: 09/24/18 08:51:12 Pt. Name: JENNIFER POP /Sex: 1960 Female Med Rec #: [id number] Physician: DENNIS KULKARNI DO Financial #: [id number] Pt. Type: I Room/Bed: [facility] Admit/Disch: 09/19/18 22:06:00 - 09/22/18 15:17:00 Institution: [facility] IntraOp Case Attendance Entry 1 Entry 2 Entry 3 Case Attendee MARGY GONSALEZ MD Sherlock, Kristi, Murphy, Whitney, [employer] Angiography Tech Role Performed Surgeon/Proceduralist, Tree Farmer Tree Farmer First Time In 09/20/18 07:45:00 09/20/18 07:45:00 09/20/18 07:45:00 Time Out 09/20/18 08:57:00 09/20/18 08:57:00 09/20/18 08:57:00 Procedure Aortogram Abdominal Aortogram Abdominal Aortogram Abdominal with Runoff with Runoff with Runoff Other Attendee Superficial Wound Closed By: Last Modified By: Dawson Chávez RN Willoughby, Toni, RN Willoughby, Toni, RN 09/20/18 09:06:22 09/20/18 09:06:22 09/20/18 09:06:22 Entry 4 Entry 5 Entry 6 Case Attendee LITA HERNANDEZ THOMPSON, BRUCE, Dawson Rodriguez RN MD Role Performed Anesthesiologist of RELIEF MAP MODELER/Nurse Electro Plater Top Precipitator Operator Helper, First Record Time In 09/20/18 07:45:00 09/20/18 07:45:00 09/20/18 07:45:00 Time Out 09/20/18 08:57:00 09/20/18 08:57:00 09/20/18 08:57:00 Procedure Aortogram Abdominal Aortogram Abdominal Aortogram Abdominal with Runoff with Runoff with Runoff Other Attendee Superficial Wound Closed By: Last Modified By: Dawson Chávez RN Willoughby, Toni, RN Willoughby, Toni, RN 09/20/18 09:06:22 09/20/18 09:06:22 09/20/18 09:06:22 Entry 7 Case Attendee Argelia Dalal [employer] Pref Card Builder Role Performed Top Precipitator Operator Helper, Second Time In 09/20/18 07:45:00 Time Out 09/20/18 08:04:00 Procedure Aortogram Abdominal with Runoff Other Attendee Superficial Wound Closed By: Julio C Modified By: Dawson Chávez RN 09/20/18 09:06:22 [facility] IntraOp Case Attendance Audit 09/20/18 09:06:22 Sales Manager Prearranged Funerals: [id number] Modifier: [id number] 1 <+> Time Out 1 <*> Procedure Aortogram Abdominal with Runoff 2 <+> Time Out 2 <*> Procedure Aortogram Abdominal with Runoff 3 <+> Time Out 3 <*> Procedure Aortogram Abdominal with Runoff 4 <+> Time Out 4 <*> Procedure Aortogram Abdominal with Runoff 5 <+> Time Out 5 <*> Procedure Aortogram Abdominal with Runoff 6 <+> Time Out 6 <*> Procedure Aortogram Abdominal with Runoff 7 <*> Procedure Aortogram Abdominal with Runoff 09/20/18 08:37:42 Sales Manager Prearranged Funerals: [id number] Modifier: [id number] 1 <*> Procedure Aortogram Abdominal with Runoff 2 <+> Time In 2 <*> Procedure Aortogram Abdominal with Runoff 3 <+> Time In 3 <*> Procedure Aortogram Abdominal with Runoff 4 <+> Time In 4 <*> Procedure Aortogram Abdominal with Runoff 5 <+> Time In 5 <*> Procedure Aortogram Abdominal with Runoff 6 <+> Time In 6 <*> Procedure Aortogram Abdominal with Runoff 7 <+> Time In 7 <*> Procedure Aortogram Abdominal with Runoff [facility] IntraOp Case Times Entry 1 Patient In Room Time 09/20/18 07:45:00 Out Room Time 09/20/18 08:57:00 Anesthesia Start Time 09/20/18 07:45:00 Stop Time 09/20/18 08:57:00 Surgery / Procedure Times Start Time 09/20/18 08:08:00 Stop Time 09/20/18 08:48:00 Last Modified By: Dawson Chávez RN 09/20/18 09:05:02 [facility] IntraOp Case Times Audit 09/20/18 09:05:02 Sales Manager Prearranged Funerals: [id number] Modifier: [id number] <+> 1 Out Room Time <+> 1 Stop Time 09/20/18 08:47:57 Sales Manager Prearranged Funerals: [id number] Modifier: [id number] <+> 1 Stop Time [facility] IntraOp Communication Entry 1 Entry 2 Communication To Family/Significant other Family/Significant other Comment start CLOSE Communication By LITA HERNANDEZ Willoughby, Toni, RN MD Date and Time 09/20/18 08:13:00 09/20/18 08:49:00 Last Modified By: Dawson Chávez RN Willoughby, Toni, RN 09/20/18 08:16:25 09/20/18 08:55:40 [facility] IntraOp Communication Audit 09/20/18 08:55:40 Sales Manager Prearranged Funerals: [id number] Modifier: [id number] <+> 2 Communication By <+> 2 Date and Time <+> 2 Communication To <+> 2 Comment [facility] IntraOp Departure from OR Entry 1 Integumentary Assessment Integumentary WDL Assessment WDL Transfer/Handoff Transfer to ICU - Cardiovascular Handoff Method Bedside/Face to face, Phone call Post-op Transport Stretcher/Fidelrzenobia Via Patient Transport MINH GALARZA CRNA, Accompanied by Dawson Chávez RN Last Modified By: Dawson Chávez RN 09/20/18 08:17:12 [facility] IntraOp Dressing and Packing Entry 1 Type Dressing Location OPSITE Wound Dressing Item 4x4's Applied By MARGY GONSALEZ MD Other Comments [email or web address] Last Modified By: Dawson Chávez RN 09/20/18 08:17:21 [facility] IntraOp Fire Risk Assessment Entry 1 Fire Info Surgical Site or 0- No Incision Above the Xyphoid Open O2 Source 1- Yes (Mask or Cannula) Available Ignition 0- No (ESU, Laser, Light Source) Fire Risk 1 Assessment Score Fire Score Fire Risk Yes Assessment Complete Fire Risk Dawson Chávez RN Assessment Verified By Fire Risk 09/20/18 08:05:00 Assessment Verified Date/Time Fire Risk Standard Fire Yes Safety Precautions Followed Last Modified By: Dawson Chávez RN 09/20/18 08:17:35 [facility] IntraOp General Case Handbag Stitcher 1 Case Information OR OR 20 [facility] Case Level 1 Room Verified Yes Wound Class I - Clean Specialty SN Endovascular Anesthesia Type MAC ASA Class 4E Diagnosis Preop Diagnosis pulmonary embolism Postop Same As Preop No Postop Diagnosis see physician note Last Modified By: Dawson Chávez RN 09/20/18 08:18:02 [facility] IntraOp Intraoperative Assessment Entry 1 Handoff Method Online nursing summary Valid History / Yes Physical in Chart Preoperative Yes Checklist Reviewed/Evaluated Allergies Reviewed Yes Patient is Latex No Sensitive Isolation Not applicable Precautions Noted Level of WDL Consciousness (WDL = Alert, Oriented to Person, Place, and Time) Skin Assessment No Verified Present Upon IVs Arrival to OR Last Modified By: Dawson Chávez RN 09/20/18 08:18:23 [facility] IntraOp Intraoperative Equipment Entry 1 Type Monitoring Equipment Intraop Monitoring Blood Pressure Non-Invasive BP Device Source Blood Pressure Arm, right lower Location Pulse Oximeter Hand, left Probe Site Antiembolic Devices Scopes Photo/Video Documentation Last Modified By: Dawson Chávez RN 09/20/18 08:18:51 [facility] IntraOp Medication Admin Entry 1 Entry 2 Entry 3 Medication/Irrigant TOMMY VISIPAQUE 320MG 150 Xylocaine 1% 30ml vial TOMMY NACL 0.9PCT HPRN 200ML --[id number] --[id number] 1000U .5L --[id number] Combo Med List Time Administered Route of CONTRAST LOCAL CATHETER FLUSH Administration Dose Dose 50 15 1000 Unit of Measure ml ml million units Volume Administered By MARGY GONSALEZ MD KIM, MOSES, MD KIM, MOSES, MD Procedure Irrigation Irrigant Volume In Irrigant Volume Out Last Modified By: Dawson Chávez RN Willoughby, Toni, RN Willoughby, Toni, RN 09/20/18 08:16:28 09/20/18 08:19:19 09/20/18 08:19:48 Entry 4 Entry 5 Entry 6 Medication/Irrigant ALTEPLASE HEPARIN 12491 N/S 1000 Cc --[id number] UNITS/250ML Combo Med List Time Administered Route of IA, EKOS CATHETER'S IA EKOS CATHETER IA EKOS CATHETERS Administration INFUSION INFUSION Dose Dose 8 2.5 2000 Unit of Measure mg ml/hr million units Volume Administered By MARGY GONSALEZ MD Willoughby, Toni, RN KIM, MOSES, MD Procedure Irrigation Irrigant Volume In Irrigant Volume Out Last Modified By: Dawson Chávez RN Willoughby, Toni, RN Willoughby, Toni, RN 09/20/18 09:12:45 09/20/18 09:12:45 09/20/18 09:12:45 [facility] IntraOp Medication Admin Audit 09/20/18 09:12:45 Sales Manager Prearranged Funerals: [id number] Modifier: [id number] <+> 4 Medication/Irrigant <+> 4 Route of Administration <+> 4 Administered By <+> 4 Dose <+> 4 Unit of Measure <+> 5 Medication/Irrigant <+> 5 Route of Administration <+> 5 Administered By <+> 5 Dose <+> 5 Unit of Measure <+> 6 Medication/Irrigant <+> 6 Route of Administration <+> 6 Administered By <+> 6 Dose <+> 6 Unit of Measure 09/20/18 08:19:48 Sales Manager Prearranged Funerals: [id number] Modifier: [id number] <+> 3 Medication/Irrigant <+> 3 Route of Administration <+> 3 Administered By <+> 3 Dose <+> 3 Unit of Measure 09/20/18 08:19:19 Sales Manager Prearranged Funerals: [id number] Modifier: [id number] <+> 2 Medication/Irrigant <+> 2 Route of Administration <+> 2 Administered By <+> 2 Dose <+> 2 Unit of Measure [facility] IntraOp Patient Positioning Entry 1 Procedure Aortogram Abdominal with Runoff Body Position Supine Left Arm Position Tucked and padded at side Right Arm Position Tucked and padded at side Left Leg Position Uncrossed, parallel Right Leg Position Uncrossed, parallel Feet Uncrossed Yes Pressure Points Yes Checked Positioning Devices Head Rest, Safety Strap, Thighs, Sled Arm Rest, Pad, Elbow Device Position UNP'S Positioned By Dawson Chávez, CHRISTOPHER, Argelia Dalal [employer] Pref Card Buildtracee, MINH GALARZA, SERENITY Position Verified Positioning Yes Verified by Anesthesia Positioning Yes Verified by Surgeon Last Modified By: Dawson Chávez RN 09/20/18 08:20:29 [facility] IntraOp Patient Positioning Audit 09/20/18 08:20:29 Sales Manager Prearranged Funerals: [id number] Modifier: [id number] 1 <*> Procedure Aortogram Abdominal with Runoff 1 <*> Positioned By Dawson Chávez RN 09/20/18 08:20:10 Sales Manager Prearranged Funerals: [id number] Modifier: [id number] 1 <*> Procedure Aortogram Abdominal with Runoff 1 <*> Positioning Devices Head Rest, Safety Strap, Thighs, Sled Arm Rest [facility] IntraOp Sign In Entry 1 Patient, Site, Yes Procedure Identified Surgical Consent Yes Confirmed Relevant Surgical Yes Documents Available Surgical Site N/A Marked by person performing procedure Anesthesia Machine Yes Check Completed Medication Checks Yes Completed Allergies Yes Airway Difficult Yes Airway/Aspiration Risk Difficult Yes Airway/Aspiration Intervention Equipment Available Blood Loss Risk Yes Blood Loss Yes Intervention Equipment Prepared and Ready Blood Identifiers Not applicable Verified Per Policy Hypothermia Risk Yes Warming Measures Yes Taken Last Modified By: Dawson Chávez RN 09/20/18 08:20:51 [facility] IntraOp Sign Out Entry 1 RN Confirmation Surgical Yes Procedure(s) Identified Instrument, Sponge N/A and Sharps Counts Correct/Documented Equipment Problems N/A Documented Specimen Labeled N/A Correctly Urinary Catheter N/A Documented in IView Gage Patient Yes Recovery Concerns Reviewed with Anesthesia Provider, Surgeon and RN Gage Patient Yes Management Concerns Reviewed with Anesthesia Provider, Surgeon and RN Safety Checklist Yes Elements Complete? RN Sign Out Dawson Chávez RN Signature RN Sign Out 09/20/18 09:09:00 Signature Date/Time Plan of Care Outcome - Fire Risk OUTCOME STATEMENT: Goal met Patient is free from injury related to surgical fire Plan of Care Outcome - Pt Positioning OUTCOME STATEMENT: Goal met Absence of signs and symptoms of positioning injury. Plan of Care Outcome - Skin Prep OUTCOME STATEMENT: Goal met Intraoperative care is consistent with measures to prevent infection Plan of Care Outcome - Xray/Images OUTCOME STATEMENT: Goal met Absence of observable signs or symptoms of radiation injury Plan of Care Outcome - Counts OUTCOME STATEMENT: Goal met Absence of signs and symptoms of injury related to extraneous objects Last Modified By: Dawson Chávez RN 09/20/18 09:08:19 [facility] IntraOp Sign Out Audit 09/20/18 09:08:19 Sales Manager Prearranged Funerals: [id number] Modifier: [id number] <+> 1 RN Sign Out Signature Date/Time [facility] IntraOp Skin Prep Entry 1 Procedure Aortogram Abdominal with Runoff Prescribed N/A Pre-Surgical Prep Completed Prep Area BILATERAL GROINS Intraop Prep Integumentary WDL Assessment WDL Prep Agents Chloraprep Prep by Dawson Chávez RN Hair Removal Methods No hair removal performed Last Modified By: Dawson Chávez RN 09/20/18 08:18:07 [facility] IntraOp Surgical Procedures Entry 1 Procedure Aortogram Abdominal with Runoff Additional (PULMONARY ARTERIOGRAM Procedure WITH EKOS CATHETER Description PLACEMENT) Primary Procedure Yes Primary Surgeon MARGY GONSALEZ MD Start 09/20/18 08:08:00 Stop 09/20/18 08:48:00 Anesthesia Type MAC Specialty SN Endovascular Wound Class I - Clean Last Modified By: Dawson Chávez RN 09/20/18 09:05:30 [facility] IntraOp Surgical Procedures Audit 09/20/18 09:05:30 Sales Manager Prearranged Funerals: [id number] Modifier: [id number] 1 <*> Procedure Aortogram Abdominal with Runoff 1 <+> Stop 1 <*> Additional Procedure Description (PULMONARY ARTERIOGRAM) 09/20/18 08:38:24 Sales Manager Prearranged Funerals: [id number] Modifier: [id number] 1 <*> Procedure Aortogram Abdominal with Runoff 1 <+> Specialty [facility] IntraOP Time Out Entry 1 Procedure to be Aortogram Abdominal Performed with Runoff Time Out Time Out Pause Time 09/20/18 08:06:00 All activity Yes suspended (unless life threatening emergency) Team Verbally Correct patient Confirms Information identity, Consent form is present and accurate, Agreement on the procedure to be done, Correct patient position, Confirm the skin prep has dried, Confirm prosthesis/implant/devic e is present, Performed in location of procedure after prepped/draped Antibiotic Yes Prophylaxis Administered Or In Progress Within the Last 60 Minutes Beta Reid N/A Administered Venous Yes Thromboembolism Prophylaxis Required Anticipated Critical Events Surgeon None expected Anesthesia Provider None expected Last Modified By: aDwson Chávez RN 09/20/18 08:47:48 [facility] IntraOp X-Ray and Images Entry 1 X-Ray/Imaging Type Fluoroscopy Fluoroscopy Type Fixed Site BLLE,TRUNK Human Resources Specialist Name Helga Sosa, Angiography Tech Protective Devices No Used X-Ray and Imaging 12.2 MIN Comment Last Modified By: Dawson Chávez RN 09/20/18 09:06:16 Case Comments <None> Finalized By: YOSI BRIDGES Document Signatures Signed By: Dawson Chávez RN 09/20/18 09:08 Dawson Chávez RN 09/20/18 09:13 YOSI BRIDGES 09/24/18 08:51 Unfinalized History Date/Time Username Reason for Unfinalizing Freetext Reason for Unfinalizing 09/20/18 09:08 [id number] Finish Documentation 09/24/18 08:48 [email or web address] Correct Billing Electronically signed by [facility] Conversion Numerical Control Router Operator Cerner at 08/03/2022 8:56 AM CDT documented in this encounter Plan of Treatment Not on file documented as of this encounter Visit Diagnoses Not on filedocumented in this encounter
--- OUTSIDE RECORDS SUMMARY | 2024-12-01 14:43 | XMS_ITS | Encounter Summary ---
Author Organization [employer] ([place], [place], [place], [place]) Address [address] [place] [address] Care Team Providers Care Industrial Machine System Technician Name Role Phone Unavailable Primary Care Provider Unavailabl e Encounter Details Date Type Department Care Team (Late st Contact Info) Description 09/20/2018 Transcribed Document [facility] [place] [facility] [place] [address] ProviderBrayden MD [facility] [place] [address] Social History Tobacco Use Types Packs/Day Years Used Date Smoking Tobacco: Never Assessed Comments Unknown Sex and Gender Information Value Date Recorded Sex Assigned at Not on file Legal Sex Female 2:25 PM CDT Gender Identity Not on file Sexual Orientation Not on file documented as of this encounter Miscellaneous Notes * Cerner Conversion Note - Brayden ProviderMD - 09/20/2018 8:42 AM CDT Pain Assessment Entered On: 09/20/2018 14:45 EDT Performed On: 09/20/2018 9:55 EDT by Caridad Grewal RN Intervention Information: morphine Performed by HEMANT ORDONEZ Rn on 09/20/2018 09:25:00 EDT morphine,2mg IV Push,Left Hand,Pain (Moderate 4-6) Pain Assessment Pain Assessment : Follow-up assessment Pain Scale Goal : 3 Pain Scale Used : 0-10 Scale Caridad Grewal RN - 09/20/2018 14:45 EDT Pain Scale Intensity : 8 Caridad Grewal RN - 09/20/2018 14:45 EDT Image 4 - Images currently included in the form version of this document have not been included in the text rendition version of the form. documented in this encounter Plan of Treatment Not on file documented as of this encounter Visit Diagnoses Not on filedocumented in this encounter
--- OUTSIDE RECORDS SUMMARY | 2024-12-01 14:43 | XMS_ITS | Encounter Summary ---
Author Organization [email or web address] ([place], [place], [place], [place]) Address [address] [place] [address] Care Team Providers Care Varitype Operator Name Role Phone Unavailable Primary Care Provider Unavailabl e Encounter Details Date Type Department Care Team (Late st Contact Info) Description 09/21/2018 Transcribed Document [facility] [place] Family Medicine [address] [place] [address] ProviderBrayden MD [address] [place] [address] Social History Tobacco Use Types Packs/Day Years Used Date Smoking Tobacco: Never Assessed Comments Unknown Sex and Gender Information Value Date Recorded Sex Assigned at Not on file Legal Sex Female 2:25 PM CDT Gender Identity Not on file Sexual Orientation Not on file documented as of this encounter Miscellaneous Notes * Cerner Conversion Note - Historical ProviderMD - 09/21/2018 7:07 AM CDT Height and Weight, Routine Entered On: 09/21/2018 7:07 EDT Performed On: 09/21/2018 7:07 EDT by MOOSE SOTO, RN Height and Weight, Routine Routine Weight Source : Bed scale Routine Weight Entry Format : Metric Routine Weight, Kilograms : 153.4 kg(Converted to: 338 lb 3 oz) Routine Weight Calculation : 153.4 kg Height Source : Estimated Height Entry Format : [place] Height, Feet : 5 ft Height, Inches : 9 Inch Clinical Height : 175.26 cm Body Surface Area (BSA), Routine : 2.58 m2 Body Mass Index (BMI), Routine : 49.94 kg/m2 MOOSE SOTO, CHRISTOPHER - 09/21/2018 7:07 EDT documented in this encounter Plan of Treatment Not on file documented as of this encounter Visit Diagnoses Not on filedocumented in this encounter
--- OUTSIDE RECORDS SUMMARY | 2024-12-01 14:43 | XMS_ITS | Encounter Summary ---
Author Organization [employer] ([place], [place], [place], [place]) Address [address] [place] [address] Care Team Providers Care Electrical Worker Name Role Phone Unavailable Primary Care Provider Unavailabl e Encounter Details Date Type Department Care Team (Late st Contact Info) Description 09/20/2018 Transcribed Document [facility] [place] [facility] [address] ProviderBrayden MD [facility] [address] Social History Tobacco Use Types Packs/Day Years Used Date Smoking Tobacco: Never Assessed Comments Unknown Sex and Gender Information Value Date Recorded Sex Assigned at Not on file Legal Sex Female 2:25 PM CDT Gender Identity Not on file Sexual Orientation Not on file documented as of this encounter Miscellaneous Notes * Cerner Conversion Note - Brayden ProviderMD - 09/20/2018 2:57 PM CDT Initial Discharge Planning Entered On: 09/20/2018 14:59 EDT Performed On: 09/20/2018 14:57 EDT by GIANNI COELLO Rn-Electrocardiograph Repairer Initial Assessment I Previously Documented Living Environment : No qualifying data available. Emergency Contact #1 : Saskia Emergency Contact #1 Emergency Contact #1 Relationship : daughter Emergency Contact #2 : caitlin Emergency Contact #2 Emergency Contact #2 Relationship : sister GIANNI COELLO Rn-Electrocardiograph Repairer - 09/20/2018 14:57 EDT Narrative Note Narrative Note : Day 1 - Saddle PE/SOA x 2 weeks Low Readmission Risk Vascular/Pulmonary Consults Heparin gtt; Echo; probable EKOS on 09/21/18 Attempted to interview; bedside RN Lyndsey requests patient not be disturbed due to anxiety and difficulty to calm patient. GIANNI COELLO Rn-Electrocardiograph Repairer - 09/20/2018 14:57 EDT documented in this encounter Plan of Treatment Not on file documented as of this encounter Visit Diagnoses Not on filedocumented in this encounter
--- OUTSIDE RECORDS SUMMARY | 2024-12-01 14:43 | XMS_ITS | Clinical Summary ---
Author Organization Healthcare Address [address] [place] [address] Care Team Providers Care Pet Crematory Worker Name Role Phone Deep Chavez MD Primary Care Provider [phone] Allergies Active Allergy Reactions Criticality Noted Date Comments Losartan Cough Low 01/01/2023 Medications amLODIPine (Norvasc) 5 MG tablet 02/16/2021 Active omeprazole (PriLOSEC) [address] capsule 03/06/2021 Active Xarelto 20 MG tablet 02/10/2021 Active Anoro Ellipta 62.5-25 MCG/INH aerosol powder 01/14/2021 Acti ve atorvastatin (Lipitor) 20 MG tablet Take 1 tablet (20 mg) by mouth 1 (one) time each day. Active oxybutynin XL (Ditropan-XL) 10 MG 24 hr tablet Take 1 tablet (10 mg) by mouth 1 (one) time each day. Do not crush, chew, or split. Active methocarbamol (Robaxin) 750 MG tabletIndication s:Hip pain, right Take 1 tablet (750 mg total) by mouth 3 (three) times a day for 14 days. 42 tablet 03/09/2021 Active metFORMIN XR (Glucophage-XR) 500 MG 24 hr tablet 12/14/2022 Active Active Problems Problem Noted Date Diagnosed Date Class III obesity with body mass index (BMI) of 40.0 or higher 01/01/2023 Lumbar spondylosis 05/09/2019 Primary osteoarthritis of knee 05/09/2019 Knee joint pain 02/06/2018 History of total left hip arthroplasty 5 Social History Tobacco Use Types Packs/Day Years Used Date Smoking Tobacco: Never Smokeless Tobacco: Never Alcohol Use Standard Drinks/Week Comments Never 0 (1 standard drink = 0.6 oz pur e alcohol) Comments Unknown Sex and Gender Information Value Date Recorded Sex Assigned at Not on file Legal Sex Female 7:33 PM EDT Gender Identity Not on file Sexual Orientation Not on file Last Filed Vital Signs Vital Sign Reading Time Taken Comments Blood Pressure 187/93 01/01/2023 2:56 PM EDT Pulse 118 01/01/2023 2:56 PM EDT Temperature - - Respiratory Rate - - Oxygen Saturation - - Inhaled Oxygen Concentration - - Weight 149 kg (329 lb 5.9 oz) 01/01/2023 2:56 PM EDT Height 175.3 cm (5' 9 ) 01/01/2023 2:56 PM EDT Body Mass Index 48.64 01/01/2023 2:56 PM EDT Plan of Treatment Health Maintenance Due Date Last Done Comments [facility]-Depression Screening 1960 [facility]-HIV Screening 1960 [facility]-Hepatitis C Screening 1960 [facility]-Medicare Annual Wellness (AWV) 1960 [facility]-/Child/Adol SDOH Screenings 1960 [facility]- SDOH Screenings 02/23/1980 [facility]-Adult SDOH Screenings 02/23/1980 [facility]-DTaP,Tdap,and Td Vaccine s (1 - Tdap) 1981 CT Colonography 2007 Colonoscopy 2007 FIT-DNA 2007 FIT 2007 FOBT 2007 Sigmoidoscopy 2007 [facility]-Colorectal Cancer Screening 2007 [facility]-Breast Cancer Screening 02/23/2012 [facility]-Pneumococcal Vaccine: 50 + Years (1 of 1 - PCV) 02/23/2012 [facility]-Zoster Vaccines (1 of 2) 02/23/2012 [facility]-RSV Vaccine: 60+ Years o r (1 - Risk 60-74 years 1-dose series) 2022 [id number] Vaccine (1 - 20 24-25 season) 2023 [facility]-Influenza Vaccine (#1) 2024 [facility]-Obesity Intervention Completed 01/01/2023 HPV Vaccines Aged Out No longer eligi ble based on patient's age to complete this topic [facility]-HIB Vaccines Aged Out No longer e ligible based on patient's age to complete this topic [facility]-Hepatitis A Vaccines Aged Out No longer eligible based on patient's age to complete this topic [facility]-IPV Vaccines Aged Out No longer e ligible based on patient's age to complete this topic [facility]-Rotavirus Vaccines Aged Out No lo nger eligible based on patient's age to complete this topic Insurance [place]ICA[place] MEDICARE Care Teams Pet Crematory Worker Relationship Specialty Start Date End Date Deep Chavez MD [address] [place] [id number] PCP - General 08/27/20
--- OUTSIDE RECORDS SUMMARY | 2024-12-01 14:43 | XMS_ITS | Encounter Summary ---
Author Organization [employer] ([place], [place], [place], [place]) Address [address] [place] [address] Care Team Providers Care Driver Salesman Name Role Phone Unavailable Primary Care Provider Unavailabl e Encounter Details Date Type Department Care Team (Late st Contact Info) Description 09/21/2018 Transcribed Document [facility] [place] Family Medicine [address] [place] [address] ProviderBrayden MD [facility] [place] [address] Social History Tobacco Use Types Packs/Day Years Used Date Smoking Tobacco: Never Assessed Comments Unknown Sex and Gender Information Value Date Recorded Sex Assigned at Not on file Legal Sex Female 2:25 PM CDT Gender Identity Not on file Sexual Orientation Not on file documented as of this encounter Miscellaneous Notes * Cerner Conversion Note - Historical ProviderMD - 09/21/2018 5:00 AM CDT Chart Check - Review Order Profile Entered On: 09/21/2018 7:01 EDT Performed On: 09/21/2018 5:00 EDT by MOOSE SOTO RN Chart Check Powerplans Initiated/Discontinued as Appropriate : Yes All Active Orders Reviewed : Yes MOOSE SOTO RN - 09/21/2018 7:01 EDT documented in this encounter Plan of Treatment Not on file documented as of this encounter Visit Diagnoses Not on filedocumented in this encounter
--- OUTSIDE RECORDS SUMMARY | 2024-12-01 14:43 | XMS_ITS | Encounter Summary ---
Author Organization [facility] ([place], [place], [place], [place]) Address [address] [place] [address] Care Team Providers Care Bicycle Courier Name Role Phone Unavailable Primary Care Provider King handy Encounter Details Date Type Department Care Team (Late st Contact Info) Description 09/20/2018 Transcribed Document [facility] [facility] [place] On license of [facility] [place] [address] ProviderBrayden MD [facility] [place] [address] Social History Tobacco Use Types Packs/Day Years Used Date Smoking Tobacco: Never Assessed Comments Unknown Sex and Gender Information Value Date Recorded Sex Assigned at Not on file Legal Sex Female 2:25 PM CDT Gender Identity Not on file Sexual Orientation Not on file documented as of this encounter Miscellaneous Notes * Cerner Conversion Note - Brayden ProviderMD - 09/20/2018 10:46 AM CDT Patient: MAKENNA POP Age: 58 years Sex: Female : 1960 Associated Diagnoses: None Author: JAVIER LEWIS DO Basic Information lying nearly flat in bed on EKOS states occasionally feels tightness with breathing no nausea denies chest pain states was recently on a trip to [place], via car, did note bilateral leg swelling at time of trip, but not as much as they will often swell during trips niece with blood clot previously Health Status Allergies: Allergic Reactions (Selected) No Known Medication Allergies, Allergies (1) Active Reaction No Known Medication Allergies None Documented Current medications: (Selected) Inpatient Medications Ordered [facility] 5 mg-325 mg oral tablet: 1 Tab, Oral, Q4H, PRN: Pain (Mild 1-3) Normal Saline 1,000 mL: 35 mL/Hr, IntraCATHeter Normal Saline 1,000 mL: 35 mL/Hr, IntraCATHeter Normal Saline 1,000 mL: 75 mL/Hr, IntraVENous acetaminophen-HYDROcodone 325 mg-5 mg oral tablet: 2 Tab, Oral, Q4H, PRN: Pain (Moderate 4-6) alteplase 5 mg + syringe 1 Each: 5 mg, 0 mL/Hr, IntraCATHeter, 1-Time alteplase 5 mg + syringe 1 Each: 5 mg, 0 mL/Hr, IntraCATHeter, 1-Time alteplase injection 4 mg + Sodium Chloride 0.9% intravenous solution 96 mL: 12.5 mL/Hr, IntraCATHeter alteplase injection 4 mg + Sodium Chloride 0.9% intravenous solution 96 mL: 12.5 mL/Hr, IntraCATHeter heparin injection 25,000 Units + NaCl 0.45% Premix Diluent 250 mL: 2.5 mL/Hr, IntraCATHeter heparin injection 25,000 Units + NaCl 0.45% Premix Diluent 250 mL: 2.5 mL/Hr, IntraCATHeter heparin injection 25,000 Units + NaCl 0.45% Premix Diluent 250 mL: Titrate, IntraVENous morphine: 2 mg, IV Push, Q2H, PRN: Pain (Moderate 4-6) Documented Medications Documented Linzess 72 mcg oral capsule: 1 Cap, Oral, Daily, 0 Refill(s) atorvastatin 20 mg oral tablet: 1 Tab, Oral, At Bedtime, 0 Refill(s) benzonatate 100 mg oral capsule: 1 Cap, Oral, TID, PRN: for cough, 42 Cap, 0 Refill(s) fluticasone 50 mcg/inh nasal spray: 1 Mar[place], Nasal, BID, 0 Refill(s) hydroCHLOROthiazide 12.5 mg oral capsule: 1 Cap, Oral, Daily, 0 Refill(s) lisinopril 20 mg oral tablet: 1 Tab, Oral, Daily, 0 Refill(s) meclizine 25 mg oral tablet: 1 Tab, Oral, BID, PRN: for dizziness, 30 Tab, 0 Refill(s) omeprazole 40 mg oral delayed release capsule: 1 Cap, Oral, Daily, before a meal, 30 Cap, 0 Refill(s) oxybutynin 10 mg/24 hr oral tablet, extended release: 1 Tab, Oral, Daily, 0 Refill(s), Medications (13) Active Scheduled: (2) alteplase 5 mg + syringe 1 Each 5 mg, IntraCATHeter, 1-Time alteplase 5 mg + syringe 1 Each 5 mg, IntraCATHeter, 1-Time Continuous: (8) alteplase 4 mg + NaCl 0.9% 96 mL 96 mL, IntraCATHeter, 12.5 mL/Hr alteplase 4 mg + NaCl 0.9% 96 mL 96 mL, IntraCATHeter, 12.5 mL/Hr heparin/NaCl 0.45% 25,000 Units + Premix Diluent NaCl 0.45% 250 mL 250 mL, IntraVENous heparin/NaCl 0.45% 25,000 Units + Premix Diluent NaCl 0.45% 250 mL 250 mL, IntraCATHeter, 2.5 mL/Hr heparin/NaCl 0.45% 25,000 Units + Premix Diluent NaCl 0.45% 250 mL 250 mL, IntraCATHeter, 2.5 mL/Hr NaCl 0.9% 1,000 mL 1,000 mL, IntraVENous, 75 mL/Hr NaCl 0.9% 1,000 mL 1,000 mL, IntraCATHeter, 35 mL/Hr NaCl 0.9% 1,000 mL 1,000 mL, IntraCATHeter, 35 mL/Hr PRN: (3) acetaminophen/HYDROcodone 325/5 mg tab 2 Tab, Oral, Q4H acetaminophen/HYDROcodone 325/5 mg tab 1 Tab, Oral, Q4H morphine 2 mg/1 ml inj 2 mg 1 mL, IV Push, Q2H Problem list: Active Problems (4) GERD - Gastro-esophageal reflux disease HLD - Hyperlipidemia HTN - Hypertension IBS - Irritable bowel syndrome Physical Examination VS/Measurements Vitals Signs (last 24 hrs) Last Charted Minimum Maximum Temp 98.3 (SEP 20 04:00) 98.3 (SEP 20 04:00) 98.4 (SEP 19 22:10) Mon HR 72 (SEP 20 06:00) 72 (SEP 20 06:00) 111 (SEP 19 22:10) Resp Rate 15 (SEP 20 06:00) 15 (SEP 20 04:00) H 26 (SEP 19 22:10) SBP 125 (SEP 20 06:00) 125 (SEP 20 06:00) H 162 (SEP 20 03:00) DBP 77 (SEP 20 06:00) 70 (SEP 20 05:00) H 104 (SEP 19 22:10) MAP 97 (SEP 20 06:00) 94 (SEP 20 05:00) 126 (SEP 19 22:10) SpO2 99 (SEP 20 06:00) 97 (SEP 19 22:35) 99 (SEP 19 22:10) General: Alert and oriented, No acute distress, morbid obesity, nontoxic, nad. Eye: Pupils are equal, round and reactive to light, Extraocular movements are intact. HENT: Normocephalic, Oral mucosa is moist. Neck: Supple, No jugular venous distention. Respiratory: Respirations are non-labored, Breath sounds are equal, Symmetrical chest wall expansion. Cardiovascular: Normal rate, Regular rhythm. Gastrointestinal: Soft, Non-tender, Non-distended, Normal bowel sounds. Integumentary: Warm, Dry. Neurologic: Alert, Oriented. Psychiatric: Cooperative, Appropriate mood & affect. Review / Management Results review: Labs (Last four charted values) WBC 8.6 (SEP 07) 9.6 (SEP 07) H 11.4 (SEP 06) HB 11.9 (SEP 07) 11.6 (RICKI 07) 12.6 (RICKI 06) HCT 37.0 (RICKI 07) 34.9 (RICKI 07) 39.0 (RICKI 06) Plt 168 (SEP 07) 183 (RICKI 07) 206 (RICKI 06) Na 141 (RICKI 07) 141 (RICKI 06) K 3.8 (RICKI 07) 3.8 (RICKI 06) Cl 109 (RICKI 07) 107 (RICKI 06) CO2 27 (RICKI 07) 28 (RICKI 06) BUN 19 (RICKI 07) 19 (SEP 06) Cr 1.00 (RICKI 07) H 1.30 (RICKI 06) Glu R 104 (SEP 07) H 124 (RICKI 06) Ca 8.6 (RICKI 07) 8.9 (RICKI 06) PT 10.7 (RICKI 07) 10.7 (RICKI 06) INR 1.0 (RICKI 07) 1.0 (RICKI 06) PTT H 75.1 (RICKI 07) AST 14 (RCIKI 07) 17 (RICKI 06) ALT 20 (RICKI 07) 23 (RICKI 06) ALK P 95 (RICKI 07) 107 (RICKI 06) T Bili 0.4 (RICKI 07) 0.4 (RICKI 06) PTN L 6.1 (RICKI 07) 6.8 (RICKI 06) ALB L 2.7 (SEP 20) L 3.0 (SEP 19) Troponin C 0.761 (SEP 20) C 0.772 (SEP 19) . Impression and Plan Saddle PE w/ evidence of RV strain - CT: large central pulmonary emboli bilaterally with saddle PE, mild prominence of pulmonary arteries suggestive of PAH, mild dilation of RV -EKOS -send partial hypercoag w/u; cannot do complete while on anticoagulation Elevated troponin, 2/2 PE - Trop 0.77 Acute kidney injury, likely prerenal - resolved Morbid Obesity, complicating all aspects of care. BMI: 49.3 Hypertension - hold ACEi, HCTZ for now Hyperlipidemia - resume statin GERD - continue home PPI mod/high risk due to large clot burden and potential for hemodynamic compromise requires close observation intensive care cct 34 mins documented in this encounter Plan of Treatment Not on file documented as of this encounter Visit Diagnoses Not on filedocumented in this encounter
--- OUTSIDE RECORDS SUMMARY | 2024-12-01 14:43 | XMS_ITS | Encounter Summary ---
Author Organization [employer] ([place], [place], [place], [place]) Address [address] [place] [address] Care Team Providers Care Showroom Sales Consultant Name Role Phone Unavailable Primary Care Provider Unavailabl e Encounter Details Date Type Department Care Team (Late st Contact Info) Description 09/22/2018 Transcribed Document [facility] [place] Family Medicine [address] [place] [address] ProviderBrayden MD [facility] [place] [address] Social History Tobacco Use Types Packs/Day Years Used Date Smoking Tobacco: Never Assessed Comments Unknown Sex and Gender Information Value Date Recorded Sex Assigned at Not on file Legal Sex Female 2:25 PM CDT Gender Identity Not on file Sexual Orientation Not on file documented as of this encounter Miscellaneous Notes * Cerner Conversion Note - Historical ProviderMD - 09/22/2018 3:48 PM CDT Nursing Discharge Summary Entered On: 09/22/2018 15:49 EDT Performed On: 09/22/2018 15:48 EDT by Mirna Bedoya RN Discharge Documentation Discharge Date/Time : 09/22/2018 15:15 EDT Patient Disposition, General : Discharge Discharge To : Home with ambulatory/outpatient follow-up Personal Belongings With Patient : Yes Discharge Instructions Reviewed With, Opportunity For Questions Given : Patient Patient Education Completed : Yes Mirna Bedoya RN - 09/22/2018 15:48 EDT documented in this encounter Plan of Treatment Not on file documented as of this encounter Visit Diagnoses Not on filedocumented in this encounter
--- OUTSIDE RECORDS SUMMARY | 2024-12-01 14:43 | XMS_ITS | Encounter Summary ---
Author Organization [employer] ([place], [place], [place], [place]) Address [address] [place] [address] Care Team Providers Care Systems Planner Name Role Phone Unavailable Primary Care Provider Unavailabl e Encounter Details Date Type Department Care Team (Late st Contact Info) Description 09/20/2018 Transcribed Document [facility] [place] Family Medicine [address] [place] [address] ProviderBrayden MD [facility] [place] [address] Social History Tobacco Use Types Packs/Day Years Used Date Smoking Tobacco: Never Assessed Comments Unknown Sex and Gender Information Value Date Recorded Sex Assigned at Not on file Legal Sex Female 2:25 PM CDT Gender Identity Not on file Sexual Orientation Not on file documented as of this encounter Miscellaneous Notes * Cerner Conversion Note - Historical ProviderMD - 09/20/2018 5:00 PM CDT Chart Check - Review Order Profile Entered On: 09/20/2018 18:34 EDT Performed On: 09/20/2018 17:00 EDT by Caridad Grewal, RN Chart Check Powerplans Initiated/Discontinued as Appropriate : Yes All Active Orders Reviewed : Yes Caridad Grewal, CHRISTOPHER - 09/20/2018 18:33 EDT documented in this encounter Plan of Treatment Not on file documented as of this encounter Visit Diagnoses Not on filedocumented in this encounter"
--- OUTSIDE RECORDS SUMMARY | 2024-12-01 14:43 | XMS_ITS | Encounter Summary ---
Author Organization [employer] ([place], [place], [place], [place]) Address [address] [place] [address] Care Team Providers Care Furniture Manager Name Role Phone Unavailable Primary Care Provider Unavailabl e Encounter Details Date Type Department Care Team (Late st Contact Info) Description 09/21/2018 Transcribed Document [facility] [place] Family Medicine [address] [place] [address] ProviderBrayden MD [facility] [place] [address] Social History Tobacco Use Types Packs/Day Years Used Date Smoking Tobacco: Never Assessed Comments Unknown Sex and Gender Information Value Date Recorded Sex Assigned at Not on file Legal Sex Female 2:25 PM CDT Gender Identity Not on file Sexual Orientation Not on file documented as of this encounter Miscellaneous Notes * Cerner Conversion Note - Historical ProviderMD - 09/21/2018 2:00 AM CDT Shift Production Associate Details Entered On: 09/21/2018 7:01 EDT Performed On: 09/21/2018 2:00 EDT by MOOSE SOTO RN Order Details Transport Mode Order Detail : Bed (including specialty) Isolation Precautions Order Detail : Standard Precautions Order Detail : 0 IV Order Detail : 1 Oxygen Order Detail : 1 Nurse Collect Order Detail : 1 Lift/Transfer : Moderate assist Central Line Order Detail : No Room Service : Needs Assistance Arterial Line : No MOOSE SOTO RN - 09/21/2018 7:01 EDT documented in this encounter Plan of Treatment Not on file documented as of this encounter Visit Diagnoses Not on filedocumented in this encounter
--- OUTSIDE RECORDS SUMMARY | 2024-12-01 14:43 | XMS_ITS | Encounter Summary ---
Author Organization [employer] ([place], [place], [place], [place]) Address [address] [place] [address] Care Team Providers Care Cook Syrup Maker Name Role Phone Unavailable Primary Care Provider Unavailabl e Encounter Details Date Type Department Care Team (Late st Contact Info) Description 09/20/2018 Transcribed Document [facility] Critical [facility] Medicine [address] [place] [address] Loki Segundo MD [address] [place], [place] [id number] Social History Tobacco Use Types Packs/Day Years Used Date Smoking Tobacco: Never Assessed Comments Unknown Sex and Gender Information Value Date Recorded Sex Assigned at Not on file Legal Sex Female 2:25 PM CDT Gender Identity Not on file Sexual Orientation Not on file documented as of this encounter Miscellaneous Notes * Cerner Conversion Note - Loki Segundo MD - 09/20/2018 3:17 AM EDT Patient: MAKENNA POP Age: 58 years Sex: Female : 1960 Associated Diagnoses: None Author: LOKI SEGUNDO MD Basic Information Pulmonary Consult Note Requesting MD: Dr. Joseph CC: no complaints Reason for Consult: saddle PE HPI: 58 year old lady transferred here with saddle PE. She has had SOA for 2 weeks. No recent travel, nonsmoker. No lower extre,ity pain orswelling.Yje last few days she hadbeen having sharp chest pain. She presented there with SOA and had a d dimer of 29.3. CT showed saddle PE. ER MD there spokewith vascular surgery here. Patient did have RV strain reportedly. She was transferred here on heparin drip with tentative plans for EKOS this AM. We have also been consulted for PE. PAST MEDICAL HISTORY GERD HTN HL IBS SURGICAL HISTORY spinal surgery MARK carpal tunnel surgery LASHA AIMEE FAMILY HISTORY mom with CHF brother and sister with arrythmias requiring PPM SOCIAL HISTORY nonsmoker, no ETOH or recreational drugs Review of Systems Constitutional: Negative. Eye: Negative. Ear/Nose/Mouth/Throat: Negative. Respiratory: Shortness of breath. Cardiovascular: Chest pain. Gastrointestinal: Negative. Genitourinary: Negative. Hematology/Lymphatics: Negative. Endocrine: Negative. Immunologic: Negative. Musculoskeletal: Negative. Integumentary: Negative. Neurologic: Negative. Psychiatric: Negative. Health Status Allergies: Allergies (1) Active Reaction No Known Medication Allergies None Documented Current medications: (Selected) Inpatient Medications Ordered Normal Saline 1,000 mL: 75 mL/Hr, IntraVENous heparin injection 25,000 Units + NaCl 0.45% Premix Diluent 250 mL: Titrate, IntraVENous Documented Medications Documented Linzess 72 mcg oral capsule: Cap, Oral, Daily, 0 Refill(s) fluticasone furoate 50 mcg inhalation powder: Inhalation, [id number], 0 Refill(s) lisinopril 20 mg oral tablet: Tab, Oral, Daily, 0 Refill(s) meclizine 25 mg oral tablet: 1 Tab, Oral, Daily, 30 Tab, 0 Refill(s) omeprazole: 40 mg, Oral, Daily, 0 Refill(s) oxybutynin 10 mg/24 hr oral tablet, extended release: Tab, Oral, Daily, 0 Refill(s) Problem list: Active Problems (4) GERD - Gastro-esophageal reflux disease HLD - Hyperlipidemia HTN - Hypertension IBS - Irritable bowel syndrome Physical Examination Vitals Signs (last 24 hrs) Last Charted Minimum Maximum Temp 98.5 (SEP 20 00:00) 98.5 (SEP 20 00:00) 98.4 (SEP 19 22:10) Mon HR 92 (SEP 20 01:00) 92 (SEP 20 01:00) 111 (SEP 19 22:10) Resp Rate 17 (SEP 20 01:00) 17 (SEP 20 01:00) H 26 (SEP 19 22:10) SBP 134 (SEP 20 01:00) 134 (SEP 19 22:35) H 159 (SEP 06 22:10) DBP 84 (SEP 20 01:00) 84 (SEP 20 01:00) H 104 (SEP 06 22:10) MAP 102 (SEP 20 01:00) 102 (SEP 20 01:00) 126 (SEP 06 22:10) SpO2 98 (SEP 20 01:00) 97 (SEP 19 22:35) 99 (SEP 06 22:10) No Hemodynamic events found in the last 24 hours. Intake and Output 24 hour intake, 24 hour output VS/Measurements Vitals Signs (last 24 hrs) Last Charted Minimum Maximum Temp 98.5 (SEP 20 00:00) 98.5 (SEP 20 00:00) 98.4 (SEP 19 22:10) Mon HR 92 (SEP 20 01:00) 92 (SEP 20 01:00) 111 (SEP 19 22:10) Resp Rate 17 (SEP 20 01:00) 17 (SEP 20 01:00) H 26 (SEP 06 22:10) SBP 134 (SEP 20 01:00) 134 (SEP 06 22:35) H 159 (SEP 06 22:10) DBP 84 (SEP 20 01:00) 84 (SEP 20 01:00) H 104 (SEP 06 22:10) MAP 102 (SEP 20 01:00) 102 (SEP 20 01:00) 126 (SEP 06 22:10) SpO2 98 (SEP 20 01:00) 97 (SEP 19 22:35) 99 (SEP 19 22:10) Intake & Output Totals Last 24 Hours (7a-7a) Intake (7 Events) Continuous Infusions (247.5103 mL) Output (0 Events) No output events found in the last 24 hours. Input Total: 247.5103 mL Output Total: 0 mL Balance: 247.5103 mL General: Alert and oriented, No acute distress. Eye: Pupils are equal, round and reactive to light, Extraocular movements are intact. HENT: Normocephalic, Normal hearing. Neck: Supple, Non-tender, No carotid bruit, No jugular venous distention. Respiratory: Lungs are clear to auscultation, Breath sounds are equal, No chest wall tenderness. Cardiovascular: Normal rate, Regular rhythm, No murmur, No gallop, Good pulses equal in all extremities, Normal peripheral perfusion, No edema. Gastrointestinal: Soft, Non-tender, Non-distended, Normal bowel sounds. Genitourinary: No costovertebral angle tenderness. Musculoskeletal: Normal range of motion, Normal strength, No swelling. Integumentary: Warm, Dry, Intact. Neurologic: Alert, Oriented, No focal deficits, Cranial Nerves II-XII are grossly intact. Psychiatric: Cooperative, Appropriate mood & affect. Review / Management Results review: Labs (Last four charted values) WBC H 11.4 (SEP 19) HB 12.6 (SEP 19) HCT 39.0 (SEP 19) Plt 206 (SEP 19) Na 141 (SEP 19) K 3.8 (SEP 19) Cl 107 (SEP 19) CO2 28 (SEP 19) BUN 19 (SEP 19) Cr H 1.30 (SEP 19) Glu R H 124 (SEP 19) Ca 8.9 (SEP 19) PT 10.7 (SEP 19) INR 1.0 (SEP 19) AST 17 (SEP 19) ALT 23 (SEP 19) ALK P 107 (SEP 19) T Bili 0.4 (SEP 19) PTN 6.8 (SEP 19) ALB L 3.0 (SEP 19) Troponin C 0.772 (SEP 19) . Impression and Plan Saddle PE w/ RV strain -nonsmoker -no travel -mo known clotting disorders Cardiac -evidence of RV strain on CT -elevated troponin , likely due to PE -Tachycardia -HTN Renal -CARLOS Morbid obesity Prophylaxis -GI/DVT PLAN: supplemental oxygen as needed heparin drip echo Vascular Surgery consulted probable EKOS in the AM will need hypercoagulopathy workup documented in this encounter Plan of Treatment Not on file documented as of this encounter Visit Diagnoses Not on filedocumented in this encounter
--- OUTSIDE RECORDS SUMMARY | 2024-12-01 14:43 | XMS_ITS | Encounter Summary ---
Author Organization [employer] ([place], [place], [place], [place]) Address [address] [place] [address] Care Team Providers Care Sweat Band Sewer Name Role Phone Unavailable Primary Care Provider Unavailabl e Encounter Details Date Type Department Care Team (Late st Contact Info) Description 09/20/2018 Transcribed Document [facility] [place] Family Medicine [address] [place] [address] ProviderBrayden MD [facility] [place] [address] Social History Tobacco Use Types [...] 8:42 AM CDT Pain Assessment Entered On: 09/21/2018 9:31 EDT Performed On: 09/21/2018 10:16 EDT by Gurjit Moncada RN Intervention Information: acetaminophen-HYDROcodone Performed by Gurjit Moncada RN on 09/21/2018 09:16:00 EDT acetaminophen-HYDROcodone,2Tab Oral,Pain (Moderate 4-6) Pain Assessment Pain Assessment : Follow-up assessment Pain Scale Goal : 3 Pain Scale Used : 0-10 Scale Gurjit Moncada RN - 09/21/2018 9:31 EDT Pain Scale Intensity : 5 Gurjit Moncada RN - 09/21/2018 9:31 EDT Image 4 - Images currently included in the form version of this document have not been included in the text rendition version of the form. documented in this encounter Plan of Treatment Not on file documented as of this encounter Visit Diagnoses Not on filedocumented in this encounter
--- OUTSIDE RECORDS SUMMARY | 2024-12-01 14:43 | XMS_ITS | Encounter Summary ---
Author Organization [employer] ([place], [place], [place], [place]) Address [address] [place] [address] Care Team Providers Care Piece Worker Name Role Phone Unavailable Primary Care Provider Unavailabl e Encounter Details Date Type Department Care Team (Late st Contact Info) Description 09/21/2018 Transcribed Document [place] [facility] [place] [address] ProviderBrayden MD [facility] [place] [address] Social History Tobacco Use Types Packs/Day Years Used Date Smoking Tobacco: Never Assessed Comments Unknown Sex and Gender Information Value Date Recorded Sex Assigned at Not on file Legal Sex Female 2:25 PM CDT Gender Identity Not on file Sexual Orientation Not on file documented as of this encounter Miscellaneous Notes * Cerner Conversion Note - Brayden ProviderMD - 09/21/2018 6:59 PM CDT Evaluation, Physical Therapy Entered On: 09/22/2018 10:46 EDT Performed On: 09/22/2018 10:37 EDT by FLAVIO POLANCO, PT General Information, PT Visit Type, PT : Initial evaluation Patient Orders : Order Date Order Ordering 09/21/2018 18:59 Physical Therapy Eval and Treat Ordered By: DENNIS KULKARNI DO Active Diagnoses : No Qualifying Diagnoses Therapy Diagnosis, PT : impaired mobility/function Onset of Problem, PT : 09/19/2018 EDT Admission Date : 09/19/2018 22:06 Co-treated by, PT : Occupational Therapist Personal Devices : Personal Devices No Devices Recorded Assistive Devices : Assistive Devices No Devices Recorded General Information Comment, PT : Patient is a 58 y/o female admitted with a saddle pulmonary embolus. PMH: HTN, HLD, GERD, morbid obiesity. FLAVIO POLANCO, PT - 09/22/2018 10:37 EDT General Status Patient Received Status : Up in chair Treatment Start Time : 09/22/2018 9:07 EDT Patient Left Status : Up in chair, RN/PCT informed RN/PCT Informed Comment : CHRISTOPHER montgomery Treatment End Time : 09/22/2018 9:19 EDT Treatment Time : 12 Minute(s) FLAVIO POLANCO, PT - 09/22/2018 10:37 EDT History and Environment Living Situation, Therapy : Home Patient Lives With : Alone Persons Assisting Patient at Home : Alone Persons Providing Information : Patient Home Equipment Therapy, PT : None Home Setup : One story Stairs : No FLAVIO POLANCO, PT - 09/22/2018 10:37 EDT Prior Level of Function PT GRID Prior LOF Ambulation, Household : Independent Prior LOF Ambulation, Community : Independent Prior LOF Bed Mobility : Independent Prior LOF Toileting : Independent Prior LOF Transfer : Independent FLAVIO POLANCO, PT - 09/22/2018 10:37 EDT Prior LOF Assist with ADL Comment : Patient was completely I prior to admission, did not use AD's. FLAVIO POLANCO, PT - 09/22/2018 10:37 EDT Upper Extremity Right UE Active ROM : WFL Right UE Strength : WFL Left UE Active ROM : WFL Left UE Strength : WFL FLAVIO POLANCO, PT - 09/22/2018 10:37 EDT Lower Extremity RLE Active ROM : WFL Right LE Strength : [facility] LLE Active ROM : WFL Left LE Strength : [facility] FLAVIO POLANCO, PT - 09/22/2018 10:37 EDT Functional Mobility Mobility Grid Sit to Stand : Rehab Minimal assistance Stand to Sit : Supervision/set-up FLAVIO POLANCO, PT - 09/22/2018 10:37 EDT Sit to Stand Device : Belt, gait FLAVIO POLANCO, PT - 09/22/2018 10:37 EDT Gait Training/Assessment, PT Weight Bearing Status Maintained : Yes Weight Bearing Status : Full Gait Assistance Level : Supervision Walking Distance : 350ft Ambulatory Devices : None, Gait belt Gait Deviations : No Gait Training Comment : Patient had good gait posture and form during gait training, at end of gait training patient was fatigued and o2 saturation of 91%. FLAVIO POLANCO, PT - 09/22/2018 10:37 EDT Cognition Assessment, PT Orientation : Oriented x 4 FLAVIO POLANCO, PT - 09/22/2018 10:37 EDT Plan of Care, PT PT Tx Plan/Goals Established w Patient : Yes PT Frequency Rehab : Daily PT Duration Rehab : Other: forteen days or LOS. PT Treatments Planned : Gait training, Safety education, Therapeutic exercises Plan of Care Comment, PT : Patient will benefit from skilled PT in order to build endurance for a safe D/C home. FLAVIO POLANCO, PT - 09/22/2018 10:37 EDT Correction Goals Ambulation LTG Grid Goal #1 Device : None Distance : 500ft. Assist : Independent, complete Date to Meet : 10/06/2018 EDT Goal Status : Intial Goal Comment : o2 sats >92% at end of 500ft of gait training. FLAVIO POLANCO, PT - 09/22/2018 10:37 EDT Treatment Note Subjective Comment : Patient agreeable to PT/OT co-eval. Patient's Response to Treatment : Good, stable vitals. Additional Objective Information : Patient required supervision only today with all mobility. Patient had good gait posture and form during gait training, at end of gait training patient was fatigued and o2 saturation of 91%. patient returned to bedside chair with all needs met and within reach. Assessment : Patient will benefit from skilled PT to build endurance for safe D/C home. Plan for Treatment : See POC. FLAVIO POLANCO, PT - 09/22/2018 10:37 EDT Pain Assessment Pain Scaled Used : 0-10 Pain scale Pain Score During-Intervention : 0 FLAVIO POLANCO PT - 09/22/2018 10:37 EDT Image 1 - Images currently included in the form version of this document have not been included in the text rendition version of the form. Anticipated Discharge Needs, OT/PT Anticipated Discharge to : Home, independently Anticipated D/C Provider Notified : Nursing, Physical Therapy Recommend Continued Therapy at Discharge : No FLAVIO POLANCO, PT - 09/22/2018 10:[address] [facility] Charges PT Eval Low Complexity : 1 FLAVIO POLANCO, PT - 09/22/2018 10:37 EDT documented in this encounter Plan of Treatment Not on file documented as of this encounter Visit Diagnoses Not on filedocumented in this encounter
--- OUTSIDE RECORDS SUMMARY | 2024-12-01 14:43 | XMS_ITS | Encounter Summary ---
Author Organization [employer] ([place], [place], [place], [place]) Address [address] [place] [address] Care Team Providers Care Concrete Boom Operator Name Role Phone Unavailable Primary Care Provider Unavailabl e Encounter Details Date Type Department Care Team (Late st Contact Info) Description 09/20/2018 Transcribed Document [facility] [place] Family Medicine [address] [place] [address] ProviderBrayden MD [facility] [place] [address] Social History Tobacco Use Types Packs/Day Years Used Date Smoking Tobacco: Never Assessed Comments Unknown Sex and Gender Information Value Date Recorded Sex Assigned at Not on file Legal Sex Female 2:25 PM CDT Gender Identity Not on file Sexual Orientation Not on file documented as of this encounter Miscellaneous Notes * Cerner Conversion Note - Historical ProviderMD - 09/20/2018 5:00 AM CDT Chart Check - Review Order Profile Entered On: 09/20/2018 4:14 EDT Performed On: 09/20/2018 5:00 EDT by Edson Cooper Rn Chart Check Powerplans Initiated/Discontinued as Appropriate : Yes All Active Orders Reviewed : Yes Edson Cooper Rn - 09/20/2018 4:14 EDT documented in this encounter Plan of Treatment Not on file documented as of this encounter Visit Diagnoses Not on filedocumented in this encounter
--- OUTSIDE RECORDS SUMMARY | 2024-12-01 14:43 | XMS_ITS | Encounter Summary ---
Author Organization [employer] ([place], [place], [place], [place]) Address [address] [place] [address] Care Team Providers Care Barrel Centerer Name Role Phone Unavailable Primary Care Provider Unavailabl e Encounter Details Date Type Department Care Team (Late st Contact Info) Description 09/20/2018 Transcribed Document [facility] Family Medicine [facility] [place] [address] ProviderBrayden MD [facility] [place] [address] Social History Tobacco Use Types Packs/Day Years Used Date Smoking Tobacco: Never Assessed Comments Unknown Sex and Gender Information Value Date Recorded Sex Assigned at Not on file Legal Sex Female 2:25 PM CDT Gender Identity Not on file Sexual Orientation Not on file documented as of this encounter Miscellaneous Notes * Cerner Conversion Note - Brayden ProviderMD - 09/20/2018 12:14 AM CDT Rapid Response Team Documentation Entered On: 09/20/2018 0:16 EDT Performed On: 09/20/2018 0:14 EDT by PETTY MARTINEZ RN Rapid Response Event Time Rapid Response Team Called : 09/20/2018 0:00 EDT Rapid Response Team Arrival Time : 09/20/2018 0:00 EDT Rapid Response Team Event End Time : 09/20/2018 0:14 EDT Rapid Response Event Intiated By : Hospital Staff Rapid Response Team Initiation Reason : Peripheral IV start Rapid Response Event Location Type : Other: CTVU 6 Rapid Response Team Initiation Reason Details : New PIV on 1st stick after 3 prior attempts. Rapid Response Admission Diagnosis : Other pulmonary embolism with acute cor pulmonale Other pulmonary embolism with acute cor pulmonale Rapid Response Medical Background : GERD - Gastro-esophageal reflux disease (Patient Stated) HLD - Hyperlipidemia (Patient Stated) HTN - Hypertension (Patient Stated) IBS - Irritable bowel syndrome (Patient Stated) Rapid Response Allergies : Substance Category Reactions Severity No Known Medication Allergies Drug Rapid Response Recent Vital Signs : 09/20/2018 00:00 Systolic Blood Pressure 136 09/20/2018 00:00 Diastolic Blood Pressure 100 09/20/2018 00:00 Heart Rate Monitored 98 09/20/2018 00:00 Respiratory Rate 22 09/19/2018 22:10 Temperature, Fahrenheit 98.4 09/20/2018 00:00 Oxygen Saturation 97 Rapid Response Recent Lab Results : 09/19/2018 22:10 Sodium Level 141 (136-146) 09/19/2018 22:10 Potassium Level 3.8 (3.5-5.1) 09/19/2018 22:10 Calcium Level 8.9 (8.4-10.1) 09/19/2018 22:10 Chloride Level 107 (102-112) 09/19/2018 22:10 Carbon Dioxide Level 28 (21-32) 09/19/2018 22:10 Blood Urea Nitrogen 19 (7-22) 09/19/2018 22:10 Creatinine Level HI 1.30 (0.55-1.02) 09/19/2018 22:10 PT 10.7 (9.6-12.0) 09/19/2018 22:10 INR 1.0 (0.9-1.1) 09/19/2018 22:10 Hgb 12.6 (11.2-15.7) 09/19/2018 22:10 Hct 39.0 (34.1-44.9) 09/19/2018 22:10 RBC 4.49 (3.93-5.22) 09/19/2018 22:10 WBC HI 11.4 (4.5-10.5) 09/19/2018 22:10 Platelet Count 206 (163-369) 09/19/2018 22:10 Troponin I Ultra CRIT 0.772 (0.015-0.045) Weight/BMI : Clinical Weight/BMI CLINICALWEIGHT: 151.3 kg (09/19/18 22:05:00) Body Mass Index: 49.3 kg/m2 Critical (09/19/18 22:05:00) Rapid Response Barrel Centerer #1 : PETTY MARTINEZ, RN PETTY MARTINEZ RN - 09/20/2018 0:14 EDT Electronically signed by [facility] Conversion Cloth Baler Cerner at 08/03/2022 9:23 AM CDT documented in this encounter Plan of Treatment Not on file documented as of this encounter Visit Diagnoses Not on filedocumented in this encounter
--- OUTSIDE RECORDS SUMMARY | 2024-12-01 14:43 | XMS_ITS | Encounter Summary ---
Author Organization [employer] ([place], [place], [place], [place]) Address [address] [place] [address] Care Team Providers Care Supervisor Electrolytic Tinning Name Role Phone Unavailable Primary Care Provider Unavailabl e Encounter Details Date Type Department Care Team (Late st Contact Info) Description 09/21/2018 Transcribed Document [facility] Pulm & Critical Care Medicine [address] [place] [address] Loki Segundo MD [address] [place], [place] [id number] Social History Tobacco Use Types Packs/Day Years Used Date Smoking Tobacco: Never Assessed Comments Unknown Sex and Gender Information Value Date Recorded Sex Assigned at Not on file Legal Sex Female 2:25 PM CDT Gender Identity Not on file Sexual Orientation Not on file documented as of this encounter Miscellaneous Notes * Cerner Conversion Note - Loki Segundo MD - 09/21/2018 11:30 AM EDT Patient: MAKENNA POP Age: 58 years Sex: Female : 1960 Associated Diagnoses: None Author: LOKI SEGUNDO MD Basic Information HPI: 58 year old lady transferred here [...] HISTORY nonsmoker, no ETOH or recreational drugs 09/21: Patient is resting in bed on RA pt reports she is doing well and no new issues Review of Systems Constitutional: No fever. Eye: Negative. Ear/Nose/Mouth/Throat: Negative. Respiratory: No shortness of breath. Cardiovascular: No chest pain. Gastrointestinal: No abdominal pain. Genitourinary: Negative. Musculoskeletal: 0back discomfort she attributes to positioning. Integumentary: Negative. Neurologic: Alert and oriented X4. Psychiatric: Negative. Health Status Allergies: Allergic Reactions (Selected) No Known Medication Allergies, Allergies (1) Active Reaction No Known Medication Allergies None Documented Current medications: (Selected) Inpatient Medications Ordered Ativan: 0.5 mg, IV Push, Q4H, PRN: Anxiety [place] 5 mg-325 mg oral tablet: 1 Tab, Oral, Q4H, PRN: Pain (Mild 1-3) Normal Saline 1,000 mL: 35 mL/Hr, IntraCATHeter Normal Saline 1,000 mL: 35 mL/Hr, IntraCATHeter Normal Saline 1,000 mL: 75 mL/Hr, IntraVENous Xarelto: 15 mg, Oral, [id number] acetaminophen-HYDROcodone 325 mg-5 mg oral tablet: 2 Tab, Oral, Q4H, PRN: Pain (Moderate 4-6) alteplase injection 4 mg + Sodium Chloride 0.9% intravenous solution 96 mL: 12.5 mL/Hr, IntraCATHeter alteplase injection 4 mg + Sodium Chloride 0.9% intravenous solution 96 mL: 12.5 mL/Hr, IntraCATHeter atorvastatin: 20 mg, Oral, At Bedtime benzonatate: 100 mg, Oral, TID, PRN: Cough fluticasone nasal: 1 [place], Nasal, BID heparin injection 25,000 Units + NaCl 0.45% Premix Diluent 250 mL: 2.5 mL/Hr, IntraCATHeter heparin injection 25,000 Units + NaCl 0.45% Premix Diluent 250 mL: 2.5 mL/Hr, IntraCATHeter heparin injection 25,000 Units + NaCl 0.45% Premix Diluent 250 mL: Titrate, IntraVENous lisinopril: 20 mg, Oral, Daily morphine: 2 mg, IV Push, Q2H, PRN: Pain (Moderate 4-6) pantoprazole: 40 mg, Oral, Daily Documented Medications Documented Linzess 72 mcg oral capsule: 1 Cap, Oral, Daily, 0 Refill(s) atorvastatin 20 mg oral tablet: 1 Tab, Oral, At Bedtime, 0 Refill(s) benzonatate 100 mg oral capsule: 1 Cap, Oral, TID, PRN: for cough, 42 Cap, 0 Refill(s) fluticasone 50 mcg/inh nasal spray: 1 [place], Nasal, BID, 0 Refill(s) hydroCHLOROthiazide 12.5 mg [...] 1 Tab, Oral, Daily, 0 Refill(s), Medications (18) Active Scheduled: (5) atorvastatin 20 mg tab 20 mg 1 Tab, Oral, At Bedtime fluticasone 0.05% nasal spray 1 [place], Nasal, BID lisinopril 20 mg tab 20 mg 1 Tab, Oral, Daily pantoprazole EC 40 mg tab 40 mg 1 Tab, Oral, Daily rivaroxaban 15 mg tab 15 mg 1 Tab, Oral, [id number] Continuous: (8) alteplase 4 mg + NaCl [...] mL 1,000 mL, IntraCATHeter, 35 mL/Hr PRN: (5) acetaminophen/HYDROcodone 325/5 mg tab 2 Tab, Oral, Q4H acetaminophen/HYDROcodone 325/5 mg tab 1 Tab, Oral, Q4H benzonatate 100 mg cap 100 mg 1 Cap, Oral, TID LORazepam 2 mg/mL inj 0.5 mg 0.25 mL, IV Push, Q4H morphine 2 mg/1 ml inj 2 mg 1 mL, IV Push, Q2H Problem list: All Problems GERD - Gastro-esophageal reflux disease / SNOMED CT 7272394751 / Confirmed HLD - Hyperlipidemia / SNOMED CT 250380143 / Confirmed HTN - Hypertension / SNOMED CT 2052512067 / Confirmed IBS - Irritable bowel syndrome / SNOMED CT 9415230069 / Confirmed, Active Problems (4) GERD - Gastro-esophageal reflux disease HLD - Hyperlipidemia HTN - Hypertension IBS - Irritable bowel syndrome Physical Examination VS/Measurements Vitals Signs (last 24 hrs) Last Charted Minimum Maximum Temp 97.6 (SEP 21 12:00) 97.6 (SEP 21 12:00) 98.6 (SEP 20 16:00) Mon HR 58 (SEP 21 14:00) 55 (SEP 21 12:00) 74 (SEP 20 15:00) Resp Rate L 12 (SEP 21 14:00) L 11 (SEP 21 00:00) 20 (SEP 20 15:00) SBP 130 (SEP 21 14:00) 101 (SEP 21 00:00) H 192 (SEP 21 13:00) DBP L 58 (SEP 21 14:00) L 53 (SEP 21 03:00) H 99 (SEP 20 21:00) MAP 83 (SEP 21 14:00) 75 (SEP 21 03:00) 127 (SEP 20 21:00) SpO2 99 (SEP 21 14:00) 96 (SEP 21 09:00) 100 (SEP 20 17:00) Intake & Output Totals Last 24 Hours (7a-7a) Intake (160 Events) Continuous Infusions (3801.6666 mL) Medications (4.5 mL) Output (12 Events) Berry Catheter (1480 mL) Input Total: 3806.1666 mL Output Total: 1480 mL Balance: 2326.1666 mL General: No acute distress, morbid obese, resting in bed nearly flat. Eye: Pupils are equal, round and reactive to light, Normal conjunctiva. HENT: Normocephalic, Oral mucosa is moist. Neck: Supple, No lymphadenopathy. Respiratory: Lungs are clear to auscultation. Cardiovascular: Normal rate, Regular rhythm, edema. Gastrointestinal: Soft, Non-tender, Non-distended, Normal bowel sounds, obese. Integumentary: Warm, Dry, pale. Neurologic: Alert, Oriented, No focal deficits. Psychiatric: Cooperative, Appropriate mood & affect. Review / Management Results review: Labs (Last four charted values) WBC 7.8 (RICKI 08) 8.2 (RICKI 08) 8.4 (RICKI 07) 8.1 (RICKI 07) HB 11.3 (RICKI 08) 11.3 (RICKI 08) 11.4 (RICKI 07) 11.8 (RICKI 07) HCT 36.6 (RICKI 08) 36.7 (RICKI 08) 36.3 (RICKI 07) 37.0 (RICKI 07) Plt L 151 (RICKI 08) L 153 (RICKI 08) 164 (RICKI 07) 177 (RICKI 07) Na 141 (RICKI 07) 141 (RICKI 06) K 3.8 (RICKI 07) 3.8 (RICKI 06) Cl 109 (RICKI 07) 107 (RICKI 06) CO2 27 (RICKI 07) 28 (RICKI 06) BUN 19 (RICKI 07) 19 (RICKI 06) Cr 1.00 (RICKI 07) H 1.30 (RICKI 06) Glu R 104 (RICKI 07) H 124 (RICIK 06) Ca 8.6 (RICKI 07) 8.9 (RICKI 06) PT 11.4 (RICKI 08) 10.5 (RICKI 08) 10.5 (RICKI 07) 10.5 (RICKI 07) INR 1.1 (RICKI 08) 1.0 (RICKI 08) 1.0 (RICKI 07) 1.0 (RICKI 07) PTT 27.3 (RICKI 08) 25.2 (RICKI 08) 24.4 (RICKI 07) 26.9 (RICKI 07) AST 14 (RICKI 07) 17 (RICKI 06) ALT 20 (SEP 20) 23 (SEP 19) ALK P 95 (SEP 20) 107 (SEP 19) T Bili 0.4 (SEP 20) 0.4 (SEP 19) PTN L 6.1 (SEP 20) 6.8 (SEP 19) ALB L 2.7 (SEP 20) L 3.0 (SEP 19) Troponin C 0.761 (SEP 20) C 0.772 (SEP 19) . Blood Gases (Current Encounter/Past 24 Hours) No Blood Gas Results Found (Past 24 Hours) Radiology Results (Last 48 hours) [id number] -- 09/19/2018 22:06 CR Chest 1 Vw Portable (09/19/2018 23:40) Result: PORTABLE CHEST 09/19/2018 10:05 PM HISTORY: Precordial chest pain.COMPARISON: None.FINDINGS: The heart is normal in size . The mediastinum isunremarkable . The lungs are clear . There is no pneumothorax . Theosseous structures are unremarkable . IMPRESSION: No acute cardiopulmonary process .Images reviewed, interpreted, and dictated by Dr. Josr Fortune.Transcribed by Ivan Perera PA-C.I have personally viewed, interpreted and dictated the examination. Ihave read and agree with the above final transcribed report. RIGHT LEG: No evidence of deep venous thrombosis (DVT) or superficial venous thrombosis. Unable to visualize CFV due to EKOS bandage. LEFT LEG: No evidence of deep venous thrombosis (DVT) or superficial venous thrombosis. Arroyo's cyst: 1.87 x 1.12 cm. No qualifying data available Impression and Plan Acute Saddle PE -RV dysfunction -Nonsmoker and not on any hormonal therapy -No travel; last travel on 08/25. However, she has been immobile over the past few weeks -No known clotting disorders Cardiac -Evidence of RV strain on CT -Elevated troponin , likely due to PE -Tachycardia -HTN Renal -CARLOS Morbid obesity Prophylaxis -GI/DVT PLAN: Supplemental oxygen as needed encourage pulmonary toilet Heparin drip prior now has orders xarelto will need 3-6 mo anticoag TTE; results pending Vascular Surgery consulted post Placement of bilateral pulmonary artery thrombolysis catheters/ EKOS Will need hypercoagulopathy workup, ordered and followup with heme/onc may need longtime anticoagulation due the possibility of the unprovoke PE No new orders Pulmonary will sign off at this time please reconsult if needed documented in this encounter Plan of Treatment Not on file documented as of this encounter Visit Diagnoses Not on filedocumented in this encounter
--- OUTSIDE RECORDS SUMMARY | 2024-12-01 14:43 | XMS_ITS | Encounter Summary ---
Author Organization [employer] ([place], [place], [place], [place]) Address [address] [place] [address] Care Team Providers Care Patient Flow Coordinator Name Role Phone Unavailable Primary Care Provider Unavailabl e Encounter Details Date Type Department Care Team (Late st Contact Info) Description 09/22/2018 Transcribed Document [facility] [place] [facility] [place] [address] [place] [address] ProviderBrayden MD [address] [place] [address] Social History Tobacco Use Types Packs/Day Years Used Date Smoking Tobacco: Never Assessed Comments Unknown Sex and Gender Information Value Date Recorded Sex Assigned at Not on file Legal Sex Female 2:25 PM CDT Gender Identity Not on file Sexual Orientation Not on file documented as of this encounter Miscellaneous Notes * [employer] Conversion Note - Historical ProviderMD - 09/22/2018 2:00 AM CDT Rooming House Inspector Details Entered On: 09/22/2018 1:07 EDT Performed On: 09/22/2018 2:00 EDT by MOOSE SOTO RN Order Details Transport Mode Order Detail : Wheelchair Isolation Precautions Order Detail : Standard Precautions Order Detail : 0 IV Order Detail : 1 Oxygen Order Detail : 0 Nurse Collect Order Detail : 1 Lift/Transfer : Independent Central Line Order Detail : No Room Service : Appropriate Arterial Line : No MOOSE SOTO RN - 09/22/2018 1:07 EDT documented in this encounter Plan of Treatment Not on file documented as of this encounter Visit Diagnoses Not on filedocumented in this encounter
--- OUTSIDE RECORDS SUMMARY | 2024-12-01 14:43 | XMS_ITS | Encounter Summary ---
Author Organization [employer] ([place], [place], [place], [place]) Address [address] [place] [address] Care Team Providers Care Transportation Associate Name Role Phone Unavailable Primary Care Provider Unavailabl e Encounter Details Date Type Department Care Team (Late st Contact Info) Description 09/22/2018 Transcribed Document [facility] [place] Family Medicine [address] [place] [address] ProviderBrayden MD [facility] [place] [address] Social History Tobacco Use Types Packs/Day Years Used Date Smoking Tobacco: Never Assessed Comments Unknown Sex and Gender Information Value Date Recorded Sex Assigned at Not on file Legal Sex Female 2:25 PM CDT Gender Identity Not on file Sexual Orientation Not on file documented as of this encounter Miscellaneous Notes * Cerner Conversion Note - Brayden Bustillo MD - 09/22/2018 1:51 PM CDT Discharge Instructions Entered On: 09/22/2018 13:52 EDT Performed On: 09/22/2018 13:51 EDT by GARRY KEMP MD DC Instructions HWD Diet After Discharge : Heart healthy diet Activity After Discharge : As tolerated Special Instructions : Please return to ER for any new or worsening symptoms. Take your medications as prescribed. Follow-up with PCP with repeat labs in the week. GARRY KEMP MD - 09/22/2018 13:51 EDT documented in this encounter Plan of Treatment Not on file documented as of this encounter Visit Diagnoses Not on filedocumented in this encounter
--- OUTSIDE RECORDS SUMMARY | 2024-12-01 14:43 | XMS_ITS | Encounter Summary ---
Author Organization [employer] ([place], [place], [place], [place]) Address [address] [place] [address] Care Team Providers Care External Grinder Name Role Phone Unavailable Primary Care Provider Unavailabl e Encounter Details Date Type Department Care Team (Late st Contact Info) Description 09/21/2018 Transcribed Document [facility] Family Medicine [facility] [place] [address] ProviderBrayden MD [facility] [place] [address] Social History Tobacco Use Types Packs/Day Years Used Date Smoking Tobacco: Never Assessed Comments Unknown Sex and Gender Information Value Date Recorded Sex Assigned at Not on file Legal Sex Female 2:25 PM CDT Gender Identity Not on file Sexual Orientation Not on file documented as of this encounter Miscellaneous Notes * Cerner Conversion Note - Brayden Bustillo MD - 09/21/2018 4:45 PM CDT Patient: MAKENNA POP Age: 58 years Sex: Female : 1960 Associated Diagnoses: None Author: GARRY KEMP MD Basic Information Patient seen and examined. Reports feeling well. Denies any chest pressure or shortness of breath Denies any nausea, vomiting, diarrhea, fever, chills Health Status Allergies: Allergic Reactions (Selected) No Known Medication Allergies, Allergies (1) Active Reaction No Known Medication Allergies None Documented Current medications: (Selected) Inpatient Medications Ordered Ativan: 0.5 mg, IV Push, Q4H, PRN: Anxiety [place] 5 mg-325 mg oral tablet: 1 Tab, Oral, Q4H, PRN: Pain (Mild 1-3) Normal Saline 1,000 mL: 35 mL/Hr, IntraCATHeter Normal Saline 1,000 mL: 35 mL/Hr, IntraCATHeter Normal Saline 1,000 mL: 75 mL/Hr, IntraVENous Xarelto: 15 mg, Oral, [id number] acetaminophen-HYDROcodone 325 mg-5 mg oral tablet: 2 Tab, Oral, Q4H, PRN: Pain (Moderate 4-6) alteplase injection 4 mg + Sodium Chloride 0.9% intravenous solution 96 mL: 12.5 mL/Hr, IntraCATHeter alteplase injection 4 mg + Sodium Chloride 0.9% intravenous solution 96 mL: 12.5 mL/Hr, IntraCATHeter atorvastatin: 20 mg, Oral, At Bedtime benzonatate: 100 mg, Oral, TID, PRN: Cough fluticasone nasal: 1 [place], Nasal, BID heparin injection 25,000 Units + [...] Refill(s) fluticasone 50 mcg/inh nasal spray: 1 [place], Nasal, BID, 0 Refill(s) hydroCHLOROthiazide 12.5 mg [...] At Bedtime fluticasone 0.05% nasal spray 1 [place], Nasal, BID lisinopril 20 mg tab 20 mg 1 Tab, Oral, Daily pantoprazole EC 40 mg tab 40 mg 1 Tab, Oral, Daily rivaroxaban 15 mg tab 15 mg 1 Tab, Oral, [id number] Continuous: (8) alteplase 4 mg + NaCl [...] 24 hrs) Last Charted Minimum Maximum Temp 98.1 (SEP 21 16:00) 97.6 (SEP 21 12:00) 98.6 (SEP 20 20:00) Mon HR 71 (SEP 21 16:00) 55 (SEP 21 12:00) 73 (SEP 20 22:00) Resp Rate 19 (SEP 21 16:00) L 11 (SEP 21 00:00) 19 (SEP 21 16:00) SBP 109 (SEP 21 16:00) 101 (SEP 21 00:00) H 192 (SEP 21 13:00) DBP 68 (SEP 21 16:00) L 53 (SEP 21 03:00) H 99 (SEP 20 21:00) MAP 80 (SEP 21 16:00) 75 (SEP 21 03:00) 127 (SEP 20 21:00) SpO2 94 (SEP 21 16:00) 94 (SEP 21 16:00) 100 (SEP 20 17:00) , Measurements from flowsheet : Measurements 09/21/2018 7:07 EDT Height Source Estimated Height Entry Format [place] Height/Length, [place] (ft) 5 ft Height/Length [place] 9 Inch CLINICALHEIGHT 175.26 cm Routine Weight Source Bed scale Routine Weight Entry Format Metric Routine Weight, Kilograms 153.4 kg Routine Weight Calculation 153.4 kg Body Mass Index (BMI), Routine 49.94 kg/m2 Body Surface Area (BSA), Routine 2.58 m2 General: Alert and oriented, No acute distress, Patient is morbidly obese. Eye: Extraocular movements are intact, Normal conjunctiva. HENT: Normocephalic, Normal hearing. Respiratory: Lungs are clear to auscultation, Respirations are non-labored, Breath sounds are equal. Cardiovascular: Normal rate, Regular rhythm, No murmur, No edema. Gastrointestinal: Soft, Non-tender, Non-distended. Musculoskeletal: Normal range of motion, No swelling. Integumentary: Warm, No pallor, No rash. Neurologic: Alert, Oriented, No focal deficits. Psychiatric: Cooperative, Appropriate mood & affect. Review / Management Results review: Labs (Last four charted values) WBC 8.9 (SEP 21) 7.8 (SEP 21) 8.2 (SEP 21) 8.4 (SEP 20) HB 11.2 (SEP 08) 11.3 (SEP 08) 11.3 (SEP 08) 11.4 (SEP 07) HCT 35.4 (SEP 08) 36.6 (SEP 08) 36.7 (SEP 08) 36.3 (SEP 20) Plt 163 (SEP 08) L 151 (SEP 08) L 153 (SEP 08) 164 (SEP 07) Na 141 (SEP 07) 141 (SEP 06) K 3.8 (SEP 07) 3.8 (SEP 06) Cl 109 (SEP 07) 107 (SEP 06) CO2 27 (SEP 07) 28 (SEP 06) BUN 19 (SEP 07) 19 (SEP 06) Cr 1.00 (SEP 07) H 1.30 (SEP 06) Glu R 104 (SEP 07) H 124 (SEP 06) Ca 8.6 (SEP 07) 8.9 (SEP 06) PT 11.9 (SEP 08) 11.4 (SEP 08) 10.5 (SEP 08) 10.5 (SEP 07) INR 1.1 (SEP 08) 1.1 (SEP 08) 1.0 (SEP 08) 1.0 (SEP 20) PTT 30.2 (SEP 08) 27.3 (SEP 08) 25.2 (SEP 08) 24.4 (SEP 07) AST 14 (SEP 20) 17 (SEP 19) ALT 20 (SEP 20) 23 (SEP 19) ALK P 95 (SEP 07) 107 (SEP 19) T Bili 0.4 (SEP 07) 0.4 (SEP 06) PTN L 6.1 (SEP 07) 6.8 (SEP 06) ALB L 2.7 (SEP 07) L 3.0 (SEP 06) Troponin C 0.761 (SEP 20) C 0.772 (SEP 19) . Impression and Plan Acute saddle PE w/ evidence of RV strain - CT: large central pulmonary emboli bilaterally with saddle PE, mild prominence of pulmonary arteries suggestive of PAH, mild dilation of RV -s/p EKOS, EKOS catheters DCed today without incident and started on Xarelto per Vascular surgery today -send partial hypercoag w/u; cannot do complete while on anticoagulation Elevated troponin, 2/2 PE - Trop 0.77 Acute kidney injury, likely prerenal - resolved Morbid Obesity, complicating all aspects of care. BMI: 49.3 Hypertension - hold ACEi, HCTZ for now Hyperlipidemia - resume statin GERD - continue home PPI Mod/high risk due to large clot burden and potential for hemodynamic compromise Transfer out of [facility]VU when okay with vascular surgery Follow-up echocardiogram documented in this encounter Plan of Treatment Not on file documented as of this encounter Visit Diagnoses Not on filedocumented in this encounter
--- OUTSIDE RECORDS SUMMARY | 2024-12-01 14:43 | XMS_ITS | Encounter Summary ---
Author Organization [employer] ([place], [place], [place], [place]) Address [address] [place] [address] Care Team Providers Care Inspector Firearms Name Role Phone Unavailable Primary Care Provider Unavailabl e Encounter Details Date Type Department Care Team (Late st Contact Info) Description 09/22/2018 Transcribed Document [facility] [place] [facility] [place] [address] ProviderBrayden MD [facility] [place] [address] Social History Tobacco Use Types Packs/Day Years Used Date Smoking Tobacco: Never Assessed Comments Unknown Sex and Gender Information Value Date Recorded Sex Assigned at Not on file Legal Sex Female 2:25 PM CDT Gender Identity Not on file Sexual Orientation Not on file documented as of this encounter Miscellaneous Notes * Cerner Conversion Note - Brayden Bustillo MD - 09/22/2018 2:10 PM CDT [facility] [place] [address] MAKENNA POP :1960 Visit Time:09/19/2018 Your Visit Summary Your Care Team Admitting Physician - DENNIS KULKARNI, Attending Physician - DENNIS KULKARNI, DO Primary Care Physician - SANDER, UNKNOWN Referring Physician - DENNIS KULKARNI, DO Your Diagnosis Other pulmonary embolism with acute cor pulmonale, Other pulmonary embolism with acute cor pulmonale Pulmonary embolism Discharge Vitals Heart Rate (Monitored) 66 Respiratory Rate 21 Blood Pressure 109/66 What to do next Follow-Up Appointments Follow Up with Please arrange follow-up with hematology/ oncology for hypercoagulability workup for unprovoked PE. When Within 2 to 4 weeks Follow Up with Follow up with primary care provider When Within 1 week Follow Up with MARGY GONSALEZ When Within 1 month Where: [address] [place] [address]- Business (1) Medications What How Much When Instructions Next Dose rivaroxaban (Xarelto Starter Pack 15 mg-20 mg oral kit) See instructions Take as directed Pickup at [facility] linaclotide (Linzess 72 mcg oral capsule) 1 Capsule(s) Oral Every Day lisinopril (lisinopril 20 mg oral tablet) 1 Tablet(s) Oral Every Day meclizine (meclizine 25 mg oral tablet) 1 Tablet(s) Oral Two Times A Day as needed for for dizziness oxybutynin (oxybutynin 10 mg/ 24 hr oral tablet, extended release) 1 Tablet(s) Oral Every Day atorvastatin (atorvastatin 20 mg oral tablet) 1 Tablet(s) Oral At Bedtime benzonatate (benzonatate 100 mg oral capsule) 1 Capsule(s) Oral Three Times A Day as needed for for cough fluticasone nasal (fluticasone 50 mcg/ inh nasal spray) 1 [place](s) Nasal Two Times A Day hydroCHLOROthiazide (hydroCHLOROthiazide 12.5 mg oral capsule) 1 Capsule(s) Oral Every Day omeprazole (omeprazole 40 mg oral delayed release capsule) 1 Capsule(s) Oral Every Day before a meal Pharmacy Information [facility]: [address] [address] [phone] Take your medications faithfully. Do NOT skip medication. Do NOT stop taking medications without the direction of a physician. Carry a list of your medications with you at all times, and take this medication list with you to your first follow up visit. Report any side effects. Avoid herbal remedies unless discussed with your physician. As part of your treatment plan, your physician may have prescribed a limited course of a controlled substance. This medication may be given to help people with moderate or severe pain or for other medical conditions, but there are risks involved with treatment. Common side effects may include nausea, constipation, drowsiness, sweating, itching, dry mouth, and rash. More serious side effects may include cognitive and motor impairment, like problems with thinking, concentrating, alertness, and movement (e.g. slowed reflexes), and driving and operating heavy machinery can be dangerous. It is important for you to talk to your physician if you have these side effects or questions. These controlled substances can produce physical dependence and be habit-forming if taken for an extended period of time, which means that the body has gotten used to them and may experience withdrawal symptoms if they are abruptly stopped. Withdrawal symptoms can include runny nose, sweating, goose bumps, diarrhea, abdominal cramping, rapid heartbeat, difficulty sleeping, and nervousness. Please dispose of unused and medications per your retail pharmacy guidance. Allergies No Known Medication Allergies Immunizations This Visit No Immunizations Found Stroke/TIA Instructions Individualized Stroke Risk Factors Individualized Stroke Risk Factors *Q: High cholesterol, Hypertension/High blood pressure, Obesity Stroke/TIA Signs/Symptoms to Report Immediately: Sudden onset difficulty speaking, Sudden onset difficulty understanding speech, Sudden onset change in vision, Sudden onset weakness particulary on one side of the body, Sudden onset numbness/tingling, Sudden severe headache, Sudden dizziness or trouble with gait, Call : EMS activation is crucial Mutually Agreed Upon Goals My LDL Level: My LDL Level: Education [employer] Pulmonary Embolism A pulmonary embolism (PE) is [...] other side effects. General instructions ??? Take ixsd-hgq-[id number] and prescription medicines only as told by [...] health care provider if you should wear vajtj-tar-tege compression stockings. ??? Avoid sitting or lying [...] 03/30/2001 Document Revised: 05/05/2017 Document Reviewed: 05/05/2017 [employer] Patient Education ?? 2019 [employer]. rivaroxaban (ANGELICA a ERNESTO a ban) Xarelto What is the most important information I should know about rivaroxaban? Do not stop taking rivaroxaban without first talking to your doctor. Stopping suddenly can increase your risk of blood clot or stroke. Call your doctor at once if you have signs of bleeding such as: headaches, feeling very weak or dizzy, bleeding gums, nosebleeds, heavy menstrual periods or abnormal vaginal bleeding, blood in your urine, bloody or tarry stools, coughing up blood or vomit that looks like coffee grounds. Many other drugs can increase your risk of bleeding when used with rivaroxaban. Tell your doctor about all medicines you have recently used. Rivaroxaban can cause a very serious blood clot around your spinal cord if you undergo a spinal tap or receive spinal anesthesia (epidural). Tell any doctor who treats you that you are taking rivaroxaban. What is rivaroxaban? Rivaroxaban is used to treat or prevent blood clots in the legs (deep vein thrombosis) or in the lungs (pulmonary embolism). These types of blood clots can occur after knee or hip replacement surgery. Rivaroxaban is sometimes used to lower your risk of a blood clot coming back after you have received treatment for blood clots for at least 6 months. Rivaroxaban is also used in people with atrial fibrillation (a heart rhythm disorder) to lower the risk of stroke caused by a blood clot. Rivaroxaban is also given together with aspirin to lower the risk of stroke, heart attack, or other serious heart problems in people with coronary artery disease (decreased blood flow to the heart) or peripheral artery disease (decreased blood flow to the legs). Rivaroxaban may also be used for purposes not listed in this medication guide. What should I discuss with my healthcare provider before taking rivaroxaban? You should not use rivaroxaban if you are allergic to it, or if you have active or uncontrolled bleeding. Rivaroxaban can cause a very serious blood clot around your spinal cord if you undergo a spinal tap or receive spinal anesthesia (epidural). This type of blood clot could cause long-term paralysis, and may be more likely to occur if: ? you have a genetic spinal defect; ?? you have a spinal catheter in place; ?? you have a history of spinal surgery or repeated spinal taps; ?? you have recently had a spinal tap or epidural anesthesia; ?? you are taking an NSAID--Advil, Aleve, Motrin, and others; or ?? you are using other medicines to treat or prevent blood clots. Rivaroxaban may cause you to bleed more easily, especially if you have: ? a bleeding disorder that is inherited or caused by disease; ?? hemorrhagic stroke; ?? uncontrolled high blood pressure; ?? stomach or intestinal bleeding or ulcer; or ?? if you take certain medicines such as aspirin, enoxaparin, heparin, warfarin (Coumadin, Jantoven), clopidogrel (Plavix), or certain antidepressants. Tell your doctor if you have ever had: ? an artificial heart valve; or ?? liver or kidney disease. Taking rivaroxaban during may cause bleeding in the mother or the unborn baby. Tell your doctor if you are or plan to become . It may not be safe to breast-feed a baby while you are using this medicine. Ask your doctor about any risks. How should I take rivaroxaban? Follow all directions on your prescription label and read all medication guides or instruction sheets. Your doctor may occasionally change your dose. Use the medicine exactly as directed. The number of times you take rivaroxaban each day will depend on the reason you are using this medication. For some conditions, rivaroxaban should be taken with food. Whether you take the medicine with or without food may also depend on the tablet strength you take. Follow your doctor's dosing instructions very carefully. Tell your doctor if you have trouble swallowing a rivaroxaban tablet. Tell any doctor who treats you that you are using rivaroxaban. If you need surgery or dental work, tell the surgeon or dentist ahead of time that you are using this medication. If you need anesthesia for a medical procedure or surgery, you may need to stop using rivaroxaban for a short time. Do not change your dose or stop taking this medication without first talking to your doctor. Stopping suddenly can increase your risk of blood clot or stroke. Store at room temperature away from moisture and heat. What happens if I miss a dose? If you take rivaroxaban 1 time each day: Take the medicine as soon as you remember, and then go back to your regular schedule. Do not take two doses at one time. If you take rivaroxaban 2 times each day: Take the missed dose on the same day you remember it. You may take 2 doses at the same time to make up a missed dose. Get your prescription refilled before you run out of medicine completely. What happens if I overdose? Seek emergency medical attention or call the Poison Help line at . Overdose may cause excessive bleeding. What should I avoid while taking rivaroxaban? Avoid activities that may increase your risk of bleeding or injury. Use extra care to prevent bleeding while shaving or brushing your teeth. What are the possible side effects of rivaroxaban? Get emergency medical help if you have signs of an allergic reaction: hives; difficult breathing; swelling of your face, lips, tongue, or throat. Also seek emergency medical attention if you have symptoms of a spinal blood clot: back pain, numbness or muscle weakness in your lower body, or loss of bladder or bowel control. Rivaroxaban can cause you to bleed more easily. Call your doctor at once if you have signs of bleeding such as: ? easy bruising or bleeding (nosebleeds, bleeding gums, heavy menstrual bleeding); ?? pain, swelling, new drainage, or excessive bleeding from a wound or where a needle was injected in your skin; ?? any bleeding that will not stop; ?? headaches, dizziness, weakness, feeling like you might pass out; ?? urine that looks red, pink, or brown; or ?? bloody or tarry stools, coughing up blood or vomit that looks like coffee grounds. Bleeding is the most common side effect of rivaroxaban. This is not a complete list of side effects and others may occur. Call your doctor for medical advice about side effects. You may report side effects to FDA at 2-768-GZT-5106. What other drugs will affect rivaroxaban? Sometimes it is not safe to use certain medications at the same time. Some drugs can affect your blood levels of other drugs you take, which may increase side effects or make the medications less effective. Other drugs may affect rivaroxaban, including prescription and pxqu-sev-vjdxqtg medicines, vitamins, and herbal products. Tell your doctor about all your current medicines and any medicine you start or stop using. Where can I get more information? Your pharmacist can provide more information about rivaroxaban. Remember, keep this and all other medicines out of the reach of children, never share your medicines with others, and use this medication only for the indication prescribed. Every effort has been made to ensure that the information provided by [employer]. ('[employer]') is accurate, up-to-date, and complete, but no guarantee is made to that effect. Drug information contained herein may be time sensitive. [employer] information has been compiled for use by healthcare practitioners and consumers in the [place] and therefore [employer] does not warrant that uses outside of the [place] are appropriate, unless specifically indicated otherwise. [employer] drug information does not endorse drugs, diagnose patients or recommend therapy. [employer] drug information is an informational resource designed to assist licensed healthcare practitioners in caring for their patients and/or to serve consumers viewing this service as a supplement to, and not a substitute for, the expertise, skill, knowledge and judgment of healthcare practitioners. The absence of a warning for a given drug or drug combination in no way should be construed to indicate that the drug or drug combination is safe, effective or appropriate for any given patient. [employer] does not assume any responsibility for any aspect of healthcare administered with the aid of information [employer] provides. The information contained herein is not intended to cover all possible uses, directions, precautions, warnings, drug interactions, allergic reactions, or adverse effects. If you have questions about the drugs you are taking, check with your doctor, nurse or pharmacist. Copyright 3331-8066 [employer]. Version: 6.01. Revision Date: 02/06/2018. Emergency Awareness and Preventative Care STROKE is an EMERGENCY Every Minute Counts Act FAST and Check for these signs: FACE Does the face look uneven? ARM Does one arm drift down? SPEECH Does their speech sound strange? TIME Call at any sign of stroke Stroke Risk Factors Atrial Fibrillation (irregular heartbeat) Diabetes Family history of stroke Heart Disease Heavy alcohol use High Blood Pressure High Cholesterol Physical inactivity and obesity Smoking Cigarette Smoking The facts are clear, cigarette smoking will shorten your life. Smoking can cause many illnesses along the way. As a healthcare provider, we recommend that you stop smoking. Assistance with quitting is available by contacting 2-217-RHAL-NOW. This is a free resource providing counseling, support, and referral. Or you may contact your personal physician. [place] Suicide Prevention Lifeline: The National Suicide Prevention Lifeline is a national network of local crisis centers that provides free and confidential emotional support to people in suicidal crisis or emotional distress 24 hours a day, 7 days a week. Don't Wait! Stop a Heart Attack Before it Starts What is a heart attack? A heart attack is damage or to a part of the heart from severely decreased or lack of blood flow to the heart. Over time, arteries can become narrow from the buildup of fat and cholesterol, which is called plaque. The plaque can rupture causing a blood clot to form. When the blood clot forms, the artery can become severely narrowed or completely blocked, causing a heart attack. Heart attack is the leading cause of in the [place]. 85% of muscle damage occurs within the first 2 hours. Delay in the recognition of heart attack symptoms increases the chances of . Know the early symptoms of a heart attack: Nausea Feeling of fullness in chest Jaw Pain Pain that travels down one or both arms Fatigue/being tired Anxiety Back Pain Chest pressure, squeezing, or discomfort Shortness of breath Sweating, or a cold sweat Feeling of impending doom There are unusual signs of a heart attack, too! Women, the elderly, and diabetics may present with atypical symptoms: Fainting/dizziness Weakness Confusion Risk Factors for a Heart Attack Some heart disease risk factors, such as age and family history, cannot be changed. Others, like smoking and lack of exercise, can be changed. Smoking High Cholesterol High Blood Pressure Family History Obesity Age Gender (Males are at higher risk) Lack of Exercise Diabetes Diet Stress Excessive Alcohol Intake If you or someone you know is experiencing the signs and symptoms of a heart attack, DON???T DELAY. Call immediately and seek help. If someone collapses, perform CPR! Do not attempt to drive if you are having symptoms of heart attack. Hands-Only CPR Why Hands-Only CPR? Hands-Only CPR has been shown to be as effective as conventional CPR for cardiac arrests that occur outside of a hospital. Survival depends on immediately receiving CPR from someone nearby. How do you perform Hands-Only CPR? There are two easy steps: Call if you see a teen or adult collapse Push hard and fast in the center of the chest at a beat of 100 beats per minute. Save a life! 4 WAYS TO GET AHEAD OF SEPSIS SEPSIS is a MEDICAL EMERGENCY. Time matters! Infections put you and your family at risk for a life-threatening condition called sepsis. Sepsis is the body's extreme response to an infection. It is life-threatening, and without timely treatment, sepsis can rapidly lead to tissue damage, organ failure, and . Sepsis happens when an infection you already have-in your skin, lungs, urinary tract or somewhere else-triggers a chain reaction throughout your body. 1 PREVENT INFECTIONS Take good care of chronic conditions. Talk to your doctor about getting the recommended vaccines. 2 PRACTICE GOOD HYGIENE Wash your hands frequently. Keep cuts or open sores clean and covered until they are healed. 3 KNOW THE SYMPTOMS Confusion or disorientation Shortness of breath High heart rate Fever, shivering, or feeling very cold Extreme pain or discomfort Clammy or sweaty skin 4 ACT FAST Get medical care IMMEDIATELY if you suspect sepsis or if you have an infection that is not getting better or is getting worse. To learn more about sepsis and how to prevent infections, visit www.cdc.gov/sepsis. Patient Portal Reminder: Be sure to sign up for the [employer] patient portal, which gives you 06/11 access to your medical information ??? including these discharge instructions ??? using your computer, smartphone, or tablet. Just go to [employer] to get started. Questions? Call . Test Results Laboratory or Other Results This Visit (last charted value for your 09/19/2018 visit) Hematology 09/22/18 09:03:00 WBC: 7.7 K/uL -- Normal range between ( 4.5 and 10.5 ) RBC: 3.92 Million/uL -- Normal range between ( 3.93 and 5.22 ) Hct: 34.9 % -- Normal range between ( 34.1 and 44.9 ) Hgb: 11.0 g/dL -- Normal range between ( 11.2 and 15.7 ) Platelet Count: 154 K/uL -- Normal range between ( 163 and 369 ) MCH: 28.1 pg -- Normal range between ( 25.6 and 32.2 ) MCHC: 31.5 Gram/dL -- Normal range between ( 32.2 and 36.5 ) MCV: 89.0 fL -- Normal range between ( 79.0 and 94.8 ) Slide Review: No Eos %: 1.3 % -- Normal range between ( 0.0 and 7.0 ) [place] #: 0.24 K/uL -- Normal range between ( 0.16 and 1.00 ) Eos #: 0.10 x10(3)/uL -- Normal range between ( 0.00 and 0.80 ) [place] %: 3.1 % -- Normal range between ( 3.0 and 9.0 ) Baso %: 0.3 % -- Normal range between ( 0.0 and 1.5 ) Baso #: 0.02 x10(3)/uL -- Normal range between ( 0.00 and 0.20 ) RDW: 15.7 % -- Normal range between ( 11.7 and 14.9 ) Neut %: 69.4 % -- Normal range between ( 34.0 and 71.0 ) Neut #: 5.36 K/uL -- Normal range between ( 1.56 and 6.13 ) Lymph %: 25.1 % -- Normal range between ( 19.3 and 53.1 ) Lymph #: 1.94 x10(3)/uL -- Normal range between ( 1.00 and 3.90 ) MPV: 9.8 fL -- Normal range between ( 9.4 and 12.4 ) IG#: 0.06 x10(3)/uL -- Normal range between ( 0.00 and 0.05 ) IG%: 0.80 % -- Normal range between ( 0.00 and 0.60 ) General Chemistry 09/22/18 06:16:00 Creatinine Level: 1.10 mg/dL -- Normal range between ( 0.55 and 1.02 ) Sodium Level: 141 mmol/L -- Normal range between ( 136 and 146 ) Potassium Level: 4.4 mmol/L -- Normal range between ( 3.5 and 5.1 ) Chloride Level: 111 mmol/L -- Normal range between ( 102 and 112 ) Carbon Dioxide Level: 28 mmol/L -- Normal range between ( 21 and 32 ) Anion Gap: 6 -- Normal range between ( 9 and 20 ) Bilirubin Total: 0.7 mg/dL -- Normal range between ( 0.2 and 1.2 ) A/G Ratio: 0.8 -- Normal range between ( 1.1 and 2.5 ) ALT: 16 Units/Liter -- Normal range between ( 13 and 56 ) AST: 13 Units/Liter -- Normal range between ( 5 and 37 ) Globulin: 3.2 Gram/dL -- Normal range between ( 1.5 and 4.5 ) Alk Phos: 81 Units/Liter -- Normal range between ( 27 and 136 ) Bun/Creatinine: 15.5 -- Normal range between ( 8.0 and 20.0 ) Calcium Level: 8.4 mg/dL -- Normal range between ( 8.4 and 10.1 ) eGFR : >60 mL/min/1.73m2 eGFR NonAfrican: 51 mL/min/1.73m2 Glucose Level: 86 mg/dL -- Normal range between ( 74 and 106 ) Blood Urea Nitrogen: 17 mg/dL -- Normal range between ( 7 and 22 ) Protein Total: 5.6 Gram/dL -- Normal range between ( 6.4 and 8.2 ) Albumin Level: 2.4 Gram/dL -- Normal range between ( 3.4 and 5.0 ) 09/20/18 04:11:00 Magnesium Level: 2.3 mg/dL -- Normal range between ( 1.5 and 2.4 ) Cardiac Specific Markers 09/20/18 15:53:00 Homocysteine: 9.9 uMol/L -- Normal range between ( 3.2 and 10.7 ) 09/20/18 04:11:00 Troponin I Ultra: 0.761 ng/mL -- Normal range between ( 0.015 and 0.045 ) 09/19/18 22:10:00 ProBNP: 337 pg/mL -- Normal range between ( 0 and 125 ) Coagulation 09/22/18 09:03:00 Fibrinogen Level: 386 mg/dL -- Normal range between ( 165 and 365 ) INR: 1.3 -- Normal range between ( 0.9 and 1.1 ) PTT: 34.1 Second(s) -- Normal range between ( 22.0 and 32.0 ) PT: 14.1 Second(s) -- Normal range between ( 9.6 and 12.0 ) 09/20/18 09:34:00 PTT Heparin: 73.7 Second(s) -- Normal range between ( 45.0 and 65.0 ) 09/19/18 22:10:00 D Dimer Quant: See Comment mg/L FEU -- Normal range between ( 0.00 and 0.58 ) Endocrinology 09/19/18 22:10:00 Procalcitonin: <0.25 ng/mL -- Normal range between ( 0.00 and 2.00 ) Lab Miscellaneous 09/21/18 15:11:00 [facility] Test Code: 124006 [facility] Test Name: Protein S Ag Diagnostic Radiology 09/19/18 23:40:00 CR Chest 1 Vw Portable: CR Chest 1 Vw Portable Echo 09/21/18 09:41:13 EC Echo Complete: EC Echo Complete Vascular Ultrasound 09/20/18 09:40:49 VL Veins LE Duplex BILAT: VL Veins LE Duplex BILAT Patient Name:MAKENNA POP I have received and understand this information and was given the opportunity to ask questions. Patient/Tray Checker Name: Patient/Tray Checker Signature: Relationship to Patient: Clinician/Hospital Tray Checker Signature: Date: Electronically signed by [facility] [employer] Counterperson German at 08/03/2022 9:08 AM CDT documented in this encounter Plan of Treatment Not on file documented as of this encounter Visit Diagnoses Not on filedocumented in this encounter
--- OUTSIDE RECORDS SUMMARY | 2024-12-01 14:43 | XMS_ITS | Encounter Summary ---
Author Organization [employer] ([place], [place], [place], [place]) Address [address] [place] [address] Care Team Providers Care Lump Room Supervisor Name Role Phone Unavailable Primary Care Provider Unavailabl e Encounter Details Date Type Department Care Team (Late st Contact Info) Description 09/20/2018 Transcribed Document [facility] [place] Family Medicine [address] [place] [address] ProviderBrayden MD [address] [place] [address] Social History Tobacco Use Types Packs/Day Years Used Date Smoking Tobacco: Never Assessed Comments Unknown Sex and Gender Information Value Date Recorded Sex Assigned at Not on file Legal Sex Female 2:25 PM CDT Gender Identity Not on file Sexual Orientation Not on file documented as of this encounter Miscellaneous Notes * Cerner Conversion Note - Brayden ProviderMD - 09/20/2018 9:42 AM CDT Patient: MAKENNA POP Age: 58 years Sex: Female : 1960 Associated Diagnoses: None Author: ANITA HERNANDEZ MD Basic Information Pulmonary Consult Note Requesting [...] Neurologic: Negative. Psychiatric: Negative. Health Status Allergies: Allergic Reactions (Selected) No Known Medication Allergies, Allergies (1) Active Reaction No Known Medication Allergies None Documented Current medications: (Selected) Inpatient Medications Ordered Ativan: 0.5 mg, IV Push, Q4H, PRN: Anxiety [place] 5 mg-325 mg oral tablet: 1 Tab, [...] Oral, TID, PRN: Cough fluticasone nasal: 1 Tatamy, Nasal, BID heparin injection 25,000 Units + [...] Refill(s) fluticasone 50 mcg/inh nasal spray: 1 Tatamy, Nasal, BID, 0 Refill(s) hydroCHLOROthiazide 12.5 mg [...] 1 Tab, Oral, Daily, 0 Refill(s), Medications (16) Active Scheduled: (3) atorvastatin 20 mg tab 20 mg 1 Tab, Oral, At Bedtime fluticasone 0.05% nasal spray 1 Tatamy, Nasal, BID pantoprazole EC 40 mg tab 40 mg 1 Tab, Oral, Daily Continuous: (8) alteplase 4 mg + NaCl [...] 24 hrs) Last Charted Minimum Maximum Temp 98.6 (SEP 20 16:00) 98.6 (SEP 20 16:00) 98.4 (SEP 19 22:10) Mon HR 65 (SEP 20 16:00) 57 (SEP 20 13:00) 111 (SEP 19 22:10) Resp Rate L 13 (SEP 20 16:00) L 10 (SEP 20 13:15) H 27 (SEP 20:15) SBP 116 (SEP 20 16:00) 116 (SEP 20 16:00) H 180 (SEP 20 13:00) DBP 76 (SEP 20 16:00) 60 (SEP 20 14:00) H 104 (SEP 19 22:10) MAP 91 (SEP 20 16:00) 82 (SEP 20 14:00) 126 (SEP 19 22:10) SpO2 99 (SEP 20 16:00) L 93 (SEP 20 09:30) 100 (SEP 20 11:15) No Hemodynamic events found in the last 24 hours. Intake and Output 24 hour intake, 24 hour output VS/Measurements Vitals Signs (last 24 hrs) Last Charted Minimum Maximum Temp 98.6 (SEP 20 16:00) 98.6 (SEP 20 16:00) 98.4 (SEP 19 22:10) Mon HR 65 (SEP 20 16:00) 57 (SEP 20 13:00) 111 (SEP 19 22:10) Resp Rate L 13 (SEP 20 16:00) L 10 (SEP 20 13:15) H 27 (SEP 20 10:15) SBP 116 (SEP 20 16:00) 116 (SEP 20 16:00) H 180 (SEP 20 13:00) DBP 76 (SEP 20 16:00) 60 (SEP 20 14:00) H 104 (SEP 19 22:10) MAP 91 (SEP 20 16:00) 82 (SEP 20 14:00) 126 (SEP 19 22:10) SpO2 99 (SEP 20 16:00) L 93 (SEP 20 09:30) 100 (SEP 20 11:15) Intake & Output Totals Last 24 Hours (7a-7a) Intake (9 Events) Continuous Infusions (326.4303 mL) Output (0 Events) No output events found in the last 24 hours. Input Total: 326.4303 mL Output Total: 0 mL Balance: 326.4303 mL General: Alert and oriented, No acute [...] review: Labs (Last four charted values) WBC 8.1 (SEP 20) 8.6 (SEP 20) 9.6 (SEP 07) H 11.4 (SEP 06) HB 11.8 (SEP 07) 11.9 (SEP 07) 11.6 (SEP 07) 12.6 (SEP 06) HCT 37.0 (SEP 07) 37.0 (SEP 07) 34.9 (SEP 07) 39.0 (SEP 06) Plt 177 (SEP 07) 168 (RICKI 07) 183 (SEP 07) 206 (SEP 06) Na 141 (SEP 07) 141 (RICKI 06) K 3.8 (SEP 07) 3.8 (SEP 06) Cl 109 (SEP 07) 107 (SEP 06) CO2 27 (RICKI 07) 28 (SEP 19) BUN 19 (SEP 20) 19 (SEP 19) Cr 1.00 (SEP 20) H 1.30 (SEP 19) Glu R 104 (SEP 20) H 124 (SEP 19) Ca 8.6 (SEP 20) 8.9 (SEP 19) PT 10.5 (SEP 20) 10.7 (SEP 20) 10.7 (SEP 19) INR 1.0 (SEP 20) 1.0 (SEP 20) 1.0 (SEP 19) PTT 26.9 (SEP 20) H 75.1 (SEP 20) AST 14 (SEP 20) 17 (SEP 19) ALT 20 (SEP 20) 23 (SEP 19) ALK P 95 (SEP 20) 107 (SEP 19) T Bili 0.4 (SEP 20) 0.4 (SEP 19) PTN L 6.1 (SEP 20) 6.8 (SEP 19) ALB L 2.7 (SEP 20) L 3.0 (SEP 19) Troponin C 0.761 (SEP 20) C 0.772 (SEP 19) . Impression and Plan Acute saddle PE ; submassive -RV dysfunction -Nonsmoker and not on any hormonal therapy -No travel; last travel on 08/25. However, valeria has been immobile over the past few weeks -No known clotting disorders Cardiac -Evidence of RV strain on CT -Elevated troponin , likely due to PE -Tachycardia -HTN Renal -CARLOS Morbid obesity Prophylaxis -GI/DVT PLAN: Supplemental oxygen as needed Heparin drip TTE; official results to come Vascular Surgery consulted Probable EKOS in the AM Will need hypercoagulopathy workup I have personally evaluated the patient; history and review of systems, physical examination, laboratory studies and radiology data. I have actively directed the medical care, formulated diagnosis and plan and discussed it with our team. Prognosis: gaurded to good Full code UPDATE; S/P catheter directed thrombolysis this AM heparin and tPA . No hemodynamic instability. No change in symptom. Will need 3-6 months of anticoagulation. Will need hypercoagulable work up in the future after she gets off anticoagulation. We'll continue to monitor in ICU. CCT 33 min documented in this encounter Plan of Treatment Not on file documented as of this encounter Visit Diagnoses Not on filedocumented in this encounter
--- OUTSIDE RECORDS SUMMARY | 2024-12-01 14:43 | XMS_ITS | Encounter Summary ---
Author Organization [facility] ([place], [place], [place], [place]) Address [address] [place] [address] Care Team Providers Care Ocean Fishing Guide Name Role Phone Unavailable Primary Care Provider Unavailabl e Encounter Details Date Type Department Care Team (Late st Contact Info) Description 09/19/2018 Transcribed Document [facility] [place] Family Medicine [address] [place] [address] ProviderBrayden MD [facility] [place] [address] Social History Tobacco Use Types Packs/Day Years Used Date Smoking Tobacco: Never Assessed Comments Unknown Sex and Gender Information Value Date Recorded Sex Assigned at Not on file Legal Sex Female 2:25 PM CDT Gender Identity Not on file Sexual Orientation Not on file documented as of this encounter Miscellaneous Notes * Cerner Conversion Note - Historical ProviderMD - 09/19/2018 10:32 PM CDT Nutrition Assessment Entered On: 09/20/2018 15:02 EDT Performed On: 09/20/2018 15:[address]MA [address], LD Nutrition Assessment Nutrition Assessment Reason : Automatic referral ELMA MALONEY RD, LD - 09/20/2018 15:01 EDT Nutrition Recommendations Dietitian Recommendations : 09/20: Rec'd consult for BMI >40. Pt currently on clear liquid diet, to be advanced as able. No UWL or skin breakdown noted. RD will rescreen in 7-[address], LD - 09/20/2018 15:01 EDT documented in this encounter Plan of Treatment Not on file documented as of this encounter Visit Diagnoses Not on filedocumented in this encounter
--- OUTSIDE RECORDS SUMMARY | 2024-12-01 14:43 | XMS_ITS | Encounter Summary ---
Author Organization [employer] ([place], [place], [place], [place]) Address [address] [place] [address] Care Team Providers Care C Wpf Developer Name Role Phone Unavailable Primary Care Provider Unavailabl e Encounter Details Date Type Department Care Team (Late st Contact Info) Description 09/20/[address] [facility] [place] [facility] [place] [address] ProviderBrayden MD [facility] [place] [address] Social History Tobacco Use Types Packs/Day Years Used Date Smoking Tobacco: Never Assessed Comments Unknown Sex and Gender Information Value Date Recorded Sex Assigned at Not on file Legal Sex Female 2:25 PM CDT Gender Identity Not on file Sexual Orientation Not on file documented as of this encounter Miscellaneous Notes * Cerner Conversion Note - Brayden Bustillo MD - 09/20/2018 7:22 AM CDT Patient: MAKENNA POP Age: 58 Years Sex: Female : 1960 Chief Complaint SOB and chest pain Reason for Consultation Pulmonary Thrombolysis History of Present Illness Mrs. Pop is a very pleasant 58 year old female with HTN, CKD and HLD who presents with acute onset of chest pain and SOB yesterday evening. She had been having mild SOB for the past two weeks, after traveling to [place] on Mother's day weekend (18 [address] total road trip). She has no previous history of CAD, hypercoagulable disorder or DVT. She has never had anything like this before. Her chest pain improved in the ER and has resolved by the time he got to our hospital, but it is still present with SOB as well whenever she ambulates. She has mild SOB currently at baseline. She has no pain or edema in her legs. Review of Systems General: [Alert and oriented, well nourished, no acute distress]. Neurologic: [Awake, alert, and oriented X3, CN II-XII intact]. Eye: [PERRL, EOMI, normal conjuctiva]. HENT: [Normocephalic, clear tympanic membranes, normal hearing, moist oral mucosa, no scleral icterus, no sinus tenderness]. Neck: [Supple, non-tender, no carotid bruits, no JVD, no lymphadenopathy]. Lungs: [Clear to auscultation and percussion, non-labored respiration]. Heart: [Normal rate, regular rhythm, no murmur, gallop or edema]. +CP, + SOB Abdomen: [Soft, non-tender, non-distended, normal bowel sounds, no masses]. Musculoskeletal: [Normal range of motion and strength, no tenderness or swelling]. Skin: [Skin is warm, dry and pink, no rashes or lesions]. Psychiatric: [Cooperative, appropriate mood and affect]. Vital Signs T: 36.8 ??C TMIN: 36.8 ??C TMAX: 36.9 ??C HR: 72(Monitored) RR: 15 BP: 125/77 SpO2: 99% HT: 175.26 cm WT: 151.3 kg BMI: 49.3 Oxygen Settings (Last) Oxygen Therapy Mode: Nasal cannula (09/20/18 06:00:00 EDT) Oxygen Flow Rate: 4 Liter/Min (09/20/18 06:00:00 EDT) Physical Exam General: [Alert and oriented, well nourished, no acute distress]. Neurologic: [Awake, alert, and oriented X3, CN II-XII intact]. Eye: [PERRL, EOMI, normal conjuctiva]. HENT: [Normocephalic, clear tympanic membranes, normal hearing, moist oral mucosa, no scleral icterus, no sinus tenderness]. Neck: [Supple, non-tender, no carotid bruits, no JVD, no lymphadenopathy]. Lungs: [Clear to auscultation and percussion, non-labored respiration]. Heart: [Normal rate, regular rhythm, no murmur, gallop or edema]. Abdomen: [Soft, non-tender, non-distended, normal bowel sounds, no masses]. Musculoskeletal: [Normal range of motion and strength, no tenderness or swelling]. Skin: [Skin is warm, dry and pink, no rashes or lesions]. Psychiatric: [Cooperative, appropriate mood and affect]. Peripheral pulses palpable (DP) without edema Assessment/Plan 58 year old female with saddle PE, trop elevation to 0.7 with RV strain on CTA as well. Pulmonary thrombolysis is indicated for her RV strain and elevated troponins. I have explained the risks of the procedure, including life-threatening hemorrhage, bleeding, distal embolization and contrast nephropathy. She understands the risks and agrees to proceed. Margy Fletcher MD Vascular Surgery Other pulmonary embolism with acute cor pulmonale, Other pulmonary embolism with acute cor pulmonale Orders: alteplase 4 mg + Sodium Chloride 0.9% intravenous solution 96 mL, 96 mL, Bag Volume (mL) = 100, Rate = 12.5 mL/Hr, IntraCATHeter, start date 09/20/18 7:10:00 EDT, Routine alteplase 4 mg + Sodium Chloride 0.9% intravenous solution 96 mL, 96 mL, Bag Volume (mL) = 100, Rate = 12.5 mL/Hr, IntraCATHeter, start date 09/20/18 7:11:00 EDT, Routine alteplase 5 mg + syringe 1 Each, IntraCATHeter, Inj, 1-Time, Administer over 0 Hour(s), Start 09/20/18 8:00:00 EDT, Stop 09/20/18 8:00:00 EDT, 0 mL/Hr alteplase 5 mg + syringe 1 Each, IntraCATHeter, Inj, 1-Time, Administer over 0 Hour(s), Start 09/20/18 8:00:00 EDT, Stop 09/20/18 8:00:00 EDT, 0 mL/Hr heparin 25,000 Units + NaCl 0.45% Premix Diluent 250 mL, 250 mL, Bag Volume (mL) = 250, Rate = 2.5 mL/Hr, IntraCATHeter, start date 09/20/18 7:12:00 EDT, Routine heparin 25,000 Units + NaCl 0.45% Premix Diluent 250 mL, 250 mL, Bag Volume (mL) = 250, Rate = 2.5 mL/Hr, IntraCATHeter, start date 09/20/18 7:11:00 EDT, Routine Sodium Chloride 0.9% intravenous solution 1,000 mL, 1,000 mL, Bag Volume (mL) = 1,000, Rate = 35 mL/Hr, IntraCATHeter, start date 09/20/18 7:14:00 EDT, Routine Sodium Chloride 0.9% intravenous solution 1,000 mL, 1,000 mL, Bag Volume (mL) = 1,000, Rate = 35 mL/Hr, IntraCATHeter, start date 09/20/18 7:13:00 EDT, Routine PTT Heparin Protocol VTE Prophylaxis - Medical Sequential Compression Device Start: 09/19/18 22:03:00 EDT, Bilateral, Length: Knee High, While patient is in bed, Continuous Order (DENNIS KULKARNI) Provider Information Primary Care Physician - SANDER, ROBI Attending Physician - DENNIS KULKARNI DO Admitting Physician - DENNIS KULKARNI DO Consulting Physician - MARGY FLETCHER MD (Vascular surgery)- Saddle PE Consulting Physician - ANITA HERNANDEZ MD - saddle PE Consulting Physician - LUISAROSOUTH-LITA AVILES MD Referring Physician - DENNIS KULKARNI DO Problem List/Past 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 Ongoing GERD - Gastro-esophageal reflux disease HLD - Hyperlipidemia HTN - Hypertension IBS - Irritable bowel syndrome Historical No qualifying data Medications Inpatient alteplase 5 mg + syringe 1 Each alteplase 5 mg + syringe 1 Each alteplase injection 4 mg + Sodium Chloride 0.9% intravenous solution 96 mL alteplase injection 4 mg + Sodium Chloride 0.9% intravenous solution 96 mL heparin injection 25,000 Units + NaCl 0.45% Premix Diluent 250 mL heparin injection 25,000 Units + NaCl 0.45% Premix Diluent 250 mL heparin injection 25,000 Units + NaCl 0.45% Premix Diluent 250 mL Normal Saline 1,000 mL, 1000 mL, IntraCATHeter Normal Saline 1,000 mL, 1000 mL, IntraCATHeter Normal Saline 1,000 mL, 1000 mL, IntraVENous Home fluticasone furoate 50 mcg inhalation powder, Inhalation, [id number] Linzess 72 mcg oral capsule, Oral, Daily lisinopril 20 mg oral tablet, Oral, Daily meclizine 25 mg oral tablet, 25 mg= 1 Tab, Oral, Daily omeprazole, 40 mg, Oral, Daily oxybutynin 10 mg/24 hr oral tablet, extended release, Oral, Daily Allergies No Known Medication Allergies Social History negative for ETOH Family History negative for hypercoag disorder Diagnostic Results CTA reviewed from 09/19 - there is a large saddle PE with occlusion of the main PA branches Lab Results Test Name Test Result Date/Time Sodium Level 141 mmol/L 09/20/2018 04:11 EDT Sodium Level 141 mmol/L 09/19/2018 22:10 EDT Potassium Level 3.8 mmol/L 09/20/2018 04:11 EDT Potassium Level 3.8 mmol/L 09/19/2018 22:10 EDT Chloride Level 109 mmol/L 09/20/2018 04:11 EDT Chloride Level 107 mmol/L 09/19/2018 22:10 EDT Carbon Dioxide Level 27 mmol/L 09/20/2018 04:11 EDT Carbon Dioxide Level 28 mmol/L 09/19/2018 22:10 EDT Anion Gap 9 09/20/2018 04:11 EDT Anion Gap 10 09/19/2018 22:10 EDT Glucose Level 104 mg/dL 09/20/2018 04:11 EDT Glucose Level 124 mg/dL (High) 09/19/2018 22:10 EDT Blood Urea Nitrogen 19 mg/dL 09/20/2018 04:11 EDT Blood Urea Nitrogen 19 mg/dL 09/19/2018 22:10 EDT Creatinine Level 1.00 mg/dL 09/20/2018 04:11 EDT Creatinine Level 1.30 mg/dL (High) 09/19/2018 22:10 EDT eGFR >60 mL/min/1.73m2 09/20/2018 04:11 EDT eGFR 51 mL/min/1.73m2 (Low) 09/19/2018 22:10 EDT eGFR NonAfrican 57 mL/min/1.73m2 (Low) 09/20/2018 04:11 EDT eGFR NonAfrican 42 mL/min/1.73m2 (Low) 09/19/2018 22:10 EDT Bun/Creatinine 19.0 09/20/2018 04:11 EDT Bun/Creatinine 14.6 09/19/2018 22:10 EDT Calcium Level 8.6 mg/dL 09/20/2018 04:11 EDT Calcium Level 8.9 mg/dL 09/19/2018 22:10 EDT Protein Total 6.1 Gram/dL (Low) 09/20/2018 04:11 EDT Protein Total 6.8 Gram/dL 09/19/2018 22:10 EDT Albumin Level 2.7 Gram/dL (Low) 09/20/2018 04:11 EDT Albumin Level 3.0 Gram/dL (Low) 09/19/2018 22:10 EDT Globulin 3.4 Gram/dL 09/20/2018 04:11 EDT Globulin 3.8 Gram/dL 09/19/2018 22:10 EDT A/G Ratio 0.8 (Low) 09/20/2018 04:11 EDT A/G Ratio 0.8 (Low) 09/19/2018 22:10 EDT Bilirubin Total 0.4 mg/dL 09/20/2018 04:11 EDT Bilirubin Total 0.4 mg/dL 09/19/2018 22:10 EDT Alk Phos 95 Units/Liter 09/20/2018 04:11 EDT Alk Phos 107 Units/Liter 09/19/2018 22:10 EDT AST 14 Units/Liter 09/20/2018 04:11 EDT AST 17 Units/Liter 09/19/2018 22:10 EDT ALT 20 Units/Liter 09/20/2018 04:11 EDT ALT 23 Units/Liter 09/19/2018 22:10 EDT Magnesium Level 2.3 mg/dL 09/20/2018 04:11 EDT Troponin I Ultra 0.761 ng/mL (Critical) 09/20/2018 04:11 EDT Troponin I Ultra 0.772 ng/mL (Critical) 09/19/2018 22:10 EDT ProBNP 337 pg/mL (High) 09/19/2018 22:10 EDT WBC 9.6 K/uL 09/20/2018 04:11 EDT WBC 11.4 K/uL (High) 09/19/2018 22:10 EDT RBC 4.09 Million/uL 09/20/2018 04:11 EDT RBC 4.49 Million/uL 09/19/2018 22:10 EDT Hgb 11.6 g/dL 09/20/2018 04:11 EDT Hgb 12.6 g/dL 09/19/2018 22:10 EDT Hct 34.9 % 09/20/2018 04:11 EDT Hct 39.0 % 09/19/2018 22:10 EDT MCV 85.3 fL 09/20/2018 04:11 EDT MCV 86.9 fL 09/19/2018 22:10 EDT MCH 28.4 pg 09/20/2018 04:11 EDT MCH 28.1 pg 09/19/2018 22:10 EDT MCHC 33.2 Gram/dL 09/20/2018 04:11 EDT MCHC 32.3 Gram/dL 09/19/2018 22:10 EDT Platelet Count 183 K/uL 09/20/2018 04:11 EDT Platelet Count 206 K/uL 09/19/2018 22:10 EDT MPV 10.4 fL 09/20/2018 04:11 EDT MPV 10.1 fL 09/19/2018 22:10 EDT RDW 15.5 % (High) 09/20/2018 04:11 EDT RDW 15.5 % (High) 09/19/2018 22:10 EDT Neut % 66.8 % 09/20/2018 04:11 EDT Neut % 70.3 % 09/19/2018 22:10 EDT Neut # 6.42 K/uL (High) 09/20/2018 04:11 EDT Neut # 7.99 K/uL (High) 09/19/2018 22:10 EDT Lymph % 24.7 % 09/20/2018 04:11 EDT Lymph % 21.9 % 09/19/2018 22:10 EDT Lymph # 2.38 x10(3)/uL 09/20/2018 04:11 EDT Lymph # 2.49 x10(3)/uL 09/19/2018 22:10 EDT Leslie % 6.1 % 09/20/2018 04:11 EDT Leslie % 5.6 % 09/19/2018 22:10 EDT Leslie # 0.59 K/uL 09/20/2018 04:11 EDT Leslie # 0.64 K/uL 09/19/2018 22:10 EDT Eos % 1.1 % 09/20/2018 04:11 EDT Eos % 0.9 % 09/19/2018 22:10 EDT Eos # 0.11 x10(3)/uL 09/20/2018 04:11 EDT Eos # 0.10 x10(3)/uL 09/19/2018 22:10 EDT Baso % 0.3 % 09/20/2018 04:11 EDT Baso % 0.3 % 09/19/2018 22:10 EDT Baso # 0.03 x10(3)/uL 09/20/2018 04:11 EDT Baso # 0.03 x10(3)/uL 09/19/2018 22:10 EDT Slide Review No 09/20/2018 04:11 EDT Slide Review No 09/19/2018 22:10 EDT IG# 0.10 x10(3)/uL (High) 09/20/2018 04:11 EDT IG# 0.11 x10(3)/uL (High) 09/19/2018 22:10 EDT IG% 1.00 % (High) 09/20/2018 04:11 EDT IG% 1.00 % (High) 09/19/2018 22:10 EDT PT 10.7 Second(s) 09/19/2018 22:10 EDT INR 1.0 09/19/2018 22:10 EDT D Dimer Quant See Comment 09/19/2018 22:10 EDT PTT Heparin 220.8 Second(s) (Critical) 09/20/2018 04:11 EDT PTT Heparin 87.8 Second(s) (Critical) 09/19/2018 22:10 EDT Procalcitonin <0.25 ng/mL 09/19/2018 22:10 EDT documented in this encounter Plan of Treatment Not on file documented as of this encounter Visit Diagnoses Not on filedocumented in this encounter
--- OUTSIDE RECORDS SUMMARY | 2024-12-01 14:43 | XMS_ITS | Encounter Summary ---
Author Organization [employer] ([place], [place], [place], [place]) Address [address] [place] [address] Care Team Providers Care Head Of Data Name Role Phone Unavailable Primary Care Provider King handy Encounter Details Date Type Department Care Team (Late st Contact Info) Description 09/21/2018 Transcribed Document [facility] [place] Family Medicine Formerly [facility] [place] [address] ProviderBrayden MD [facility] [place] [address] Social History Tobacco Use Types [...] ProviderMD - 09/21/2018 6:59 PM CDT Evaluation, Occupational Therapy Entered On: 09/22/2018 10:45 EDT Performed On: 09/22/2018 9:19 EDT by RAKAN JAMES OTR/Zbigniew General Information, OT Visit Type, OT : Initial evaluation Patient Orders : Order Date Order Ordering 09/21/2018 18:59 Occupational Therapy Evaluation and Treatme Ordered By: DENNIS KULKARNI DO Active Diagnoses : No Qualifying Diagnoses Admission Date : 09/19/2018 22:06 Co-treated by, OT : Physical Therapist Personal Devices : Personal Devices No Devices Recorded Assistive Devices : Assistive Devices No Devices Recorded General Information Comment, OT : 58 yo female who was admitted to [facility] on 09/19 for progressive worsening of SOB and saddle PE. PMHx: HTN and HLD. RAKAN JAMES OTR/L - 09/22/2018 10:40 EDT General Status Patient Received Status : Up in chair Treatment Start Time : 09/22/2018 9:07 EDT Patient Left Status : Up in chair, RN/PCT informed, All needs met and within reach RN/PCT Informed Comment : CHRISTOPHER Barker Treatment End Time : 09/22/2018 9:19 EDT Treatment Time : 12 Minute(s) RAKAN JAMES OTR/Zbigniew 09/22/2018 10:40 EDT History and Environment, OT Living Situation, Therapy : Home Patient Lives With : Alone Persons Assisting Patient at Home : Alone Professional Skilled Services : None Persons Providing Information : Patient Home Equipment, Therapy : None Home Setup : One story Stairs : No Ramp : No RAKAN JAMES OTR/Zbigniew - 09/22/2018 10:40 EDT Prior LOF Bathing, OT : Independent Prior LOF Bed Mobility : Independent Prior LOF Upper Body Dressing, OT : Independent Prior LOF Lower Body Dressing, OT : Independent Prior LOF Toileting : Independent Prior LOF Transfer : Independent Prior LOF Grooming, OT : Independent Prior LOF for IADLs, OT : Independent RAKAN JAMES OTR/Zbingiew - 09/22/2018 10:40 EDT Upper Extremity Upper Extremity Dominance : Right Right UE Active ROM : WFL Right UE Strength : WFL Left UE Active ROM : WFL Left UE Strength : WFL Upper Extremity Strength Impaired : No Right UE Strength : WFL Left UE Strength : WFL Upper Extremity Comment : BUE ROM and MMT WFL RAKAN JAMES OTR/Zbigniew - 09/22/2018 10:40 EDT Self Care/Home Management, OT Self Feeding Assist Level, OT : Independent, complete Grooming Assist Level, OT : Independent, complete Bathing Assist Level, OT : Independent, complete Upper Body Dressing Assist Level, OT : Independent, complete Lower Body Dressing Assist Level, OT : Independent, complete Toileting Assist Level : Independent, complete Toilet Transfer Assist Level : Independent, complete RAKAN JAMES OTR/Zbigniew 09/22/2018 10:40 EDT Mobility Device/Prosthesis/Wt Bearing Weight Bearing Status Maintained : Yes Weight Bearing Status : As tolerated RAKAN JAMES OTR/Zbigniew - 09/22/2018 10:40 EDT Functional Mobility Mobility Grid Sit to Stand : Supervision/set-up Stand to Sit : Supervision/set-up RAKAN JAMES OTVladimir/Zbigniew 09/22/2018 10:40 EDT Sit to Stand Device : Belt, gait Chair to Bed Device : Belt, gait RAKAN JAMES, OTR/Zbigniew 09/22/2018 10:40 EDT Cognition Assessment, OT Orientation : Oriented x 4 Cognition Assessment, OT : Intact Comprehension Assessment, OT : Intact RAKAN JAMES, BRIAN/Zbigniew 09/22/2018 10:40 EDT Visual/Perceptual/Vestibular, OT Vision Assessment, OT : Intact RAKAN JAMES, OTVladimir/Zbigniew 09/22/2018 10:40 EDT Education OT Occupational Therapy Education Grid Functional Mobility Training : Returns demonstration Role of Occupational Therapy : Verbalizes understanding RAKAN JAMES BRIAN/Zbigniew 09/22/2018 10:40 EDT Teaching/Learning Assessment Barriers To Learning : None evident Individuals Taught : Patient Readiness to Learn : Cooperative Readiness to Learn : Explanation Learning Style Preferences Patient : None RAKAN JAMES, BRIAN/Zbigniew 09/22/2018 10:40 EDT Indication Assessment, OT Occupational Therapy Indicated : No Occupational Therapy Not Indicated : No skilled services indicated RAKAN JAMES BIRANZbigniew 09/22/2018 10:40 EDT Plan of Care, OT OT Tx Plan/Goals Established w Patient : No Reason OT Treatment/Plan Not Established : Pt independent with all ADLs and fxnl mobility RAKAN JAMESBRIAN/Zbigniew 09/22/2018 10:40 EDT Treatment Note Subjective Comment : Pt and RN okay'd OT eval at this time Patient's Response to Treatment : Pt tolerated OT eval well Additional Objective Information : Pt sitting up in chair upon OT arrival. Pt tolerated BUE ROM and MMT. Pt stood with supervision, no AD. Pt walked ~425ft with supervision while pushing IV pole, no AD. Pt returned to room and sat in chair with supervision. Pt c/o mild SOB, O2 at 91% on room air. Pt left sitting up in chair with call light/phoen within reach. Assessment : No OT concerns at this time. Plan for Treatment : Defer OT WILANGIRAKAN BRIAN Handy/Zbigniew - 09/22/2018 10:40 EDT Pain Assessment Pain Scaled Used : 0-10 Pain scale Pain Score Pre-Intervention : 0 RAKAN JAMES OTR/L - 09/22/2018 10:40 EDT Image 1 - Images currently included in the form version of this document have not been included in the text rendition version of the form. Anticipated Discharge Needs, OT/PT Anticipated Discharge to : Home, independently Recommend Continued Therapy at Discharge : No RAKAN JAMES OTR/Zbigniew - 09/22/2018 10:[address] OT Charges OT Eval Low Complexity : 1 RAKAN JAMES OTR/Zbigniew - 09/22/2018 10:40 EDT documented in this encounter Plan of Treatment Not on file documented as of this encounter Visit Diagnoses Not on filedocumented in this encounter
--- NOTE | 2024-12-01 14:44 | XR_ITS ---
FINAL REPORT CLINICAL HISTORY: RIGHT HIP PAIN COMPARISON: None FINDINGS: RIGHT HIP 3 views of the right hip demonstrate no acute fracture or dislocation. The joint spaces demonstrate mild to moderate degenerative change, with subchondral sclerosis. There are osteophytes at the acetabular margin. The visualized bony structures are well aligned. No soft tissue abnormality is seen. The left hip demonstrates a total hip replacement. IMPRESSION: Moderate changes of osteoarthritis of the right hip. Reviewed, Interpreted and Dictated by Godwin Fitch MD Transcribed by Minda Barnes Authenticated and [facility]
== END 2024-12-01 23:59 | disposition home or self-care (01) ==
LOC: RAD 14:41
PROVIDERS: PCP Nurse Practitioner; Visit Provider Nurse Practitioner
DX: M16.11 Unilateral primary osteoarthritis, right hip (principal)
CPT/HCPCS: 73502

== ENCOUNTER 2024-12-09 09:48 | Outpatient (CLI) | payer MEDICARE, MEDICAID, SELFPAY ==
--- OUTSIDE RECORDS SUMMARY | 2024-12-09 09:51 | XMS_ITS | Encounter Summary ---
Author Organization [employer] ([place], [place], [place], [place]) Address [address] [place] [address] Care Team Providers Care Baccarat Dealer Name Role Phone Unavailable Primary Care Provider Unavailabl e Encounter Details Date Type Department Care Team (Late st Contact Info) Description 09/20/2018 Transcribed Document [facility] [place] Former[facility] [place] [address] ProviderBrayden MD [facility] [place] [address] Social History Tobacco Use Types [...] Brayden ProviderMD - 09/20/2018 8:08 AM CDT [facility] Main OR IntraOp Summary Primary Physician: MARGY GONSALEZ MD Finalized Date/Time: 09/24/18 08:51:12 Pt. Name: JENNIFER POP /Sex: 1960 Female Med Rec #: [id number] Physician: DENNIS KULKARNI DO Financial #: [id number] Pt. Type: I Room/Bed: [facility] Admit/Disch: 09/19/18 22:06:00 - 09/22/18 15:17:00 Institution: [facility] IntraOp Case Attendance Entry 1 Entry 2 Entry 3 Case Attendee MARGY GONSALEZ MD Sherlock, Kristi, Murphy, Whitney, [employer] Angiography Tech Role Performed Surgeon/Proceduralist, Insurance Inspector Insurance Inspector First Time In 09/20/18 07:45:00 09/20/18 07:45:00 [...] Rodriguez RN MD Role Performed Anesthesiologist of MERCHANDISE SUPPORT ASSOCIATE/Nurse Electrical And Instrumentation Manager Orthodontic Treatment Coordinator, First Record Time In 09/20/18 07:45:00 09/20/18 [...] Dalal [employer] Pref Card Builder Role Performed Orthodontic Treatment Coordinator, Second Time In 09/20/18 07:45:00 Time Out 09/20/18 08:04:00 Procedure Aortogram Abdominal with Runoff Other Attendee Superficial Wound Closed By: Julio C Modified By: Dawson Chávez RN 09/20/18 09:06:22 [facility] IntraOp Case Attendance Audit 09/20/18 09:06:22 Hyperbaric Technologist: [id number] Modifier: [id number] 1 <+> Time Out 1 <*> Procedure [...] Procedure Aortogram Abdominal with Runoff 09/20/18 08:37:42 Hyperbaric Technologist: [id number] Modifier: [id number] 1 <*> Procedure Aortogram Abdominal with Runoff [...] 7 <*> Procedure Aortogram Abdominal with Runoff [facility] IntraOp Case Times Entry 1 Patient In Room Time 09/20/18 07:45:00 Out Room Time 09/20/18 08:57:00 Anesthesia Start Time 09/20/18 07:45:00 Stop Time 09/20/18 08:57:00 Surgery / Procedure Times Start Time 09/20/18 08:08:00 Stop Time 09/20/18 08:48:00 Last Modified By: Dawson Chávez RN 09/20/18 09:05:02 [facility] IntraOp Case Times Audit 09/20/18 09:05:02 Hyperbaric Technologist: [id number] Modifier: [id number] <+> 1 Out Room Time <+> 1 Stop Time 09/20/18 08:47:57 Hyperbaric Technologist: [id number] Modifier: [id number] <+> 1 Stop Time [facility] IntraOp Communication Entry 1 Entry 2 Communication To Family/Significant other Family/Significant other Comment start CLOSE Communication By LITA HERNANDEZ Willoughby, Toni, RN MD Date and Time 09/20/18 08:13:00 09/20/18 08:49:00 Last Modified By: Dawson Chávez RN Willoughby, Toni, RN 09/20/18 08:16:25 09/20/18 08:55:40 [facility] IntraOp Communication Audit 09/20/18 08:55:40 Hyperbaric Technologist: [id number] Modifier: [id number] <+> 2 Communication By <+> 2 Date and Time <+> 2 Communication To <+> 2 Comment [facility] IntraOp Departure from OR Entry 1 Integumentary Assessment Integumentary WDL Assessment WDL Transfer/Handoff Transfer to ICU - Cardiovascular Handoff Method Bedside/Face to face, Phone call Post-op Transport Stretcher/Fidelrzenobia Via Patient Transport MINH GALARZA CRNA, Accompanied by Dawson Chávez RN Last Modified By: Dawson Chávez RN 09/20/18 08:17:12 [facility] IntraOp Dressing and Packing Entry 1 Type Dressing Location OPSITE Wound Dressing Item 4x4's Applied By MARGY GONSALEZ MD Other Comments TEGADERM Last Modified By: Dawson Chávez RN 09/20/18 08:17:21 [facility] IntraOp Fire Risk Assessment Entry 1 Fire [...] Modified By: Dawson Chávez RN 09/20/18 08:17:35 [facility] IntraOp General Case Vp Account Director 1 Case Information OR OR 20 [facility] Case Level 1 Room Verified Yes Wound Class I - Clean Specialty SN Endovascular Anesthesia Type MAC ASA Class 4E Diagnosis Preop Diagnosis pulmonary embolism Postop Same As Preop No Postop Diagnosis see physician note Last Modified By: Dawson Chávez RN 09/20/18 08:18:02 [facility] IntraOp Intraoperative Assessment Entry 1 Handoff Method [...] Modified By: Dawson Chávez RN 09/20/18 08:18:23 [facility] IntraOp Intraoperative Equipment Entry 1 Type Monitoring Equipment Intraop Monitoring Blood Pressure Non-Invasive BP Device Source Blood Pressure Arm, right lower Location Pulse Oximeter Hand, left Probe Site Antiembolic Devices Scopes Photo/Video Documentation Last Modified By: Dawson Chávez RN 09/20/18 08:18:51 [facility] IntraOp Medication Admin Entry 1 Entry 2 Entry 3 Medication/Irrigant TOMMY VISIPAQUE 320MG 150 Xylocaine 1% 30ml vial TOMMY NACL 0.9PCT HPRN 200ML --[id number] --[id number] 1000U .5L --[id number] Combo Med List Time Administered Route of [...] Entry 5 Entry 6 Medication/Irrigant ALTEPLASE HEPARIN 26405 N/S 1000 Cc --[id number] UNITS/250ML Combo Med List Time Administered Route [...] RN 09/20/18 09:12:45 09/20/18 09:12:45 09/20/18 09:12:45 [facility] IntraOp Medication Admin Audit 09/20/18 09:12:45 Hyperbaric Technologist: [id number] Modifier: [id number] <+> 4 Medication/Irrigant <+> 4 Route of Administration <+> 4 Administered By <+> 4 Dose <+> 4 Unit of Measure <+> 5 Medication/Irrigant <+> 5 Route of Administration <+> 5 Administered By <+> 5 Dose <+> 5 Unit of Measure <+> 6 Medication/Irrigant <+> 6 Route of Administration <+> 6 Administered By <+> 6 Dose <+> 6 Unit of Measure 09/20/18 08:19:48 Hyperbaric Technologist: [id number] Modifier: [id number] <+> 3 Medication/Irrigant <+> 3 Route of Administration <+> 3 Administered By <+> 3 Dose <+> 3 Unit of Measure 09/20/18 08:19:19 Hyperbaric Technologist: [id number] Modifier: [id number] <+> 2 Medication/Irrigant <+> 2 Route of Administration <+> 2 Administered By <+> 2 Dose <+> 2 Unit of Measure [facility] IntraOp Patient Positioning Entry 1 Procedure Aortogram [...] Modified By: Dawson Chávez RN 09/20/18 08:20:29 [facility] IntraOp Patient Positioning Audit 09/20/18 08:20:29 Hyperbaric Technologist: [id number] Modifier: [id number] 1 <*> Procedure Aortogram Abdominal with Runoff 1 <*> Positioned By Dawson Chávez RN 09/20/18 08:20:10 Hyperbaric Technologist: [id number] Modifier: [id number] 1 <*> Procedure Aortogram Abdominal with Runoff 1 <*> Positioning Devices Head Rest, Safety Strap, Thighs, Sled Arm Rest [facility] IntraOp Sign In Entry 1 Patient, Site, [...] Modified By: Dawson Chávez RN 09/20/18 08:20:51 [facility] IntraOp Sign Out Entry 1 RN Confirmation [...] Modified By: Dawson Chávez RN 09/20/18 09:08:19 [facility] IntraOp Sign Out Audit 09/20/18 09:08:19 Hyperbaric Technologist: [id number] Modifier: [id number] <+> 1 RN Sign Out Signature Date/Time [facility] IntraOp Skin Prep Entry 1 Procedure Aortogram Abdominal with Runoff Prescribed N/A Pre-Surgical Prep Completed Prep Area BILATERAL GROINS Intraop Prep Integumentary WDL Assessment WDL Prep Agents Chloraprep Prep by Dawson Chávez RN Hair Removal Methods No hair removal performed Last Modified By: Dawson Chávez RN 09/20/18 08:18:07 [facility] IntraOp Surgical Procedures Entry 1 Procedure Aortogram Abdominal with Runoff Additional (PULMONARY ARTERIOGRAM Procedure WITH EKOS CATHETER Description PLACEMENT) Primary Procedure Yes Primary Surgeon MARGY GONSALEZ MD Start 09/20/18 08:08:00 Stop 09/20/18 08:48:00 Anesthesia Type MAC Specialty SN Endovascular Wound Class I - Clean Last Modified By: Dawson Chávez RN 09/20/18 09:05:30 [facility] IntraOp Surgical Procedures Audit 09/20/18 09:05:30 Hyperbaric Technologist: [id number] Modifier: [id number] 1 <*> Procedure Aortogram Abdominal with Runoff 1 <+> Stop 1 <*> Additional Procedure Description (PULMONARY ARTERIOGRAM) 09/20/18 08:38:24 Hyperbaric Technologist: [id number] Modifier: [id number] 1 <*> Procedure Aortogram Abdominal with Runoff 1 <+> Specialty [facility] IntraOP Time Out Entry 1 Procedure to [...] Anesthesia Provider None expected Last Modified By: Dawson Chávez RN 09/20/18 08:47:48 [facility] IntraOp X-Ray and Images Entry 1 X-Ray/Imaging Type Fluoroscopy Fluoroscopy Type Fixed Site BLLE,TRUNK [facility] Supervisor Name Helga Sosa, Angiography Tech Protective Devices No Used X-Ray and Imaging 12.2 MIN Comment Last Modified By: Dawson Chávez RN 09/20/18 09:06:16 Case Comments <None> Finalized By: YOSI BRIDGES Document Signatures Signed By: Dawson Chávez RN 09/20/18 09:08 Dawson Chávez RN 09/20/18 09:13 YOSI BRIDGES 09/24/18 08:51 Unfinalized History Date/Time Username Reason for Unfinalizing Freetext Reason for Unfinalizing 09/20/18 09:08 [id number] Finish Documentation 09/24/18 08:48 WATTSDR Correct Billing Electronically signed by Clary [facility] Conversion Dental Prosthetist Cerner at 08/03/2022 8:56 AM CDT documented in this encounter Plan of Treatment Not on file documented as of this encounter Visit Diagnoses Not on filedocumented in this encounter
--- OUTSIDE RECORDS SUMMARY | 2024-12-09 09:51 | XMS_ITS | Encounter Summary ---
Author Organization [employer] ([place], [place], [place], [place]) Address [address] [place] [address] Care Team Providers Care Crushing Mill Operator Name Role Phone Unavailable Primary Care Provider Unavailabl e Encounter Details Date Type Department Care Team (Late st Contact Info) Description 09/22/2018 Transcribed Document [facility] [place] Family Medicine [facility] [place] [address] ProviderBrayden MD [facility] [place] [address] Social History Tobacco Use Types [...]
--- OUTSIDE RECORDS SUMMARY | 2024-12-09 09:51 | XMS_ITS | Encounter Summary ---
Author Organization [employer] ([place], [place], [place], [place]) Address [address] [place] [address] Care Team Providers Care Byproducts Operator Name Role Phone Unavailable Primary Care Provider Unavailabl e Encounter Details Date Type Department Care Team (Late st Contact Info) Description 09/22/2018 Transcribed Document [facility] Radiology [address] [place] [address] Jose Antonio Shah MD [address] [facility] [place] [address] Social History Tobacco Use Types Packs/Day Years [...] access of right common femoral vein (7 Taiwanese sheath ??2) 2. Pulmonary arteriogram 3. Placement [...] I26.09 Orders: rivaroxaban, 15 mg, Oral, Tab, [id number], Routine, Start 09/22/18 9:00:00 EDT Medications REVIEWED [...]
--- OUTSIDE RECORDS SUMMARY | 2024-12-09 09:51 | XMS_ITS | Encounter Summary ---
Author Organization [employer] ([place], [place], [place], [place]) Address [address] [place] [address] Care Team Providers Care Information Technology Project Manager Name Role Phone Unavailable Primary Care Provider Unavailabl e Encounter Details Date Type Department Care Team (Late st Contact Info) Description 09/22/2018 Transcribed Document [facility] [place] [address] [place] [address] ProviderBrayden MD [address] [place] [address] Social History Tobacco Use Types [...] other side effects. General instructions ??? Take secj-xoz-oogovtj and prescription medicines only as told by [...] health care provider if you should wear rolhe-zpx-iuxh compression stockings. ??? Avoid sitting or lying [...] 03/30/2001 Document Revised: 05/05/2017 Document Reviewed: 05/05/2017 [employer] Interactive Patient Education ? 2019 [employer] documented in this encounter Plan of Treatment Not on file documented as of this encounter Visit Diagnoses Not on filedocumented in this encounter
--- OUTSIDE RECORDS SUMMARY | 2024-12-09 09:51 | XMS_ITS | Clinical Summary ---
Author Organization [employer] ([place], [place], [place], [place]) Address [address] [place] [address] Care Team Providers Care Cutch Cleaner Name Role Phone Unavailable Primary Care Provider [...]
--- OUTSIDE RECORDS SUMMARY | 2024-12-09 09:51 | XMS_ITS | Referral Summary ---
Author Organization [employer] ([place], [place], [place], [place]) Address [address] [place] [address] Care Team Providers Care Bilingual Teacher Name Role Phone Unavailable Primary Care [...]
--- OUTSIDE RECORDS SUMMARY | 2024-12-09 09:51 | XMS_ITS | Encounter Summary ---
Author Organization [email or web address] ([place], [place], [place], [place]) Address [address] [place] [address] Care Team Providers Care Plasterer Spot Name Role Phone Unavailable Primary Care Provider Unavailabl e Encounter Details Date Type Department Care Team (Late st Contact Info) Description 09/20/2018 Transcribed Document [facility] [place] [facility] [place] [address] ProviderBrayden MD [facility] [place] [address] Social History Tobacco Use Types [...] right common femoral vein (7 Citizen [place] sheath ??2) 2. Pulmonary arteriogram 3. Placement of bilateral pulmonary artery thrombolysis catheters (12 x 106 EKOS) SURGEON: Dr. Margy Fletcher M.D. MUFFLER HAND: None ANESTHESIA: Monitored anesthesia care with local [...] ultrasound guidance using a 4 [place] micropuncture kit. A 0.035 inch Glidewire advantage then used to access the inferior vena cava in retrograde fashion and a 7 [place] sheath was inserted. A second 7 Citizen [place] sheath was inserted adjacent to the access [...] artery trunk, and a 5 [place] glide sheath was then used to select [...]
--- OUTSIDE RECORDS SUMMARY | 2024-12-09 09:51 | XMS_ITS | Encounter Summary ---
Author Organization [employer] ([place], [place], [place], [place]) Address [address] [place] [address] Care Team Providers Care Vp Account Director Name Role Phone Unavailable Primary Care Provider Unavailabl e Encounter Details Date Type Department Care Team (Late st Contact Info) Description 09/27/2018 Transcribed Document [facility] [place] Family Medicine [facility] [place] [address] ProviderBrayden MD [place] [address] Social History Tobacco Use Types [...] 09/27/2018 12:42 EDT Electronically signed by Clary [facility] Conversion Policy Change Clerk Cerner at 08/03/2022 9:06 AM CDT documented in this encounter Plan of Treatment Not on file documented as of this encounter Visit Diagnoses Not on filedocumented in this encounter
--- OUTSIDE RECORDS SUMMARY | 2024-12-09 09:51 | XMS_ITS | Encounter Summary ---
Author Organization [employer] ([place], [place], [place], [place]) Address [address] [place] [address] Care Team Providers Care Team Supervisor Name Role Phone Unavailable Primary Care Provider Unavailabl e Encounter Details Date Type Department Care Team (Late st Contact Info) Description 09/20/2018 Transcribed Document [facility] [place] [address] [place] [address] ProviderBrayden MD [address] [place] [address] Social History Tobacco Use Types [...] 0.5 mg, IV Push, Q4H, PRN: Anxiety [place] 5 mg-325 mg oral tablet: 1 Tab, [...] Oral, TID, PRN: Cough fluticasone nasal: 1 Graham, Nasal, BID heparin injection 25,000 Units + [...] Refill(s) fluticasone 50 mcg/inh nasal spray: 1 Graham, Nasal, BID, 0 Refill(s) hydroCHLOROthiazide 12.5 mg [...] At Bedtime fluticasone 0.05% nasal spray 1 Graham, Nasal, BID pantoprazole EC 40 mg tab [...]
--- OUTSIDE RECORDS SUMMARY | 2024-12-09 09:51 | XMS_ITS | Encounter Summary ---
Author Organization [email or web address] ([place], [place], [place], [place]) Address [address] [place] [address] Care Team Providers Care Gate Tender Name Role Phone Unavailable Primary Care Provider Unavailabl e Encounter Details Date Type Department Care Team (Late st Contact Info) Description 09/19/2018 Transcribed Document [facility] [place] Family Medicine [facility] [place] [address] ProviderBrayden MD [facility] [place] [address] Social History Tobacco Use Types [...] - 09/19/2018 23:25 EDT Primary Language : Norwegian Communication Barrier : None Edson Cooper Rn [...] Scale Risk Level : 25-45 Medium Risk [place] Fall Interventions : Adequate lighting, Assistive devices [...] Source : Estimated Height Entry Format : [place] Height, Feet : 5 ft(Converted to: 152 [...] Body Mass Index : 49.3 kg/m2 (>HHI) [place] Body Weight : 66 kg Edson [...]
--- OUTSIDE RECORDS SUMMARY | 2024-12-09 09:51 | XMS_ITS | Encounter Summary ---
Author Organization [employer] ([place], [place], [place], [place]) Address [address] [place] [address] Care Team Providers Care Wringer Machine Operator Name Role Phone Unavailable Primary Care Provider Unavailabl e Encounter Details Date Type Department Care Team (Late st Contact Info) Description 09/25/2018 Transcribed Document [facility] [place] [facility] [place] [address] ProviderBrayden MD [facility] [place] [address] Social History Tobacco Use Types [...] access of right common femoral vein (7 [place] sheath ??2) 2. Pulmonary arteriogram 3. Placement [...] hyperlipidemia, and GERD who is transferred from [facility] with a saddle pulmonary embolus. The [...] TID fluticasone 50 mcg/inh nasal spray 1 [place], Nasal, BID hydroCHLOROthiazide 12.5 mg oral capsule [...] 10:58:00 EDT, Nurse Collect MTHFR [id number] and [id number], Sendout Specimen Type: Blood, Routine collect, 09/20/18 10:48:00 EDT, 1-Time, Stop: 09/20/18 11:00:00 EDT, Nurse Collect Prothrombin [id number] Mutations, Sendout Specimen Type: Blood, Routine collect, [...]
--- OUTSIDE RECORDS SUMMARY | 2024-12-09 09:51 | XMS_ITS | Encounter Summary ---
Author Organization [employer] ([place], [place], [place], [place]) Address [address] [place] [address] Care Team Providers Care Three Knife Trimmer Name Role Phone Unavailable Primary Care Provider Unavailabl e Encounter Details Date Type Department Care Team (Late st Contact Info) Description 09/19/2018 Transcribed Document [facility] Family Medicine [facility] [place] [address] ProviderBrayden MD [facility] [place] [address] Social History Tobacco Use Types [...] hyperlipidemia, and GERD who is transferred from [facility] with a saddle pulmonary embolus. The patient [...] furoate 50 mcg inhalation powder , Inhalation, [id number] Linzess 72 mcg oral capsule , Oral, [...] Lymph # 2.49 x10(3)/uL 09/19/2018 22:10 EDT [place] % 5.6 % 09/19/2018 22:10 EDT [place] # 0.64 K/uL 09/19/2018 22:10 EDT Eos [...] Full Code, Continuous Order Electronically signed by [facility], [facility] Conversion Patient Registration Clerk Cerner at 08/03/2022 9:03 AM CDT documented in this encounter Plan of Treatment Not on file documented as of this encounter Visit Diagnoses Not on filedocumented in this encounter
--- OUTSIDE RECORDS SUMMARY | 2024-12-09 09:51 | XMS_ITS | Encounter Summary ---
Author Organization [employer] ([place], [place], [place], [place]) Address [address] [place] [address] Care Team Providers Care Shot Coat Tender Name Role Phone Unavailable Primary Care Provider Unavailabl e Encounter Details Date Type Department Care Team (Late st Contact Info) Description 09/23/2018 Transcribed Document [facility] [place] Medicine [facility] [place] [address] ProviderBrayden MD [place] [address] Social History Tobacco Use Types [...] On: 09/23/2018 7:17 EDT by GIANNI COELLO Rn-Manager Recruiting Final Discharge Planning Discharge Arrangements : Patient Post-Acute Information Patient Name: MAKENNA POP Gender: Female : 64 Age: 58 Years No Post-Acute Placement(s) Listed No Post-Acute Service(s) Listed No [place] Referral(s) Listed Discharge To Care Management : Home/Residential/Jail or Self Care -01 GIANNI COELLO Rn-Manager Recruiting - 09/23/2018 7:17 EDT Final Narrative Note Final Narrative Note : Discharged on 09/22/2018 GIANNI COELLO Rn-Manager Recruiting - 09/23/2018 7:17 EDT documented in this encounter Plan of Treatment Not on file documented as of this encounter Visit Diagnoses Not on filedocumented in this encounter
--- OUTSIDE RECORDS SUMMARY | 2024-12-09 09:51 | XMS_ITS | Encounter Summary ---
Author Organization [employer] ([place], [place], [place], [place]) Address [address] [place] [address] Care Team Providers Care Guest Room Inspector Name Role Phone Unavailable Primary Care Provider Unavailabl e Encounter Details Date Type Department Care Team (Late st Contact Info) Description 09/22/2018 Transcribed Document [facility] [place] [facility] [place] [address] ProviderBrayden MD [facility] [place] [address] Social History Tobacco Use Types [...] SNEHA PHILLIPS, PT - 09/22/2018 16:16 EDT Inside Sales Advisor Goals Ambulation LTG Grid Goal #1 Device : None Distance : 500ft. Assist : Independent, complete Date to Meet : 10/06/2018 EDT Goal Status : Discontinue Comment : o2 sats >92% at end of 500ft of gait training. SNEHA PHILLIPS, PT - 09/22/2018 16:16 EDT Electronically signed by Davi Means Conversion Global Position System Technician Cerner at 08/03/2022 9:22 AM CDT documented in this encounter Plan of Treatment Not on file documented as of this encounter Visit Diagnoses Not on filedocumented in this encounter
--- OUTSIDE RECORDS SUMMARY | 2024-12-09 09:51 | XMS_ITS | Encounter Summary ---
Author Organization [employer] ([place], [place], [place], [place]) Address [address] [place] [address] Care Team Providers Care Transcribing Operator Head Name Role Phone Unavailable Primary Care Provider Unavailabl e Encounter Details Date Type Department Care Team (Late st Contact Info) Description 09/25/2018 Transcribed Document [facility] [place] [address] [place] [address] ProviderBrayden MD [facility] [place] [address] Social History Tobacco Use Types [...] Performed On: 09/25/2018 11:48 EDT by MINI WILL, RN Post Visit Phone Call Post Visit Phone Call History : First call, Second call, Left message MINI WILL, RN - 09/25/2018 11:48 EDT documented in this encounter Plan of Treatment Not on file documented as of this encounter Visit Diagnoses Not on filedocumented in this encounter
--- OUTSIDE RECORDS SUMMARY | 2024-12-09 09:52 | XMS_ITS | Encounter Summary ---
Author Organization [employer] ([place], [place], [place], [place]) Address [address] [place] [address] Care Team Providers Care Human Services Professional Name Role Phone Unavailable Primary Care Provider Unavailabl e Encounter Details Date Type Department Care Team (Late st Contact Info) Description 09/20/2018 Transcribed Document [facility] [place] [facility] [place] [address] ProviderBrayden MD [facility] [place] [address] Social History Tobacco Use Types [...] 49.3 kg/m2 Critical (09/19/18 22:05:00) Rapid Response Human Services Professional #1 : PETTY MARTINEZ, RN PETYT MARTINEZ RN - 09/20/2018 0:14 EDT Electronically signed by [facility], [facility] Conversion Parcel Post Carrier Cerner at 08/03/2022 9:23 AM CDT documented in this encounter Plan of Treatment Not on file documented as of this encounter Visit Diagnoses Not on filedocumented in this encounter
--- OUTSIDE RECORDS SUMMARY | 2024-12-09 09:52 | XMS_ITS | Encounter Summary ---
Author Organization [employer] ([place], [place], [place], [place]) Address [address] [place] [address] Care Team Providers Care Director Writing Name Role Phone Unavailable Primary Care Provider Unavailabl e Encounter Details Date Type Department Care Team (Late st Contact Info) Description 09/20/2018 Transcribed Document [facility] [place] [facility] [place] [address] ProviderBrayden MD [facility] [place] [address] Social History Tobacco Use Types [...] On: 09/20/2018 14:57 EDT by GIANNI COELLO Rn-Career Development Engineer Initial Assessment I Previously Documented Living Environment : No qualifying data available. Emergency Contact #1 : Saskia Emergency Contact #1 Emergency Contact #1 Relationship : daughter Emergency Contact #2 : caitlin Emergency Contact #2 Emergency Contact #2 Relationship : sister GIANNI COELLO Rn-Career Development Engineer - 09/20/2018 14:57 EDT Narrative Note Narrative Note : Day 1 - Saddle PE/SOA x 2 weeks Low Readmission Risk Vascular/Pulmonary Consults Heparin gtt; Echo; probable EKOS on 09/21/18 Attempted to interview; bedside RN Lyndsey requests patient not be disturbed due to anxiety and difficulty to calm patient. GIANNI COELLO Rn-Career Development Engineer - 09/20/2018 14:57 EDT documented in this encounter Plan of Treatment Not on file documented as of this encounter Visit Diagnoses Not on filedocumented in this encounter
--- OUTSIDE RECORDS SUMMARY | 2024-12-09 09:52 | XMS_ITS | Encounter Summary ---
Author Organization [employer] ([place], [place], [place], [place]) Address [address] [place] [address] Care Team Providers Care Health Director Name Role Phone Unavailable Primary Care Provider Unavailabl e Encounter Details Date Type Department Care Team (Late st Contact Info) Description 09/20/2018 Transcribed Document [facility] [place] [address] ProviderBrayden [place] [address] Social History Tobacco Use Types [...]
--- OUTSIDE RECORDS SUMMARY | 2024-12-09 09:52 | XMS_ITS | Encounter Summary ---
Author Organization [employer] ([place], [place], [place], [place]) Address [address] [place] [address] Care Team Providers Care Team Leader/Research Psychologist Name Role Phone Unavailable Primary Care Provider Unavailabl e Encounter Details Date Type Department Care Team (Late st Contact Info) Description 09/20/2018 Transcribed Document [facility] [place] [address] [place] [address] ProviderBrayden [place] [address] Social History Tobacco Use Types [...]
--- OUTSIDE RECORDS SUMMARY | 2024-12-09 09:52 | XMS_ITS | Encounter Summary ---
Author Organization [employer] ([place], [place], [place], [place]) Address [address] [place] [address] Care Team Providers Care Engineering Production Liaison Name Role Phone Unavailable Primary Care Provider Unavailabl e Encounter Details Date Type Department Care Team (Late st Contact Info) Description 09/21/2018 Transcribed Document [facility] [place] [address] [place] [address] ProviderBrayden MD [facility] [place] [address] Social History Tobacco Use Types [...]
--- OUTSIDE RECORDS SUMMARY | 2024-12-09 09:52 | XMS_ITS | Encounter Summary ---
Author Organization [employer] ([place], [place], [place], [place]) Address [address] [place] [address] Care Team Providers Care Ophthalmic Nurse Name Role Phone Unavailable Primary Care Provider Unavailabl e Encounter Details Date Type Department Care Team (Late st Contact Info) Description 09/22/2018 Transcribed Document [facility] [place] [address] [place] [address] ProviderBrayden MD [address] [place] [address] Social History Tobacco Use Types [...] Historical ProviderMD - 09/22/2018 2:00 AM CDT Motor Assembler Details Entered On: 09/22/2018 1:07 EDT Performed [...]
--- OUTSIDE RECORDS SUMMARY | 2024-12-09 09:52 | XMS_ITS | Encounter Summary ---
Author Organization [employer] ([place], [place], [place], [place]) Address [address] [place] [address] Care Team Providers Care Tree Faller Name Role Phone Unavailable Primary Care Provider Unavailabl e Encounter Details Date Type Department Care Team (Late st Contact Info) Description 09/20/2018 Transcribed Document [facility] [place] [address] [place] [address] ProviderBrayden MD [address] [place] [address] Social History Tobacco Use Types [...] Historical ProviderMD - 09/20/2018 2:00 AM CDT Pocket Marker Details Entered On: 09/20/2018 1:18 EDT Performed [...]
--- OUTSIDE RECORDS SUMMARY | 2024-12-09 09:52 | XMS_ITS | Encounter Summary ---
Author Organization [employer] ([place], [place], [place], [place]) Address [address] [place] [address] Care Team Providers Care Spray Booth Operator Name Role Phone Unavailable Primary Care Provider Unavailabl e Encounter Details Date Type Department Care Team (Late st Contact Info) Description 09/19/2018 Transcribed Document [facility] [place] [address] [place] [address] ProviderBrayden MD [facility] [place] [address] Social History Tobacco Use Types [...]
--- OUTSIDE RECORDS SUMMARY | 2024-12-09 09:52 | XMS_ITS | Encounter Summary ---
Author Organization [employer] ([place], [place], [place], [place]) Address [address] [place] [address] Care Team Providers Care Antique Clocks Repairer Name Role Phone Unavailable Primary Care Provider Unavailabl e Encounter Details Date Type Department Care Team (Late st Contact Info) Description 09/20/2018 Transcribed Document [facility] [place] [facility] [place] [address] ProviderBrayden MD [facility] [place] [address] Social History Tobacco Use Types [...] the past two weeks, after traveling to [place] on Mother's day weekend (18 hr total [...] fluticasone furoate 50 mcg inhalation powder, Inhalation, [id number] Linzess 72 mcg oral capsule, Oral, Daily [...] Lymph # 2.49 x10(3)/uL 09/19/2018 22:10 EDT [place] % 6.1 % 09/20/2018 04:11 EDT [place] % 5.6 % 09/19/2018 22:10 EDT [place] # 0.59 K/uL 09/20/2018 04:11 EDT [place] # 0.64 K/uL 09/19/2018 22:10 EDT Eos [...]
--- OUTSIDE RECORDS SUMMARY | 2024-12-09 09:52 | XMS_ITS | Encounter Summary ---
Author Organization [employer] ([place], [place], [place], [place]) Address [address] [place] [address] Care Team Providers Care Cage Shift Manager Name Role Phone Unavailable Primary Care Provider Unavailabl e Encounter Details Date Type Department Care Team (Late st Contact Info) Description 09/22/2018 Transcribed Document [facility] [place] [address] [place] [address] ProviderBrayden MD [facility] [place] [place] [address] Social History Tobacco Use Types [...]
--- OUTSIDE RECORDS SUMMARY | 2024-12-09 09:52 | XMS_ITS | Encounter Summary ---
Author Organization [employer] ([place], [place], [place], [place]) Address [address] [place] [address] Care Team Providers Care Skiff Operator Name Role Phone Unavailable Primary Care Provider Unavailabl e Encounter Details Date Type Department Care Team (Late st Contact Info) Description 09/20/2018 Transcribed Document [facility] [place] Family Medicine [address] [place] [address] ProviderBryaden MD [facility] [place] [address] Social History Tobacco Use Types [...]
--- OUTSIDE RECORDS SUMMARY | 2024-12-09 09:52 | XMS_ITS | Encounter Summary ---
Author Organization [employer] ([place], [place], [place], [place]) Address [address] [place] [address] Care Team Providers Care Administrative Court Justice Name Role Phone Unavailable Primary Care Provider King handy Encounter Details Date Type Department Care Team (Late st Contact Info) Description 09/20/2018 Transcribed Document [facility] [place] [facility] [address] ProviderBrayden [place] [address] Social History Tobacco Use Types [...] states was recently on a trip to [place], via car, did note bilateral leg swelling at time of trip, but not as much as they will often swell during trips niece with blood clot previously Health Status Allergies: Allergic Reactions (Selected) No Known Medication Allergies, Allergies (1) Active Reaction No Known Medication Allergies None Documented Current medications: (Selected) Inpatient Medications Ordered [place] 5 mg-325 mg oral tablet: 1 Tab, [...] Refill(s) fluticasone 50 mcg/inh nasal spray: 1 [place], Nasal, BID, 0 Refill(s) hydroCHLOROthiazide 12.5 mg [...] PTT H 75.1 (RICKI 07) AST 14 (RICKI 07) 17 (RICKI 06) ALT 20 (RICKI [...]
--- OUTSIDE RECORDS SUMMARY | 2024-12-09 09:52 | XMS_ITS | Encounter Summary ---
Author Organization [employer] ([place], [place], [place], [place]) Address [address] [place] [address] Care Team Providers Care White Sidewall Tire Buffer Name Role Phone Unavailable Primary Care Provider Unavailabl e Encounter Details Date Type Department Care Team (Late st Contact Info) Description 09/20/2018 Transcribed Document [facility] [place] [address] [place] [address] ProviderBrayden MD [facility] [place] [address] Social History Tobacco Use Types [...]
--- OUTSIDE RECORDS SUMMARY | 2024-12-09 09:52 | XMS_ITS | Encounter Summary ---
Author Organization [employer] ([place], [place], [place], [place]) Address [address] [place] [address] Care Team Providers Care Production Control Analyst Name Role Phone Unavailable Primary Care Provider King handy Encounter Details Date Type Department Care Team (Late st Contact Info) Description 09/21/2018 Transcribed Document [place] [facility] [place] [address] ProviderBrayden MD [facility] [place] [address] Social History Tobacco Use Types [...] 58 yo female who was admitted to [facility] on 09/19 for progressive worsening of SOB [...] for IADLs, OT : Independent RAKAN JAMES OTR/Zbigniew - 09/22/2018 10:40 EDT Upper Extremity Upper [...] : No skilled services indicated RAKAN JAMES BRIANZbigniew 09/22/2018 10:40 EDT Plan of Care, OT [...] RAKAN JAMES OTR/Zbigniew - 09/22/2018 10:40 EDT Electronically signed by Davi Means Conversion Senior Training And Development Rep Cerner at 08/03/2022 8:59 AM CDT documented in this encounter Plan of Treatment Not on file documented as of this encounter Visit Diagnoses Not on filedocumented in this encounter
--- OUTSIDE RECORDS SUMMARY | 2024-12-09 09:52 | XMS_ITS | Encounter Summary ---
Author Organization [employer] ([place], [place], [place], [place]) Address [address] [place] [address] Care Team Providers Care Day Care Aide Name Role Phone Unavailable Primary Care Provider Unavailabl e Encounter Details Date Type Department Care Team (Late st Contact Info) Description 09/21/2018 Transcribed Document [facility] Pulm & Critical Care Medicine [address] [place] [address] Loki Segundo MD [address] [place], [place] [id number] Social History Tobacco Use Types Packs/Day Years [...] 0.5 mg, IV Push, Q4H, PRN: Anxiety [place] 5 mg-325 mg oral tablet: 1 Tab, Oral, Q4H, PRN: Pain (Mild 1-3) Normal Saline 1,000 mL: 35 mL/Hr, IntraCATHeter Normal Saline 1,000 mL: 35 mL/Hr, IntraCATHeter Normal Saline 1,000 mL: 75 mL/Hr, IntraVENous Xarelto: 15 mg, Oral, [id number] acetaminophen-HYDROcodone 325 mg-5 mg oral tablet: 2 Tab, Oral, Q4H, PRN: Pain (Moderate 4-6) alteplase injection 4 mg + Sodium Chloride 0.9% intravenous solution 96 mL: 12.5 mL/Hr, IntraCATHeter alteplase injection 4 mg + Sodium Chloride 0.9% intravenous solution 96 mL: 12.5 mL/Hr, IntraCATHeter atorvastatin: 20 mg, Oral, At Bedtime benzonatate: 100 mg, Oral, TID, PRN: Cough fluticasone nasal: 1 [place], Nasal, BID heparin injection 25,000 Units + [...] Refill(s) fluticasone 50 mcg/inh nasal spray: 1 [place], Nasal, BID, 0 Refill(s) hydroCHLOROthiazide 12.5 mg [...] At Bedtime fluticasone 0.05% nasal spray 1 [place], Nasal, BID lisinopril 20 mg tab 20 mg 1 Tab, Oral, Daily pantoprazole EC 40 mg tab 40 mg 1 Tab, Oral, Daily rivaroxaban 15 mg tab 15 mg 1 Tab, Oral, [id number] Continuous: (8) alteplase 4 mg + NaCl [...] - Gastro-esophageal reflux disease / SNOMED CT 4305069565 / Confirmed HLD - Hyperlipidemia / SNOMED CT 957589762 / Confirmed HTN - Hypertension / SNOMED CT 0904392249 / Confirmed IBS - Irritable bowel syndrome / SNOMED CT 5329929873 / Confirmed, Active Problems (4) GERD - [...] Glu R 104 (RICKI 07) H 124 (RICKI 06) Ca 8.6 [...] 24 Hours) Radiology Results (Last 48 hours) [id number] -- 09/19/2018 22:06 CR Chest 1 Vw [...]
--- OUTSIDE RECORDS SUMMARY | 2024-12-09 09:52 | XMS_ITS | Encounter Summary ---
Author Organization [employer] ([place], [place], [place], [place]) Address [address] [place] [address] Care Team Providers Care Blueprinter Name Role Phone Unavailable Primary Care Provider Unavailabl e Encounter Details Date Type Department Care Team (Late st Contact Info) Description 09/21/2018 Transcribed Document [facility] [place] [address] [place] [address] ProviderBrayden MD [address] [place] [address] Social History Tobacco Use Types [...] Source : Estimated Height Entry Format : [place] Height, Feet : 5 ft Height, Inches [...]
--- OUTSIDE RECORDS SUMMARY | 2024-12-09 09:52 | XMS_ITS | Encounter Summary ---
Author Organization [employer] ([place], [place], [place], [place]) Address [address] [place] [address] Care Team Providers Care Sales And Service Engineer Name Role Phone Unavailable Primary Care Provider Unavailabl e Encounter Details Date Type Department Care Team (Late st Contact Info) Description 09/21/2018 Transcribed Document [facility] [place] [facility] [place] [address] ProviderBrayden MD [facility] [place] [address] Social History Tobacco Use Types [...] 0.5 mg, IV Push, Q4H, PRN: Anxiety [place] 5 mg-325 mg oral tablet: 1 Tab, Oral, Q4H, PRN: Pain (Mild 1-3) Normal Saline 1,000 mL: 35 mL/Hr, IntraCATHeter Normal Saline 1,000 mL: 35 mL/Hr, IntraCATHeter Normal Saline 1,000 mL: 75 mL/Hr, IntraVENous Xarelto: 15 mg, Oral, [id number] acetaminophen-HYDROcodone 325 mg-5 mg oral tablet: 2 Tab, Oral, Q4H, PRN: Pain (Moderate 4-6) alteplase injection 4 mg + Sodium Chloride 0.9% intravenous solution 96 mL: 12.5 mL/Hr, IntraCATHeter alteplase injection 4 mg + Sodium Chloride 0.9% intravenous solution 96 mL: 12.5 mL/Hr, IntraCATHeter atorvastatin: 20 mg, Oral, At Bedtime benzonatate: 100 mg, Oral, TID, PRN: Cough fluticasone nasal: 1 [place], Nasal, BID heparin injection 25,000 Units + [...] Refill(s) fluticasone 50 mcg/inh nasal spray: 1 [place], Nasal, BID, 0 Refill(s) hydroCHLOROthiazide 12.5 mg [...] At Bedtime fluticasone 0.05% nasal spray 1 [place], Nasal, BID lisinopril 20 mg tab 20 mg 1 Tab, Oral, Daily pantoprazole EC 40 mg tab 40 mg 1 Tab, Oral, Daily rivaroxaban 15 mg tab 15 mg 1 Tab, Oral, [id number] Continuous: (8) alteplase 4 mg + NaCl [...] EDT Height Source Estimated Height Entry Format [place] Height/Length, MALAYSIAN (ft) 5 ft Height/Length MALAYSIAN 9 Inch CLINICALHEIGHT 175.26 cm Routine Weight [...]
--- OUTSIDE RECORDS SUMMARY | 2024-12-09 09:52 | XMS_ITS | Encounter Summary ---
Author Organization [employer] ([place], [place], [place], [place]) Address [address] [place] [address] Care Team Providers Care Board Worker Name Role Phone Unavailable Primary Care Provider Unavailabl e Encounter Details Date Type Department Care Team (Late st Contact Info) Description 09/21/2018 Transcribed Document [facility] [place] Family Medicine [address] [place] [address] ProviderBrayden [place] [address] Social History Tobacco Use Types [...] Historical ProviderMD - 09/21/2018 2:00 AM CDT Adjunct Professor Of Voice Details Entered On: 09/21/2018 7:01 EDT Performed [...] Needs Assistance Arterial Line : No MOOSE STOO RN - 09/21/2018 7:01 EDT documented in this encounter Plan of Treatment Not on file documented as of this encounter Visit Diagnoses Not on filedocumented in this encounter
--- OUTSIDE RECORDS SUMMARY | 2024-12-09 09:52 | XMS_ITS | Encounter Summary ---
Author Organization [employer] ([place], [place], [place], [place]) Address [address] [place] [address] Care Team Providers Care Operations Trainer Name Role Phone Unavailable Primary Care Provider Unavailabl e Encounter Details Date Type Department Care Team (Late st Contact Info) Description 09/21/2018 Transcribed Document [facility] Radiology [address] [place] [address] Jose Antonio Shah MD [address] [facility] [place] [address] Social History Tobacco Use Types Packs/Day Years [...] access of right common femoral vein (7 Yi sheath ??2) 2. Pulmonary arteriogram 3. Placement [...] I26.09 Orders: rivaroxaban, 15 mg, Oral, Tab, [id number], STAT, Start 09/21/18 8:37:00 EDT Bedrest CBC [...]
--- OUTSIDE RECORDS SUMMARY | 2024-12-09 09:52 | XMS_ITS | Encounter Summary ---
Author Organization [employer] ([place], [place], [place], [place]) Address [address] [place] [address] Care Team Providers Care Chemistry Physics Teacher Name Role Phone Unavailable Primary Care Provider Unavailabl e Encounter Details Date Type Department Care Team (Late st Contact Info) Description 09/21/2018 Transcribed Document [facility] [place] [facility] [place] [address] ProviderBrayden MD [facility] [place] [address] Social History Tobacco Use Types [...] ROM : WFL Right LE Strength : [facility] LLE Active ROM : WFL Left LE Strength : [facility] FLAVIO POLANCO, PT - 09/22/2018 10:37 EDT [...] FLAVIO POLANCO, PT - 09/22/2018 10:37 EDT Residential Goals Ambulation LTG Grid Goal #1 Device [...]
--- OUTSIDE RECORDS SUMMARY | 2024-12-09 09:52 | XMS_ITS | Encounter Summary ---
Author Organization [employer] ([place], [place], [place], [place]) Address [address] [place] [address] Care Team Providers Care Travel Consultant Name Role Phone Unavailable Primary Care Provider Unavailabl e Encounter Details Date Type Department Care Team (Late st Contact Info) Description 09/22/2018 Transcribed Document [facility] [place] [address] [place] [address] ProviderBrayden MD [facility] [address] Social History Tobacco Use Types [...]
--- OUTSIDE RECORDS SUMMARY | 2024-12-09 09:52 | XMS_ITS | Encounter Summary ---
Author Organization [employer] ([place], [place], [place], [place]) Address [address] [place] [address] Care Team Providers Care Order Control Clerk Blood Bank Name Role Phone Unavailable Primary Care Provider Unavailabl e Encounter Details Date Type Department Care Team (Late st Contact Info) Description 09/22/2018 Transcribed Document [facility] [place] [facility] [place] [address] ProviderBrayden MD [facility] [place] [address] Social History Tobacco Use Types [...] Bustillo MD - 09/22/2018 2:[address] [facility] [place] [address] MAKENNA POP :1960 Visit Time:09/19/2018 [...] GONSALEZ When Within 1 month Where: [address] [place] [address]- Business (1) Medications What How Much When Instructions Next Dose rivaroxaban (Xarelto Starter Pack 15 mg-20 mg oral kit) See instructions Take as directed Pickup at [facility] linaclotide (Linzess 72 mcg [...] (fluticasone 50 mcg/ inh nasal spray) 1 [place](s) Nasal Two Times A Day hydroCHLOROthiazide (hydroCHLOROthiazide 12.5 mg oral capsule) 1 Capsule(s) Oral Every Day omeprazole (omeprazole 40 mg oral delayed release capsule) 1 Capsule(s) Oral Every Day before a meal Pharmacy Information [facility]: [address] [address] [phone] Take your medications faithfully. Do NOT skip [...] other side effects. General instructions ??? Take hywl-apn-nrigctx and prescription medicines only as told by [...] health care provider if you should wear ikrja-lgc-wohn compression stockings. ??? Avoid sitting or lying [...] 03/30/2001 Document Revised: 05/05/2017 Document Reviewed: 05/05/2017 [employer] Interactive Patient Education ?? 2019 [employer]. rivaroxaban (ANGELICA a ERNESTO a ban) Xarelto [...] may report side effects to FDA at 8-411-YCW-2326. What other drugs will affect rivaroxaban? Sometimes it is not safe to use certain medications at the same time. Some drugs can affect your blood levels of other drugs you take, which may increase side effects or make the medications less effective. Other drugs may affect rivaroxaban, including prescription and qypw-fko-udkjerz medicines, vitamins, and herbal products. Tell your [...] to ensure that the information provided by [employer]. ('[employer]') is accurate, up-to-date, and complete, but no guarantee is made to that effect. Drug information contained herein may be time sensitive. [employer] information has been compiled for use by healthcare practitioners and consumers in the [place] and therefore [employer] does not warrant that uses outside of the [place] are appropriate, unless specifically indicated otherwise. [employer] drug information does not endorse drugs, diagnose patients or recommend therapy. [employer] drug information is an informational resource designed [...] effective or appropriate for any given patient. [employer] does not assume any responsibility for any aspect of healthcare administered with the aid of information [employer] provides. The information contained herein is not intended to cover all possible uses, directions, precautions, warnings, drug interactions, allergic reactions, or adverse effects. If you have questions about the drugs you are taking, check with your doctor, nurse or pharmacist. Copyright 9835-4310 [employer]. Version: 6.01. Revision Date: 02/06/2018. Emergency Awareness [...] Assistance with quitting is available by contacting 9-245-CGBK-NOW. This is a free resource providing counseling, support, and referral. Or you may contact your personal physician. [employer] Suicide Prevention Lifeline: The National Suicide Prevention [...] Be sure to sign up for the [employer] patient portal, which gives you 06/11 access to your medical information ??? including these discharge instructions ??? using your computer, smartphone, or tablet. Just go to [employer] to get started. Questions? Call . Test [...] range between ( 0.0 and 7.0 ) [place] #: 0.24 K/uL -- Normal range between ( 0.16 and 1.00 ) Eos #: 0.10 x10(3)/uL -- Normal range between ( 0.00 and 0.80 ) [place] %: 3.1 % -- Normal range between [...] Lab Miscellaneous 09/21/18 15:11:00 [facility] Test Code: [id number] [facility] Test Name: Protein S Ag Diagnostic Radiology 09/19/18 23:40:00 CR Chest 1 Vw Portable: CR Chest 1 Vw Portable Echo 09/21/18 09:41:13 EC Echo Complete: EC Echo Complete Vascular Ultrasound 09/20/18 09:40:49 VL Veins LE Duplex BILAT: VL Veins LE Duplex BILAT Patient Name:MAKENNA POP I have received and understand this information and was given the opportunity to ask questions. Patient/Cereal Popper Name: Patient/Cereal Popper Signature: Relationship to Patient: Clinician/Hospital Cereal Popper Signature: Date: Electronically signed by [facility], [facility] Conversion Computing Architect German at 08/03/2022 9:08 AM CDT documented in this encounter Plan of Treatment Not on file documented as of this encounter Visit Diagnoses Not on filedocumented in this encounter
--- OUTSIDE RECORDS SUMMARY | 2024-12-09 09:52 | XMS_ITS | Clinical Summary ---
Author Organization Healthcare Address [address] [place] [address] Care Team Providers Care Computer Assistant Name Role Phone Deep Chavez MD Primary Care Provider [phone] Allergies Active Allergy Reactions Criticality Noted Date [...] - Risk 60-74 years 1-dose series) 2022 LIO-SSULQ-22 Vaccine (1 - 20 24-25 season) 2023 [...] topic Insurance MEDICAID-[place] [employer] MEDICARE Care Teams Computer Assistant Relationship Specialty Start Date End Date Deep Chavez MD [address] [place] [id number] PCP - General 08/27/20
--- OUTSIDE RECORDS SUMMARY | 2024-12-09 09:52 | XMS_ITS | Encounter Summary ---
Author Organization [employer] ([place], [place], [place], [place]) Address [address] [place] [address] Care Team Providers Care Farmworker Grain Name Role Phone Unavailable Primary Care Provider Unavailabl e Encounter Details Date Type Department Care Team (Late st Contact Info) Description 09/20/2018 Transcribed Document [facility] [address] [place] [address] Loki Segundo MD [address] [place], [place] [id number] Social History Tobacco Use Types Packs/Day Years [...] fluticasone furoate 50 mcg inhalation powder: Inhalation, [id number], 0 Refill(s) lisinopril 20 mg oral tablet: [...]
[2024-12-09 10:35] VITALS: PULSE 76; PULSE 80
[2024-12-09] MEDS: ALBUTEROL 0.083% 2.5 MG/3 ML NEB IH (10:35)
== END 2024-12-09 23:59 | disposition home or self-care (01) ==
LOC: RT 09:49
PROVIDERS: PCP Nurse Practitioner; Visit Provider Internal Medicine Pulmonary Disease
DX: J44.9 Chronic obstructive pulmonary disease, unspecified (principal); R94.2 Abnormal results of pulmonary function studies
CPT/HCPCS: 94060; 94618; 94640; 94726; 94729

== ENCOUNTER 2025-01-12 11:00 | Outpatient (RCR) | payer MEDICARE, MEDICAID, SELFPAY | END 2025-01-12 23:59 | disposition home or self-care (01) | LOC: PT 11:00 | PROVIDERS: PCP Nurse Practitioner; Visit Provider Nurse Practitioner | DX: M25.551 Pain in right hip (principal) | CPT/HCPCS: 97110; 97162 ==

== ENCOUNTER 2025-02-10 15:00 | Outpatient (RCR) | payer MEDICARE, MEDICAID, SELFPAY | END 2025-02-10 23:59 | disposition home or self-care (01) | LOC: PT 15:00 | PROVIDERS: PCP Nurse Practitioner; Visit Provider Nurse Practitioner | DX: M25.551 Pain in right hip (principal) | CPT/HCPCS: 97014; 97110; 97530; G0283 ==

== ENCOUNTER 2025-02-26 14:00 | Outpatient (RCR) | payer MEDICARE, MEDICAID, SELFPAY | END 2025-02-26 23:59 | disposition home or self-care (01) | LOC: PT 14:00 | PROVIDERS: PCP Nurse Practitioner; Visit Provider Nurse Practitioner | DX: M25.551 Pain in right hip (principal) | CPT/HCPCS: 97014; 97110; G0283 ==

== ENCOUNTER 2025-03-09 13:07 | Outpatient (CLI) | payer MEDICARE, MEDICAID, SELFPAY ==
--- NOTE | 2025-03-09 13:17 | US_ITS ---
FINAL REPORT TECHNIQUE: Limited sonographic images of the bilateral neck were obtained. CLINICAL HISTORY: PREAURICULA CYST FINDINGS: The right side of the neck shows a 16 mm nodule adjacent to or within the right parotid gland, likely a lymph node. There is an adjacent 8 mm second probable lymph node. There are 2 hypoechoic intraparotid nodules measuring 10 and 11 mm. These do not contain internal blood flow, could represent cysts but salivary gland neoplasm is not excluded. The left neck is unremarkable. IMPRESSION: Two hypoechoic nodules within the right parotid, could represent cysts or salivary gland neoplasm. Cervical lymph nodes, largest measures 16 mm which is nonspecific. Consider CT with contrast. Reviewed, Interpreted and Dictated by Norma Thakkar MD Transcribed by Rayne Wooten Authenticated and [facility]
== END 2025-03-09 23:59 | disposition home or self-care (01) ==
LOC: RAD 13:08
PROVIDERS: PCP Nurse Practitioner; Visit Provider Nurse Practitioner
DX: Q18.1 Preauricular sinus and cyst (principal); R59.0 Localized enlarged lymph nodes
CPT/HCPCS: 76536

== ENCOUNTER 2025-03-26 14:09 | Outpatient (CLI) | payer MEDICARE, MEDICAID, SELFPAY ==
--- NOTE | 2025-03-26 14:15 | CT_ITS ---
FINAL REPORT TECHNIQUE: Thin section axial CT images were obtained through the neck after intravenous contrast administration. Coronal and sagittal reformats were also obtained. This study was performed with techniques to keep radiation doses as low as reasonably achievable (ALARA). Individualized dose reduction techniques using automated exposure control or adjustment of mA and/or kV according to the patient's size were employed. CLINICAL HISTORY: ABNORMAL CT COMPARISON: None FINDINGS: The nasopharynx, oropharynx, hypopharynx and larynx are unremarkable. The thyroid gland is unremarkable. There is a dominant nodule in the inferior right parotid gland measuring 1.5 cm in diameter, seen on the image #23 of series 9 and image #15 of series 3. There is a second small nodule measuring 10 mm in size, best seen on image #24 of series 3. There are a few small scattered cervical lymph nodes noted bilaterally. There is soft tissue thickening in the maxillary and ethmoid air cells bilaterally without air-fluid levels. There is streak artifact secondary to fusion hardware at the C5-6 and C6-7 levels. Large anterior osteophytes are noted at the L4-5 level. Note is made of patchy ground glass opacities in the upper lobes bilaterally. IMPRESSION: There are 2 right parotid nodules identified, also seen on a prior ultrasound of 03/09/2025. These are well-circumscribed, and homogeneous, as well as nonspecific. Consider tissue sampling for further evaluation. No significant cervical adenopathy is identified. Patchy ground glass opacities are present in the upper lobes bilaterally. Reviewed, Interpreted and Dictated by Godwin Fitch MD Transcribed by Minda Barnes Authenticated and [facility]
--- NOTE | 2025-03-26 14:15 | CT_ITS ---
FINAL REPORT TECHNIQUE: CT examination of the head was performed after the administration of intravenous contrast from the vertex through the skull base. Multiplanar reconstructions in the sagittal and coronal planes were subsequently performed. This study was performed with techniques to keep radiation doses as low as reasonably achievable (ALARA). Individualized dose reduction techniques using automated exposure control or adjustment of mA and/or kV according to the patient's size were employed. CLINICAL HISTORY: ABNORMAL CT COMPARISON: None FINDINGS: CT HEAD WITH CONTRAST: CT examination of the head was performed after the administration of intravenous contrast. No prior exams are available for comparison purposes. The ventricles are normal in size and configuration. No extra-axial fluid collections are identified. There is no mass effect or midline shift. No evidence of abnormal parenchymal enhancement are identified. No major vessel abnormality is seen. There is mucoperiosteal thickening in the bilateral maxillary and ethmoid air cells. IMPRESSION: Intracranially unremarkable CT exam of the head with contrast. Mucoperiosteal thickening in the bilateral maxillary and ethmoid air cells. Reviewed, Interpreted and Dictated by Godwin Fitch MD Transcribed by Minda Barnes Authenticated and [facility]
[2025-03-26 14:42] LABS: Blood Urea Nitrogen 17 mg/dl (7-17); Creatinine,Serum 1.10 mg/dl (0.52-1.04); Estimated Glomerular Filt Rate 50 ml/min (>60); GFR (African American) 61 ML/MIN (>60)
[2025-03-26] MEDS: IOPAMIDOL-300 (61%) 100ML VIAL 85 ML IV (15:42)
[2025-03-26] MEDS: IOPAMIDOL-370 (76%);100ML BOTTLE 75 ML IV (15:42)
[2025-03-26] MEDS: SODIUM CHLORIDE 0.9% 10ML SYR (RAD ONLY) 10 ML IV (15:42)
== END 2025-03-26 23:59 | disposition home or self-care (01) ==
LOC: RAD 14:12
PROVIDERS: PCP Nurse Practitioner; Visit Provider Family Medicine
DX: R93.89 Abnormal findings on diagnostic imaging of other specified body structures (principal); R91.8 Other nonspecific abnormal finding of lung field
CPT/HCPCS: 36415; 70460; 70491; 82565; 84520; Q9967